=== PATIENT | female | born 1955 | race Caucasian/White ===

== ENCOUNTER 2020-07-24 11:21 | Outpatient (REF) | payer MEDICARE, SELFPAY ==
--- NOTE | 2020-07-24 11:24 | CT_ITS ---
EXAMINATION: CT CHEST WITHOUT CONTRAST CLINICAL INFORMATION: Abnormal finding. COMPARISON: Chest x-ray report of 09/26/2013. TECHNIQUE: Multidetector volumetric CT imaging of the chest was done. Axial MIP volume rendering provided. Sagittal and coronal reformatted images were obtained. This CT examination was performed using dose optimization techniques as appropriate, variously including the following: *Automated exposure control *Adjustment of mA and/or kV according to patient size (this includes techniques or standardized protocols for targeted exams where dose is matched to indication/reason for exam; i.e. extremities or head) *Use of iterative reconstruction technique DLP: 97 mGy-cm FINDINGS: LUNGS: Central airways are patent. There are severe changes of centrilobular emphysema. No bronchiectasis identified. No confluent parenchymal disease. There are some scattered calcified granulomas seen. There are some scattered sub-4 mm densities present. There is scarring present within the left upper lobe. There is a 4 mm noncalcified nodule seen within the left apex on image 59 of 609 in series #5. There is a 4 mm noncalcified nodule seen within the right middle lobe on image 371 of 609. There is a 4 mm noncalcified nodule seen within the right middle lobe on image 391 of 609. There is a 6 mm noncalcified subpleural nodule seen within the right middle lobe on image 347 of 609. 6 mm density associated with some linear stranding within the medial right middle lobe likely related to scarring on image 423 of 609. There is a 4 mm noncalcified nodule seen within the posterior aspect of the right upper lobe on image 214 of 609. There is a 7 mm noncalcified cylindrical density within the left lower lobe on image 392 of 609. There is a 6 mm density seen within the left lower lobe on image 307 of 609. There is a 5 mm pleural-based noncalcified density seen within the left lower lobe on image 462 of 609. There is an 8 mm noncalcified density seen at the right base adjacent to the hemidiaphragm. This is on image 522 of 609. MEDIASTINUM: No thyroid abnormality appreciated. Heart mildly enlarged. No pericardial effusion. No thoracic aortic aneurysm. No hilar or mediastinal lymphadenopathy. PLEURA: There is no pleural effusion. No pleural mass or thickening. AXILLA: No lymphadenopathy. UPPER ABDOMEN: There is a 2 cm left hepatic cyst. OSSEOUS STRUCTURES: No suspicious destructive bony lesion identified. CT/CT chest wo con IMPRESSION: Severe COPD. Numerous greater than 4 mm nodular densities as described. Old granulomatous disease. According to the UPDATED 2017 Fleischner Society recommendations, the advised follow-up imaging for multiple solid nodules, the largest measuring 6 mm or greater, is: LOW RISK PATIENT: CT at 3-6 months, then consider CT at 18-24 months. HIGH RISK PATIENT: CT at 3-6 months, then at 18-24 months.
== END 2020-07-24 11:22 | disposition home or self-care (01) ==
LOC: HO.CT 11:21
PROVIDERS: PCP Internal Medicine; Visit Provider Hospitalist
DX: R91.8 Other nonspecific abnormal finding of lung field (principal)
CPT/HCPCS: 71250

== ENCOUNTER → 2020-08-26 09:44 | Outpatient (BNVA) | payer MEDICARE, SELFPAY | PROVIDERS: PCP Internal Medicine; Visit Provider Hospitalist | DX: J43.2 Centrilobular emphysema (principal); R91.8 Other nonspecific abnormal finding of lung field; J96.11 Chronic respiratory failure with hypoxia; J96.12 Chronic respiratory failure with hypercapnia | CPT/HCPCS: 99212 ==

== ENCOUNTER 2021-01-12 09:50 | Outpatient (REF) | payer MEDICARE, SELFPAY ==
[2021-01-12 10:32] VITALS: O2SAT 95
[2021-01-12 11:54] LABS: ABG Base Excess 10.1 mmol/L; ABG HCO3 35 mmol/L (22-26); ABG pCO2 51 mmHg (32-45); ABG pCO2 TC 50 mmHg (32-45); ABG pH 7.44 (7.35-7.45); ABG pH TC 7.45 (7.35-7.45); ABG pO2 88 mmHg (83-108); ABG pO2 TC 86 (83-108)
--- NOTE | 2021-01-12 13:45 | PFT_ITS ---
INDICATION: COPD. SPIROMETRY: The FEV1 to FVC of 29% with an FEV1 of 0.47 L, which is 20% predicted, and an FVC of 1.65 L, which is 55% predicted. The patient had used her inhalers, so therefore, bronchodilators were not used. Her maximum voluntary ventilation 23% predicted. LUNG VOLUMES: Total lung capacity 113% predicted and residual volume 118% predicted. DIFFUSION CAPACITY: DLCO 21% predicted. COMPARISONS: The patient did have a spirometry done back at [facility] in 2018. INTERPRETATION: There is obstructive ventilatory defect consistent with very severe COPD. Again, bronchodilators were not used. There was a severe decrease in maximum voluntary ventilation secondary to deconditioning and also worsening dynamic inspiratory capacity. The patient has a trend of hyperinflation and significant air trapping due to the COPD and the patient has a very severe diffusion impairment secondary to emphysema. When compared to the spirometry from 2019, there was a trend improvement of the FVC. No significant change in the FEV1 and the other measurements were not available. Clinical correlation warranted. MD STEVE Gordon/YOKASTA / [id number]
== END 2021-01-12 09:51 | disposition home or self-care (01) ==
LOC: HO.RESP 09:50
PROVIDERS: Visit Provider Hospitalist
DX: J43.2 Centrilobular emphysema (principal); J96.11 Chronic respiratory failure with hypoxia; J96.12 Chronic respiratory failure with hypercapnia
CPT/HCPCS: 36600; 94010; 94727; 94729; 99212

== ENCOUNTER → 2021-05-14 10:16 | Outpatient (BNVA) | payer MEDICARE, SELFPAY | PROVIDERS: PCP Internal Medicine; Visit Provider Hospitalist | DX: Z01.811 Encounter for preprocedural respiratory examination (principal); J43.2 Centrilobular emphysema; J96.11 Chronic respiratory failure with hypoxia; J96.12 Chronic respiratory failure with hypercapnia; R91.8 Other nonspecific abnormal finding of lung field | CPT/HCPCS: 99212 ==

== ENCOUNTER → 2021-09-01 11:01 | Outpatient (BNVA) | payer MEDICARE, SELFPAY | PROVIDERS: PCP Internal Medicine; Visit Provider Hospitalist | DX: Z01.811 Encounter for preprocedural respiratory examination (principal); J43.2 Centrilobular emphysema; J96.11 Chronic respiratory failure with hypoxia; J96.12 Chronic respiratory failure with hypercapnia; R91.8 Other nonspecific abnormal finding of lung field; Z79.899 Other long term (current) drug therapy | CPT/HCPCS: Q3014 ==

== ENCOUNTER → 2021-11-09 09:49 | Outpatient (BNVA) | payer MEDICARE, SELFPAY | PROVIDERS: PCP Internal Medicine; Visit Provider Hospitalist | DX: J43.2 Centrilobular emphysema (principal); J96.11 Chronic respiratory failure with hypoxia; J96.12 Chronic respiratory failure with hypercapnia; R91.8 Other nonspecific abnormal finding of lung field; Z79.899 Other long term (current) drug therapy; Z99.81 Dependence on supplemental oxygen; Z23 Encounter for immunization | CPT/HCPCS: 90471; 90732; 99212 ==

== ENCOUNTER → 2022-02-07 10:51 | Outpatient (BNVA) | payer MEDICARE, SELFPAY | PROVIDERS: PCP Internal Medicine; Visit Provider Hospitalist | DX: J43.2 Centrilobular emphysema (principal); R91.8 Other nonspecific abnormal finding of lung field; J96.11 Chronic respiratory failure with hypoxia; J96.12 Chronic respiratory failure with hypercapnia | CPT/HCPCS: 99212 ==

== ENCOUNTER → 2022-05-13 11:09 | Outpatient (BNVA) | payer MEDICARE, SELFPAY | PROVIDERS: PCP Internal Medicine; Visit Provider Hospitalist | DX: J43.2 Centrilobular emphysema (principal); J96.11 Chronic respiratory failure with hypoxia; J96.12 Chronic respiratory failure with hypercapnia; R91.8 Other nonspecific abnormal finding of lung field | CPT/HCPCS: 99212 ==

== ENCOUNTER → 2022-11-04 10:14 | Outpatient (BNVA) | payer MEDICARE, SELFPAY | PROVIDERS: PCP Internal Medicine; Visit Provider Hospitalist | DX: J96.11 Chronic respiratory failure with hypoxia (principal); J96.12 Chronic respiratory failure with hypercapnia; J43.2 Centrilobular emphysema; R91.8 Other nonspecific abnormal finding of lung field | CPT/HCPCS: 99212 ==

== ENCOUNTER 2023-01-09 10:00 | Outpatient (REF) | payer MEDICARE, SELFPAY ==
[2023-01-09 10:14] LABS: MANUAL DIFF FLAG NO
[2023-01-09 10:17] LABS: Venous Blood Gas Refer to POC result
[2023-01-09 10:21] LABS: VBG Base Excess 20.3 mmol/L; VBG HCO3 48 mmol/L (22-26); VBG pCO2 73 mmHg; VBG pH 7.42 (7.32-7.43); VBG pO2 41 mmHg
[2023-01-09 10:42] LABS: Basophils Absolute Auto 0.1 X10*3/uL (0.0-0.2); Basophils Percent Auto 0.5 % (0-2); Eosinophils Absolute Auto 0.1 X10*3/uL (0.0-0.4); Eosinophils Percent Auto 1.3 % (0-4); Hematocrit 37.5 % (37.0-47.0); Hemoglobin 11.5 g/dl (12.0-16.0); Imm Gran Abs Auto 0.05 X10*3/uL (0.00-0.03); Imm Gran Pct Auto 0.5 % (0.0-0.4); Lymphocytes Absolute Auto 1.2 X10*3/uL (1.2-4.9); Lymphocytes Percent Auto 12.4 % (20-40); Mean Corpuscular HGB Conc 30.7 g/dl (31.0-35.0); Mean Corpuscular Hemoglobin 29.2 pg (27.0-33.0); Mean Corpuscular Volume 95.2 fL (80.0-98.0); Mean Platelet Volume 9.7 fL (9.4-12.3); Monocytes Absolute Auto 0.9 X10*3/uL (0.1-1.2); Monocytes Percent Auto 8.8 % (2-11); Neutrophils Absolute Auto 7.4 x10*3/uL (2.0-8.3); Neutrophils Percent Auto 76.5 % (45-73); Platelet Count 338 X10*3/uL (160-400); Red Blood Count 3.94 X10*6/uL (4.20-5.50); White Blood Count 9.7 X10*3/uL (4.8-10.8)
[2023-01-09 11:21] LABS: Erythrocyte Sedimentation Rate 34 MM/HR (0-20)
[2023-01-12 17:23] LABS: Alpha 1 Anti-trypsin 109 mg/dL (83-199)
== END 2023-01-09 10:01 | disposition home or self-care (01) ==
LOC: HO.LAB 10:00
PROVIDERS: PCP Internal Medicine; Visit Provider Hospitalist
DX: J96.11 Chronic respiratory failure with hypoxia (principal); J96.12 Chronic respiratory failure with hypercapnia; J43.2 Centrilobular emphysema; R91.8 Other nonspecific abnormal finding of lung field
CPT/HCPCS: 36415; 82103; 82803; 85025; 85652; 99212

== ENCOUNTER 2023-01-26 09:08 | Outpatient (REF) | payer MEDICARE, SELFPAY ==
[2023-01-26 09:29] LABS: MANUAL DIFF FLAG NO
[2023-01-26 09:31] LABS: Venous Blood Gas Refer to POC result
[2023-01-26 09:39] LABS: Basophils Percent Auto 0.4 % (0-2); Eosinophils Percent Auto 0.4 % (0-4); Hematocrit 39.2 % (37.0-47.0); Imm Gran Abs Auto 0.04 X10*3/uL (0.00-0.03); Imm Gran Pct Auto 0.4 % (0.0-0.4); Lymphocytes Absolute Auto 1.4 X10*3/uL (1.2-4.9); Lymphocytes Percent Auto 13.6 % (20-40); Mean Corpuscular HGB Conc 30.6 g/dl (31.0-35.0); Mean Corpuscular Hemoglobin 28.7 pg (27.0-33.0); Mean Corpuscular Volume 93.8 fL (80.0-98.0); Mean Platelet Volume 9.8 fL (9.4-12.3); Monocytes Absolute Auto 0.6 X10*3/uL (0.1-1.2); Monocytes Percent Auto 5.9 % (2-11); Neutrophils Percent Auto 79.3 % (45-73); Platelet Count 381 X10*3/uL (160-400); Red Blood Count 4.18 X10*6/uL (4.20-5.50); Red Cell Distribution Width 13.8 % (11.0-16.0)
[2023-01-26 09:40] LABS: VBG pCO2 65 mmHg; VBG pH 7.39 (7.32-7.43)
[2023-01-26 09:41] LABS: VBG Base Excess 12.1 mmol/L; VBG HCO3 39 mmol/L (22-26); VBG pO2 32 mmHg
[2023-01-26 09:53] LABS: Anion Gap 12 (12-20); Blood Urea Nitrogen 10 mg/dL (9-16); Calcium 9.9 mg/dL (8.4-10.2); Carbon Dioxide 35 mmol/L (22-29); Chloride 100 mmol/L (96-108); Estimated Glomerular Filt Rate > 60; Glucose Random 98 mg/dL (60-115); Potassium 5.7 mmol/L (3.3-5.1); Sodium 141 mmol/L (135-145)
== END 2023-01-26 09:09 | disposition home or self-care (01) ==
LOC: HO.LAB 09:08
PROVIDERS: PCP Internal Medicine; Visit Provider Hospitalist
DX: J43.2 Centrilobular emphysema (principal)
CPT/HCPCS: 36415; 80048; 82803; 85025; 99212

== ENCOUNTER 2023-04-25 09:36 | Outpatient (REF) | payer MEDICARE, SELFPAY ==
[2023-04-25 10:47] LABS: Venous Blood Gas Refer to POC result
[2023-04-25 10:50] LABS: VBG Base Excess 13.7 mmol/L; VBG HCO3 41 mmol/L (22-26); VBG pCO2 67 mmHg; VBG pH 7.39 (7.32-7.43); VBG pO2 36 mmHg
[2023-04-25 11:26] LABS: Thyroid Stimulating Hormone 19.75 uIU/mL (0.32-4.0)
== END 2023-04-25 09:37 | disposition home or self-care (01) ==
LOC: HO.LAB 09:36
PROVIDERS: Absent Provider Internal Medicine Cardiovascular Disease; PCP Internal Medicine; Visit Provider Hospitalist
DX: I48.21 Permanent atrial fibrillation (principal); I50.30 Unspecified diastolic (congestive) heart failure; J43.8 Other emphysema; I45.10 Unspecified right bundle-branch block; E03.2 Hypothyroidism due to medicaments and other exogenous substances; J96.11 Chronic respiratory failure with hypoxia; J96.12 Chronic respiratory failure with hypercapnia; J43.2 Centrilobular emphysema; R91.8 Other nonspecific abnormal finding of lung field
CPT/HCPCS: 36415; 82803; 84443; 99212

== ENCOUNTER 2023-04-25 09:36 | Outpatient (AMB) | payer MEDICARE, SELFPAY ==
[2023-04-25 09:41] VITALS: BP 110/60; PULSE 76; O2SAT 97; BMI 21.6
--- NOTE | 2023-04-25 09:41 | A.OFFVIS_ITS ---
Intake Vital Signs 04/25/23 09:41 Height 5 ft 3 in Weight 122 lb BMI 21.6 BP 110/60 Blood Pressure Location Rt brachial Position Sitting Pulse 76 Pulse Source Pulse Oximeter Pulse Oximetry (%) 97 Oxygen Delivery Method Room Air Comment 2 Liters Oxygen([employer]) Intake Visit Reasons: Centrilobular Emphysema Legal Coordinator Required: No Allergies No Known Allergies Allergy (Verified 04/25/23 09:44) HPI HPI Comments History of Present Illness Details The patient is a 67-year-old woman known asthma COPD overlap syndrome and also chronic rhinitis. Recently she was seen by Allergy and had allergy testing which was inconclusive. He has continued to use the Flovent HFA. The Flovent does not appear to work as well as the QVAR that she use before. She is still requiring her short-acting beta agonist more than twice a week. She has not been using her singular regularly. She has been complaining of worsening cough. Vkug-ip-[id number] severity. Also nasal congestion. She has been using nasal rinsing for her nose. She had been using Flonase but she has stopped many weeks ago. Also to note she has had pulmonary nodules noted on CT scans. Then she had a repeat CT scan demonstrating no pulmonary nodules (hawa Lucas in 2018). Also to note she has been on CCB of SVT. Her HR was found to be low 40-50's. The patient is wondering on decreasing or stopping the CCB. I would not recommend changing it to betablockers with her hyper-reactive airways. 05/13/2022 the patient is here for a pulmonary follow-up visit. Overall she continues to be about the same. Continues to have dyspnea on exertion. She does clear her oxygen call which is continuous at 2 L. at that time the patient did not qualify for the conserving device. She did not undergo the PFT and 6 minutes walk test. She does not like to do those tests she does not have to. I did explain to her that if she wants to move forward with lung volume reduction interventions that they will require those studies. In addition to that pulmonary rehabilitation will also require that we did talk about lung transplant. The patient is not interested at this time. She does have friends undergone lung transplant and she is not interested in pursuing this at this time. She continues using noninvasive ventilator at nighttime with good effect. The patient is tolerating the Daliresp without any significant weight loss. 11/04/2022 the patient is here for hospital follow-up visit. The patient was extremely ill back in August. She developed sudden acute on chronic respiratory failure. She was admitted to the ICU a [facility]. There she had a CT scan demonstrating a consolidation in the left upper lobe area. She was given multiple courses of antibiotics and she was maintained on BiPAP. She was close to getting intubated but she was able to stand noninvasive therapies. She became very weak during the hospitalization. She also had a cardiac issue was placed on amiodarone. She is also on Eliquis now. Therefore, we have to be very careful with her nebulized therapies to make sure did do not exacerbate her atrial fibrillation. We did look at her CT scan of the chest she had a couple. It appears that her last CT scan demonstrated a nodular density where she had the pneumonia. This brings up a concomitant process in case she could be having an evolving malignant process at that area. Her last CT scan was back in September so plan to repeat the CT scan in December to reassess the nodular density. The meantime she is currently at the intermediate. She is going to be going to her daughter's and hopefully getting a 1st floor apartment in view of her now requiring a walker and also wheelchair to get around. She cannot make it back home secondary to the fact that her home has stairs and she is not able to function at that capacity. She is also using her oxygen between 2-4 L. She is also using the noninvasive ventilator at nighttime. In the hospital she did have an elevation in her CO2 although her last ABG was reassuring with chronic hypercarbic respiratory failure without baseline CO2 of 77 mmHg. Will plan to repeat her blood work including Na a venous gas once she is discharged from rehab. 01/09/2023 the patient is here for pulmonary follow-up visit. She is still staying with her daughters. The patient has been participating in physical therapy and respiratory therapy at home through [facility] services. Mass is looking to relocate to a senior apartment. This is going to be I believe in January 2023. She has been not compliant or hearing due to her noninvasive ventilator because she has not been able to get proper supplies from her [employer] company. Will reach out to [facility] to make sure that they provide her with a new mask. I did look to see if I could provide her mask in the office but I did not have 1 that she could tolerate. She does respond well to the [employer] mask. In meantime she continues use the oxygen with good effect. The patient did have a venous blood gas which we reviewed pH was normal although her bicarbonate was up to 48 and her pCO2 was up to 73 mmHg. This is probably close to where she was when she was at [facility]. She needs to start using the noninvasive ventilator more hopefully when she gets the new mask he can do that more regularly. When she does that on give her some Diamox and she can take 1 dose to see if can decrease her bicarbonate some in order for her to be able to bring down her CO2. The patient follow-up in 3-4 weeks with another blood gas. I will also ask for a download from her [employer]. 04/25/2023 the patient is here for pulmonary follow-up visit. The patient is feeling a lot better. She did have some medication changes which made address take improvement in her overall more out energy and breathing. 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 In the meantime for respiratory status she is using her inhalers with good response. We did talk about cutting down the Daliresp because of the weight loss. In addition to that the patient has been using the oxygen and has been maintaining a between 2-4 L. No recent imaging studies to review no recent blood work. Will request a download again from the [employer], [place]. In addition will go ahead and request a repeat venous gas to assess her pCO2 on the current settings. The patient will return in 6 months or sooner if any new issues arise. [facility] Medical History (Updated 05/16/21 @ 20:50 by Addison Aranda MD) Centrilobular emphysema Pre-op chest exam Pulmonary nodules Respiratory failure Social History (Updated 05/14/21 @ 10:31 by ROSITA Jarquin) Patient Tobacco Use Status: Former Tobacco user Tobacco use type: Cigarette Years Smoked: 30 years Review of Systems Const Denies night sweats and Reports weight loss ENT Denies change in voice, Denies lip swelling, Denies mouth pain, Reports nasal congestion, Reports nasal discharge and Denies tongue swelling Card Denies chest pain and Reports dyspnea on exertion Resp Denies chest congestion, Reports cough and Reports dyspnea on exertion GI Denies abdominal pain Musc Denies no additional complaints, Reports abnormal gait and Reports muscle weakness Neuro Reports Neuro-related abnormal movements and Reports abnormal gait Psych Denies no additional complaints Edson/Lymph Denies easy bleeding and Denies lymphadenopathy Aller/Immun Denies lip swelling and Denies tongue swelling Physical Exam Vital Signs: Last Vital Signs Pulse 76 04/25/23 09:41 BP 110/60 04/25/23 09:41 Pulse Ox 97 04/25/23 09:41 Oxygen Delivery Method Room Air 04/25/23 09:41 BMI result Body Mass Index 21.6 Const General: alert Neck Neck: Yes normal visual inspection, Yes full ROM and Yes no lymphadenopathy Chest Chest palpation & inspection: normal inspection of the chest Resp Auscultation: no rales, no rhonchi, no wheezes and diminished lung sounds Cardio Rate: regular rate Rhythm: regular rhythm Heart sounds: S1 normal heart sound present and S2 normal heart sound present GI Palpation (GI): Soft to palpation and nontender Auscultation: normal bowel sounds Skin General skin exam: rashes and/or lesions noted Assessment & Plan Assessment & Plan (1) Respiratory failure: Code(s): J96.90 - Respiratory failure, unspecified, unspecified whether with hypoxia or hypercapnia Qualifiers: Chronicity: chronic Respiratory failure complication: hypoxia and hypercapnia Qualified Code(s): J96.11 - Chronic respiratory failure with hypoxia; J96.12 - Chronic respiratory failure with hypercapnia (2) Centrilobular emphysema: Code(s): J43.2 - Centrilobular emphysema (3) Pulmonary nodules: Code(s): R91.8 - Other nonspecific abnormal finding of lung field Plan Continue Daliresp 500mcg, consider every other day Continue wixela and spiriva Xopenex MEGAN as needed CPT with nebs and acapella valve 2 times a day Oxygen supplementation 2-4 liters Noninvasive ventilator at nighttime and as needed requesting a Trilogy download Follow-up 4-6 months Orders: Orders Venous Blood Gas Today J96.90 - Respiratory failure, unspecified, unspecified whether with hypoxia or hypercapnia Coding Level of Care Code Est Pt Level 4 (95217) Diagnoses Respiratory failure J96.11; J96.12 Chronicity: chronic Respiratory failure complication: hypoxia and hypercapnia Centrilobular emphysema J43.2 Pulmonary nodules R91.8 Time Spent (min) 18
== END 2023-04-25 10:05 | disposition home or self-care (01) ==
PROVIDERS: PCP Internal Medicine; Visit Provider Hospitalist
DX: J96.11 Chronic respiratory failure with hypoxia (principal); J96.12 Chronic respiratory failure with hypercapnia; J43.2 Centrilobular emphysema; R91.8 Other nonspecific abnormal finding of lung field
CPT/HCPCS: 99214

== ENCOUNTER 2023-10-24 11:06 | Outpatient (REF) | payer MEDICARE, SELFPAY ==
[2023-10-24 12:29] LABS: Venous Blood Gas Refer to POC result
[2023-10-24 12:42] LABS: VBG Base Excess 13.9 mmol/L; VBG HCO3 41 mmol/L (22-26); VBG pCO2 66 mmHg; VBG pO2 31 mmHg
[2023-10-24 14:53] LABS: Anion Gap 10 (12-20); Blood Urea Nitrogen 11 mg/dL (9-16); Calcium 9.9 mg/dL (8.4-10.2); Carbon Dioxide 37 mmol/L (22-29); Chloride 98 mmol/L (96-108); Estimated Glomerular Filt Rate > 60; Glucose Random 89 mg/dL (60-115); Potassium 3.5 mmol/L (3.3-5.1); Sodium 141 mmol/L (135-145)
[2023-10-25 13:34] LABS: Alpha 1 Anti-trypsin 108 mg/dL (83-199)
== END 2023-10-24 11:07 | disposition home or self-care (01) ==
LOC: HO.LAB 11:06
PROVIDERS: PCP Internal Medicine; Visit Provider Hospitalist
DX: J96.90 Respiratory failure, unspecified, unspecified whether with hypoxia or hypercapnia (principal); J43.2 Centrilobular emphysema; J96.11 Chronic respiratory failure with hypoxia; J96.12 Chronic respiratory failure with hypercapnia
CPT/HCPCS: 36415; 80048; 82103; 82803; 99212

== ENCOUNTER 2023-10-24 11:06 | Outpatient (AMB) | payer MEDICARE, SELFPAY ==
[2023-10-24 11:20] VITALS: PULSE 87; O2SAT 98; BMI 23.4
--- NOTE | 2023-10-24 11:20 | A.OFFVIS_ITS ---
Intake Vital Signs 10/24/23 11:20 Height 5 ft 3 in Weight 132 lb BMI 23.4 Pulse 87 Pulse Source Pulse Oximeter Pulse Oximetry (%) 98 Oxygen Delivery Method Room Air Comment 2 Liters Oxygen([facility]) Intake Visit Reasons: Centrilobular Emphysema Ticket Writer Required: No Allergies No Known Allergies Allergy (Verified 10/24/23 11:22) HPI HPI Comments History of Present Illness Details The patient is a 68-year-old woman known asthma COPD overlap syndrome and also chronic rhinitis. Recently she was seen by Allergy and had allergy testing which was inconclusive. He has continued to use the Flovent HFA. The Flovent does not appear to work as well as the QVAR that she use before. She is still requiring her short-acting beta agonist more than twice a week. She has not been using her singular regularly. She has been complaining of worsening cough. Sgth-wq-cstlzhvj severity. Also nasal congestion. She has been using nasal rinsing for her nose. She had been using Flonase but she has stopped many weeks ago. Also to note she has had pulmonary nodules noted on CT scans. Then she had a repeat CT scan demonstrating no pulmonary nodules (hawa Lucas in 2018). Also to note she has been on CCB of SVT. Her HR was found to be low 40-50's. The patient is wondering on decreasing or stopping the CCB. I would not recommend changing it to betablockers with her hyper-reactive airways. 05/13/2022 the patient is here for a pulmonary follow-up visit. Overall she continues to be about the same. Continues to have dyspnea on exertion. She does clear her oxygen call which is continuous at 2 L. at that time the patient did not qualify for the conserving device. She did not undergo the PFT and 6 minutes walk test. She does not like to do those tests she does not have to. I did explain to her that if she wants to move forward with lung volume reduction interventions that they will require those studies. In addition to that pulmonary rehabilitation will also require that we did talk about lung transplant. The patient is not interested at this time. She does have friends undergone lung transplant and she is not interested in pursuing this at this time. She continues using noninvasive ventilator at nighttime with good effect. The patient is tolerating the Daliresp without any significant weight loss. 11/04/2022 the patient is here for [facility] follow-up visit. The patient was extremely ill back in August. She developed sudden acute on chronic respiratory failure. She was admitted to the ICU a [facility]. There she had a CT scan demonstrating a consolidation in the left upper lobe area. She was given multiple courses of antibiotics and she was maintained on BiPAP. She was close to getting intubated but she was able to stand noninvasive therapies. She became very weak during the hospitalization. She also had a cardiac issue was placed on amiodarone. She is also on Eliquis now. Therefore, we have to be very careful with her nebulized therapies to make sure did do not exacerbate her atrial fibrillation. We did look at her CT scan of the chest she had a couple. It appears that her last CT scan demonstrated a nodular density where she had the pneumonia. This brings up a concomitant process in case she could be having an evolving malignant process at that area. Her last CT scan was back in September so plan to repeat the CT scan in December to reassess the nodular density. The meantime she is currently at the custodial. She is going to be going to her daughter's and hopefully getting a 1st floor apartment in view of her now requiring a walker and also wheelchair to get around. She cannot make it back home secondary to the fact that her home has stairs and she is not able to function at that capacity. She is also using her oxygen between 2-4 L. She is also using the noninvasive ventilator at nighttime. In the hospital she did have an elevation in her CO2 although her last ABG was reassuring with chronic hypercarbic respiratory failure without baseline CO2 of 77 mmHg. Will plan to repeat her blood work including Na a venous gas once she is discharged from rehab. 01/09/2023 the patient is here for pulmon michelle follow-up visit. She is still staying with her daughters. The patient has been participating in physical therapy and respiratory therapy at home through [facility] services. Mass is looking to relocate to a senior apartment. This is going to be I believe in January 2023. She has been not compliant or hearing due to her noninvasive ventilator because she has not been able to get proper supplies from her [employer] company. Will reach out to [facility] to make sure that they provide her with a new mask. I did look to see if I could provide her mask in the office but I did not have 1 that she could tolerate. She does respond well to the Ly View mask. In meantime she continues use the oxygen with good effect. The patient did have a venous blood gas which we reviewed pH was normal although her bicarbonate was up to 48 and her pCO2 was up to 73 mmHg. This is probably close to where she was when she was at [facility]. She needs to start using the noninvasive ventilator more hopefully when she gets the new mask he can do that more regularly. When she does that on give her some Diamox and she can take 1 dose to see if can decrease her bicarbonate some in order for her to be able to bring down her CO2. The patient follow-up in 3-4 weeks with another blood gas. I will also ask for a download from her [facility]. 04/25/2023 the patient is here for pulmona ry follow-up visit. The patient is feeling a lot better. She did have some medication changes which made address take improvement in her overall more out energy and breathing. 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 In the meantime for respiratory status she is using her inhalers with good response. We did talk about cutting down the Daliresp because of the weight loss. In addition to that the patient has been using the oxygen and has been maintaining a between 2-4 L. No recent imaging studies to review no recent blood work. Will request a download again from the [facility], [place]. In addition will go ahead and request a repeat venous gas to assess her pCO2 on the current settings. The patient will return in 6 months or sooner if any new issues arise. 10/24/2023 the patient is here for a pulmonary follow-up visit. Overall the patient has been doing better. She still has dyspnea on exertion but she has been more active. She is exercising on a regular basis. She is using her oxygen. She does use the oxygen for the most part continues although she does take it off when she is eating or sitting. I did explain to her that his lungs are oxygens above 90% and she is with family can take it off continue to monitor closely. She continues use her respiratory medicines good effect. She is also using her noninvasive ventilator. She did bring blood work that she has an outpatient. Her bicarb 37. This baseline bicarb due to the fact that she has chronic hypercarbic respiratory failure. We did go ahead and recheck her blood gas in her acid-base status is stable her pCO2 66 and her measured bicarb was also 37. I believe that 37 is a good baseline number for her. Will continue to monitor and consider Diamox only if her bicarb is above 40 on the basic metabolic panel. We also did read send blood work including a DNA for alpha-1 antitrypsin deficiency in view of her extensive emphysema. The patient also has multiple nodular densities. Last CT scan was back November 2022 at [facility]. We did personally reviewed. And she is due for CT scan. She is on the fence based on the fact that based on her lung capacity is not that we can do significant amount of diagnostic interventions specially biopsies. Still though will continue to monitor this nodular density so therefore will repeat the CT scan prior to her next visit in 6 months. If the patient has any worsening symptoms prior to that she will call for an earlier assessment. [facility] Medical History (Updated 05/16/21 @ 20:50 by Addison Aranda MD) Pre-op chest exam Respiratory failure Centrilobular emphysema Pulmonary nodules Social History (Updated 05/14/21 @ 10:31 by ROSITA Jarquin) Patient Tobacco Use Status: Former Tobacco user Tobacco use type: Cigarette Years Smoked: 30 years Review of Systems Const Denies night sweats and Reports weight loss ENT Denies change in voice, Denies lip swelling, Denies mouth pain, Reports nasal congestion, Reports nasal discharge and Denies tongue swelling Card Denies chest pain and Reports dyspnea on exertion Resp Denies chest congestion, Reports cough and Reports dyspnea on exertion GI Denies abdominal pain Musc Denies no additional complaints and Reports abnormal gait Skin/Breast Denies rash Neuro Reports Neuro-related abnormal movements and Reports abnormal gait Psych Denies no additional complaints Edson/Lymph Denies easy bleeding and Denies lymphadenopathy Aller/Immun Denies lip swelling and Denies tongue swelling Physical Exam Vital Signs: Last Vital Signs Pulse 87 10/24/23 11:20 Pulse Ox 98 10/24/23 11:20 Oxygen Delivery Method Room Air 10/24/23 11:20 BMI result Body Mass Index 23.4 Const General: alert HEENT Head: Yes normocephalic Neck Neck: Yes normal visual inspection, Yes full ROM and Yes no lymphadenopathy Chest Chest palpation & inspection: normal inspection of the chest Resp Effort & Inspection: normal respiratory effort Auscultation: no rales, no rhonchi, no wheezes and diminished lung sounds Cardio Rate: regular rate Rhythm: regular rhythm Heart sounds: S1 normal heart sound present and S2 normal heart sound present GI Palpation (GI): Soft to palpation and nontender Auscultation: normal bowel sounds Skin General skin exam: no rashes or lesions noted Extrem General: Yes no clubbing, cyanosis or edema Assessment & Plan Assessment & Plan (1) Respiratory failure: Code(s): J96.90 - Respiratory failure, unspecified, unspecified whether with hypoxia or hypercapnia Qualifiers: Chronicity: chronic Respiratory failure complication: hypoxia and hypercapnia Qualified Code(s): J96.11 - Chronic respiratory failure with hypoxia; J96.12 - Chronic respiratory failure with hypercapnia (2) Centrilobular emphysema: Code(s): J43.2 - Centrilobular emphysema (3) Pulmonary nodules: Code(s): R91.8 - Other nonspecific abnormal finding of lung field Plan Continue Daliresp 500mcg, consider every other day Continue wixela and spiriva Xopenex MEGAN as needed CPT with nebs and acapella valve 2 times a day Oxygen supplementation 2-4 liters Noninvasive ventilator at nighttime and as needed requesting a Trilogy download Bloodgas and bloodwork (baseline HCO3 is 37) DNA swab for alpha 1 anti trypsin def Follow-up 4-6 months Orders: Orders Venous Blood Gas Today J43.2 - Centrilobular emphysema, J96.90 - Respiratory failure, unspecified, unspecified whether with hypoxia or hypercapnia Basic Metabolic Panel Today J43.2 - Centrilobular emphysema, J96.90 - Respiratory failure, unspecified, unspecified whether with hypoxia or h ypercapnia Alpha 1 Anti-trypsin Today J43.2 - Centrilobular emphysema, J96.90 - Respiratory failure, unspecified, unspecified whether with hypoxia or hypercapnia Coding Level of Care Code Est Pt Level 4 (61526) Diagnoses Chronic respiratory failure with hypoxia and hypercapnia J96.11; J96.12 Chronicity: chronic Respiratory failure complication: hypoxia and hypercapnia Centrilobular emphysema J43.2 Pulmonary nodules R91.8 Time Spent (min) 17
== END 2023-10-24 11:52 | disposition home or self-care (01) ==
PROVIDERS: PCP Internal Medicine; Visit Provider Hospitalist
DX: J96.11 Chronic respiratory failure with hypoxia (principal); J96.12 Chronic respiratory failure with hypercapnia; J43.2 Centrilobular emphysema; R91.8 Other nonspecific abnormal finding of lung field
CPT/HCPCS: 99214

== ENCOUNTER 2024-03-29 11:11 | Outpatient (AMB) | payer MEDICARE, SELFPAY ==
--- NOTE | 2024-03-29 11:15 | MHC.OFFVIS ---
Vital Signs 03/29/24 11:17 Height 5 ft 4 in Weight 140 lb BMI 24.0 BP 110/60 Blood Pressure Location Lt brachial Position Sitting Pulse 65 Pulse Source Pulse Oximeter Pulse Oximetry (%) 98 Oxygen Delivery Method Room Air Comment 2 Liters Oxygen([facility]) Intake Visit Reasons: Centrilobular Emphysema Director Radiation Oncology Required: No Allergies No Known Allergies Allergy (Verified 03/29/24 11:18) HPI Comments Details: The patient is a 68-year-old woman known asthma COPD overlap syndrome and also chronic rhinitis. Recently she was seen by Allergy and had allergy testing which was inconclusive. He has continued to use the Flovent HFA. The Flovent does not appear to work as well as the QVAR that she use before. She is still requiring her short-acting beta agonist more than twice a week. She has not been using her singular regularly. She has been complaining of worsening cough. Qbsr-en-nwmlpokq severity. Also nasal congestion. She has been using nasal rinsing for her nose. She had been using Flonase but she has stopped many weeks ago. Also to note she has had pulmonary nodules noted on CT scans. Then she had a repeat CT scan demonstrating no pulmonary nodules (hwaa Lucas in 2018). Also to note she has been on CCB of SVT. Her HR was found to be low 40-50's. The patient is wondering on decreasing or stopping the CCB. I would not recommend changing it to betablockers with her hyper-reactive airways. 05/13/2022 the patient is here for a pulmonary follow-up visit. Overall she continues to be about the same. Continues to have dyspnea on exertion. She does clear her oxygen call which is continuous at 2 L. at that time the patient did not qualify for the conserving device. She did not undergo the PFT and 6 minutes walk test. She does not like to do those tests she does not have to. I did explain to her that if she wants to move forward with lung volume reduction interventions that they will require those studies. In addition to that pulmonary rehabilitation will also require that we did talk about lung transplant. The patient is not interested at this time. She does have friends undergone lung transplant and she is not interested in pursuing this at this time. She continues using noninvasive ventilator at nighttime with good effect. The patient is tolerating the Daliresp without any significant weight loss. 11/04/2022 the patient is here for hospital follow-up visit. The patient was extremely ill back in August. She developed sudden acute on chronic respiratory failure. She was admitted to the ICU a [facility]. There she had a CT scan demonstrating a consolidation in the left upper lobe area. She was given multiple courses of antibiotics and she was maintained on BiPAP. She was close to getting intubated but she was able to stand noninvasive therapies. She became very weak during the hospitalization. She also had a cardiac issue was placed on amiodarone. She is also on Eliquis now. Therefore, we have to be very careful with her nebulized therapies to make sure did do not exacerbate her atrial fibrillation. We did look at her CT scan of the chest she had a couple. It appears that her last CT scan demonstrated a nodular density where she had the pneumonia. This brings up a concomitant process in case she could be having an evolving malignant process at that area. Her last CT scan was back in September so plan to repeat the CT scan in December to reassess the nodular density. The meantime she is currently at the skilled nursing. She is going to be going to her daughter's and hopefully getting a 1st floor apartment in view of her now requiring a walker and also wheelchair to get around. She cannot make it back home secondary to the fact that her home has stairs and she is not able to function at that capacity. She is also using her oxygen between 2-4 L. She is also using the noninvasive ventilator at nighttime. In the hospital she did have an elevation in her CO2 although her last ABG was reassuring with chronic hypercarbic respiratory failure without baseline CO2 of 77 mmHg. Will plan to repeat her blood work including Na a venous gas once she is discharged from rehab. 01/09/2023 the patient is here for pulmonary follow-up visit. She is still staying with her daughters. The patient has been participating in physical therapy and respiratory therapy at home through VNA services. Mass is looking to relocate to a senior apartment. This is going to be I believe in January 2023. She has been not compliant or hearing due to her noninvasive ventilator because she has not been able to get proper supplies from her [employer] company. Will reach out to [facility] to make sure that they provide her with a new mask. I did look to see if I could provide her mask in the office but I did not have 1 that she could tolerate. She does respond well to the Ly View mask. In meantime she continues use the oxygen with good effect. The patient did have a venous blood gas which we reviewed pH was normal although her bicarbonate was up to 48 and her pCO2 was up to 73 mmHg. This is probably close to where she was when she was at [facility]. She needs to start using the noninvasive ventilator more hopefully when she gets the new mask he can do that more regularly. When she does that on give her some Diamox and she can take 1 dose to see if can decrease her bicarbonate some in order for her to be able to bring down her CO2. The patient follow-up in 3-4 weeks with another blood gas. I will also ask for a download from her [employer]. 04/25/2023 the patient is here for pulmonary follow-up visit. The patient is feeling a lot better. She did have some medication changes which made address take improvement in her overall more out energy and breathing. 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 In the meantime for respiratory status she is using her inhalers with good response. We did talk about cutting down the Daliresp because of the weight loss. In addition to that the patient has been using the oxygen and has been maintaining a between 2-4 L. No recent imaging studies to review no recent blood work. Will request a download again from the [employer], [place]. In addition will go ahead and request a repeat venous gas to assess her pCO2 on the current settings. The patient will return in 6 months or sooner if any new issues arise. 03/29/2024 the patient is here for a pulmonary follow-up visit. Overall the patient has been doing better. She still has dyspnea on exertion but she has been more active. She is exercising on a regular basis. She is using her oxygen. She does use the oxygen for the most part continues although she does take it off when she is eating or sitting. I did explain to her that his lungs are oxygens above 90% and she is with family can take it off continue to monitor closely. She continues use her respiratory medicines good effect. She is also using her noninvasive ventilator. She did bring blood work that she has an outpatient. Her bicarb 37. This baseline bicarb due to the fact that she has chronic hypercarbic respiratory failure. We did go ahead and recheck her blood gas in her acid-base status is stable her pCO2 66 and her measured bicarb was also 37. I believe that 37 is a good baseline number for her. Will continue to monitor and consider Diamox only if her bicarb is above 40 on the basic metabolic panel. We also did read send blood work including a DNA for alpha-1 antitrypsin deficiency in view of her extensive emphysema. The patient also has multiple nodular densities. Last CT scan was back November 2022 at [facility]. We did personally reviewed. And she is due for CT scan. She is on the fence based on the fact that based on her lung capacity is not that we can do significant amount of diagnostic interventions specially biopsies. Still though will continue to monitor this nodular density so therefore will repeat the CT scan prior to her next visit in 6 months. If the patient has any worsening symptoms prior to that she will call for an earlier assessment. [facility] Medical History (Updated 05/16/21 @ 20:50 by Addison Aranda MD) Pre-op chest exam Respiratory failure Centrilobular emphysema Pulmonary nodules Social History (Updated 05/14/21 @ 10:31 by ROSITA Jarquin) Patient Tobacco Use Status: Former Tobacco user Tobacco use type: Cigarette Years Smoked: 30 years Review of Systems Const Denies night sweats and Reports weight loss ENT Denies change in voice, Denies lip swelling, Denies mouth pain, Reports nasal congestion, Reports nasal discharge and Denies tongue swelling Card Denies chest pain and Reports dyspnea on exertion Resp Denies chest congestion, Reports cough and Reports dyspnea on exertion GI Denies abdominal pain Musc Denies no additional complaints and Reports abnormal gait Skin/Breast Denies rash Neuro Reports Neuro-related abnormal movements and Reports abnormal gait Psych Denies no additional complaints Edson/Lymph Denies easy bleeding and Denies lymphadenopathy Aller/Immun Denies lip swelling and Denies tongue swelling Physical Exam Vital Signs: Last Vital Signs Pulse 65 03/29/24 11:17 BP 110/60 03/29/24 11:17 Pulse Ox 98 03/29/24 11:17 Oxygen Delivery Method Room Air 03/29/24 11:17 BMI result Body Mass Index 24.0 Const General: alert HEENT Head: Yes normocephalic Neck Neck: Yes normal visual inspection, Yes full ROM and Yes no lymphadenopathy Chest Chest palpation & inspection: normal inspection of the chest Resp Effort & Inspection: normal respiratory effort Auscultation: no rales, no rhonchi, no wheezes and diminished lung sounds Cardio Rate: regular rate Rhythm: regular rhythm Heart sounds: S1 normal heart sound present and S2 normal heart sound present GI Palpation (GI): Soft to palpation and nontender Auscultation: normal bowel sounds Skin General skin exam: no rashes or lesions noted Extrem General: Yes no clubbing, cyanosis or edema Assessment & Plan Assessment & Plan (1) Respiratory failure: Code(s): J96.90 - Respiratory failure, unspecified, unspecified whether with hypoxia or hypercapnia Category: Medical Qualifiers: Chronicity: chronic Respiratory failure complication: hypoxia and hypercapnia Qualified Code(s): J96.11 - Chronic respiratory failure with hypoxia; J96.12 - Chronic respiratory failure with hypercapnia (2) Centrilobular emphysema: Code(s): J43.2 - Centrilobular emphysema Category: Medical (3) Pulmonary nodules: Code(s): R91.8 - Other nonspecific abnormal finding of lung field Category: Medical Plan Continue Daliresp 500mcg, consider every other day Continue Symbicort and spiriva Xopenex MEGAN as needed CPT with nebs and acapella valve 2 times a day Oxygen supplementation 2-4 liters Noninvasive ventilator at nighttime and as needed requesting a Trilogy download Bloodgas and bloodwork (baseline HCO3 is 37) CT chest to reassess pulmonary nodules Follow-up 4-6 months Orders: Orders Complete Blood Count Auto Diff 03/29/24 J96.11 - Chronic respiratory failure with hypoxia, J96.12 - Chronic respiratory failure with hypercapnia, J43.2 - Centrilobular emphysema, R91.8 - Other nonspecific abnormal finding of lung field CT chest wo IV con 3 Months R91.8 - Other nonspecific abnormal finding of lung field Venous Blood Gas 03/29/24 J96.11 - Chronic respiratory failure with hypoxia, J96.12 - Chronic respiratory failure with hypercapnia, J43.2 - Centrilobular emphysema, R91.8 - Other nonspecific abnormal finding of lung field Basic Metabolic Panel 03/29/24 J96.11 - Chronic respiratory failure with hypoxia, J96.12 - Chronic respiratory failure with hypercapnia, J43.2 - Centrilobular emphysema, R91.8 - Other nonspecific abnormal finding of lung field Erythrocyte Sedimentation Rate 03/29/24 J96.11 - Chronic respiratory failure with hypoxia, J96.12 - Chronic respiratory failure with hypercapnia, J43.2 - Centrilobular emphysema, R91.8 - Other nonspecific abnormal finding of lung field Coding Level of Care Code Est Pt Level 4 (22417) Complex EM visit Add On G2211 Diagnoses Chronic respiratory failure with hypoxia and hypercapnia J96.11; J96.12 Chronicity: chronic Respiratory failure complication: hypoxia and hypercapnia Centrilobular emphysema J43.2 Pulmonary nodules R91.8 Time Spent (min) 18
[2024-03-29 11:17] VITALS: BP 110/60; PULSE 65; O2SAT 98; BMI 24.0
== END 2024-03-29 11:41 | disposition home or self-care (01) ==
PROVIDERS: PCP Internal Medicine; Visit Provider Hospitalist
DX: J96.11 Chronic respiratory failure with hypoxia (principal); J96.12 Chronic respiratory failure with hypercapnia; J43.2 Centrilobular emphysema; R91.8 Other nonspecific abnormal finding of lung field
CPT/HCPCS: 99214; G2211

== ENCOUNTER 2024-03-29 11:11 | Outpatient (REF) | payer MEDICARE, SELFPAY ==
[2024-03-29 11:59] LABS: MANUAL DIFF FLAG NO
[2024-03-29 12:03] LABS: Venous Blood Gas Refer to POC result
[2024-03-29 12:07] LABS: VBG Base Excess 12.4 mmol/L; VBG HCO3 39 mmol/L (22-26); VBG pCO2 65 mmHg; VBG pH 7.39 (7.32-7.43); VBG pO2 39 mmHg
[2024-03-29 12:15] LABS: Basophils Absolute Auto 0.1 X10*3/uL (0.0-0.2); Basophils Percent Auto 0.5 % (0-2); Eosinophils Absolute Auto 0.1 X10*3/uL (0.0-0.4); Eosinophils Percent Auto 0.6 % (0-4); Hematocrit 37.6 % (37.0-47.0); Hemoglobin 11.8 g/dl (12.0-16.0); Imm Gran Abs Auto 0.04 X10*3/uL (0.00-0.03); Imm Gran Pct Auto 0.4 % (0.0-0.4); Lymphocytes Absolute Auto 1.3 X10*3/uL (1.2-4.9); Lymphocytes Percent Auto 12.3 % (20-40); Mean Corpuscular HGB Conc 31.4 g/dl (31.0-35.0); Mean Corpuscular Hemoglobin 28.9 pg (27.0-33.0); Mean Corpuscular Volume 92.2 fL (80.0-98.0); Mean Platelet Volume 9.8 fL (9.4-12.3); Monocytes Absolute Auto 0.6 X10*3/uL (0.1-1.2); Monocytes Percent Auto 5.7 % (2-11); Neutrophils Absolute Auto 8.4 x10*3/uL (2.0-8.3); Neutrophils Percent Auto 80.5 % (45-73); Platelet Count 351 X10*3/uL (160-400); Red Blood Count 4.08 X10*6/uL (4.20-5.50); Red Cell Distribution Width 13.3 % (11.0-16.0); White Blood Count 10.4 X10*3/uL (4.8-10.8)
[2024-03-29 12:30] LABS: Anion Gap 11 (12-20); Blood Urea Nitrogen 13 mg/dL (9-16); Calcium 10.1 mg/dL (8.4-10.2); Carbon Dioxide 37 mmol/L (22-29); Chloride 99 mmol/L (96-108); Estimated Glomerular Filt Rate > 60; Glucose Random 102 mg/dL (60-115); Sodium 143 mmol/L (135-145)
[2024-03-29 13:43] LABS: Erythrocyte Sedimentation Rate 34 MM/HR (0-20)
== END 2024-03-29 11:12 | disposition home or self-care (01) ==
LOC: HO.LAB 11:11
PROVIDERS: PCP Internal Medicine; Visit Provider Hospitalist
DX: J96.90 Respiratory failure, unspecified, unspecified whether with hypoxia or hypercapnia (principal); J43.2 Centrilobular emphysema; J96.11 Chronic respiratory failure with hypoxia; J96.12 Chronic respiratory failure with hypercapnia; R91.8 Other nonspecific abnormal finding of lung field
CPT/HCPCS: 36415; 80048; 82803; 85025; 85652; 99212

== ENCOUNTER 2024-07-01 10:56 | Outpatient (REF) | payer MEDICARE, SELFPAY ==
--- NOTE | ~2024-07-01 | CT_ITS ---
EXAMINATION: CT CHEST WITHOUT CONTRAST CLINICAL INFORMATION: Pulmonary nodules COMPARISON: CT chest 07/24/2020 : Numerous greater than 4 mm nodular densities as described . TECHNIQUE: Multidetector volumetric CT imaging of the chest was obtained after without intravenous contrast. Axial MIP volume rendering provided. Sagittal and coronal reformatted images were obtained. This CT examination was performed using dose optimization techniques as appropriate, variously including the following: *Automated exposure control *Adjustment of mA and/or kV according to patient size (this includes techniques or standardized protocols for targeted exams where dose is matched to indication/reason for exam; i.e. extremities or head) *Use of iterative reconstruction technique DLP: 82 below this is slightly more mGy-cm FINDINGS: LUNGS: Severe emphysematous changes are present most marked at the lung apices. At the time of the prior study, multiple pulmonary nodules were seen many of which have resolved. There are some new nodular density seen the largest of which measure: 7.6 x 4.5 x 5.7 mm (5:396) in the right lower lobe posteriorly. 10.9 x 7.8 x 8.3 mm (5:479) in the right lower lobe posteriorly. 6.6 x 3.6 x 4.0 mm (5:365) in the left lower lobe MEDIASTINUM: The mediastinum is unremarkable. No adenopathy. No aortic aneurysm. Visualized thyroid normal.. CORONARY ARTERY CALCIUM: Minimal PLEURA: There is no pleural effusion. No pleural mass or thickening. AXILLA: No lymphadenopathy. UPPER ABDOMEN: A small hepatic hypodensity is seen. The previously seen 2 cm hepatic cyst is not included on the current exam. No concerning liver mass is seen. OSSEOUS STRUCTURES: Unremarkable. CT/CT chest wo IV con IMPRESSION: 1. Severe emphysema. 2. Multiple pulmonary nodules are seen (waxing and waning), some of which have resolved and some of which are new. The largest measures 10.9 mm. I suspect these may be inflammatory. Short-term follow-up in 3 months is recommended. According to the UPDATED 2017 Fleischner Society recommendations, the advised follow-up imaging for a single solid nodule measuring greater than [address] at 3 months, PET/CT, or tissue sampling as clinically appropriate. Electronically signed by: Ian Monae MD 07/01/2024 03:23 PM [facility]
== END 2024-07-01 10:57 | disposition home or self-care (01) ==
LOC: HO.CT 10:56
PROVIDERS: PCP Internal Medicine; Visit Provider Hospitalist
DX: R91.8 Other nonspecific abnormal finding of lung field (principal)
CPT/HCPCS: 71250

== ENCOUNTER 2024-08-02 10:30 | Outpatient (AMB) | payer MEDICARE, SELFPAY ==
[2024-08-02 10:42] VITALS: BP 122/64; PULSE 121; O2SAT 97; BMI 23.6
--- NOTE | 2024-08-02 10:42 | A.OFFVIS_ITS ---
Vital Signs 08/02/24 10:42 Height 5 ft 4 in Weight 137 lb 12.623 oz BMI 23.6 BP 122/64 Blood Pressure Location Lt brachial Position Sitting Pulse 121 H Pulse Source Pulse Oximeter Pulse Oximetry (%) 97 Oxygen Delivery Method Nasal Cannula Oxygen Flow Rate 3 Intake Visit Reasons: copd Utility Teller Required: No Allergies No Known Allergies Allergy (Verified 08/02/24 10:45) HPI Comments Details: The patient is a 69-year-old woman known asthma COPD overlap syndrome and also chronic rhinitis. Recently she was seen by Allergy and had allergy testing which was inconclusive. He has continued to use the Flovent HFA. The Flovent does not appear to work as well as the QVAR that she use before. She is still requiring her short-acting beta agonist more than twice a week. She has not been using her singular regularly. She has been complaining of worsening cough. Mild-to-m oderate severity. Also nasal congestion. She has been using nasal rinsing for her nose. She had been using Flonase but she has stopped many weeks ago. Also to note she has had pulmonary nodules noted on CT scans. Then she had a repeat CT scan demonstrating no pulmonary nodules (hawa Lucas in 2018). Also to note she has been on CCB of SVT. Her HR was found to be low 40-50's. The patient is wondering on decreasing or stopping the CCB. I would not recommend changing it to betablockers with her hyper-reactive airways. 05/13/2022 the patient is here for a pulmonary follow-up visit. Overall she continues to be about the same. Continues to have dyspnea on exertion. She does clear her oxygen call which is continuous at 2 L. at that time the patient did not qualify for the conserving device. She did not undergo the PFT and 6 minutes walk test. She does not like to do those tests she does not have to. I did explain to her that if she wants to move forward with lung volume reduction interventions that they will require those studies. In addition to that pulmonary rehabilitation will also require that we did talk about lung transplant. The patient is not interested at this time. She does have friends undergone lung transplant and she is not interested in pursuing this at this time. She continues using noninvasive ventilator at nighttime with good effect. The patient is tolerating the Daliresp without any significant weight loss. 11/04/2022 the patient is here for hospital follow-up visit. The patient was extremely ill back in August. She developed sudden acute on chronic respiratory failure. She was admitted to the ICU a [facility]. There she had a CT scan demonstrating a consolidation in the left upper lobe area. She was given multiple courses of antibiotics and she was maintained on BiPAP. She was close to getting intubated but she was able to stand noninvasive therapies. She became very weak during the hospitalization. She also had a cardiac issue was placed on amiodarone. She is also on Eliquis now. Therefore, we have to be very careful with her nebulized therapies to make sure did do not exacerbate her atrial fibrillation. We did look at her CT scan of the chest she had a couple. It appears that her last CT scan demonstrated a nodular density where she had the pneumonia. This brings up a concomitant process in case she could be having an evolving malignant process at that area. Her last CT scan was back in September so plan to repeat the CT scan in December to reassess the nodular density. The meantime she is currently at the assisted. She is going to be going to her daughter's and hopefully getting a 1st floor apartment in view of her now requiring a walker and also wheelchair to get around. She cannot make it back home secondary to the fact that her home has stairs and she is not able to function at that capacity. She is also using her oxygen between 2-4 L. She is also using the noninvasive ventilator at nighttime. In the hospital she did have an elevation in her CO2 although her last ABG was reassuring with chronic hypercarbic respiratory failure without baseline CO2 of 77 mmHg. Will plan to repeat her blood work including Na a venous gas once she is discharged from rehab. 01/09/2023 the patient is here for pulmonary follow-up visit. She is still staying with her daughters. The patient has been participating in physical therapy and respiratory therapy at home through [facility] services. [place] is looking to relocate to a senior apartment. This is going to be I believe in January 2023. She has been not compliant or hearing due to her noninvasive ventilator because she has not been able to get proper supplies from her [employer] company. Will reach out to [facility] [place] to make sure that they provide her with a new mask. I did look to see if I could provide her mask in the office but I did not have 1 that she could tolerate. She does respond well to the Ly View mask. In meantime she continues use the oxygen with good effect. The patient did have a venous blood gas which we reviewed pH was normal although her bicarbonate was up to 48 and her pCO2 was up to 73 mmHg. This is probably close to where she was when she was at [facility]. She needs to start using the noninvasive ventilator more hopefully when she gets the new mask he can do that more regularly. When she does that on give her some Diamox and she can take 1 dose to see if can decrease her bicarbonate some in order for her to be able to bring down her CO2. The patient follow-up in 3-4 weeks with another blood gas. I will also ask for a download from her [employer]. 04/25/2023 the patient is here for pulmonary follow-up visit. The patient is feeling a lot better. She did have some medication changes which made address take improvement in her overall more out energy and breathing. She is working closely with her sewing machine adjuster. In the meantime for respiratory status she is using her inhalers with good response. We did talk about cutting down the Daliresp because of the weight loss. In addition to that the patient has been using the oxygen and has been maintaining a between 2-4 L. No recent imaging studies to review no recent blood work. Will request a download again from the [employer], [place]. In addition will go ahead and request a repeat venous gas to assess her pCO2 on the current settings. The patient will return in 6 months or sooner if any new issues arise. 03/29/2024 the patient is here for a pulmonary follow-up visit. Overall the patient has been doing better. She still has dyspnea on exertion but she has been more active. She is exercising on a regular basis. She is using her oxygen. She does use the oxygen for the most part continues although she does take it off when she is eating or sitting. I did explain to her that his lungs are oxygens above 90% and she is with family can take it off continue to monitor closely. She continues use her respiratory medicines good effect. She is also using her noninvasive ventilator. She did bring blood work that she has an outpatient. Her bicarb 37. This baseline bicarb due to the fact that she has chronic hypercarbic respiratory failure. We did go ahead and recheck her blood gas in her acid-base status is stable her pCO2 66 and her measured bicarb was also 37. I believe that 37 is a good baseline number for her. Will continue to monitor and consider Diamox only if her bicarb is above 40 on the basic metabolic panel. We also did read send blood work including a DNA for alpha-1 antitrypsin deficiency in view of her extensive emphysema. The patient also has multiple nodular densities. Last CT scan was back November 2022 at [facility]. We did personally reviewed. And she is due for CT scan. She is on the fence based on the fact that based on her lung capacity is not that we can do significant amount of diagnostic interventions specially biopsies. Still though will continue to monitor this nodular density so therefore will repeat the CT scan prior to her next visit in 6 months. If the patient has any worsening symptoms prior to that she will call for an earlier assessment. 08/02/2024 the patient is here for a pulmonary follow-up visit. She feels like she is getting worse. She has a hard time even doing simple chores around the house. She is more winded. She continues use a noninvasive ventilator at nighttime. She also continues to take medications as prescribed. More recently her AFib has been a little bit more out of control with increased heart rate. She did put a call out to Cardiology they will be seeing her soon. In the meantime she does have very diminished breath sounds. We did look at her recent CT scan of the chest demonstrating some new pulmonary nodules in the right lower lobe some of the are irregular in appearance. In addition to that she does have some haziness over the areas component of pneumonitis. Will go ahead and treat her for possible inflammatory process and also infectious process. Will plan to repeat the CT scan in 3 months. In the meantime I did request that she go back on the noninvasive ventilator during the daytime as well. If she can spent a couple hours during the day and also make sure that she uses at nighttime. Will get a blood gas to have a baseline at this time. [facility] Medical History (Updated 05/16/21 @ 20:50 by Addison Aranda MD) Pre-op chest exam Respiratory failure Centrilobular emphysema Pulmonary nodules Social History Patient Tobacco Use Status: Former Tobacco user Tobacco use type: Cigarette Years Smoked: 30 years Review of Systems Const Denies night sweats and Reports weight loss ENT Denies change in voice, Denies lip swelling, Denies mouth pain, Reports nasal congestion, Reports nasal discharge and Denies tongue swelling Card Denies chest pain and Reports dyspnea on exertion Resp Denies chest congestion, Reports cough and Reports dyspnea on exertion GI Denies abdominal pain Musc Denies no additional complaints and Reports abnormal gait Skin/Breast Denies rash Neuro Reports Neuro-related abnormal movements and Reports abnormal gait Psych Denies no additional complaints Edson/Lymph Denies easy bleeding and Denies lymphadenopathy Aller/Immun Denies lip swelling and Denies tongue swelling Physical Exam Vital Signs: Last Vital Signs Pulse 121 H 08/02/24 10:42 BP 122/64 08/02/24 10:42 Pulse Ox 97 08/02/24 10:42 Oxygen Delivery Method Nasal Cannula 08/02/24 10:42 Oxygen Flow Rate 3 08/02/24 10:42 BMI result Body Mass Index 23.6 Const General: alert HEENT Head: Yes normocephalic Neck Neck: Yes normal visual inspection, Yes full ROM and Yes no lymphadenopathy Chest Chest palpation & inspection: normal inspection of the chest Resp Effort & Inspection: normal respiratory effort Auscultation: no rales, no rhonchi, no wheezes and diminished lung sounds Cardio Rate: regular rate Rhythm: regular rhythm Heart sounds: S1 normal heart sound present and S2 normal heart sound present GI Palpation (GI): Soft to palpation and nontender Auscultation: normal bowel sounds Skin General skin exam: no rashes or lesions noted Extrem General: Yes no clubbing, cyanosis or edema Assessment & Plan Assessment & Plan (1) Respiratory failure: Code(s): J96.90 - Respiratory failure, unspecified, unspecified whether with hypoxia or hypercapnia Category: Medical Qualifiers: Chronicity: chronic Respiratory failure complication: hypoxia and hypercapnia Qualified Code(s): J96.11 - Chronic respiratory failure with hypoxia; J96.12 - Chronic respiratory failure with hypercapnia (2) Pulmonary nodules: Code(s): R91.8 - Other nonspecific abnormal finding of lung field Category: Medical (3) Centrilobular emphysema: Code(s): J43.2 - Centrilobular emphysema Category: Medical Plan Continue Daliresp 500mcg, consider every other day Continue Symbicort and spiriva Xopenex MEGAN as needed CPT with nebs and acapella valve 2 times a day Oxygen supplementation 2-4 liters Noninvasive ventilator at nighttime and as needed, needs to start using it during the day start low dose prednisone with taper start Azithromycin MW requesting a Trilogy download Bloodgas today Follow-up 2-3 months Orders: Orders Venous Blood Gas 08/02/24 J43.2 - Centrilobular emphysema, J96.11 - Chronic respiratory failure with hypoxia, J96.12 - Chronic respiratory failure with hypercapnia Medications: New prednisone PO daily; Take 2 tabs daily x 7 days, then 1 tab daily x 7 days, then 1 tab every other day x 14 days 28 tabs 1RF 28 days azithromycin Take 1 tablet on Monday/Monday/Monday 250 mg PO 3XW 12 tabs 1RF 28 days K21.9 - Gastro-esophageal reflux disease without esophagitis Coding Level of Care Code Est Pt Level 4 (65424) Complex EM visit Add On G2211 Diagnoses Chronic respiratory failure with hypoxia and hypercapnia J96.11; J96.12 Chronicity: chronic Respiratory failure complication: hypoxia and hypercapnia Pulmonary nodules R91.8 Centrilobular emphysema J43.2 Time Spent (min) 17
== END 2024-08-02 11:05 | disposition home or self-care (01) ==
PROVIDERS: PCP Internal Medicine; Visit Provider Hospitalist
DX: J96.11 Chronic respiratory failure with hypoxia (principal); J96.12 Chronic respiratory failure with hypercapnia; R91.8 Other nonspecific abnormal finding of lung field; J43.2 Centrilobular emphysema
CPT/HCPCS: 99214; G2211

== ENCOUNTER 2024-08-02 10:30 | Outpatient (REF) | payer MEDICARE, SELFPAY ==
[2024-08-02 11:31] LABS: VBG Base Excess 22.7 mmol/L; VBG HCO3 52 mmol/L (22-26); VBG pCO2 84 mmHg; VBG pO2 41 mmHg; Venous Blood Gas Refer to POC result
== END 2024-08-02 10:31 | disposition home or self-care (01) ==
LOC: HO.LAB 10:30
PROVIDERS: PCP Internal Medicine; Visit Provider Hospitalist
DX: J43.2 Centrilobular emphysema (principal); J96.11 Chronic respiratory failure with hypoxia; J96.12 Chronic respiratory failure with hypercapnia
CPT/HCPCS: 36415; 82803; 99212

== ENCOUNTER 2024-11-05 09:10 | Outpatient (REF) | payer MEDICARE, SELFPAY ==
--- NOTE | ~2024-11-05 | CT_ITS ---
CLINICAL HISTORY: R91.8 - Other nonspecific abnormal finding of lung field CT chest without contrast Comparison: CT/KS/SR - CT CHEST WO IV CON - 07/01/24 11:[address]/KS - CT CHEST WO CON - 07/24/20 11:37 EST Findings: The trachea and central bronchi are patent. Severe apical predominant centrilobular emphysema with scarring in the left upper lobe. Scattered calcified granulomas. No dense consolidation, pleural effusion or pneumothorax. Noncalcified left lower lobe nodule measuring 4 mm seen on image 86 of series 4 is unchanged. No new or enlarging nodule or mass. Heart size is stable with trace pericardial fluid. Aorta is nonaneurysmal. Mild coronary calcium. No adenopathy within the chest. No chest wall lesions or thyroid nodules appreciated. There is a hypodense lesion within the subcapsular aspect of segment 4 measuring 2 cm. This is seen on image 56 of series 3 previously measuring 2 cm in 2020. No acute osseous findings. IMPRESSION: 1. Severe emphysematous change with left upper lobe scarring. Stable noncalcified pulmonary nodule. 2. Partially visualized hypodense lesion within the subcapsular aspect of the left hepatic lobe appears relatively stable since 2020. This document has been electronically signed by: Beverley Orozco MD on 11/06/2024 09:19:05
--- OUTSIDE RECORDS SUMMARY | 2024-11-05 09:51 | XMS_ITS | Encounter Summary ---
Author Organization [facility] Address [address] [place] [address] Care Team Providers Care Gm Video Name Role Phone Augusto Hernandez MD Primary Care Provider [phone] Gurpreet Mares MD Primary Care Provider Tray Mcdonough MD Unavailable Jonelle Lees OPERATING ROOM TECH Unavailable Unavailab Kim Marti OPERATING ROOM TECH Unavailable [phone] Encounter Details Date Type Department Care Team Description 02/15/2018 Orders Only Pulmonology - [address] [place] [id number] Addison Aranda MD Chronic respiratory failure with hypoxia and hypercapnia (HCC); Pulmonary nodule; Supplemental oxygen dependent; Centrilobular emphysema (HCC) Social History Tobacco Use Types Packs/Day Years Used Date Smoking Tobacco: Former Sex Assigned at Date Recorded Not on file Job Start Date Occupation Industry Not on file Not on file Not on file documented as of this encounter Plan of Treatment Not on file documented as of this encounter Procedures Procedure Name Priority Date/Time Associated Diagnosis Comments [place] NONINVASIVE EAR/PULSE OXIMETRY OVERNIGHT MONITOR Routine 12/28/2017 Chronic respiratory failure with hypoxia and hypercapnia (HCC) Pulmonary nodule Supplemental oxygen dependent Centrilobular emphysema (HCC) documented in this encounter Results * OXIMETRY,OVERNITE (12/28/2017) Addison Aranda MD PERFORMABLES documented in this encounter Visit Diagnoses Diagnosis Chronic respiratory failure with hypoxia and hypercapnia (HCC) Pulmonary nodule Solitary pulmonary nodule Supplemental oxygen dependent Dependence on supplemental oxygen Centrilobular emphysema (HCC) Other emphysema documented in this encounter Care Teams Gm Video Relationship Specialty Start Date End Date Augusto Hernandez MD [address] [place] [address] PCP - General Internal Medicine 12/11/17 12/08/20 Gurpreet Mares MD [address] [place] [address] PCP - General Internal Medicine 12/09/20 Tray Marsh MD [address] [place] [address] Chemical Reclamation Equipment Operator Cardiovascular Disease 05/18/21 Jonelle Lees NP [address] [place] [address] Nurse Practitioner Cardiology 05/18/21 10/22/23 Kim Webb NP [address] [place] [address] Cardiology 10/23/23 documented as of this encounter
--- OUTSIDE RECORDS SUMMARY | 2024-11-05 09:51 | XMS_ITS | Encounter Summary ---
Author Organization [facility] Address [address] [place] [address] Care Team Providers Care Running Instructor Name Role Phone Gurpreet Mares MD Primary Care Provider Tray Mcdonough MD Unavailable Jonelle Lees UNISAW OPERATOR Unavailable Unavailab Kim Marti UNISAW OPERATOR Unavailable Reason for Visit * Reason Onset Date Comments REFERRAL 02/10/2023 Metoprolol and D iltiazem Encounter Details Date Type Department Care Team Description 02/10/2023 Telephone Cardio PVC [address] [facility] [address] [place] [id number] Tray Marsh MD [address] [place] [address] [phone] REFERRAL (Metoprolol and Diltiazem ) Social History Tobacco Use Types Packs/Day Years Used Date Smoking Tobacco: Former Smokeless Tobacco: Never Alcohol Use Standard Drinks/Week Comments No 0 (1 standard drink = 0.6 oz pur e alcohol) Sex Assigned at Date Recorded Not on file Job Start Date Occupation Industry Not on file Not on file Not on file documented as of this encounter Miscellaneous Notes * Telephone Encounter - Toyin Ge RN - 02/10/2023 3:48 PM EDT Regarding request below, patient states takes cardizem cd 300 mg daily. States metoptolol tartrate 50 mg bid. Hosp 10/13 states different dose cardizem. Also pcp office visit is a fefferent dose listed states cardizem cd 240 mg qd then states 300. Also states metoprolol succinate sprinkles 50 mg qd. I spoke with pharmacy and was told last filled tiadylt 300 mg qd for a 30 day supply 11/13/22. Pharmacy statedhas a 3 mo supply of metprolol tartrate 50 mg BID and that is what she has onkly filled there. I spoke with patient and she states only has been taking metoprolol tartrate 50 mg BID and never long acting succinate. She states she takes cardizem cd 300 mg qd and has enough medication until she sees Dr. Marsh on 02/14. I advised her to discuss withhim and obtain refill at office visit. * Telephone Encounter - Karina David - 02/10/2023 3:21 PM EDT Patient requesting refill on Metoprolol 50 MG 1 tablet twice a day and Diltiazem 300 MG once a day to [facility] in [place] 90 day documented in this encounter Plan of Treatment Not on file documented as of this encounter Visit Diagnoses Not on filedocumented in this encounter Care Teams Running Instructor Relationship Specialty Start Date End Date Gurpreet Mares MD PCP - General Internal Medicine 12/09/20 Tray Marsh MD Mixer Crane Operator Cardiovascular Disease 05/18/21 Jonelle Lees NP Nurse Practitioner Cardiology 05/18/21 4 Kim Webb NP Cardiology 10/23/23 documented as of this encounter
--- OUTSIDE RECORDS SUMMARY | 2024-11-05 09:51 | XMS_ITS | Encounter Summary ---
Author Organization [facility] Address [address] [place] [address] Care Team Providers Care Loan Counselor Name Role Phone Augusto Hernandez MD Primary Care Provider [phone] Gurpreet Mares MD Primary Care Provider Tray Mcdonough MD Unavailable Jonelle Lees DESIGN INSERTER Unavailable Unavailab Kim Marti DESIGN INSERTER Unavailable [phone] Encounter Details Date Type Department Care Team Description 05/04/2018 Pt. Non Urgent Medic al Question Pulmonology - [address] [place] [address] Addison Aranda MD Social History Tobacco Use Types Packs/Day Years Used Date Smoking Tobacco: Former Sex Assigned at Date Recorded Not on file Job Start Date Occupation Industry Not on file Not on file Not on file documented as of this encounter Progress Notes * Judy Woodson M.A. - 05/09/2018 8:48 AM EDTFrom: Rafia Ambrosio To: Addison Aranda MD Sent: 05/04/2018 9:39 AM EDT Subject: cat scan Would like the results of my cat scan which was done in . Thank you Solange documented in this encounter Plan of Treatment Not on file documented as of this encounter Visit Diagnoses Not on filedocumented in this encounter Care Teams Loan Counselor Relationship Specialty Start Date End Date Augusto Hernandez MD [address] [place] [address] PCP - General Internal Medicine 12/11/17 12/08/20 Gurpreet Mares MD [address] [place] [address] PCP - General Internal Medicine 12/09/20 Tray Marsh MD [address] [place] [address] Office Analyst Cardiovascular Disease 05/18/21 Jonelle Lees NP [address] [place] [address] Nurse Practitioner Cardiology 05/18/21 10/22/23 Kim Webb NP [address] [place] [address] Cardiology 10/23/23 documented as of this encounter
--- OUTSIDE RECORDS SUMMARY | 2024-11-05 09:51 | XMS_ITS | Encounter Summary ---
Author Organization [facility] Address [address] [place] [address] Care Team Providers Care Receiving Weigher Name Role Phone Gurpreet Mares MD Primary Care Provider Tray Mcdonough MD Unavailable Jonelle Lees NP Unavailable Unavailab Kim Marti NP Unavailable [phone] Encounter Details Date Type Department Care Team Description 03/26/2021 Front End Web Designer Report Medical Records [address] [place] [id number] Tonie Coates Social History Tobacco Use Types Packs/Day Years [...] on filedocumented in this encounter Care Teams Receiving Weigher Relationship Specialty Start Date End Date Gurpreet Mares MD PCP - General Internal Medicine 12/09/20 Tray Marsh MD Asphalt Paving Superintendent Cardiovascular Disease 05/18/21 Jonelle Lees NP Nurse Practitioner Cardiology 05/18/2110/21/2 Kim Miguel NP Cardiology 10/23/23 documented as of this encounter
--- OUTSIDE RECORDS SUMMARY | 2024-11-05 09:51 | XMS_ITS | Encounter Summary ---
Author Organization [facility] Address [address] [place] [address] Care Team Providers Care Vice President Of Communications Name Role Phone Gurpreet Mares MD Primary Care Provider Tray Mcdonough MD Unavailable Jonelle Lees RECORD SEARCHER Unavailable Unavailab Kim Marti RECORD SEARCHER Unavailable [phone] Reason for Visit * Reason Onset Date Comments Medication 02/10/2023 DUPLICATE Betabl ocker request; Encounter Details Date Type Department Care Team Description 02/10/2023 Refill Cardio PVCA Diag Testing [address] [facility] [address] [place] [address] Tray Marsh MD [address] [place] [address] [phone] Medication (DUPLICATE Betablocker request; ) Social History Tobacco Use Types Packs/Day [...] encounter Miscellaneous Notes * Telephone Encounter - Angella Lopez C.M.A. - 02/13/2023 4:24 PM EDT Pt has an appt tomorrow. Sue declined fill since there's a formulation discrepancy lopressor/ Toprol succ. Both are active on med module See 6.23 TC documented in this encounter Plan of Treatment Not on file documented as of this encounter Visit Diagnoses Not on filedocumented in this encounter Care Teams Vice President Of Communications Relationship Specialty Start Date End Date Gurpreet Mares MD PCP - General Internal Medicine 12/09/20 Tray Marsh MD Finger Buff Sewer Cardiovascular Disease 05/18/21 Jonelle Lees NP Nurse Practitioner Cardiology 05/18/21 4 Kim Webb NP Cardiology 10/23/23 documented as of this encounter
--- OUTSIDE RECORDS SUMMARY | 2024-11-05 09:51 | XMS_ITS | Encounter Summary ---
Author Organization [facility] Address [address] [place] [address] Care Team Providers Care Recreation Therapy Teacher Name Role Phone Gurpreet Mares MD Primary Care Provider Tray Mcdonough MD Unavailable Jonelle Lees SENIOR PEOPLESOFT DEVELOPER Unavailable Unavailab Kim Marti SENIOR PEOPLESOFT DEVELOPER Unavailable [phone] Reason for Visit * Reason Onset Date Comments E-prescribe Rx Request 05/08/2023 Lopressor Encounter Details Date Type Department Care Team Description 05/08/2023 Refill Cardio PVCA Diag Testing 101 300 [facility] [address] [place] [address] Tray Haynes MD [address] [place] [address] [phone] E-prescribe Rx Request (Lopressor ) Social History Tobacco Use Types Packs/Day Years Used Date Smoking Tobacco: Former Smokeless Tobacco: Never Alcohol Use Standard Drinks/Week Comments No 0 (1 standard drink = 0.6 oz pur e alcohol) Sex Assigned at Date Recorded Not on file Job Start Date Occupation Industry Not on file Not on file Not on file COVID-19 Exposure Response Date Recorded In the last 10 days, have yo u been in contact with someone who was confirmed or suspected to have Coronavirus/COVID-19? No / Unsure 04/19/2023 1:56 PM EDT documented as of this encounter Miscellaneous Notes * Telephone Encounter - Angella Lopez C.M.A. - 05/08/2023 11:45 AM EDT Last [facility] visit w/ Dr haynes documented in this encounter Plan of Treatment Not on file documented as of this encounter Visit Diagnoses Not on filedocumented in this encounter Care Teams Recreation Therapy Teacher Relationship Specialty Start Date End Date Gurpreet Mares MD PCP - General Internal Medicine 12/09/20 Tray Haynes MD Early Intervention Specialist Cardiovascular Disease 05/18/21 Jonelle Lees NP Nurse Practitioner Cardiology 05/18/21 4 Kim Webb NP Cardiology 10/23/23 documented as of this encounter
--- OUTSIDE RECORDS SUMMARY | 2024-11-05 09:51 | XMS_ITS | Clinical Summary ---
Author Organization [facility] Address [address] [place] [address] Care Team Providers Care Internal Control Manager Name Role Phone Gurpreet Mares MD Primary Care Provider Tray Mcdonough MD Unavailable Kim Webb NP Unavailable [phone] Allergies Active Allergy Reactions Severity Noted Date Comments No Known Drug Allergies 10/06/2016 Medications Medication Sig Dispensed Refills Start Date End Date Status Oxygen Historical (HISTORICAL OXYGEN) 2 L by Nasal route daily. 0 Active Multiple Vitamins-Minerals (PRESERVISION AREDS) Tab TAKE 1 TABLET DAILY. 0 Active Roflumilast (DALIRESP) 250 MCG TabIndications:Centril obular emphysema (HCC),Chronic respiratory failure with hypoxia and hypercapnia (HCC),Supplemental oxygen dependent Take 1 Tab by mouth daily. For the first week only take 1 tab evry other day. 31 Tab 0 12/03/2018 Active SPIRIVA RESPIMAT 2.5 MCG/ACT Aero Soln INHALE TWO PUFFS BY MOUTH EVERY DAY 1 Inhaler 3 02/25/2019 Active fluticasone-salmeterol (ADVAIR DISKUS) 250-50 MCG/DOSE diskus inhaler Inhale 1 Puff into the lungs every 12 hours for 30 days. 1 Inhaler 03/05/2019 Active levalbuterol (XOPENEX HFA) 45 MCG/ACT inhaler Inhale 2 Puffs into the lungs every 4 hours as needed for Wheezing (Dyspnea/Wheezi ng) for up to 30 days. 1 Inhaler 11 03/05/2019 Active vitamin D (ERGOCALCIFEROL) 1.25 MG (79147 UT) capsule Take 50,000 Units by mouth once a week. 0 Active ondansetron (ZOFRAN-ODT) 4 MG disintegrating tablet Take 1 Tablet by mouth every 6 hours as needed. 0 Active Melatonin 3 MG Tab Take by mouth. 0 Ac tive acetaminophen (TYLENOL) 325 MG tablet Take 2 Tablets by mouth every 6 hours as needed. 0 Active levothyroxine (SYNTHROID, LEVOTHROID) 25 MCG tablet Take 1 Tablet by mouth daily. 0 Active diltiazem (CARDIZEM CD) 240 MG 24 hr capsuleIndications:Per manent atrial fibrillation (HCC),Diastolic heart failure, unspecified HF chronicity (HCC),Other emphysema (HCC),RBBB (right bundle branch block) TAKE 1 CAPSULE BY MOUTH EVERY DAY 90 Capsule 2 02/26/2024 Active metoprolol (LOPRESSOR) 50 MG tablet TAKE 1 TABLET BY MOUTH TWICE A DAY 180 Tablet 2 02/26/2024 Active Eliquis 5 MG TabIndications:Permane nt atrial fibrillation (HCC) TAKE 1 TABLET BY MOUTH TWICE A DAY 180 Tablet 2 04/29/2024 Active furosemide (LASIX) 40 MG tablet TAKE 1 & 1/2 TABLETS BY MOUTH DAILY NEEDED 135 Tablet 1 05/27/2024 Active Active Problems Problem Noted Date Tricuspid regurgitation 10/30/2023 Last Assessment & Plan: Most recent echocardiogram completed 09/21/2022 showing moderate tricuspid regurgitation with mild to moderate pulmonary hypertension. We discussed repeating echocardiogram for surveillance of valvular dysfunction as well as history of diastolic dysfunction; she feels she is no more symptomatic than she has been previously and declines echocardiogram at this time. We discussed the need to repeat this in the future for surveillance; she will call us if symptoms worsen prior to her next visit and we will repeat this at that time. Acute on chronic respiratory failure wit h hypoxia and hypercapnia 02/07/2023 Septic shock 02/07/2023 RBBB (right bundle branch block) 023 Last Assessment & Plan: Stable on EKG, continue to follow. Hyperlipidemia 12/23/2022 Last Assessment & Plan: Most recent lipid panel completed 10/06/2023 with LDL at goal; continue current plan Secondary hypercoagulable state 12/24/19 23 Diastolic heart failure 06/14/2021 Last Assessment & Plan: The patient presents with mild bilateral lower extremity edema that she states is typical for her if she does not take her furosemide; she did hold her furosemide today due to her visit and concerns for increased voiding. She had no edema yesterday and feels as though her edema will be resolved tomorrow once she takes her furosemide; she is aware to return to care if this is not the case or if her shortness of breath worsens overnight. She otherwise appears euvolemic on exam. Blood pressure low normal at 104/60 however she is asymptomatic of this; she is aware to return to care for any new lightheadedness or dizziness, fatigue, shortness of breath, or presyncope/syncope. Continue with beta-blockade and furosemide without change. I've asked the patient to call if they develop worsening symptoms of heart failure such as increased shortness of breath, new or worsening cough, increased swelling in the legs or ankles, or weight gain of more than 2 pounds in one day or 4 pounds in one week. Other secondary pulmonary hypertension 0 12/09/2020 Last Assessment & Plan: Patient has a history significant for pulmonary fibrosis as well as COPD with chronic respiratory failure with hypoxia and hypercapnia on supplemental oxygen and followed by pulmonology. She reports that she is doing well and shortness of breath is at baseline; she is attempting to become more active and build her endurance and feels this is going well. No new or concerning symptoms. Dyspnea on exertion 12/09/2020 Gastroesophageal reflux disease without esophagitis 02/04/2019 Atrial fibrillation 12/05/2017 Overview: Permanent atrial fibrillation dating back many years. Anticoagulated on Eliquis. 5 mg twice daily. Last Assessment & Plan: Heart rate is well-controlled on diltiazem and metoprolol; she remains anticoagulated on Eliquis. Eliquis 5 mg twice daily is appropriate dose for her age, weight, and renal function. We discussed risks and benefits of continuing with anticoagulation for cardioembolic prophylaxis and she wishes to continue with current plan. She is aware to seek emergent medical attention for any uncontrolled bleeding, signs or symptoms of GI or other internal bleeding, or for any head injury. She is aware to call the office for any heart rate sustained above 100 bpm, especially if accompanied by any other symptoms not resolved with rest; heart rates at home are typically between 70 to 80s. The patient was previously on amiodarone with elevated TSH; her TSH is since normalized after PCP started her on a small dose of levothyroxine. She continues to follow with her PCP regarding this. We will continue to follow this. Diverticulosis 12/05/2017 Other emphysema 11/25/2016 Pulmonary nodule 11/25/2016 Chronic respiratory failure 11/25/2016 Supplemental oxygen dependent 11/25/2016 Family History Medical History Relation Name Comments COPD Brother COPD Father Heart Disease Father COPD Mother CA Breast Sister Relation Name Status Comments Brother Father Mother Sister Social History Tobacco Use Types Packs/Day Years Used Date Smoking Tobacco: Former Smokeless Tobacco: Never Alcohol Use Standard Drinks/Week Comments No 0 (1 standard drink = 0.6 oz pur e alcohol) Sex Assigned at Date Recorded Not on file Job Start Date Occupation Industry Not on file Not on file Not on file Last Filed Vital Signs Vital Sign Reading Time Taken Comments Blood Pressure 104/60 10/30/2023 1:01 PM EDT Pulse 77 10/30/2023 1:01 PM EDT Temperature - - Respiratory Rate 18 03/05/2019 10:25 AM EDT Oxygen Saturation 98% 10/30/2023 1:01 PM EDT 2l O2 Inhaled Oxygen Concentration - - Weight 63.5 kg (140 lb) 10/30/2023 1:01 PM EDT Height 162.6 cm (5' 4 ) 10/30/2023 1:01 PM EDT Body Mass Index 24.03 10/30/2023 1:01 PM EDT Plan of Treatment Health Maintenance Due Date Last Done Comments Covid-19 Vaccine (#1) 1954 HEPATITIS C SCREENING 1972 DTAP/TDAP/TD (1 - Tdap) 1973 MAMMOGRAM 1994 SHINGLES VACCINE (1 of 2) 2004 BONE DENSITY SCREENING 2019 PNEUMOCOCCAL VACCINE (1 - PCV) 2019 COLON CANCER SCREENING 12/19/2022 12/19/2012 (Comple forrest), 12/19/2012 CHOLESTEROL SCREENING 12/04/2023 12/03/2018, 018 (Completed) INFLUENZA (#1) 2024 05/28/2018 (Completed) DEPRESSION SCREENING/FOLLOWUP 08/21/2024 Care Teams Internal Control Manager Relationship Specialty Start Date End Date Gurpreet Mares MD PCP - General Internal Medicine 12/09/20 Tray Marsh MD Numerical Control Machine Machinist Cardiovascular Disease 05/18/21 Kim Webb NP Cardiology 10/23/23
--- OUTSIDE RECORDS SUMMARY | 2024-11-05 09:51 | XMS_ITS | Encounter Summary ---
Author Organization [facility] Address [address] [place] [address] Care Team Providers Care Auto Fleet Maintenance Manager Name Role Phone Gurpreet Mares MD Primary Care Provider Tray Mcdonough MD Unavailable Jonelle Lees NP Unavailable Unavailab Kim Marti NP Unavailable [phone] Encounter Details Date Type Department Care Team Description 12/01/2022 Ordained Minister Report Medical Records [address] [place] [id number] Abstract, Provider Social History Tobacco Use Types Packs/Day Years [...] on filedocumented in this encounter Care Teams Auto Fleet Maintenance Manager Relationship Specialty Start Date End Date Gurpreet Mares MD PCP - General Internal Medicine 12/09/20 Tray Marsh MD Manager Foreign Cardiovascular Disease 05/18/21 Jonelle Lees NP Nurse Practitioner Cardiology 05/18/2110/21/ Kim Miguel NP Cardiology 10/23/23 documented as of this encounter
--- OUTSIDE RECORDS SUMMARY | 2024-11-05 09:51 | XMS_ITS | Encounter Summary ---
Author Organization [facility] Address [address] [place] [address] Care Team Providers Care Panel Raiser Operator Name Role Phone Gurpreet Mares MD Primary Care Provider Tray Mcdonough MD Unavailable Jonelle Lees ASSOCIATE SOFTWARE DEVELOPMENT ENGINEER Unavailable Unavailab Kim Marti ASSOCIATE SOFTWARE DEVELOPMENT ENGINEER Unavailable [phone] Reason for Visit * Reason Onset Date Comments Medication 04/21/2023 Digoxin Encounter Details Date Type Department Care Team Description 04/21/2023 Pt. Non Urgent Medical Question Cardio PVCA Diag Testing 101 300 [facility] [address] [place] [address] Tray Marsh MD [address] [place] [address] [id number] Social History Tobacco Use Types Packs/Day Years [...] Telephone Encounter - Angella Lopez C.M.A. - 04/21/2023 2:43 PM EDTFrom: Rafia Ambrosio To: Valerie Marsh Sent: 04/21/2023 2:43 PM EDT Subject: Dignox In messages from last visit said I take dignox the last visit you took me off it. Have not been taken dignox am I suppose to be? I take diltiazem , metoprolol and lasix. Is this correct? documented in this encounter Plan of Treatment Not on file documented as of this encounter Visit Diagnoses Not on filedocumented in this encounter Care Teams Panel Raiser Operator Relationship Specialty Start Date End Date Gurpreet Mares MD PCP - General Internal Medicine 12/09/20 Tray Marsh MD Sas Bi Developer Cardiovascular Disease 05/18/21 Jonelle Lees NP Nurse Practitioner Cardiology 05/18/21 4 Kim Webb NP Cardiology 10/23/23 documented as of this encounter
--- OUTSIDE RECORDS SUMMARY | 2024-11-05 09:51 | XMS_ITS | Encounter Summary ---
Author Organization [facility] Address [address] [place] [address] Care Team Providers Care Copy Coordinator Name Role Phone Augusto Hernandez MD Primary Care Provider [phone] Gurpreet Mares MD Primary Care Provider Tray Mcdonough MD Unavailable Jonelle Lees DIAMOND SANDER Unavailable Unavailab Kim Marti DIAMOND SANDER Unavailable [phone] Reason for Visit * Reason Onset Date Comments Faxed Refill 10/07/2019 [facility] Encounter Details Date Type Department Care Team Description 10/07/2019 Refill Internal Medicine - [address], [address] [place] [address] Augusto Hernandez MD [address] [place], [place] [phone] [facility]axed [facility]ill ([facility] Social History Tobacco Use Types Packs/Day Years [...] encounter Miscellaneous Notes * Telephone Encounter - Shelly Jacobsen M.A. - 10/08/2019 8:48 AM EST Refill sent to pcp * Telephone Encounter - Edgar Aranda - 10/07/2019 1:23 PM EST Patient would like script to be: E-PRESCRIBED/FAXED TO PHARMACY WHEN WAS THE PATIENT'S LAST APPOINTMENT IN ADULT MEDICINE? 02/04/2019 WHEN WAS THE LAST TIME THE PATIENT SAW THEIR PCP? Same as above Does patient have an upcoming appointment? [facility]. (THE MEDICATION REQUESTED IS ON THE MED LIST ABOVE) All of the medications requested were on the CURRENT MEDS list Did you check the Pharmacy information above?: YES Patient wants: 30 -day supply Is this a mail order prescription request ? NO If the refill is from a FAXED refill request what is the RX # listed on the fax? [id number] Patients current [facility] carrier is: [facility] / Plan: BHAVANA MCGUIRE TYPE 2 / Product Type: HMO [id number] documented in this encounter Plan of Treatment Not on file documented as of this encounter Visit Diagnoses Not on filedocumented in this encounter Care Teams Copy Coordinator Relationship Specialty Start Date End Date Augusto Hernandez MD [address] [place], [place] PCP - General Internal Medicine 12/11/17 12/08/20 Gurpreet Mares MD [address] [place], [place] PCP - General Internal Medicine 12/09/20 Tray Marsh MD [address] [place], [place] Options Advisor Cardiovascular Disease 05/18/21 Jonelle Lees NP [address] [place], [place] Nurse Practitioner Cardiology 05/18/21 10/22/23 Kim Webb, KHANH [address] [place] [address] Cardiology 10/23/23 documented as of this encounter
--- OUTSIDE RECORDS SUMMARY | 2024-11-05 09:51 | XMS_ITS | Encounter Summary ---
Author Organization [facility] Address [address] [place] [address] Care Team Providers Care Microsoft Solutions Architect Name Role Phone Gurpreet Mares MD Primary Care Provider Tray Mcdonough MD Unavailable Jonelle Lees NP Unavailable Unavailab Kim Marti NP Unavailable [phone] Encounter Details Date Type Department Care Team Description 03/17/2021 Vocational Auto Body Instructor Report Medical Records [address] [place] [address] Tonie Coates Social History Tobacco Use Types [...] on filedocumented in this encounter Care Teams Microsoft Solutions Architect Relationship Specialty Start Date End Date Gurpreet Mares MD PCP - General Internal Medicine 12/09/20 Tray Marsh MD Compensation And Benefits Administrator Cardiovascular Disease 05/18/21 Jonelle Lees NP Nurse Practitioner Cardiology 05/18/2110/21/ Kim Miguel NP Cardiology 10/23/23 documented as of this encounter
--- OUTSIDE RECORDS SUMMARY | 2024-11-05 09:51 | XMS_ITS | Encounter Summary ---
Author Organization [facility] Address [address] [place] [address] Care Team Providers Care Inspector Motor Vehicles Name Role Phone Gurpreet Mares MD Primary Care Provider Tray Mcdonough MD Unavailable Jonelle Lees FOREST ECONOMICS PROFESSOR Unavailable Unavailab Kim Marti FOREST ECONOMICS PROFESSOR Unavailable [phone] Encounter Details Date Type Department Care Team Description 04/25/2023 SCAN Medical Records [address] [place] [id number] Abstract, Provider Social History Tobacco Use Types [...] PM EDT documented as of this encounter Plan of Treatment Not on file documented as of this encounter Procedures Procedure Name Priority Date/Time Associated Diagnosis Comments OUTSIDE LAB Routine 04/25/2023 documented in this encounter Results * OUTSIDE LAB (04/25/2023) Provider Default LAB documented in this encounter Visit Diagnoses Not on filedocumented in this encounter Care Teams Inspector Motor Vehicles Relationship Specialty Start Date End Date Gurpreet Mares MD PCP - General Internal Medicine 12/09/20 Tray Marsh MD Hospitalist Program Director Cardiovascular Disease 05/18/21 Jonelle Lees NP Nurse Practitioner Cardiology 05/18/21 4 Kim Webb NP Cardiology 10/23/23 documented as of this encounter
--- OUTSIDE RECORDS SUMMARY | 2024-11-05 09:51 | XMS_ITS | Encounter Summary ---
Author Organization [employer] [facility] Address [address] [place] [address] Care Team Providers Care Fisher Net Name Role Phone Augusto Hernandez MD Primary Care Provider [phone] Gurpreet Mares MD Primary Care Provider Tray Mcdonough MD Unavailable Jonelle Lees PHYSICS FACULTY MEMBER Unavailable Unavailab Kim Marti PHYSICS FACULTY MEMBER Unavailable [phone] Encounter Details Date Type Department Care Team Description 02/22/2018 SCAN Medical Records [address] [place] [address] Jesus Hassan MD [address] [facility] [address] [place] [address] Social History Tobacco Use Types Packs/Day Years Used Date Smoking Tobacco: Former Sex Assigned at Date Recorded Not on file Job Start Date Occupation Industry Not on file Not on file Not on file documented as of this encounter Plan of Treatment Not on file documented as of this encounter Procedures Procedure Name Priority Date/Time Associated Diagnosis Comments OUTSIDE ECHO Routine 02/22/2018 documented in this encounter Results * OUTSIDE ECHO (02/22/2018) Provider Default CARDIOLOGY documented in this encounter Visit Diagnoses Not on filedocumented in this encounter Care Teams Fisher Net Relationship Specialty Start Date End Date Augusto Hernandez MD [address] [place] [address] PCP - General Internal Medicine 12/11/17 12/08/20 Gurpreet Mares MD [address] [place] [address] PCP - General Internal Medicine 12/09/20 Tray Marsh MD [address] [place] [address] Barista Cardiovascular Disease 05/18/21 Jonelle Lees NP [address] [place] [address] Nurse Practitioner Cardiology 05/18/21 10/22/23 Kim Webb NP [address] [place] [address] Cardiology 10/23/23 documented as of this encounter
--- OUTSIDE RECORDS SUMMARY | 2024-11-05 09:51 | XMS_ITS | Encounter Summary ---
Author Organization [facility] Address [address] [place] [address] Care Team Providers Care Aml Analyst Name Role Phone Gurpreet Mares MD Primary Care Provider Tray Mcdonough MD Unavailable Jonelle Lees MAILING SECTION CLERK Unavailable Unavailab Kim Marti MAILING SECTION CLERK Unavailable [phone] Encounter Details Date Type Department Care Team Description 03/01/2021 Telephone Cardio PVC POC [address] [facility] [address] [place] [address] Tray Marsh MD [address] [place] [address] [phone] Social History Tobacco Use Types Packs/Day Years [...] encounter Miscellaneous Notes * Telephone Encounter - Bridgette Zhou C.M.A. - 03/01/2021 3:46 PM EDT Spoke to pt and instr given, she then asked about aspirin, Dr Marsh Ok'd she can hold that also. She will call back with updates * Telephone Encounter - Tray Marsh MD - 03/01/2021 3:41 PM EDT Chart reviewed . Have her hold the anticoagulant until we knwo whats causing the bleeding * Telephone Encounter - Mary Hung C.M.A. - 03/01/2021 1:44 PM EDT Pt still bleeding, had an ultrasound of uterus (internal/external) last . There was blood on the table paper. She is having biopsy this Monday. Pt would like to know if she should remain on blood thinner. She can be reached at [phone]. documented in this encounter Plan of Treatment Not on file documented as of this encounter Visit Diagnoses Not on filedocumented in this encounter Care Teams Aml Analyst Relationship Specialty Start Date End Date Gurpreet Mares MD PCP - General Internal Medicine 12/09/20 Tray Marsh MD Division Director Cardiovascular Disease 05/18/21 Jonelle Lees NP Nurse Practitioner Cardiology 05/18/21 4 Kim Webb NP Cardiology 10/23/23 documented as of this encounter
--- OUTSIDE RECORDS SUMMARY | 2024-11-05 09:51 | XMS_ITS | Encounter Summary ---
Author Organization [facility] Address [address] [place] [address] Care Team Providers Care Tetryl Boiling Tub Operator Name Role Phone Gurpreet Mares MD Primary Care Provider Tray Mcdonough MD Unavailable Jonelle Lees GERICARE AIDE Unavailable Unavailab Kim Marti GERICARE AIDE Unavailable [phone] Reason for Visit * Reason Onset Date Comments E-prescribe Rx Request 05/08/2023 Eliquis Encounter Details Date Type Department Care Team Description 05/08/2023 Refill Cardio PVCA Diag Testing 101 300 [facility] [address] [place] [address] Tray Marsh MD [address] [place] [address] [phone] E-prescribe Rx Request (Eliquis ) Social History Tobacco Use Types Packs/Day [...] C.M.A. - 05/08/2023 11:45 AM EDT Last offc visit with Dr Marsh documented in this encounter Plan of Treatment Not on file documented as of this encounter Visit Diagnoses Diagnosis Permanent atrial fibrillation (HCC) Atrial fibrillation documented in this encounter Care Teams Tetryl Boiling Tub Operator Relationship Specialty Start Date End Date Gurpreet Mares MD PCP - General Internal Medicine 12/09/20 Tray Marsh MD Chronometer Adjuster Cardiovascular Disease 05/18/21 Jonelle Lees NP Nurse Practitioner Cardiology 05/18/21 4 Kim Webb NP Cardiology 10/23/23 documented as of this encounter
--- OUTSIDE RECORDS SUMMARY | 2024-11-05 09:51 | XMS_ITS | Encounter Summary ---
Author Organization [facility] Address [address] [place] [address] Care Team Providers Care Freight Dispatcher Name Role Phone Gurpreet Mares MD Primary Care Provider Tray Mcdonough MD Unavailable Jonelle Lees AEROPHYSICIST Unavailable Unavailab Kim Marti AEROPHYSICIST Unavailable [phone] Encounter Details Date Type Department Care Team Description 09/18/2022 [facility] Medical Records [address] [place] [address] Social History Tobacco Use Types Packs/Day Years [...] Date/Time Associated Diagnosis Comments OUTSIDE LAB Routine 10/01/[address] Routine 09/30/2022 OUTSIDE PLAIN FILM Routine 09/28/2022 OUTSIDE ECHO Routine 09/21/[address] Routine 09/21/2022 OUTSIDE EKG Routine 09/18/2022 OUTSIDE PLAIN FILM Routine 09/18/2022 OUTSIDE PLAIN FILM Routine 09/18/2022 documented in this encounter Results * OUTSIDE LAB (10/01/2022) Provider Abstract LAB * OUTSIDE CT (09/30/2022) Provider Abstract RADIOLOGY * OUTSIDE PLAIN FILM (09/28/2022) Provider Abstract RADIOLOGY * OUTSIDE CT (09/21/2022) Provider Abstract RADIOLOGY * OUTSIDE ECHO (09/21/2022) Provider Abstract CARDIOLOGY * OUTSIDE PLAIN FILM (09/18/2022) Provider Abstract RADIOLOGY * OUTSIDE PLAIN FILM (09/18/2022) Provider Abstract RADIOLOGY * OUTSIDE EKG (09/18/2022) Provider Abstract CARDIOLOGY documented in this encounter Visit Diagnoses Not on filedocumented in this encounter Care Teams Freight Dispatcher Relationship Specialty Start Date End Date Gurpreet Mares MD PCP - General Internal Medicine 12/09/20 Tray Marsh MD Automotive Brake Specialist Cardiovascular Disease 05/18/21 Jonelle Lees NP Nurse Practitioner Cardiology 05/18/21 4 Kim Webb NP Cardiology 10/23/23 documented as of this encounter
--- OUTSIDE RECORDS SUMMARY | 2024-11-05 09:51 | XMS_ITS | Encounter Summary ---
Author Organization [facility] Address [address] [place] [address] Care Team Providers Care [place] Seamer Name Role Phone Gurpreet Mares MD Primary Care Provider Tray Mcdonough MD Unavailable Jonelle Lees NP Unavailable Unavailab Kim Marti NP Unavailable [phone] Encounter Details Date Type Department Care Team Description 02/18/2021 [facility] Medical Records [address] [place] [address] Abstract, Provider Social History Tobacco Use Types [...] Date/Time Associated Diagnosis Comments OUTSIDE LAB Routine 02/18/2021 documented in this encounter Results * OUTSIDE LAB (02/18/2021) Provider Abstract LAB documented in this encounter Visit Diagnoses Not on filedocumented in this encounter Care Teams [place] Seamer Relationship Specialty Start Date End Date Gurpreet Mares MD PCP - General Internal Medicine 12/09/20 Tray Marsh MD Portable Feed Mill Operator Cardiovascular Disease 05/18/21 Jonelle Lees NP Nurse Practitioner Cardiology 05/18/21 33/2 4 Kim Webb NP Cardiology 10/23/23 documented as of this encounter
--- OUTSIDE RECORDS SUMMARY | 2024-11-05 09:51 | XMS_ITS | Encounter Summary ---
Author Organization [facility] Address [address] [place] [address] Care Team Providers Care Solar System Installer Name Role Phone Jan Leyva MD Primary Care Provider Unavail able Augusto Hernandez MD Primary Care Provider [phone] Gurpreet Mares MD Primary Care Provider Tray Mcdonough MD Unavailable Jonelle Lees SHOE REPAIR SUPERVISOR Unavailable Unavailab Kim Marti SHOE REPAIR SUPERVISOR Unavailable [phone] Encounter Details Date Type Department Care Team Description 10/19/2017 Release of Information Medical Records [address] [place] [address] Abstract, Provider Social History Tobacco Use Types Packs/Day Years Used Date Smoking Tobacco: Never Assessed Sex Assigned at Date Recorded Not on file Job Start Date Occupation Industry Not on file Not on file Not on file documented as of this encounter Plan of Treatment Not on file documented as of this encounter Visit Diagnoses Not on filedocumented in this encounter Care Teams Solar System Installer Relationship Specialty Start Date End Date Jan Leyva MD PCP - General Internal Medicine 10/18/17 12/10/17 Augusto Hernandez MD [address] [place], [place] PCP - General Internal Medicine 12/11/17 12/08/20 Gurpreet Mares MD [address] [place], [place] PCP - General Internal Medicine 12/09/20 Tray Marsh MD [address] [place], [place] Implementation Lead Cardiovascular Disease 05/18/21 Jonelle Lees NP [address] [place] [address] Nurse Practitioner Cardiology 05/18/21 10/22/23 Kim Webb NP [address] [place] [address] Cardiology 10/23/23 documented as of this encounter
--- OUTSIDE RECORDS SUMMARY | 2024-11-05 09:51 | XMS_ITS | Encounter Summary ---
Author Organization [facility] Address [address] [place] [address] Care Team Providers Care Equipment Application Specialist Name Role Phone Gurpreet Mares MD Primary Care Provider Tray Mcdonough MD Unavailable Jonelle Lees PSYCHOLOGY ASSOCIATE Unavailable Unavailab Kim Marti PSYCHOLOGY ASSOCIATE Unavailable Reason for Visit * Reason Onset Date Comments Medication 12/10/2020 Eliquis cost Encounter Details Date Type Department Care Team Description 12/10/2020 Telephone Cardio PVC POC 154 300 [facility] [address] [place], [place] [phone] Tray Marsh MD [address] [place] [address] [phone] Medication (Eliquis cost) Social History Tobacco Use Types Packs/Day Years [...] encounter Miscellaneous Notes * Telephone Encounter - iTa Pederson C.M.A. - 12/14/2020 4:07 PM EDT Patient already picked up Eliquis Rx * Telephone Encounter - Tray Marsh MD - 12/10/2020 11:31 AM EDT I will order it * Telephone Encounter - Tia Pederson C.M.A. - 12/10/2020 9:55 AM EDT The patient contacted her insurance company and the lowest co pay for her will be the [place]rtak. documented in this encounter Plan of Treatment Not on file documented as of this encounter Visit Diagnoses Not on filedocumented in this encounter Care Teams Equipment Application Specialist Relationship Specialty Start Date End Date Gurpreet Mares MD PCP - General Internal Medicine 12/09/20 Tray Marsh MD Centerless Grinder Operator Cardiovascular Disease 05/18/21 Jonelle Lees NP Nurse Practitioner Cardiology 05/18/21 4 Kim Webb NP Cardiology 10/23/23 documented as of this encounter
--- OUTSIDE RECORDS SUMMARY | 2024-11-05 09:51 | XMS_ITS | Encounter Summary ---
Author Organization [facility] Address [address] [place] [address] Care Team Providers Care Tanker Driver Name Role Phone Augusto Hernandez MD Primary Care Provider [phone] Gurpreet Mares MD Primary Care Provider Tray Mcdonough MD Unavailable Jonelle Lees RECEIVING SPECIALIST Unavailable Unavailab Kim Marti RECEIVING SPECIALIST Unavailable [phone] Encounter Details Date Type Department Care Team Description 10/04/2018 Refill Pulmonology - [address] [place] [phone] Addison Aranda MD Social History Tobacco Use Types Packs/Day Years Used Date Smoking Tobacco: Former Sex Assigned at Date Recorded Not on file Job Start Date Occupation Industry Not on file Not on file Not on file documented as of this encounter Miscellaneous Notes * Telephone Encounter - Stefany Esocbar M.A. - 10/05/2018 9:02 AM ESTFrom: Rafia Ambrosio To: Addison Aranda MD Sent: 10/04/2018 8:00 PM EST Subject: Medication Renewal Request Original authorizing provider: MD aRfia Gordon would like a refill of the following medications: fluticasone-salmeterol (ADVAIR DISKUS) 250-50 MCG/DOSE diskus inhaler [Addison Aranda MD] Preferred pharmacy: [id number] - [place], [place] - [address] [facility] Comment: documented in this encounter Plan of Treatment Not on file documented as of this encounter Visit Diagnoses Not on filedocumented in this encounter Care Teams Tanker Driver Relationship Specialty Start Date End Date Augusto Hernandez MD [address] [place] [address] PCP - General Internal Medicine 12/11/17 12/08/20 Gurpreet Mares MD [address] [place] [address] PCP - General Internal Medicine 12/09/20 Tray Marsh MD [address] [place] [address] Floor Layer Apprentice Cardiovascular Disease 05/18/21 Jonelle Lees NP [address] [place] [address] Nurse Practitioner Cardiology 05/18/21 10/22/23 Kim Webb NP [address] [place] [address] Cardiology 10/23/23 documented as of this encounter
--- OUTSIDE RECORDS SUMMARY | 2024-11-05 09:51 | XMS_ITS | Encounter Summary ---
Author Organization [facility] Address [address] [place] [address] Care Team Providers Care Wet Inspector Optical Glass Name Role Phone Gurpreet Mares MD Primary Care Provider Tray Mcdonough MD Unavailable Jonelle Lees GRINDER SET UP OPERATOR Unavailable Unavailab Kim Marti GRINDER SET UP OPERATOR Unavailable [phone] Encounter Details Date Type Department Care Team Description 03/28/2023 Orders Only Medical Records [address] [place] [address] Abstract, Provider Social History Tobacco Use Types [...] suspected to have Coronavirus/COVID-19? No / Unsure 03/13/2023 1:19 PM EDT documented as of this encounter Plan of Treatment Not on file documented as of this encounter Procedures Procedure Name Priority Date/Time Associated Diagnosis Comments OUTSIDE LAB Routine 03/02/2023 documented in this encounter Results * OUTSIDE LAB (03/02/2023) Provider Abstract LAB documented in this encounter Visit Diagnoses Not on filedocumented in this encounter Care Teams Wet Inspector Optical Glass Relationship Specialty Start Date End Date Gurpreet Mares MD PCP - General Internal Medicine 12/09/20 Tray Marsh MD Retina Subspecialist Cardiovascular Disease 05/18/21 Jonelle Lees NP Nurse Practitioner Cardiology 05/18/21 4 Kim Webb NP Cardiology 10/23/23 documented as of this encounter
--- OUTSIDE RECORDS SUMMARY | 2024-11-05 09:51 | XMS_ITS | Encounter Summary ---
Author Organization [facility] Address [address] [place] [address] Care Team Providers Care Human Resource Manager Name Role Phone Gurpreet Mares MD Primary Care Provider Tray Mcdonough MD Unavailable Jonelle Lees COMPUTER SYSTEMS SOFTWARE ARCHITECT Unavailable Unavailab Kim Marti COMPUTER SYSTEMS SOFTWARE ARCHITECT Unavailable [phone] Reason for Visit * Reason Onset Date Comments refill request 12/12/2022 Encounter Details Date Type Department Care Team Description 12/12/2022 Pt. Non Urgent Medical Question Cardio PVCA Diag Testing 101 300 [facility] [address] [place] [address] Tray Marsh MD [address] [place] [address] [phone] Social History Tobacco Use Types Packs/Day Years [...] encounter Miscellaneous Notes * Telephone Encounter - Trisha Ramon RN - 12/13/2022 8:13 AM EDTFrom: Rafia Ambrosio To: Valerie Marsh Sent: 12/12/2022 5:55 PM EDT Subject: Refill new prescription Easy in hospital then rehab need a refill for amiodareone 20g twice a day. Have appointment with you coming up. Only have 4 left they really help afib thank you Rafia documented in this encounter Plan of Treatment Not on file documented as of this encounter Visit Diagnoses Not on filedocumented in this encounter Care Teams Human Resource Manager Relationship Specialty Start Date End Date Gurpreet Mares MD PCP - General Internal Medicine 12/09/20 Tray Marsh MD Grocery Clerk Cardiovascular Disease 05/18/21 Jonelle Lees NP Nurse Practitioner Cardiology 05/18/21 4 Kim Webb NP Cardiology 10/23/23 documented as of this encounter
--- OUTSIDE RECORDS SUMMARY | 2024-11-05 09:51 | XMS_ITS | Encounter Summary ---
Author Organization [facility] Address [address] [place] [address] Care Team Providers Care Specialty Manufacturing Supervisor Name Role Phone Gurpreet Mares MD Primary Care Provider Tray Mcdonough MD Unavailable Jonelle Lees METAL MELTER Unavailable Unavailab Kim Marti METAL MELTER Unavailable [phone] Reason for Visit * Reason Onset Date Comments E-prescribe Rx Request 02/10/2023 Lopressor declined Encounter Details Date Type Department Care Team Description 02/10/2023 Refill Cardio PVCA Diag Testing 101 300 [facility] [address] [place] [address] Tray Marsh MD [address] [place] [address] [phone] E-prescribe Rx Request (Lopressor declined ) Social History Tobacco Use Types Packs/Day [...] Encounter - Angella Lopez C.M.A. - 02/13/2023 4:23 PM EDT Pt has an appt tomorrow. Sue declined fill since there's a formulation discrepancy lopressor/ Toprol succ. Both are active on med module See 6.23 TC documented in this encounter Plan of Treatment Not on file documented as of this encounter Visit Diagnoses Not on filedocumented in this encounter Care Teams Specialty Manufacturing Supervisor Relationship Specialty Start Date End Date Gurpreet Mares MD PCP - General Internal Medicine 12/09/20 Tray Marsh MD Brass Finisher Cardiovascular Disease 05/18/21 Jonelle Lees NP Nurse Practitioner Cardiology 05/18/21 4 Kim Webb NP Cardiology 10/23/23 documented as of this encounter
--- OUTSIDE RECORDS SUMMARY | 2024-11-05 09:51 | XMS_ITS | Encounter Summary ---
Author Organization [facility] Address [address] [place] [address] Care Team Providers Care Zigzag Topstitcher Name Role Phone Adam Guthrie MD Primary Care Provider Unavail able Jan Leyva MD Primary Care Provider Unavail able Augusto Hernandez MD Primary Care Provider [phone] uGrpreet Mares MD Primary Care Provider Gurpreet Tellez MD Primary Care Provider Tray Mcdonough MD Unavailable Jonelle Lees CREDIT RISK MANAGEMENT DIRECTOR Unavailable Unavailab Kim Marti CREDIT RISK MANAGEMENT DIRECTOR Unavailable [phone] Reason for Visit * Reason Onset Date Comments pain, chest 01/26/2012 Encounter Details Date Type Department Care Team Description 01/26/2012 Telephone Adult Medicine [facility] [address] [place] [address] Adam Guthrie MD pain, chest Social History Tobacco Use Types Packs/Day Years Used Date Smoking Tobacco: Never Assessed Sex Assigned at Date Recorded Not on file Job Start Date Occupation Industry Not on file Not on file Not on file documented as of this encounter Miscellaneous Notes * Telephone Encounter - Janet Keira Roy - 01/26/2012 2:05 PM EDT Pt c/o sob Some chest tightness States she was seen at Dr. Benitez on Monday Had chest x-ray was given a pump for breathing, states she has emphysema Is new pt to our office has not been seen here Advised her to back to Dr. Benitez as she cannot obtain a ride till late afternoon Office will be closed If breathing worsens she is to call ambulance She is agreeable with this an appt was made with Dr. Guthrie for next week * Telephone Encounter - Adonis Rodriguez - 01/26/2012 1:58 PM EDT Symptoms patient is presenting: sob, chest pain, hx of emphaseyma How long has patient had these symptoms?: n/a PCP: Adam Guthrie MD Payor: -[place]/PPO POS Plan: PPO $30 [employer] [id number] Product Type: PPO [id number] documented in this encounter Plan of Treatment Not on file documented as of this encounter Visit Diagnoses Not on filedocumented in this encounter Care Teams Zigzag Topstitcher Relationship Specialty Start Date End Date Adam Guthrie MD PCP - General Internal Medicine 01/26/12 05/21/12 Jan Leyva MD PCP - General Internal Medicine 10/18/17 12/10/17 Augusto Hernandez MD [address] [place] [address] PCP - General Internal Medicine 12/11/17 12/08/20 Gurpreet Mares MD [address] [place] [address] PCP - General 05/22/12 10/17/17 Gurpreet Mares MD [address] [place] [address] PCP - General Internal Medicine 12/09/20 Tray Marsh MD [address] [place] [address] Chief Dietitian Cardiovascular Disease 05/18/21 Jonelle Lees NP [address] [place], [place] Nurse Practitioner Cardiology 05/18/21 10/22/23 Kim Webb NP [address] [place], [place] Cardiology 10/23/23 documented as of this encounter
--- OUTSIDE RECORDS SUMMARY | 2024-11-05 09:51 | XMS_ITS | Encounter Summary ---
Author Organization [facility] Address [address] [place] [address] Care Team Providers Care Diesel Mechanic Apprentice Name Role Phone Gurpreet Mares MD Primary Care Provider Tray Mcdonough MD Unavailable Jonelle Lees NP Unavailable Unavailab Kim Marti NP Unavailable [phone] Encounter Details Date Type Department Care Team Description 12/05/2022 SCAN Medical Records [address] [place] [address] Abstract, Provider Social History Tobacco Use Types [...] Date/Time Associated Diagnosis Comments OUTSIDE LAB Routine 12/05/2022 documented in this encounter Results * OUTSIDE LAB (12/05/2022) Provider Abstract LAB documented in this encounter Visit Diagnoses Not on filedocumented in this encounter Care Teams Diesel Mechanic Apprentice Relationship Specialty Start Date End Date Gurpreet Mares MD PCP - General Internal Medicine 12/09/20 Tray Marsh MD Apprentice Cardiovascular Disease 05/18/21 Jonelle Lees NP Nurse Practitioner Cardiology 05/18/21 33/2 4 Kim Webb NP Cardiology 10/23/23 documented as of this encounter
--- OUTSIDE RECORDS SUMMARY | 2024-11-05 09:51 | XMS_ITS | Encounter Summary ---
Author Organization [facility] Address [address] [place] [address] Care Team Providers Care Senior Interaction Designer Name Role Phone Gurpreet Mares MD Primary Care Provider Tray Mcdonough MD Unavailable Jonelle Lees NURSING INFORMATICS SPECIALIST Unavailable Unavailab Kim Marti NURSING INFORMATICS SPECIALIST Unavailable [phone] Encounter Details Date Type Department Care Team Description 03/15/2023 Pt. Non Urgent Medical Question Cardio PVCA Diag Testing 101 300 [facility] [address] [place] [address] Tray Marsh MD [address] [place] [address] [phone] Social History Tobacco Use Types Packs/Day Years [...] on filedocumented in this encounter Care Teams Senior Interaction Designer Relationship Specialty Start Date End Date Gurpreet Mares MD PCP - General Internal Medicine 12/09/20 Tray Marsh MD Pressure Tester Operator Cardiovascular Disease 05/18/21 Jonelle Lees NP Nurse Practitioner Cardiology 05/18/21 4 Kim Webb NP Cardiology 10/23/23 documented as of this encounter
--- OUTSIDE RECORDS SUMMARY | 2024-11-05 09:51 | XMS_ITS | Encounter Summary ---
Author Organization [facility] Address [address] [place] [address] Care Team Providers Care Pickle Water Pump Operator Name Role Phone Augusto Hernandez MD Primary Care Provider [phone] Gurpreet Mares MD Primary Care Provider Tray Mcdonough MD Unavailable Jonelle Lees MANAGER ART Unavailable Unavailab Kim Marti MANAGER ART Unavailable [phone] Reason for Visit * Reason Onset Date Comments Medication 11/30/2020 REFILL Encounter Details Date Type Department Care Team Description 11/30/2020 Telephone Cardio PVC POC 154 300 [facility] [address] [place], [place] [phone] Tray Marsh MD [address] [place] [address] [phone] Medication (REFILL) Social History Tobacco Use Types Packs/Day Years [...] Telephone Encounter - Angella Lopez C.M.A. - 11/30/2020 2:26 PM EDT Dig erx renewed; level 06/17/20 0.9 * Telephone Encounter - Cortney Lam - 11/30/2020 1:45 PM EDT Pt calling in, needs refills sent to pharmacy on medication DIGOXIN 250mg. Pt can be reached at [phone] documented in this encounter Plan of Treatment Not on file documented as of this encounter Visit Diagnoses Not on filedocumented in this encounter Care Teams Pickle Water Pump Operator Relationship Specialty Start Date End Date Augusto Hernandez MD [address] [place] [address] PCP - General Internal Medicine 12/11/17 12/08/20 Gurpreet Mares MD [address] [place] [address] PCP - General Internal Medicine 12/09/20 Tray Marsh MD [address] [place] [address] Ceramics Instructor Cardiovascular Disease 05/18/21 Jonelle Lees NP [address] [place] [address] Nurse Practitioner Cardiology 05/18/21 10/22/23 Kim Webb NP [address] [place] [address] Cardiology 10/23/23 documented as of this encounter
--- OUTSIDE RECORDS SUMMARY | 2024-11-05 09:51 | XMS_ITS | Encounter Summary ---
Author Organization [facility] Address [address] [place] [address] Care Team Providers Care Secretary Name Role Phone Jan Leyva MD Primary Care Provider Unavail able Augusto Hernandez MD Primary Care Provider [phone] Gurpreet Mares MD Primary Care Provider Gurpreet Tellez MD Primary Care Provider Tray Mcdonough MD Unavailable Jonelle Lees CLAM SHUCKING MACHINE TENDER Unavailable Unavailab Kim Marti CLAM SHUCKING MACHINE TENDER Unavailable [phone] Reason for Referral * EXTERNAL (Routine) - Authorized/Booked Specialty Diagnoses / Procedures Referred By Contact Referred To Contact Pulmonology / Pulmonology Rehabilitation Diagnoses Pulmonary emphysema, unspecified emphysema type (HCC) Procedures REFERRAL TO PULMONARY REHABILITATION Addison Aranda MD [address] [place] [address] Vinod Brito [address] [facility] 2[address] [place] [address] Referral ID Status Reason Start Date Expiration Date V isits Requested Visits Authorized SEE NOTE Authorized/B ooked 06/22/2017 09/26/2017 1 1 Encounter Details Date Type Department Care Team Description [facility] [address] [place] [phone] Addison Aranda MD Social History Tobacco Use Types Packs/Day Years Used Date Smoking Tobacco: Never Assessed Sex Assigned at Date Recorded Not on file Job Start Date Occupation Industry Not on file Not on file Not on file documented as of this encounter Miscellaneous Notes * Telephone Encounter - Addison Aranda MD - 06/22/2017 4:22 PM EDT signed * Telephone Encounter - Judy Woodson M.A. - 06/22/2017 9:54 AM EDT Please sign documented in this encounter Plan of Treatment Not on file documented as of this encounter Visit Diagnoses Diagnosis Pulmonary emphysema, unspecified emphysema type (HCC)- Primary documented in this encounter Care Teams Secretary Relationship Specialty Start Date End Date Jan Leyva MD PCP - General Internal Medicine 10/18/17 12/10/17 Augusto Hernandez MD [address] [place] [address] PCP - General Internal Medicine 12/11/17 12/08/20 Gurpreet Mares MD [address] [place] [address] PCP - General 05/22/12 10/17/17 Gurpreet Mares MD [address] [place] [address] PCP - General Internal Medicine 12/09/20 Tray Marsh MD [address] [place] [address] Vfx Artist Cardiovascular Disease 05/18/21 Jonelle Lees NP [address] [place] [address] Nurse Practitioner Cardiology 05/18/21 10/22/23 Kim Webb NP [address] [place] [address] Cardiology 10/23/23 documented as of this encounter
--- OUTSIDE RECORDS SUMMARY | 2024-11-05 09:52 | XMS_ITS | Encounter Summary ---
Author Organization [facility] Address [address] [place] [address] Care Team Providers Care Champagne Maker Name Role Phone Gurpreet Mares MD Primary Care Provider Tray Mcdonough MD Unavailable Jonelle Lees COLLECTION TELLER Unavailable Unavailab Kim Marti COLLECTION TELLER Unavailable Reason for Visit * Reason Onset Date Comments Medication 05/21/2021 Digoxin refill Encounter Details Date Type Department Care Team Description 05/21/2021 Refill Cardio PVC POC 154 [address] [facility] [address] [place], [place] [id number] Tray Marsh MD [address] [place] [address] [phone] Medication (Digoxin refill) Social History Tobacco Use Types Packs/Day Years Used Date Smoking Tobacco: Former Smokeless Tobacco: Never Alcohol Use Standard Drinks/Week Comments No 0 (1 standard drink = 0.6 oz pur e alcohol) Sex Assigned at Date Recorded Not on file Job Start Date Occupation Industry Not on file Not on file Not on file COVID-19 Exposure Response Date Recorded In the last month, have you been in contact with someone who was confirmed or suspected to have Coronavirus / COVID-19? No / Unsure 05/21/2021 8:45 AM EDT documented as of this encounter Miscellaneous Notes * Telephone Encounter - Tia Pederson C.M.A. - 05/26/2021 3:52 PM EDT I am sending refill patietn needs Dig level. I am sending lab req she will get before next ov. * Telephone Encounter - Cortney Lam - 05/25/2021 2:01 PM EDT Pt calling about Digoxin script. She states pharmacy has not received a refill script . Please sendto her pharmacy documented in this encounter Plan of Treatment Scheduled Orders Name Type Priority Associated Diagnoses Orde r Schedule DIGOXIN LEVEL, QUANTITATIVE Lab Routine Permanent atrial fibrillation (HCC) Expected: 05/26/2021, Expires: 05/26/2022 BASIC METABOLIC PANEL Lab Routine Permanent atrial fibrillation (HCC) Expected: 05/26/2021, Expires: 05/26/2022 documented as of this encounter Visit Diagnoses Diagnosis Permanent atrial fibrillation (HCC)- Primary Atrial fibrillation documented in this encounter Care Teams Champagne Maker Relationship Specialty Start Date End Date Gurpreet Mares MD PCP - General Internal Medicine 12/09/20 Tray Marsh MD Book Jacket Cover Machine Operator Cardiovascular Disease 05/18/21 Jonelle Lees NP Nurse Practitioner Cardiology 05/18/21 4 Kim Webb NP Cardiology 10/23/23 documented as of this encounter
--- OUTSIDE RECORDS SUMMARY | 2024-11-05 09:52 | XMS_ITS | Encounter Summary ---
Author Organization [facility] Address [address] [place] [address] Care Team Providers Care Software Systems Architect Name Role Phone Augusto Hernandez MD Primary Care Provider [phone] Gurpreet Mares MD Primary Care Provider Tray Mcdonough MD Unavailable Jonelle Lees FARM IMPLEMENT MECHANIC Unavailable Unavailab Kim Marti FARM IMPLEMENT MECHANIC Unavailable [phone] Encounter Details Date Type Department Care Team Description 05/30/2019 Industrial Safety And Health Technician Report Medical Records [address] [place] [address] Addison Aranda MD Social History Tobacco Use [...] on filedocumented in this encounter Care Teams Software Systems Architect Relationship Specialty Start Date End Date Augusto Hernandez MD [address] [place], [place] [id number] PCP - General Internal Medicine 12/11/17 12/08/20 Gurpreet Mares MD [address] [place] [address] PCP - General Internal Medicine 12/09/20 Tray Marsh MD [address] [place], [place] Talent Assistant Cardiovascular Disease 05/18/21 Jonelle Lees NP [address] [place] [address] Nurse Practitioner Cardiology 05/18/21 10/22/23 Kim Webb NP [address] [place] [address] Cardiology 10/23/23 documented as of this encounter
--- OUTSIDE RECORDS SUMMARY | 2024-11-05 09:52 | XMS_ITS | Encounter Summary ---
Author Organization [facility] Address [address] [place] [address] Care Team Providers Care Customs Opener Verifier Packer Name Role Phone Augusto Hernandez MD Primary Care Provider [phone] Gurpreet Mares MD Primary Care Provider Tray Mcdonough MD Unavailable Jonelle Lees RAG SHREDDER Unavailable Unavailab Kim Marti RAG SHREDDER Unavailable [phone] Encounter Details Date Type Department Care Team Description 11/14/2018 Pt. Non Urgent Medic al Question Pulmonology - [address] [place] [address] Addison Aranda MD Social History [...] as of this encounter Progress Notes * Elsa Diana M.A. - 11/16/2018 2:56 PM EDTFrom: Rafia Ambrosio To: Addison Aranda MD Sent: 11/14/2018 11:28 AM EDT Subject: Ameena Just called my insurance again still saying I need pre-approval . Could you please sent them what they need. Thank you documented in this encounter Plan of Treatment Not on file documented as of this encounter Visit Diagnoses Not on filedocumented in this encounter Care Teams Customs Opener Verifier Packer Relationship Specialty Start Date End Date Augusto Hernandez MD [address] [place] [address] PCP - General Internal Medicine 12/11/17 12/08/20 Gurpreet Mares MD [address] [place] [address] PCP - General Internal Medicine 12/09/20 Tray Marsh MD [address] [place] [address] Molded Candles Wicker Cardiovascular Disease 05/18/21 Jonelle Lees NP [address] [place] [address] Nurse Practitioner Cardiology 05/18/21 10/22/23 Kim Webb NP [address] [place] [address] Cardiology 10/23/23 documented as of this encounter
--- OUTSIDE RECORDS SUMMARY | 2024-11-05 09:52 | XMS_ITS | Encounter Summary ---
Author Organization [facility] Address [address] [place] [address] Care Team Providers Care Styrene Dehydration Reactor Operator Name Role Phone Augusto Hernandez MD Primary Care Provider [phone] Gurpreet Mares MD Primary Care Provider Tray Mcdonough MD Unavailable Jonelle Lees GENERAL FOUNDRY WORKER Unavailable Unavailab Kim Marti GENERAL FOUNDRY WORKER Unavailable [phone] Reason for Visit * Reason Onset Date Comments Prior Authorization 11/16/2018 Daliresp 250 mcg Encounter Details Date Type Department Care Team Description 11/16/2018 Telephone Pulmonology - [place] [address] [facility] [address] [place] [address] Jesus Leon PA-C [address] [facility] [address] [place] [address] Prior Authorization (Daliresp 250 mcg) Social History Tobacco Use Types Packs/Day Years [...] encounter Miscellaneous Notes * Telephone Encounter - Leesa Luna M.A. - 12/03/2018 12:34 PM EDT Spoke with Arun from [employer] rx who stated that this was approved Approved from 11/30/18 until 12/01/2019 Prior authorziation approval number #[id number] * Telephone Encounter - Bina Rodriguez M.A. - 11/16/2018 3:13 PM EDT Prior auth done on form to [facility] [place] daliresp Dx copd J44.9,centrilobular emphysema J43.2,chronic respiratory failure J96.10 Pt tried and failed combination laba/lama stiolto Pt is currently using spiriva ,xopenex,and advair diskus * Telephone Encounter - Lyly Reich - 11/16/2018 1:23 PM EDT Pre Authorization for Medication-do not complete and send this encounter unless you have the fax from the pharmacy. Is this a Cover My Meds request: Yes -- Macias Code [id number] Name of Medication Daliresp Dose of Medication 250 mcg What is the RX # from the faxed refill? NA How does patient take this med? Take 1 Tab by mouth daily. For first week take 1 tab every other day, then increase to 1 tab daily x 4 weeks, then increase to 2 pills daily - Oral What Pharmacy did the fax come from: [facility] fax #: listed under contact information [employer] Information from fax: What Prescription Plan does the patient have? BIN/PCN if applicable: Cardholder ID: Person Code: Relationship Code: Help desk phone: documented in this encounter Plan of Treatment Not on file documented as of this encounter Visit Diagnoses Not on filedocumented in this encounter Care Teams Styrene Dehydration Reactor Operator Relationship Specialty Start Date End Date Augusto Hernandez MD [address] [place] [address] PCP - General Internal Medicine 12/11/17 12/08/20 Gurpreet Mares MD [address] [place] [address] PCP - General Internal Medicine 12/09/20 Tray Marsh MD [address] [place] [address] Terrazzo Finisher Cardiovascular Disease 05/18/21 Jonelle Lees NP [address] [place] [address] Nurse Practitioner Cardiology 05/18/21 10/22/23 Kim Webb NP [address] [place] [address] Cardiology 10/23/23 documented as of this encounter
--- OUTSIDE RECORDS SUMMARY | 2024-11-05 09:52 | XMS_ITS | Encounter Summary ---
Author Organization [facility] Address [address] [place] [address] Care Team Providers Care Head Butler Name Role Phone Augusto Hernandez MD Primary Care Provider [phone] Gurpreet Mares MD Primary Care Provider Tray Mcdonough MD Unavailable Jonelle Lees RUBBER TESTER Unavailable Unavailab Kim Marti RUBBER TESTER Unavailable [phone] Encounter Details Date Type Department Care Team Description 02/19/2019 Web Site Administrator Report Medical Records [address] [place] [address] Tray Marsh MD [address] [place], [place] [phone] Social History Tobacco Use Types Packs/Day Years [...] on filedocumented in this encounter Care Teams Head Butler Relationship Specialty Start Date End Date Augusto Hernandez MD [address] [place], [place] [id number] PCP - General Internal Medicine 12/11/17 12/08/20 Gurpreet Mares MD [address] [place] [address] PCP - General Internal Medicine 12/09/20 Tray Marsh MD [address] [place] [address] Process Control Tech Cardiovascular Disease 05/18/21 Jonelle Lese NP [address] [place] [address] Nurse Practitioner Cardiology 05/18/21 10/22/23 Kim Webb NP [address] [place] [address] Cardiology 10/23/23 documented as of this encounter
--- OUTSIDE RECORDS SUMMARY | 2024-11-05 09:52 | XMS_ITS | Encounter Summary ---
Author Organization [facility] Address [address] [place] [address] Care Team Providers Care Sequins Stringer Name Role Phone Gurpreet Mares MD Primary Care Provider Tray Mcdonough MD Unavailable Jonelle Lees PROPERTY UTILIZATION OFFICER Unavailable Unavailab Kim Marti PROPERTY UTILIZATION OFFICER Unavailable [phone] Encounter Details Date Type Department Care Team Description 08/11/2022 Pt. Non Urgent Medical Question Cardio PVCA Diag Testing [address] [facility] [address] [place] [address] Tray Marsh MD [address] [place] [address] [phone] Social History Tobacco Use Types Packs/Day Years [...] Telephone Encounter - Angella Lopez C.M.A. - 08/11/2022 1:33 PM ESTFrom: Rafia Ambrosio To: Valerie Marsh Sent: 08/11/2022 12:21 PM EST Subject: bloodwork I need bloodwork for digoxin I have appointment on Sep 01 with my pc they do blood test could you mail me the order to have it done . thank you Rafia documented in this encounter Plan of Treatment Not on file documented as of this encounter Visit Diagnoses Not on filedocumented in this encounter Care Teams Sequins Stringer Relationship Specialty Start Date End Date Gurpreet Mares MD PCP - General Internal Medicine 12/09/20 Tray Marsh MD Refuse Collector Cardiovascular Disease 05/18/21 Jonelle Lees NP Nurse Practitioner Cardiology 05/18/21 4 Kim Webb NP Cardiology 10/23/23 documented as of this encounter
--- OUTSIDE RECORDS SUMMARY | 2024-11-05 09:52 | XMS_ITS | Encounter Summary ---
Author Organization [facility] Address [address] [place] [address] Care Team Providers Care Application Technician Name Role Phone Gurpreet Mares MD Primary Care Provider Tray Mcdonough MD Unavailable Jonelle Lees BRIQUETTER OPERATOR Unavailable Unavailab Kim Marti BRIQUETTER OPERATOR Unavailable [phone] Reason for Visit * Reason Onset Date Comments Shortness Of Breath 04/13/2022 Encounter Details Date Type Department Care Team Description 04/13/2022 Telephone Cardio PVCA Diag Testing 101 [address] [facility] [address] [place] [address] [phone] Tray Marsh MD [address] [place] [address] [phone] Shortness Of Breath Social History Tobacco Use Types Packs/Day Years [...] Telephone Encounter - Toyin Ge RN - 04/13/2022 12:44 PM EDT Spoke with patient and relayed ARJUN arriaga and patient will start this new dose tomorrow since shealready took an additional 50 mg today. Sent ion new script toprol xl 50 mg 1.5 tabs daily. * Telephone Encounter - Tray Marsh MD - 04/13/2022 12:32 PM EDT Tracings reviewed. She has permanent atrial fibrillation. She can start taking an extra half tabletof metoprolol every day. * Telephone Encounter - Toyin Ge RN - 04/13/2022 12:20 PM EDT See AC response below. Spoke with patient and per patient she took toprol xl 50 mg at 8:30am and she took another 50 mg at10am. Does not have a BP cuff. Feels well .Denied dizziness lightheadedness, headache and per pulseoximeter pulse now 89. Sending another kardia tracing. She is aware not to take any more BB today and is aware I will c/b after response from . Starting tomorrow, do you want patient to take an additional 1/2 tab BB (25mg) if hr elevated? Awaiting Kardia tracing. * Telephone Encounter - Jonelle Lees NP - 04/13/2022 12:05 PM EDT We can try increasing her BB some more, we can start with a pill and half to see if this helps HR at all, also rec f/u with Pulmonology for her dyspnea has known pulm fibrosis etc thanks, any BP readings, hydrating enough? I am off rest of the day send to go to if need anything else taken care of * Telephone Encounter - Toyin Ge RN - 04/13/2022 10:18 AM EDT Kardia tracings scanned in. * Telephone Encounter - Toyin Ge RN - 04/13/2022 9:38 AM EDT Patient reports elevated hr Monday that resolved on own and fine yesterday but today elevated fgyyt9gb . HR was 130 now 123 per Penumbraa mobile renee and pulse ox. Sending tracing. On diltiazem 300 mg at 7:30am And toprol xl 50 mg at 8:45am. Sending My chart Kardia tracing. I will scan in when received . Denies cp, dizziness. Reports sob is at baseline. I reviewed when to seek er eval. No missed doses of eliquis or BB . She is asking about taking extra BB/ * Telephone Encounter - Evette Albaa - 04/13/2022 9:27 AM EDT Patient said that she feels she is in Afib. Patient also said that she has been suffering from shortness of breath very badly for the past few weeks to the point where even just eating is difficult. Please call patient at [phone] documented in this encounter Plan of Treatment Not on file documented as of this encounter Visit Diagnoses Not on filedocumented in this encounter Care Teams Application Technician Relationship Specialty Start Date End Date Gurpreet Mares MD PCP - General Internal Medicine 12/09/20 Tray Marsh MD Vaccine Customer Representative Cardiovascular Disease 05/18/21 Jonelle Lees NP Nurse Practitioner Cardiology 05/18/21 4 Kim Webb NP Cardiology 10/23/23 documented as of this encounter
--- OUTSIDE RECORDS SUMMARY | 2024-11-05 09:52 | XMS_ITS | Encounter Summary ---
Author Organization [facility] Address [address] [place] [address] Care Team Providers Care Supervisor Epoxy Fabrication Name Role Phone Augusto Hernandez MD Primary Care Provider [phone] Gurpreet Mares MD Primary Care Provider Tray Mcdonough MD Unavailable Jonelle Lees ROD MILL TENDER Unavailable Unavailab Kim Marti ROD MILL TENDER Unavailable [phone] Reason for Visit * Reason Onset Date Comments Prior Authorization 11/16/2018 daliresp 500 mcg Encounter Details Date Type Department Care Team Description 11/16/2018 Telephone Pulmonology - [place] [address] [facility] [address] [place] [address] Jesus Leon PA-C [address] [facility] [address] [place] [address] Prior Authorization (daliresp 500mcg) Social History Tobacco Use Types Packs/Day Years [...] encounter Miscellaneous Notes * Telephone Encounter - Lyly Reich - 11/16/2018 1:36 PM EDT Pre Authorization for Medication-do not complete and send this encounter unless you have the fax from the pharmacy. Is this a Cover My Meds request: Yes -- Macias Code [id number] Name of Medication Daliresp Dose of Medication 500 mcg What is the RX # from the faxed refill? How does patient take this med? Spoke with pharmacy, patient is to start this dosing after startingthe 250mcg for one week What Pharmacy did the fax come from: [facility] fax #: listed under contact information [employer] Party Information from fax: What Prescription Plan does the patient have? BIN/PCN if applicable: Cardholder ID: Person Code: Relationship Code: Help desk phone: documented in this encounter Plan of Treatment Not on file documented as of this encounter Visit Diagnoses Not on filedocumented in this encounter Care Teams Supervisor Epoxy Fabrication Relationship Specialty Start Date End Date Augusto Hernandez MD [address] [place] [address] PCP - General Internal Medicine 12/11/17 12/08/20 Gurpreet Mares MD [address] [place] [address] PCP - General Internal Medicine 12/09/20 Tray Marsh MD [address] [place] [address] Communication Engineer Cardiovascular Disease 05/18/21 Jonelle Lees NP [address] [place] [address] Nurse Practitioner Cardiology 05/18/21 10/22/23 Kim Webb NP [address] [place] [address] Cardiology 10/23/23 documented as of this encounter
--- OUTSIDE RECORDS SUMMARY | 2024-11-05 09:52 | XMS_ITS | Encounter Summary ---
Author Organization [facility] Address [address] [place] [address] Care Team Providers Care Pipelines Supervisor Name Role Phone Augusto Hernandez MD Primary Care Provider [phone] Gurpreet Mares MD Primary Care Provider Tray Mcdonough MD Unavailable Jonelle Lees SPORTS DEVELOPMENT OFFICER Unavailable Unavailab Kim Marti SPORTS DEVELOPMENT OFFICER Unavailable Encounter Details Date Type Department Care Team Description 11/16/2018 Pt. Non Urgent Medic al Question Pulmonology - [address] [place] [address] Addison Aranda MD Social History [...] Progress Notes * Elsa Diana M.A. - 11/19/2018 8:41 AM EDTFrom: Rafia Ambrosio To: Addison Aranda MD Sent: 11/16/2018 3:36 PM EDT Subject: Ameena They just called had to change my appointment till December 26. They didn't know we're need pre-approval . Insurance says we do. Thank you documented in this encounter Plan of Treatment Not on file documented as of this encounter Visit Diagnoses Not on filedocumented in this encounter Care Teams Pipelines Supervisor Relationship Specialty Start Date End Date Augusto Hernandez MD [address] [place] [address] PCP - General Internal Medicine 12/11/17 12/08/20 Gurpreet Mares MD [address] [place] [address] PCP - General Internal Medicine 12/09/20 Tray Marsh MD [address] [place] [address] Gericare Aide Cardiovascular Disease 05/18/21 Jonelle Lees NP [address] [place] [address] Nurse Practitioner Cardiology 05/18/21 10/22/23 Kim Webb NP [address] [place] [address] Cardiology 10/23/23 documented as of this encounter
--- OUTSIDE RECORDS SUMMARY | 2024-11-05 09:52 | XMS_ITS | Encounter Summary ---
Author Organization [facility] Address [address] [place] [address] Care Team Providers Care Thumb Sewer Name Role Phone Augusto Hernandez MD Primary Care Provider [phone] Gurpreet Mares MD Primary Care Provider Tray Mcdonough MD Unavailable Jonelle Lees MRI SUPERVISOR Unavailable Unavailab Kim Marti MRI SUPERVISOR Unavailable [phone] Encounter Details Date Type Department Care Team Description 11/18/2018 Pt. Non Urgent Medical Question Pulmonology - [place] [address] [facility] [address] [place] [address] Jesus Leon PA-C [address] [facility] [address] [place] [address] Social History Tobacco Use Types Packs/Day Years [...] Notes * Elsa Diana M.A. - 11/19/2018 8:40 AM EDTFrom: Rafia Ambrosio To: Jesus Leon PA-C Sent: 11/18/2018 2:59 PM EDT Subject: daliresp will start taking as soon as its approved by insurnace. [place] now has me going in December. documented in this encounter Plan of Treatment Not on file documented as of this encounter Visit Diagnoses Not on filedocumented in this encounter Care Teams Thumb Sewer Relationship Specialty Start Date End Date Augusto Hernandez MD [address] [place] [address] PCP - General Internal Medicine 12/11/17 12/08/20 Gurpreet Mares MD [address] [place] [address] PCP - General Internal Medicine 12/09/20 Tray Marsh MD [address] [place] [address] Finisher Screwdown Cardiovascular Disease 05/18/21 Jonelle Lees NP [address] [place] [address] Nurse Practitioner Cardiology 05/18/21 10/22/23 Kim Webb NP [address] [place] [address] Cardiology 10/23/23 documented as of this encounter
--- OUTSIDE RECORDS SUMMARY | 2024-11-05 09:52 | XMS_ITS | Encounter Summary ---
Author Organization [facility] Address [address] [place] [address] Care Team Providers Care Elevator Repairer Helper Name Role Phone Gurpreet Mares MD Primary Care Provider Tray Mcdonough MD Unavailable Jonelle Lees UPHOLSTERY HANDLER Unavailable Unavailab Kim Marti UPHOLSTERY HANDLER Unavailable [phone] Reason for Visit * Reason Onset Date Comments E-prescribe Rx Request 05/02/2022 duplicate s ccb, doac already processed Encounter Details Date Type Department Care Team Description 05/02/2022 Refill Cardio P[facility] [address] [place] [address] [place] [address] Tray Marsh MD [address] [place] [phone] E-prescribe Rx Request (duplicates ccb, doac already processed) Social History Tobacco Use Types Packs/Day Years [...] Telephone Encounter - Angella Lopez C.M.A. - 05/05/2022 9:47 AM EDT Duplicates declined. Rx's already processed documented in this encounter Plan of Treatment Not on file documented as of this encounter Visit Diagnoses Diagnosis Permanent atrial fibrillation (HCC) Atrial fibrillation documented in this encounter Care Teams Elevator Repairer Helper Relationship Specialty Start Date End Date Gurpreet Mares MD PCP - General Internal Medicine 12/09/20 Tray Marsh MD Chief Credit Officer Cardiovascular Disease 05/18/21 Jonelle Lees NP Nurse Practitioner Cardiology 05/18/21 4 Kim Webb NP Cardiology 10/23/23 documented as of this encounter
--- OUTSIDE RECORDS SUMMARY | 2024-11-05 09:52 | XMS_ITS | Encounter Summary ---
Author Organization [facility] Address [address] [place] [address] Care Team Providers Care Solar System Designer Name Role Phone Gurpreet Mares MD Primary Care Provider Tray Mcdonough MD Unavailable Jonelle Lees NP Unavailable Unavailab Kim Marti NP Unavailable [phone] Encounter Details Date Type Department Care Team Description 04/13/2022 SCAN Medical Records [address] [place] [id number] Abstract, Provider Social History Tobacco Use Types [...] in this encounter Care Teams Solar System Designer Relationship Specialty Start Date End Date Gurpreet Mares MD PCP - General Internal Medicine 12/09/20 Tray Marsh MD Vendor Management Consultant Cardiovascular Disease 05/18/21 Jonelle Lees NP Nurse Practitioner Cardiology 05/18/2110/21/ Kim Miguel NP Cardiology 10/23/23 documented as of this encounter
--- OUTSIDE RECORDS SUMMARY | 2024-11-05 09:52 | XMS_ITS | Encounter Summary ---
Author Organization [facility] Address [address] [place] [address] Care Team Providers Care Director Biologics Name Role Phone Gurpreet Mares MD Primary Care Provider Tray Mcdonough MD Unavailable Jonelle Lees ENGINEERING DRAWINGS CHECKER Unavailable Unavailab Kim Marti ENGINEERING DRAWINGS CHECKER Unavailable [phone] Encounter Details Date Type Department Care Team Description 09/18/2022 [facility] Medical Records [address] [place] [address] Social History Tobacco Use Types Packs/Day Years [...] Name Priority Date/Time Associated Diagnosis Comments OUTSIDE CT Routine 09/30/2022 OUTSIDE EKG Routine 09/27/2022 OUTSIDE PLAIN FILM Routine 09/26/2022 OUTSIDE ECHO Routine 09/21/[address] Routine 09/21/2022 OUTSIDE PLAIN FILM Routine 09/21/2022 OUTSIDE PLAIN FILM Routine 09/21/2022 OUTSIDE EKG Routine 09/18/2022 OUTSIDE EKG Routine 09/18/2022 OUTSIDE PLAIN FILM Routine 09/18/2022 documented in this encounter Results * OUTSIDE CT (09/30/2022) Provider Default RADIOLOGY * OUTSIDE EKG (09/27/2022) Provider Default CARDIOLOGY * OUTSIDE PLAIN FILM (09/26/2022) Provider Abstract RADIOLOGY * OUTSIDE PLAIN FILM (09/21/2022) Provider Abstract RADIOLOGY * OUTSIDE CT (09/21/2022) Provider Default RADIOLOGY * OUTSIDE PLAIN FILM (09/21/2022) Provider Default RADIOLOGY * OUTSIDE ECHO (09/21/2022) Provider Default CARDIOLOGY * OUTSIDE PLAIN FILM (09/18/2022) Provider Default RADIOLOGY * OUTSIDE EKG (09/18/2022) Provider Default CARDIOLOGY * OUTSIDE EKG (09/18/2022) Provider Default CARDIOLOGY documented in this encounter Visit Diagnoses Not on filedocumented in this encounter Care Teams Director Biologics Relationship Specialty Start Date End Date Gurpreet Mares MD PCP - General Internal Medicine 12/09/20 Tray Marsh MD Laborer [employer] Cardiovascular Disease 05/18/21 Jonelle Lees NP Nurse Practitioner Cardiology 05/18/21 4 Kim Webb NP Cardiology 10/23/23 documented as of this encounter
--- OUTSIDE RECORDS SUMMARY | 2024-11-05 09:52 | XMS_ITS | Encounter Summary ---
Author Organization [employer] [facility] Address [address] [place] [address] Care Team Providers Care Forgeman Helper Name Role Phone Augusto Hernandez MD Primary Care Provider [phone] Gurpreet Mares MD Primary Care Provider Tray Mcdonough MD Unavailable Jonelle Lees QC SCIENTIST Unavailable Unavailab Kim Marti QC SCIENTIST Unavailable [phone] Reason for Visit * Reason Onset Date Comments Prior Authorization 12/03/2018 [facility] Encounter Details Date Type Department Care Team Description 12/03/2018 Telephone Pulmonology - [place] [address] [facility] [address] [place] [address] Jesus Leon PA-C [address] [facility] [address] [place] [address] Prior Authorization ([facility]) Social History Tobacco Use Types Packs/Day Years [...] Telephone Encounter - Leesa Luna M.A. - 12/04/2018 12:47 PM EDT This is from 11/16/18 encounter. Spoke with star from [facility] who stated that this was approved ? Approved from 11/30/18 until 12/01/2019 ?? Prior authorziation approval number #[id number] [facility] to inform them of the approval again. 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 - 12/03/2018 4:51 PM EDT Pre Authorization for Medication-do not complete and send this encounter unless you have the fax from the pharmacy. Is this a Cover My Meds request: Yes -- Macias Code [email or web address] Name of Medication Daliresp Dose of Medication 500mcg What is the RX # from the faxed refill? N/a How does patient take this med? unknown What Pharmacy did the fax come from: [facility] fax #: [phone] [employer] Party Information from fax: What Prescription Plan does the patient have? BIN/PCN if applicable: Cardholder ID: Person Code: Relationship Code: Help desk phone: documented in this encounter Plan of Treatment Not on file documented as of this encounter Visit Diagnoses Not on filedocumented in this encounter Care Teams Forgeman Helper Relationship Specialty Start Date End Date Augusto Hernandez MD [address] [place], [place] PCP - General Internal Medicine 12/11/17 12/08/20 Gurpreet Mares MD [address] [place] [address] PCP - General Internal Medicine 12/09/20 Tray Marsh MD [address] [place], [place] Ordering Machine Operator Cardiovascular Disease 05/18/21 Jonelle Lees NP [address] [place] [address] Nurse Practitioner Cardiology 05/18/21 10/22/23 Kim Webb NP [address] [place], [place] Cardiology 10/23/23 documented as of this encounter
--- OUTSIDE RECORDS SUMMARY | 2024-11-05 09:52 | XMS_ITS | Encounter Summary ---
Author Organization [facility] Address [address] [place] [address] Care Team Providers Care Accounting Machine Mechanic Name Role Phone Gurpreet Mares MD Primary Care Provider Tray Mcdonough MD Unavailable Jonelle Lees CONTENT PUBLISHER Unavailable Unavailab Kim Marti CONTENT PUBLISHER Unavailable [phone] Reason for Visit * Reason Onset Date Comments Medication 05/05/2022 Eliquis 5 MG Tab refill Encounter Details Date Type Department Care Team Description 05/05/2022 Telephone Cardio PVCA Diag Testing [address] [facility] [address] [place] [address] Tray Marsh MD [address] [place] [address] [id number] Medication (Eliquis 5 MG Tab refill ) Social History Tobacco Use Types Packs/Day [...] Encounter - Angella Lopez C.M.A. - 05/05/2022 9:44 AM EDT Renewed under 05/03 encounter * Telephone Encounter - Apple Butler - 05/05/2022 9:32 AM EDT Patient is requesting Eliquis 5 MG Tab 90 day refill to be sent to [facility] in [place] on [address] Patient could be reached at [phone] documented in this encounter Plan of Treatment Not on file documented as of this encounter Visit Diagnoses Not on filedocumented in this encounter Care Teams Accounting Machine Mechanic Relationship Specialty Start Date End Date Gurpreet Mares MD PCP - General Internal Medicine 12/09/20 Tray Marsh MD Pipe Insulator Cardiovascular Disease 05/18/21 Jonelle Lees NP Nurse Practitioner Cardiology 05/18/21 4 Kim Webb NP Cardiology 10/23/23 documented as of this encounter
--- OUTSIDE RECORDS SUMMARY | 2024-11-05 09:52 | XMS_ITS | Encounter Summary ---
Author Organization [facility] Address [address] [place] [address] Care Team Providers Care Industrial Equipment Mechanic Name Role Phone Augusto Hernandez MD Primary Care Provider [phone] Gurpreet Mares MD Primary Care Provider Tray Mcdonough MD Unavailable Jonelle Lees LEATHER LACER Unavailable Unavailab Kim Marti LEATHER LACER Unavailable [phone] Encounter Details Date Type Department Care Team Description 02/21/2019 Pt. Non Urgent Medic al Question Pulmonology - [address] [place] [id number] Addison Aranad MD Social History Tobacco Use Types Packs/Day [...] on filedocumented in this encounter Care Teams Industrial Equipment Mechanic Relationship Specialty Start Date End Date Augusto Hernandez MD [address] [place], [place] [id number] PCP - General Internal Medicine 12/11/17 12/08/20 Gurpreet Mares MD [address] [place] [address] PCP - General Internal Medicine 12/09/20 Tray Marsh MD [address] [place], [place] [id number] Processing Associate Cardiovascular Disease 05/18/21 Jonelle Lees NP [address] [place] [address] Nurse Practitioner Cardiology 05/18/21 10/22/23 Kim Webb NP [address] [place] [address] Cardiology 10/23/23 documented as of this encounter
--- OUTSIDE RECORDS SUMMARY | 2024-11-05 09:52 | XMS_ITS | Encounter Summary ---
Author Organization [facility] Address [address] [place] [address] Care Team Providers Care Micro Computer Data Processor Name Role Phone Gurpreet Mares MD Primary Care Provider Tray Mcdonough MD Unavailable Jonelle Lees ELECTRONIC BENCH TECHNICIAN Unavailable Unavailab Kim Marti ELECTRONIC BENCH TECHNICIAN Unavailable [phone] Encounter Details Date Type Department Care Team Description 11/06/2022 Pt. Non Urgent Medical Question Cardio PVCA Diag Testing [address] [facility] [address] [place] [address] Tray Marsh MD [address] [place] [address] [phone] Social History Tobacco Use Types Packs/Day Years [...] encounter Miscellaneous Notes * Telephone Encounter - Dakota Thomas RN - 11/07/2022 8:30 AM EDTFrom: Rafia Ambrosio To: Valerie Marsh Sent: 11/06/2022 4:04 PM EDT Subject: Medication Have appointment on december 26 . Have been in hospital with pneumonia now in rehab they changed some of my medications should I make my appointment sooner. Expect to go home in a few weeks. documented in this encounter Plan of Treatment Not on file documented as of this encounter Visit Diagnoses Not on filedocumented in this encounter Care Teams Micro Computer Data Processor Relationship Specialty Start Date End Date Gurpreet Mares MD PCP - General Internal Medicine 12/09/20 Tray Marsh MD Twist Tester Cardiovascular Disease 05/18/21 Jonelle Lees NP Nurse Practitioner Cardiology 05/18/21 4 Kim Webb NP Cardiology 10/23/23 documented as of this encounter
--- OUTSIDE RECORDS SUMMARY | 2024-11-05 09:52 | XMS_ITS | Encounter Summary ---
Author Organization [facility] Address [address] [place] [address] Care Team Providers Care Transformer Assembler Name Role Phone Augusto Hernandez MD Primary Care Provider [phone] Gurpreet Mares MD Primary Care Provider Tray Mcdonough MD Unavailable Jonelle Lees WHOLESALER Unavailable Unavailab Kim Marti WHOLESALER Unavailable [phone] Encounter Details Date Type Department Care Team Description 03/12/2019 Release of Information Medical Records [address] [place] [phone] Abstract, Provider Social History Tobacco Use Types [...] on filedocumented in this encounter Care Teams Transformer Assembler Relationship Specialty Start Date End Date Augusto Hernandez MD [address] [place], [place] [id number] PCP - General Internal Medicine 12/11/17 12/08/20 Gurpreet Mares MD [address] [place], [place] PCP - General Internal Medicine 12/09/20 Tray Marsh MD [address] [place], [place] Youth Manager Cardiovascular Disease 05/18/21 Jonelle Lees NP [address] [place] [address] Nurse Practitioner Cardiology 05/18/21 10/22/23 Kim Webb NP [address] [place] [address] Cardiology 10/23/23 documented as of this encounter
--- OUTSIDE RECORDS SUMMARY | 2024-11-05 09:52 | XMS_ITS | Clinical Summary ---
Author Organization [address] [place] [address] Address [address] [place] [address] Phone Care Team Providers Care Inorganic Chemistry Professor Name Role Phone SheilabhupinderGurpreet singh Primary Care Provider [phone] Allergies No known active allergies Medications apixaban (ELIQUIS) 5 mg tablet Take 1 tablet (5 mg total) by mouth 2 (two) times a day. Active dilTIAZem CD (CARDIZEM CD) 240 mg 24 hr capsule Take 1 capsule (240 mg total) by mouth 1 (one) time each day. Active metoprolol tartrate (LOPRESSOR) 50 mg tablet Take 1 tablet (50 mg total) by mouth 2 (two) times a day. Active levothyroxine (SYNTHROID, LEVOTHROID) 25 mcg tablet Take 1 Tablet by mouth daily. Active ondansetron ODT (ZOFRAN-ODT) 4 mg disintegrating tablet Take 1 Tablet by mouth every 6 hours as needed. Active melatonin 3 mg tablet Take by mouth. Active acetaminophen (TYLENOL) 325 mg tablet Take 2 Tablets by mouth every 6 hours as needed. Active ergocalciferol (VITAMIN D-2) 1,250 mcg (50,000 unit) capsule Take 50,000 Units by mouth once a week. Active tiotropium (Spiriva Respimat) 2.5 mcg/actuation inhalation spray INHALE TWO PUFFS BY MOUTH EVERY DAY 02/26/20 19 Active roflumilast (Daliresp) 250 mcg tablet Take 1 Tab by mouth daily. For the first week only take 1 tab evry other day. 12/04/19 19 Active UNABLE TO FIND Oxygen Historical (HISTORICAL OXYGEN) 2 L by Nasal route daily Active vit A/vit C/vit E/zinc/copper (PRESERVISION AREDS ORAL) TAKE 1 TABLET DAILY. Active azithromycin (ZITHROMAX) 250 mg tablet Take 1 tablet (250 mg total) by mouth 1 (one) time each day. Mon, Mon, and Monday only Active predniSONE (DELTASONE) 10 mg tablet Take 1 tablet (10 mg total) by mouth every other day. Active digoxin (LANOXIN) 125 mcg (0.125 mg) tablet TAKE 1 TABLET BY MOUTH 1 TIME EACH DAY. 90 tablet 3 09/27/19 25 Active furosemide (LASIX) 40 mg tablet Take 1 tablet (40 mg total) by mouth 1 (one) time each day. As needed 90 tablet 10/24/19 25 Active furosemide (LASIX) 40 mg tablet Take 1 tablet (40 mg total) by mouth if needed. 2024 Discontinued Active Problems Problem Noted Date Diagnosed Date Tricuspid regurgitation 10/30/2023 Overview (07/17/2024): Last Assessment & Plan: Most recent echocardiogram [...] that time. Acute on chronic respiratory failure with hypoxia and hypercapnia 02/07/2023 Septic shock 02/07/2023 Hyperlipidemia 12/23/2022 Overview (07/17/2024): Last Assessment & Plan: Most recent lipid panel completed 10/06/2023 with LDL at goal; continue current plan RBBB (right bundle branch block) 12/23/2022 Overview (07/17/2024): Last Assessment & Plan: Stable on EKG, continue to follow. Secondary hypercoagulable state 12/23/2022 Diastolic heart failure 06/14/2021 Overview (07/17/2024): Last Assessment & Plan: The patient presents [...] day or 4 pounds in one week. Dyspnea on exertion 12/09/2020 Other secondary pulmonary hypertension Overview (07/17/2024): Last Assessment & Plan: Patient has a [...] going well. No new or concerning symptoms. Gastroesophageal reflux disease without esophagi tis 02/04/2019 Atrial fibrillation 12/05/2017 Overview (07/17/2024): Permanent atrial fibrillation dating back many years. [...] will continue to follow this. Diverticulosis 12/05/2017 Chronic respiratory failure 11/25/2016 Other emphysema 11/25/2016 Pulmonary nodule 11/25/2016 Supplemental oxygen dependent 11/25/2016 Encounters Date Type Department Care Team Description 10/01/2024 2:00 PM EST Ancillary Procedure [facility] [address] [address] Acute on chronic respiratory failure with hypoxia and hypercapnia (CMS/HCC); Permanent atrial fibrillation (CMS/HCC); Other emphysema (CMS/HCC); Chronic diastolic heart failure (CMS/HCC); Nonrheumatic tricuspid valve regurgitation 09/17/2024 3:30 PM EST Office [facility] [address] [facility] [address] [place] [address] Tray Marsh MD Acute on chronic respiratory failure with hypoxia and hypercapnia (CMS/HCC) (Primary Dx); Permanent atrial fibrillation (CMS/HCC); Other emphysema (CMS/HCC); Chronic diastolic heart failure (CMS/HCC); Nonrheumatic tricuspid valve regurgitation 09/17/2024 1:50 PM EST Lab Draw Station - [address] [address] Paroxysmal atrial fibrillation (CMS/HCC) 09/02/2024 Telephone [facility] [address] [place] [address] Tray Marsh MD Med Management 08/15/2024 Telephone [facility] [address] [facility] [address] [place] [address] Vanita Muñoz RN ROCT strips 08/11/2024 7:00 AM EST Ancillary Procedure [facility] [address] [place] [address] Paroxysmal atrial fibrillation (CMS/HCC); Palpitations from Last 3 Months Medical History Medical History Date Comments Pulmonary nodule 11/25/2016 DX:Pulmonary no dule Chronic respiratory failure (CMS/HCC) 11/25/2016 DX:Chronic respiratory failure (HCC); COMMENT: On O2 Supplemental oxygen dependent 11/25/2016 DX :Supplemental oxygen dependent Chronic obstructive pulmonar y disease (COPD) (CMS/HCC) 11/25/2016 DX:Chronic obstructive pulmo nary disease (COPD) (HCC) Atrial fibrillation (CMS/HCC) 12/05/2017 DX :Atrial fibrillation (HCC) Diverticulosis 12/05/2017 DX:Diverticulosi s TMJ arthritis DX:TMJ arthritis Pulmonary fibrosis (CMS/HCC) DX: Pulmonary fibrosis (HCC) GERD (gastroesophageal reflux disease) DX:GERD (gastroesophageal reflux disease) Acute on chronic respiratory failure with hypoxia and hypercapnia (CMS/HCC) DX:Acute on chr onic respiratory failure with hypoxia and hypercapnia (HCC) Respiratory distress DX:Respirat ory distress Pneumonia DX:Pneumonia Septic shock (CMS/HCC) DX:Septic shock (HCC) Family History Medical History Relation Name Comments COPD Brother COPD Father Other: Heart Disease Father COPD Mother Breast cancer Sister Relation Name Status Comments Brother Father Mother Sister Social History Tobacco Use Types Packs/Day Years Used Date Smoking Tobacco: Former Smokeless Tobacco: Never Alcohol Use Standard Drinks/Week Comments No 0 (1 standard drink = 0.6 oz pur e alcohol) Comments Unknown Sex and Gender Information Value Date Recorded Sex Assigned at Not on file Legal Sex Female 2:38 AM EST Gender Identity Not on file Sexual Orientation Not on file Obstetrics History Last Filed Vital Signs Vital Sign Reading Time Taken Comments Blood Pressure 115/60 09/17/2024 3:25 PM EST Pulse 93 09/17/2024 3:25 PM EST Temperature - - Respiratory Rate - - Oxygen Saturation 95% 09/17/2024 3:25 PM EST Inhaled Oxygen Concentration - - Weight 62.1 kg (137 lb) 09/17/2024 3:25 PM EST Height 162.6 cm (5' 4 ) 09/17/2024 3:25 PM EST Body Mass Index 23.52 09/17/2024 3:25 PM EST Plan of Treatment Upcoming Encounters Date Type Department Care Team (Late st Contact Info) Description 04/01/2025 1:10 PM EDT Office Visit [facility] [address] [place] [address] Kim Webb, KHANH [address] [place] [address] Health Maintenance Due Date Last Done Comments Breast Cancer Screening 1955 DTaP,Tdap,and Td Vaccines (1 - Tdap) 1973 Pneumococcal Vaccine: 50+ Years (1 of 2 - PCV) 1973 Zoster Vaccines (1 of 2) 2004 RSV Immunization Patients 60 + Years Old (1 - Risk 60-74 years 1-dose series) 2014 Colorectal Cancer Screening: Colonoscopy 07/24/2022 Depression Screening 07/24/2022 Falls Risk Assessment 07/24/2022 Hepatitis C Screening 07/24/2022 Medicare Annual Wellness Visit 07/24/2022 Osteoporosis Screening (Bone Density Screening) 07/24/2022 Social Influencers of Health Screening 07/24/2022 COVID-19 Vaccine (1 - 2023-2 5 season) 2024 Influenza Vaccine (#1) 2024 Hypertension/CHF/CAD Annual BMP Blood Test 08/02/2025 08/02/2024, 12/03/2018 Cholesterol Screening (Lipid Panel) 08/02/2029 08/02/2024, 12/03/2018 HIB Vaccines Aged Out No longer eligi ble based on patient's age to complete this topic HPV Vaccines Aged Out No longer eligi ble based on patient's age to complete this topic Hepatitis A Vaccines Aged Out No long er eligible based on patient's age to complete this topic Hepatitis B Vaccines Aged Out No long er eligible based on patient's age to complete this topic IPV Vaccines Aged Out No longer eligi ble based on patient's age to complete this topic MMR Vaccines Aged Out No longer eligi ble based on patient's age to complete this topic Meningococcal ACWY Vaccine Aged Out N o longer eligible based on patient's age to complete this topic Meningococcal B Vacine Aged Out No lo nger eligible based on patient's age to complete this topic RSV Immunization Patients Under 20 months Aged Out No longer eligible b ased on patient's age to complete this topic Varicella Vaccines Aged Out No longer eligible based on patient's age to complete this topic Procedures Procedure Name Priority Date/Time Associated Diagnosis Comments CARDIAC HOLTER MONITOR (REPORT GENERATED IN HOUSE) Routine 10/01/2024 1:58 PM EST Acute on chronic respiratory failure with hypoxia and hypercapnia (CMS/HCC) Permanent atrial fibrillation (CMS/HCC) Other emphysema (CMS/HCC) Chronic diastolic heart failure (CMS/HCC) Nonrheumatic tricuspid valve regurgitation DIGOXIN LEVEL Routine 09/17/2024 1:51 PM EST Paroxysmal atrial fibrillation (CMS/HCC) CARDIAC BOX BLANK MACHINE OPERATOR HELPER W/ CONNECTION (MCOT) Routine 08/12/2024 12:49 PM EST Paroxysmal atrial fibrillation (CMS/HCC) Palpitations BASIC METABOLIC PANEL Routine 08/02/2024 9:56 AM EST Paroxysmal atrial fibrillation (CMS/HCC) Hyperlipemia LIPID PANEL WITH REFLEX TO DIRECT LDL Routine 08/02/2024 9:56 AM EST Paroxysmal atrial fibrillation (CMS/HCC) Hyperlipemia from Last 3 Months or Most Recently Relevant to Health Maintenance Results * CARDIAC HOLTER MONITOR (REPORT GENERATED IN HOUSE) (10/01/2024 1:58 PM EST) Anatomical Region Laterality Modality Cardiac Diagnost ic Narrative 10/08/2024 10:10 AM EST [facility] DI[facility] DEPARTMENT [address] [place] [address], [id number] [place] [address] TEL: FAX: Type of Test: 24 Hour Holter Monitor Date of Test: 10/01/2024 Ordering Provider: Tray Marsh MD Reason for Test: Permanent Atrial Fibrillation PVCA Sanitary Plumber Findings: ?? 1: Atrial Fibrillation with Right Bundle Branch Block noted throughout recording. 2: Ventricular rate range was 40-141 BPM with an average of 79 BPM. 3: Occasional PVCs and rare ventricular couplets. 4: No significant pauses noted, longest R-R was 2.3 seconds at 12:42 AM. 5: Diary returned with a few episodes of palpitations noted. EKG at those times showed AFib with isolated PVCs and a ventricular rate of 108 BPM. Impression: A-fib throughout the recording. ??With fairly good rate control. ??Mean gradient of 79. ??Low heart rate of 40. ??Maximum heart rate of 141. ??No significant pauses. ??Palpitations were reported during A-fib with PVCs and a ventricular rate of 108. us Tray Marsh MD [facility] PROCEDURES Final Result * Digoxin level (09/17/2024 1:51 PM EST) Digoxin Lvl 0.7 0.5 - 2.0 ng/mL LAB CHEMISTRY METHOD 09/17/2024 4:25 PM EST [facility] Blood Venous blood specimen / Unknown Venipuncture / Unknown 09/17/2024 1:51 PM EST 09/17/2024 1:51 PM EST us Tray Marsh MD LAB BLOOD ORDERABLES Final Resu lt [facility] [address] [place] [address], * CARDIAC BOX BLANK MACHINE OPERATOR HELPER W/ CONNECTION (MCOT) (08/12/2024 12:49 PM EST) Anatomical Region Laterality Modality Cardiac Diagnost ic Impressions 08/26/2024 4:42 PM EST The patient was in atrial fibrillation throughout the monitoring. ??Heart rates were relatively fast with an average of 93 and a maximum of 157. ??Symptoms occurred with rates of 94 bpm to 134 bpm. ??No other significant arrhythmias. Narrative 08/26/2024 4:42 PM EST [facility] DEPARTMENT [address] [facility], [place] [address], [place] [address] TEL: FAX: TYPE OF TEST: 7 day ROCT monitor. DATES OF MONITORIN08/11/2024- 08/18/2024 REQUESTING PHYSICIAN: Kim Webb NP PRIMARY CARE PROVIDER: Gurpreet Mares MD INDICATION: Paroxysmal atrial fibrillation, Palpitations PRELIMINARY FINDINGS FROM FIRST CALL MEDICAL: 1. The predominant rhythm was Atrial Fibrillation representing 100.0 % arrhythmia burden. 2. The average heart rate was 93 bpm, minimum heart rate was 70 bpm, maximum heart rate was 157 bpm. 3. Total VE burden: 3.3% consisting of singles. 4. There were 12 patient triggered symptomatic events. Kim Webb NP [facility] P ROCEDURES Final Result * Lipid panel with reflex to direct LDL (08/02/2024 9:56 AM EST) Cholesterol 173 0 - 200 mg/dL LAB CHEMISTRY METHOD 08/02/2024 12:19 PM [facility] Triglycerides 86 0 - 150 mg/dL LAB CHEMISTRY METHOD 08/02/2024 12:19 PM [facility] HDL 81 >=40 mg/dL LAB CHEMISTRY METHOD 08/02/2024 12:19 PM [facility] LDL Calculated 75 0 - 100 mg/dL LAB CHEMISTRY METHOD 08/02/2024 12:19 PM [facility] VLDL Cholesterol Ranjan 17.2 mg/dL LAB CHEMISTRY METHOD 08/02/2024 12:19 PM [facility] Non HDL Chol. (LDL+VLDL) 92 <145 mg/dL LAB CHEMISTRY METHOD 08/02/2024 12:19 PM [facility] Chol/HDL Ratio 2.1 0.0 - 4.4 LAB CHEMISTRY METHOD 08/02/2024 12:19 PM [facility] Blood Venous blood specimen / Unknown Venipuncture / Unknown 08/02/2024 9:56 AM EST 08/02/2024 9:56 AM EST Kim Webb NP LAB BLOOD ORDERABLES Final Result [facility] [address] [place] [address], [place] [phone] * (ABNORMAL) Basic metabolic panel (08/02/2024 9:56 AM EST) Sodium 141 133 - 145 mmol/L LAB CHEMISTRY METHOD 08/02/2024 12:19 PM [facility] Potassium 3.4(L) 3.5 - 5.5 mmol/L LAB CHEMISTRY METHOD 08/02/2024 12:19 PM [facility] Chloride 94(L) 96 - 110 mmol/L LAB CHEMISTRY METHOD 08/02/2024 12:19 PM [facility] CO2 38(H) 21 - 32 mmol/L LAB CHEMISTRY METHOD 08/02/2024 12:19 PM [facility] Anion Gap 9 3 - 11 LAB CHEMISTRY METHOD 08/02/2024 12:19 PM [facility] Glucose 90 70 - 100 mg/dL LAB CHEMISTRY METHOD 08/02/2024 12:19 PM [facility] BUN 11 5 - 25 mg/dL LAB CHEMISTRY METHOD 08/02/2024 12:19 PM [facility] Creatinine 0.39(L) 0.50 - 1.10 mg/dL LAB CHEMISTRY METHOD 08/02/2024 12:19 PM [facility] eGFR 107 >=60 mL/min/1. 73m2 LAB CHEMISTRY METHOD 08/02/2024 12:19 PM [facility] Comment:Calculation based on the??Chronic Kidney Disease Epidemiology Collaboration (CKD-EPI) equation refit??without adjustment for race. BUN/Creatinine Ratio 28.2 LAB CHEMISTRY METHOD 08/02/2024 12:19 PM EST [facility] Calcium 9.8 8.5 - 10.5 mg/dL LAB CHEMISTRY METHOD 08/02/2024 12:19 PM EST [facility] Blood Venous blood specimen / Unknown Venipuncture / Unknown 08/02/2024 9:56 AM EST 08/02/2024 9:56 AM EST us Kim Webb LINUX SYSTEM ADMIN LAB BLOOD ORDERABLES Final Result [facility] [address] [place] [address], from Last 3 Months or Most Recently Relevant to Health Maintenance Insurance [employer] - [place] MEDICARE ADVANTAGE Care Teams Inorganic Chemistry Professor Relationship Specialty Start Date End Date Gurpreet Mares DO [address] [place] [phone] PCP - General Internal Medicine 05/22/12
--- OUTSIDE RECORDS SUMMARY | 2024-11-05 09:52 | XMS_ITS | Encounter Summary ---
[facility] Address [address] [place] [address] Care Team Providers Care Manager Inventory Management Name Role Phone Augusto Hernandez MD Primary Care Provider [phone] Gurpreet Mares MD Primary Care Provider Tray Mcdonough MD Unavailable Jonelle Lees METER READER CHIEF Unavailable Unavailab Kim Marti METER READER CHIEF Unavailable [phone] Encounter Details Date Type Department Care Team Description 11/15/2018 Pt. Non Urgent Medic al Question Pulmonology - [address] [place] [address] Addison Aranda MD Social History [...] Notes * Elsa Diana M.A. - 11/16/2018 2:45 PM EDTFrom: Rafia Ambrosio To: Addison Aranda MD Sent: 11/15/2018 1:38 PM EDT Subject: Daliresp I saw Robb Leon yesterday he prescribed daliresp since Dr Aranda is my doctor want to make sure its ok with him. documented in this encounter Plan of Treatment Not on file documented as of this encounter Visit Diagnoses Not on filedocumented in this encounter Care Teams Manager Inventory Management Relationship Specialty Start Date End Date Augusto Hernandez MD [address] [place] [address] PCP - General Internal Medicine 12/11/17 12/08/20 Gurpreet Mares MD [address] [place] [address] PCP - General Internal Medicine 12/09/20 Tray Marsh MD [address] [place] [address] Brick Veneer Maker Cardiovascular Disease 05/18/21 Jonelle Lees NP [address] [place] [address] Nurse Practitioner Cardiology 05/18/21 10/22/23 Kim Webb NP [address] [place] [address] Cardiology 10/23/23 documented as of this encounter
== END 2024-11-05 09:11 | disposition home or self-care (01) ==
LOC: HO.CT 09:10
PROVIDERS: PCP Internal Medicine; Visit Provider Hospitalist
DX: R91.8 Other nonspecific abnormal finding of lung field (principal)
CPT/HCPCS: 71250

== ENCOUNTER → 2024-11-05 09:12 | Outpatient (BNV) | payer MEDICARE, SELFPAY | PROVIDERS: PCP Internal Medicine; Visit Provider Radiology Diagnostic Radiology | DX: J43.9 Emphysema, unspecified (principal); R91.1 Solitary pulmonary nodule | CPT/HCPCS: 71250 ==

== ENCOUNTER 2024-11-08 10:00 | Outpatient (AMB) | payer MEDICARE, SELFPAY ==
[2024-11-08 10:17] VITALS: BP 110/76; PULSE 73; O2SAT 97; BMI 23.6
--- NOTE | 2024-11-08 10:17 | A.OFFVIS_ITS ---
Vital Signs 11/08/24 10:17 Height 5 ft 4 in Weight 137 lb 12.623 oz BMI 23.6 BP 110/76 Blood Pressure Location Rt brachial Position Sitting Pulse 73 Pulse Source Pulse Oximeter Pulse Oximetry (%) 97 Oxygen Delivery Method Nasal Cannula Oxygen Flow Rate 2 Intake Visit Reasons: COPD Allergies No Known Allergies Allergy (Verified 11/08/24 10:20) HPI Comments Details: The patient is a 69-year-old woman known asthma COPD overlap syndrome and also chronic rhinitis. Recently she was seen by Allergy and had allergy testing which was inconclusive. He has continued to use the Flovent HFA. The Flovent does not appear to work as well as the QVAR that she use before. She is still requiring her short-acting beta agonist more than twice a week. She has not been using her singular regularly. She has been complaining of worsening cough. Rbxf-oh-imyhvojt severity. Also nasal congestion. She has been using nasal rinsing for her nose. She had been using Flonase but she has stopped many weeks ago. Also to note she has had pulmonary nodules noted on CT scans. Then she had a repeat CT scan demonstrating no pulmonary nodules (hawa Lucas in 2018). Also to note she has been on CCB of SVT. Her HR was found to be low 40- 50's. The patient is wondering on decreasing or stopping the CCB. I would not recommend changing it to betablockers with her hyper-reactive airways. 05/13/2022 the patient is here for a pulmonary follow-up visit. Overall she continues to be about the same. Continues to have dyspnea on exertion. She does clear her oxygen call which is continuous at 2 L. at that time the patient did not qualify for the conserving device. She did not undergo the PFT and 6 minutes walk test. She does not like to do those tests she does not have to. I did explain to her that if she wants to move forward with lung volume reduction interventions that they will require those studies. In addition to that pulmonary rehabilitation will also require that we did talk about lung transplant. The patient is not interested at this time. She does have friends undergone lung transplant and she is not interested in pursuing this at this time. She continues using noninvasive ventilator at nighttime with good effect. The patient is tolerating the Daliresp without any significant weight loss. 11/04/2022 the patient is here for hospital follow-up visit. The patient was extremely ill back in August. She developed sudden acute on chronic respiratory failure. She was admitted to the ICU a [facility]. There she had a CT scan demonstrating a consolidation in the left upper lobe area. She was given multiple courses of antibiotics and she was maintained on BiPAP. She was close to getting intubated but she was able to stand noninvasive therapies. She became very weak during the hospitalization. She also had a cardiac issue was placed on amiodarone. She is also on Eliquis now. Therefore, we have to be very careful with her nebulized therapies to make sure did do not exacerbate her atrial fibrillation. We did look at her CT scan of the chest she had a couple. It appears that her last CT scan demonstrated a nodular density where she had the pneumonia. This brings up a concomitant process in case she could be having an evolving malignant process at that area. Her last CT scan was back in September so plan to repeat the CT scan in December to reassess the nodular density. The meantime she is currently at the group home. She is going to be going to her daughter's and hopefully getting a 1st floor apartment in view of her now requiring a walker and also wheelchair to get around. She cannot make it back home secondary to the fact that her home has stairs and she is not able to function at that capacity. She is also using her oxygen between 2-4 L. She is also using the noninvasive ventilator at nighttime. In the hospital she did have an elevation in her CO2 although her last ABG was reassuring with chronic hypercarbic respiratory failure without baseline CO2 of 77 mmHg. Will plan to repeat her blood work including Na a venous gas once she is discharged from rehab. 01/09/2023 the patient is here for pulmonary follow-up visit. She is still staying with her daughters. The patient has been participating in physical therapy and respiratory therapy at home through [facility]. [place] is looking to relocate to a senior apartment. This is going to be I believe in January 2023. She has been not compliant or hearing due to her noninvasive ventilator because she has not been able to get proper supplies from her [employer] company. Will reach out to [facility] to make sure that they provide her with a new mask. I did look to see if I could provide her mask in the office but I did not have 1 that she could tolerate. She does respond well to the Ly View mask. In meantime she continues use the oxygen with good effect. The patient did have a venous blood gas which we reviewed pH was normal although her bicarbonate was up to 48 and her pCO2 was up to 73 mmHg. This is probably close to where she was when she was at [facility]. She needs to start using the noninvasive ventilator more hopefully when she gets the new mask he can do that more regularly. When she does that on give her some Diamox and she can take 1 dose to see if can decrease her bicarbonate some in order for her to be able to bring down her CO2. The patient follow-up in 3-4 weeks with another blood gas. I will also ask for a download from her [employer]. 04/25/2023 the patient is here for pulmonary follow-up visit. The patient is feeling a lot better. She did have some medication changes which made address take improvement in her overall more out energy and breathing. She is working closely with her cartridge loader. In the meantime for respiratory status she is using her inhalers with good response. We did talk about cutting down the Daliresp because of the weight loss. In addition to that the patient has been using the oxygen and has been maintaining a between 2-4 L. No recent imaging studies to review no recent blood work. Will request a download again from the [employer], [place]. In addition will go ahead and request a repeat venous gas to assess her pCO2 on the current settings. The patient will return in 6 months or sooner if any new issues arise. 03/29/2024 the patient is here for a pulmonary follow-up visit. Overall the patient has been doing better. She still has dyspnea on exertion but she has been more active. She is exercising on a regular basis. She is using her oxygen. She does use the oxygen for the most part continues although she does take it off when she is eating or sitting. I did explain to her that his lungs are oxygens above 90% and she is with family can take it off continue to monitor closely. She continues use her respiratory medicines good effect. She is also using her noninvasive ventilator. She did bring blood work that she has an outpatient. Her bicarb 37. This baseline bicarb due to the fact that she has chronic hypercarbic respiratory failure. We did go ahead and recheck her blood gas in her acid-base status is stable her pCO2 66 and her measured bicarb was also 37. I believe that 37 is a good baseline number for her. Will continue to monitor and consider Diamox only if her bicarb is above 40 on the basic metabolic panel. We also did read send blood work including a DNA for alpha-1 antitrypsin deficiency in view of her extensive emphysema. The patient also has multiple nodular densities. Last CT scan was back November 2022 at [facility]. We did personally reviewed. And she is due for CT scan. She is on the fence based on the fact that based on her lung capacity is not that we can do significant amount of diagnostic interventions specially biopsies. Still though will continue to monitor this nodular density so therefore will repeat the CT scan prior to her next visit in 6 months. If the patient has any worsening symptoms prior to that she will call for an earlier assessment. 08/02/2024 the patient is here for a pulmonary follow-up visit. She feels like she is getting worse. She has a hard time even doing simple chores around the house. She is more winded. She continues use a noninvasive ventilator at nighttime. She also continues to take medications as prescribed. More recently her AFib has been a little bit more out of control with increased heart rate. She did put a call out to Cardiology they will be seeing her soon. In the meantime she does have very diminished breath sounds. We did look at her recent CT scan of the chest demonstrating some new pulmonary nodules in the right lower lobe some of the are irregular in appearance. In addition to that she does have some haziness over the areas component of pneumonitis. Will go ahead and treat her for possible inflammatory process and also infectious process. Will plan to repeat the CT scan in 3 months. In the meantime I did request that she go back on the noninvasive ventilator during the daytime as well. If she can spent a couple hours during the day and also make sure that she uses at nighttime. Will get a blood gas to have a baseline at this time. 11/08/2024 the patient is here for a pulmonary follow-up visit. Overall the patient is feeling a lot better. She continues on the 10 mg of prednisone every other day and also the azithromycin 3 times a week. Also continues on the respiratory therapy. She has been using her noninvasive ventilator at nighttime and also during the daytime a little bit. She has a hard time sleeping at nighttime so she can keep it the whole night. She seems to be using about 79- 80% of the time. I did encourage her to try to use it a little bit longer at nighttime. Specially with the elevated CO2. Will go ahead and prescribe her trazodone to see if this can help her sleep a little better at nighttime. In the meantime the patient will continue the azithromycin for now. She will need to do an EKG. And also will benefit from a continue the prednisone but will go ahead and taper down the prednisone some. In the meantime the patient did have a CT scan of the chest which we personally reviewed. Some of those nodular densities have subsided. Although she does have extensive emphysema. She continues on the oxygen with good effect. Will go ahead and request repeat blood work especially since her CO2 was significantly elevated before and also the patient should have an EKG to make sure that she can stay on the az ithromycin safely. [facility] Medical History (Updated 05/16/21 @ 20:50 by Addison Aranda MD) Pre-op chest exam Respiratory failure Centrilobular emphysema Pulmonary nodules Social History Patient Tobacco Use Status: Former Tobacco user Tobacco use type: Cigarette Years Smoked: 30 years Review of Systems Const Denies night sweats and Reports weight loss ENT Denies change in voice, Denies lip swelling, Denies mouth pain, Reports nasal congestion, Reports nasal discharge and Denies tongue swelling Card Denies chest pain and Reports dyspnea on exertion Resp Denies chest congestion, Reports cough and Reports dyspnea on exertion GI Denies abdominal pain Musc Denies no additional complaints and Reports abnormal gait Skin/Breast Denies rash Neuro Reports Neuro-related abnormal movements and Reports abnormal gait Psych Denies no additional complaints Edson/Lymph Denies easy bleeding and Denies lymphadenopathy Aller/Immun Denies lip swelling and Denies tongue swelling Physical Exam Vital Signs: Last Vital Signs Pulse 73 11/08/24 10:17 BP 110/76 11/08/24 10:17 Pulse Ox 97 11/08/24 10:17 Oxygen Delivery Method Nasal Cannula 11/08/24 10:17 Oxygen Flow Rate 2 11/08/24 10:17 BMI result Body Mass Index 23.6 Const General: alert HEENT Head: Yes normocephalic Neck Neck: Yes normal visual inspection, Yes full ROM and Yes no lymphadenopathy Chest Chest palpation & inspection: normal inspection of the chest Resp Effort & Inspection: normal respiratory effort Auscultation: no rales, no rhonchi, no wheezes and diminished lung sounds Cardio Rate: regular rate Rhythm: regular rhythm Heart sounds: S1 normal heart sound present and S2 normal heart sound present GI Palpation (GI): Soft to palpation and nontender Auscultation: normal bowel sounds Skin General skin exam: no rashes or lesions noted Extrem General: Yes no clubbing, cyanosis or edema Assessment & Plan Assessment & Plan (1) Respiratory failure: Code(s): J96.90 - Respiratory failure, unspecified, unspecified whether with hypoxia or hypercapnia Category: Medical Qualifiers: Chronicity: chronic Respiratory failure complication: hypoxia and hypercapnia Qualified Code(s): J96.11 - Chronic respiratory failure with hypoxia; J96.12 - Chronic respiratory failure with hypercapnia (2) Pulmonary nodules: Code(s): R91.8 - Other nonspecific abnormal finding of lung field Category: Medical (3) Centrilobular emphysema: Code(s): J43.2 - Centrilobular emphysema Category: Medical Plan Continue Daliresp 500mcg, consider every other day Continue Symbicort and spiriva Xopenex MEGAN as needed CPT with nebs and acapella valve 2 times a day Oxygen supplementation 2-4 liters Noninvasive ventilator at nighttime and as needed, needs to start using it during the day low dose prednisone with taper 5mg every other day continue Azithromycin MWF, will need an EKG Bloodgas today Bloodwork start Trazodone as needed for sleep Follow-up 2-3 months Orders: Orders Venous Blood Gas 11/08/24 J43.2 - Centrilobular emphysema, J96.11 - Chronic respiratory failure with hypoxia, J96.12 - Chronic respiratory failure with hypercapnia Liver Panel 11/08/24 J43.2 - Centrilobular emphysema, J96.11 - Chronic respiratory failure with hypoxia, J96.12 - Chronic respiratory failure with hypercapnia Complete Blood Count Auto Diff 11/08/24 J43.2 - Centrilobular emphysema, J96.11 - Chronic respiratory failure with hypoxia, J96.12 - Chronic respiratory failure with hypercapnia Basic Metabolic Panel 03/21/25 J43.2 - Centrilobular emphysema, J96.11 - Chronic respiratory failure with hypoxia, J96.12 - Chronic respiratory failure with hypercapnia ECG 12 lead EKG 11/08/24 J43.2 - Centrilobular emphysema, J44.9 - Chronic obstructive pulmonary disease, unspecified, J96.11 - Chronic respiratory failure with hypoxia, J96.12 - Chronic respiratory failure with hypercapnia Medications: New trazodone 50 mg PO BEDTIME PRN 30 tabs 6RF sleep 30 days Refilled azithromycin Take 1 tablet on Monday/Monday/Monday 250 mg PO 3XW 12 tabs 6RF 28 days K21.9 - Gastro-esophageal reflux disease without esophagitis Coding Level of Care Code Est Pt Level 4 (17621) Complex EM visit Add On G2211 Diagnoses Chronic respiratory failure with hypoxia and hypercapnia J96.11; J96.12 Chronicity: chronic Respiratory failure complication: hypoxia and hypercapnia Pulmonary nodules R91.8 Centrilobular emphysema J43.2 Time Spent (min) 18
--- OUTSIDE RECORDS SUMMARY | 2024-11-08 11:44 | XMS_ITS | Encounter Summary ---
Author Organization [facility] Address [address] [place] [address] Care Team Providers Care Machine Milker Name Role Phone Augusto Hernandez MD Primary Care Provider [phone] Gurpreet Mares MD Primary Care Provider Tray Mcdonough MD Unavailable Jonelle Lees MONUMENT ERECTOR Unavailable Unavailab Kim Marti MONUMENT ERECTOR Unavailable [phone] Encounter Details Date Type Department Care Team Description 05/04/2018 Pt. Non Urgent Medic al Question Pulmonology - [address] [place] [address] Addison Aranda MD Social History [...] on filedocumented in this encounter Care Teams Machine Milker Relationship Specialty Start Date End Date Augusto Hernandez MD [address] [place] [address] PCP - General Internal Medicine 12/11/17 12/08/20 Gurpreet Mares MD [address] [place] [address] PCP - General Internal Medicine 12/09/20 Tray Marsh MD [address] [place] [address] Line Analyst Cardiovascular Disease 05/18/21 Jonelle Lees NP [address] [place] [address] Nurse Practitioner Cardiology 05/18/21 10/22/23 Kim Webb NP [address] [place] [address] Cardiology 10/23/23 documented as of this encounter
--- OUTSIDE RECORDS SUMMARY | 2024-11-08 11:44 | XMS_ITS | Encounter Summary ---
Author Organization [facility] Address [address] [place] [address] Care Team Providers Care Commercial Floor Covering Installer Name Role Phone Gurpreet Mares MD Primary Care Provider Tray Mcdonough MD Unavailable Jonelle Lees NP Unavailable Unavailab Kim Marti NP Unavailable [phone] Encounter Details Date Type Department Care Team Description 02/18/2021 SCAN Medical Records [address] [place] [id number] Abstract, Provider Social History Tobacco Use Types [...] on filedocumented in this encounter Care Teams Commercial Floor Covering Installer Relationship Specialty Start Date End Date Gurpreet Mares MD PCP - General Internal Medicine 12/09/20 Tray Marsh MD Salesperson Women'S Hats Cardiovascular Disease 05/18/21 Jonelle Lees NP Nurse Practitioner Cardiology 05/18/21 33/2 4 Kim Webb NP Cardiology 10/23/23 documented as of this encounter
--- OUTSIDE RECORDS SUMMARY | 2024-11-08 11:44 | XMS_ITS | Encounter Summary ---
Author Organization [facility] Address [address] [place] [address] Care Team Providers Care Induction Brazer Name Role Phone Augusto Hernandez MD Primary Care Provider [phone] Gurpreet Mares MD Primary Care Provider Tray Mcdonough MD Unavailable Jonelle Lees LABOR ECONOMICS TEACHER Unavailable Unavailab Kim Marti LABOR ECONOMICS TEACHER Unavailable [phone] Encounter Details Date Type Department Care Team Description 10/04/2018 Refill Pulmonology - [address] [place] [id number] Addison Aranda MD Social History Tobacco Use Types Packs/Day Years Used Date Smoking Tobacco: Former Sex Assigned at Date Recorded Not on file Job Start Date Occupation Industry Not on file Not on file Not on file documented as of this encounter Miscellaneous Notes * Telephone Encounter - Stefany Escobar M.A. - 10/05/2018 9:02 AM ESTFrom: Rafia Ambrosio To: Addison Aranda MD Sent: 10/04/2018 8:00 PM EST Subject: Medication Renewal Request Original authorizing provider: MD Rafia oGrdon would like a refill of the following medications: fluticasone-salmeterol (ADVAIR DISKUS) 250-50 MCG/DOSE diskus inhaler [Addison Aranda MD] Preferred pharmacy: [id number] - [place], [place] - [address] [facility] AT Comment: documented in this encounter Plan of Treatment Not on file documented as of this encounter Visit Diagnoses Not on filedocumented in this encounter Care Teams Induction Brazer Relationship Specialty Start Date End Date Augusto Hernandez MD [address] [place] [address] PCP - General Internal Medicine 12/11/17 12/08/20 Gurpreet Mares MD [address] [place] [address] PCP - General Internal Medicine 12/09/20 Tray Marsh MD [address] [place] [address] Electrician Maintenance Cardiovascular Disease 05/18/21 Jonelle Lees NP [address] [place] [address] Nurse Practitioner Cardiology 05/18/21 10/22/23 Kim Webb NP [address] [place] [address] Cardiology 10/23/23 documented as of this encounter
--- OUTSIDE RECORDS SUMMARY | 2024-11-08 11:44 | XMS_ITS | Encounter Summary ---
Author Organization [facility] Address [address] [place] [address] Care Team Providers Care Manager Of Maintenance Name Role Phone Gurpreet Mares MD Primary Care Provider Tray Mcdonough MD Unavailable Jonelle Lees MASTER CRAFTSMAN Unavailable Unavailab Kim Marti MASTER CRAFTSMAN Unavailable [phone] Encounter Details Date Type Department Care Team Description 03/01/2021 Telephone Cardio PVC POC [address] [facility] [address] [place] [address] Tray Marsh MD [address] [place] [address] [id number] Social History Tobacco Use Types Packs/Day Years [...] blood thinner. She can be reached at [phone]. documented in this encounter Plan of Treatment Not on file documented as of this encounter Visit Diagnoses Not on filedocumented in this encounter Care Teams Manager Of Maintenance Relationship Specialty Start Date End Date Gurpreet Mares MD PCP - General Internal Medicine 12/09/20 Tray Marsh MD Mandolin Repair Person Cardiovascular Disease 05/18/21 Jonelle Lees NP Nurse Practitioner Cardiology 05/18/21 4 Kim Webb NP Cardiology 10/23/23 documented as of this encounter
--- OUTSIDE RECORDS SUMMARY | 2024-11-08 11:44 | XMS_ITS | Encounter Summary ---
Author Organization [facility] Address [address] [place] [address] Care Team Providers Care Spindle Maker Name Role Phone Augusto Hernandez MD Primary Care Provider [phone] Gurpreet Mares MD Primary Care Provider Tray Mcdonough MD Unavailable Jonelle Lees TORTILLA MAKER Unavailable Unavailab Kim Marti TORTILLA MAKER Unavailable [phone] Encounter Details Date Type Department Care Team Description 10/13/2020 Old Medical Records Medical Records [address] [place] [address] Abstract, Provider Social History Tobacco Use Types [...] on filedocumented in this encounter Care Teams Spindle Maker Relationship Specialty Start Date End Date Augusto Hernandez MD [address] [place] [address] PCP - General Internal Medicine 12/11/17 12/08/20 Gurpreet Mares MD [address] [place], [place] PCP - General Internal Medicine 12/09/20 Tray Marsh MD [address] [place], [place] Tube Operator Cardiovascular Disease 05/18/21 Jonelle Lees NP [address] [place] [address] Nurse Practitioner Cardiology 05/18/21 10/22/23 Kim Webb NP [address] [place] [address] Cardiology 10/23/23 documented as of this encounter
--- OUTSIDE RECORDS SUMMARY | 2024-11-08 11:44 | XMS_ITS | Encounter Summary ---
Author Organization [employer] [facility] Address [address] [place] [address] Care Team Providers Care Housetrailer Servicer Name Role Phone Augusto Hernandez MD Primary Care Provider [phone] Gurpreet Mares MD Primary Care Provider Tray Mcdonough MD Unavailable Jonelle Lees STRUCTURAL STEEL DETAILER Unavailable Unavailab Kim Marti STRUCTURAL STEEL DETAILER Unavailable [phone] Reason for Visit * Reason Comments E-prescribe Rx Request Encounter Details Date Type Department Care Team Description 03/03/2018 Refill Pulmonology - [address] [place] [address] Addison Aranda MD E-prescribe Rx Request Social History Tobacco Use Types Packs/Day Years Used Date Smoking Tobacco: Former Sex Assigned at Date Recorded Not on file Job Start Date Occupation Industry Not on file Not on file Not on file documented as of this encounter Miscellaneous Notes * Telephone Encounter - Maggi Vivas - 03/05/2018 8:02 AM EDT Patient would like script to be: E-PRESCRIBED/FAXED TO PHARMACY WHEN WAS THE PATIENT'S LAST APPOINTMENT WITH THE PRESCRIBING PROVIDER? 01/12/18 Does patient have an upcoming appointment? Yes (THE MEDICATION REQUESTED IS ON THE MED LIST ABOVE) All of the medications requested were on the CURRENT MEDS list Did you check the Pharmacy information above?: YES Patient wants: 90 -day supply Is this a mail order prescription request ? NO Patients current insurance carrier is: Payor: [facility] / Plan: IVELISSE MCGUIRE TYPE 2 / Product Type: HMO [id number] documented in this encounter Plan of Treatment Not on file documented as of this encounter Visit Diagnoses Not on filedocumented in this encounter Care Teams Housetrailer Servicer Relationship Specialty Start Date End Date Augusto Hernandez MD [address] [place] [address] PCP - General Internal Medicine 12/11/17 12/08/20 Gurpreet Mares MD [address] [place] [address] PCP - General Internal Medicine 12/09/20 Tray Marsh MD [address] [place] [address] Piping Manager Cardiovascular Disease 05/18/21 Jonelle Lees NP [address] [place] [address] Nurse Practitioner Cardiology 05/18/21 10/22/23 Kim Webb NP [address] [place] [address] Cardiology 10/23/23 documented as of this encounter
--- OUTSIDE RECORDS SUMMARY | 2024-11-08 11:44 | XMS_ITS | Encounter Summary ---
Author Organization [employer] [facility] Address [address] [place] [address] Care Team Providers Care Auto Driver Name Role Phone Gurpreet Mares MD Primary Care Provider Tray Mcdonough MD Unavailable Jonelle Lees NP Unavailable Unavailab Kim Marti NP Unavailable [phone] Encounter Details Date Type Department Care Team Description 03/26/2021 Shell Worker Report Medical Records [address] [place] [address] Tonie Coates Social History Tobacco Use Types [...] filedocumented in this encounter Care Teams Auto Driver Relationship Specialty Start Date End Date Gurpreet Mares MD PCP - General Internal Medicine 12/09/20 Tray Marsh MD Tick Inspector Cardiovascular Disease 05/18/21 Jonelle Lees NP Nurse Practitioner Cardiology 05/18/2110/21/ Kim Miguel NP Cardiology 10/23/23 documented as of this encounter
--- OUTSIDE RECORDS SUMMARY | 2024-11-08 11:44 | XMS_ITS | Encounter Summary ---
Author Organization [facility] Address [address] [place] [address] Care Team Providers Care Bike Assembler Name Role Phone Augusto Hernandez MD Primary Care Provider [phone] Gurpreet Mares MD Primary Care Provider Tray Mcdonough MD Unavailable Jonelle Lees EXPEDITIONARY FORCE COMBAT SKILLS Unavailable Unavailab Kim Marti EXPEDITIONARY FORCE COMBAT SKILLS Unavailable [phone] Reason for Visit * Reason Comments E-prescribe Rx Request Metoprolol er Encounter Details Date Type Department Care Team Description 11/23/2020 Refill Cardio PVCA Diag Testing 101 300 [facility] [address] [place] [address] Tray Marsh MD [address] [place] [address] E-prescribe Rx Request (Metoprolol er ) Social History Tobacco Use Types Packs/Day [...] on filedocumented in this encounter Care Teams Bike Assembler Relationship Specialty Start Date End Date Augusto Hernandez MD [address] [place], [place] [id number] PCP - General Internal Medicine 12/11/17 12/08/20 Gurpreet Mares MD [address] [place] [address] PCP - General Internal Medicine 12/09/20 Tray Marsh MD [address] [place] [address] Oil Boiler Cardiovascular Disease 05/18/21 Jonelle Lees NP [address] [place] [address] Nurse Practitioner Cardiology 05/18/21 10/22/23 Kim Webb NP [address] [place] [address] Cardiology 10/23/23 documented as of this encounter
--- OUTSIDE RECORDS SUMMARY | 2024-11-08 11:44 | XMS_ITS | Encounter Summary ---
Author Organization [facility] Address [address] [place] [address] Care Team Providers Care Applications Specialist Name Role Phone Gurpreet Mares MD Primary Care Provider Tray Mcdonough MD Unavailable Jonelle Lees SOFTWARE LICENSING ANALYST Unavailable Unavailab Kim Marti SOFTWARE LICENSING ANALYST Unavailable [phone] Reason for Visit * Reason Onset Date Comments Medication 12/10/2020 Eliquis cost Encounter Details Date Type Department Care Team Description 12/10/2020 Telephone Cardio PVC POC 154 300 [facility] [address] [place], [place] [phone] Tray Marsh MD [address] [place] [address] [phone] Medication (Eliquis cost) Social History Tobacco Use [...] Telephone Encounter - Tia Pederson C.M.A. - 12/14/2020 4:07 PM EDT Patient already picked up Eliquis Rx * Telephone Encounter - Tray Marsh MD - 12/10/2020 11:31 AM EDT I will order it * Telephone Encounter - Tia Pederson C.M.A. - 12/10/2020 9:55 AM EDT The patient contacted her insurance company and the lowest co pay for her will be the [place]. documented in this encounter Plan of Treatment Not on file documented as of this encounter Visit Diagnoses Not on filedocumented in this encounter Care Teams Applications Specialist Relationship Specialty Start Date End Date Gurpreet Mares MD PCP - General Internal Medicine 12/09/20 Tray Marsh MD Charge Machine Operator Cardiovascular Disease 05/18/21 Jonelle Lees NP Nurse Practitioner Cardiology 05/18/21 4 Kim Webb NP Cardiology 10/23/23 documented as of this encounter
--- OUTSIDE RECORDS SUMMARY | 2024-11-08 11:44 | XMS_ITS | Encounter Summary ---
Author Organization [facility] Address [address] [place] [address] Care Team Providers Care Meteorological Observer Name Role Phone Augusto Hernandez MD Primary Care Provider [phone] Gurpreet Mares MD Primary Care Provider Tray Mcdonough MD Unavailable Jonelle Lees MEASUREMENT TECHNICIAN Unavailable Unavailab Kim Marti MEASUREMENT TECHNICIAN Unavailable Reason for Visit * Reason Onset Date Comments Cough 11/14/2018 Encounter Details Date Type Department Care Team Description 11/14/2018 Telephone Pulmonology - [address] [place] [address] Addison Aranda MD Cough Social History Tobacco Use Types Packs/Day Years [...] Telephone Encounter - Stefany Escobar M.A. - 11/14/2018 9:55 AM EDT Sick appt set with Jesus Leon PA-C at 2:20 pm * Telephone Encounter - Lyly Reich - 11/14/2018 8:38 AM EDT Symptoms patient is presenting: productive cough, thick yellow phlegm - running nose - no temp; shortness of breath (not in any distress) Looking for an appointment to be seen today/tomorrow If pain or injury related was it due to an accident at work or from a motor vehicle accident? NO If yes, gather 3rd democrat insurance information Date of accident/Injury: How long has patient had these symptoms?: x 2-3 days PCP: David Casas [facility] / Plan: [facility] S[facility]VER TYPE 2 / Product Type: HMO [id number] documented in this encounter Plan of Treatment Not on file documented as of this encounter Visit Diagnoses Not on filedocumented in this encounter Care Teams Meteorological Observer Relationship Specialty Start Date End Date Augusto Hernandez MD [address] [place] [address] PCP - General Internal Medicine 12/11/17 12/08/20 Gurpreet Mares MD [address] [place] [address] PCP - General Internal Medicine 12/09/20 Tray Marsh MD [address] [place] [address] Power Transformer Assembler Cardiovascular Disease 05/18/21 Jonelle Lees NP [address] [place] [address] Nurse Practitioner Cardiology 05/18/21 10/22/23 Kim Webb NP [address] [place] [address] Cardiology 10/23/23 documented as of this encounter
--- OUTSIDE RECORDS SUMMARY | 2024-11-08 11:45 | XMS_ITS | Encounter Summary ---
Author Organization [employer] [facility] Address [address] [place] [address] Care Team Providers Care Environmental Maintenance Worker Name Role Phone Gurpreet Mares MD Primary Care Provider Tray Mcdonough MD Unavailable Jonelle Lees NP Unavailable Unavailab Kim Marti NP Unavailable [phone] Encounter Details Date Type Department Care Team Description 12/01/2022 Manager Tax Report Medical Records [address] [place] [address] Abstract, Provider Social History Tobacco Use Types [...] on filedocumented in this encounter Care Teams Environmental Maintenance Worker Relationship Specialty Start Date End Date Gurpreet Mares MD PCP - General Internal Medicine 12/09/20 Tray Marsh MD Cell Operation Supervisor Cardiovascular Disease 05/18/21 Jonelle Lees NP Nurse Practitioner Cardiology 05/18/2110/21/ Kim Miguel NP Cardiology 10/23/23 documented as of this encounter
--- OUTSIDE RECORDS SUMMARY | 2024-11-08 11:45 | XMS_ITS | Encounter Summary ---
Author Organization [facility] Address [address] [place] [address] Care Team Providers Care Civil Estimator Name Role Phone Augusto Hernandez MD Primary Care Provider [phone] Gurpreet Mares MD Primary Care Provider Tray Mcdonough MD Unavailable Jonelle Lees COMPLIANCE AUDITOR Unavailable Unavailab Kim Marti COMPLIANCE AUDITOR Unavailable [phone] Encounter Details Date Type Department Care Team Description 02/19/2019 Front Office Manager Report Medical Records [address] [place] [address] Tray Marsh MD [address] [place], [place] [phone] Social History Tobacco Use Types Packs/Day Years [...] on filedocumented in this encounter Care Teams Civil Estimator Relationship Specialty Start Date End Date Augusto Hernandez MD [address] [place], [place] [id number] PCP - General Internal Medicine 12/11/17 12/08/20 Gurpreet Mares MD [address] [place] [address] PCP - General Internal Medicine 12/09/20 Tray Marsh MD [address] [place] [address] Animal Husbandry Teacher Cardiovascular Disease 05/18/21 Jonelle Lees NP [address] [place] [address] Nurse Practitioner Cardiology 05/18/21 10/22/23 Kim Webb NP [address] [place] [address] Cardiology 10/23/23 documented as of this encounter
--- OUTSIDE RECORDS SUMMARY | 2024-11-08 11:45 | XMS_ITS | Encounter Summary ---
Author Organization [facility] Address [address] [place] [address] Care Team Providers Care Cad Cam Programmer Name Role Phone Jan Leyva MD Primary Care Provider Unavail able Augusto Hernandez MD Primary Care Provider [phone] Gurpreet Mares MD Primary Care Provider Gurpreet Tellez MD Primary Care Provider Tray Mcdonough MD Unavailable Jonelle Lees PMO ANALYST Unavailable Unavailab Kim Marti PMO ANALYST Unavailable Encounter Details Date Type Department Care Team Description 11/24/2016 Transfer Records Medical Records [address] [place] [address] Abstract, Provider Social History Tobacco Use Types Packs/Day Years Used Date Smoking Tobacco: Never Assessed Sex Assigned at Date Recorded Not on file Job Start Date Occupation Industry Not on file Not on file Not on file documented as of this encounter Plan of Treatment Not on file documented as of this encounter Visit Diagnoses Not on filedocumented in this encounter Care Teams Cad Cam Programmer Relationship Specialty Start Date End Date Jan Leyva MD PCP - General Internal Medicine 10/18/17 12/10/17 Augusto Hernandez MD [address] [place] [address] PCP - General Internal Medicine 12/11/17 12/08/20 Gurpreet Mares MD [address] [place] PCP - General 05/22/12 10/17/17 Gurpreet Mares MD [address] [place] [address] PCP - General Internal Medicine 12/09/20 Tray Marsh MD [address] [place] [address] Brick Maker Cardiovascular Disease 05/18/21 Jonelle Lees NP [address] [place] [address] Nurse Practitioner Cardiology 05/18/21 10/22/23 Kim Webb NP [address] [place] [address] Cardiology 10/23/23 documented as of this encounter
--- OUTSIDE RECORDS SUMMARY | 2024-11-08 11:45 | XMS_ITS | Encounter Summary ---
Author Organization [employer] [facility] Address [address] [place] [address] Care Team Providers Care Fashion Artist Name Role Phone Gurpreet Mares MD Primary Care Provider Tray Mcdonough MD Unavailable Jonelle Lees ELECTRICAL INSTRUMENTATION TECHNICIAN Unavailable Unavailab Kim Marti ELECTRICAL INSTRUMENTATION TECHNICIAN Unavailable [phone] Reason for Visit * Reason Onset Date Comments REFERRAL 02/10/2023 Metoprolol and D iltiazem Encounter Details Date Type Department Care Team Description 02/10/2023 Telephone Cardio PVC [address]fd 102 [address] [facility] [address] [place] [address] Tray Marsh MD [address] [place] [address] [phone] REFERRAL (Metoprolol and Diltiazem ) Social History [...] Diltiazem 300 MG once a day to [facility] in [place] 90 day documented in this encounter Plan of Treatment Not on file documented as of this encounter Visit Diagnoses Not on filedocumented in this encounter Care Teams Fashion Artist Relationship Specialty Start Date End Date Gurpreet Mares MD PCP - General Internal Medicine 12/09/20 Tray Marsh MD Medicaid Nurse Cardiovascular Disease 05/18/21 Jonelle Lees NP Nurse Practitioner Cardiology 05/18/21 4 Kim Webb NP Cardiology 10/23/23 documented as of this encounter
--- OUTSIDE RECORDS SUMMARY | 2024-11-08 11:45 | XMS_ITS | Encounter Summary ---
Author Organization [facility] Address [address] [place] [address] Care Team Providers Care Manager Shipping Name Role Phone Gurpreet Mares MD Primary Care Provider Tray Mcdonough MD Unavailable Jonelle Lees NP Unavailable Unavailab Kim Marti NP Unavailable [phone] Encounter Details Date Type Department Care Team Description 04/13/2022 Pt. Non Urgent Medical Question Cardio PVCA Diag Testing 101 300 [facility] [address] [place] [address] Tray Marsh MD [address] [place] [address] [phone] Social History Tobacco Use Types Packs/Day Years [...] filedocumented in this encounter Care Teams Manager Shipping Relationship Specialty Start Date End Date Gurpreet Mares MD PCP - General Internal Medicine 12/09/20 Tray Marsh MD Piped Pocket Machine Operator Cardiovascular Disease 05/18/21 Jonelle Lees NP Nurse Practitioner Cardiology 05/18/2110/21/ 4 Kim Webb NP Cardiology 10/23/23 documented as of this encounter
--- OUTSIDE RECORDS SUMMARY | 2024-11-08 11:45 | XMS_ITS | Encounter Summary ---
Author Organization [employer] [facility] Address [address] [place] [address] Care Team Providers Care Bond Clerk Name Role Phone Gurpreet Mares MD Primary Care Provider Tray Mcdonough MD Unavailable Jonelle Lees NP Unavailable Unavailab Kim Marti NP Unavailable Encounter Details Date Type Department Care Team Description 10/06/2023 SCAN Medical Records [address] [place] [address] Abstract, Provider Social History Tobacco Use Types [...] Date/Time Associated Diagnosis Comments OUTSIDE LAB Routine 10/06/2023 documented in this encounter Results * OUTSIDE LAB (10/06/2023) Provider Default LAB documented in this encounter Visit Diagnoses Not on filedocumented in this encounter Care Teams Bond Clerk Relationship Specialty Start Date End Date Gurpreet Mares MD PCP - General Internal Medicine 12/09/20 Tray Marsh MD Deputy Head Cardiovascular Disease 05/18/21 Jonelle Lees NP Nurse Practitioner Cardiology 05/18/21 3/3/2 4 Kim Webb NP Cardiology 10/23/23 documented as of this encounter
--- OUTSIDE RECORDS SUMMARY | 2024-11-08 11:45 | XMS_ITS | Encounter Summary ---
Author Organization [facility] Address [address] [place] [address] Care Team Providers Care Color Paste Mixing Supervisor Name Role Phone Gurpreet Mares MD Primary Care Provider Tray Mcdonough MD Unavailable Jonelle Lees NP Unavailable Unavailab Kim Marti NP Unavailable [phone] Encounter Details Date Type Department Care Team Description 12/05/2022 SCAN Medical Records [address] [place] [address] Abstract, Provider Social History Tobacco Use Types [...] on filedocumented in this encounter Care Teams Color Paste Mixing Supervisor Relationship Specialty Start Date End Date Gurpreet Mares MD PCP - General Internal Medicine 12/09/20 Tray Marsh MD Rubber Cutter Cardiovascular Disease 05/18/21 Jonelle Lees NP Nurse Practitioner Cardiology 05/18/21 3/3/2 4 Kim Webb NP Cardiology 10/23/23 documented as of this encounter
--- OUTSIDE RECORDS SUMMARY | 2024-11-08 11:45 | XMS_ITS | Encounter Summary ---
Author Organization [facility] Address [address] [place] [address] Care Team Providers Care Traveling Electrician Name Role Phone Gurpreet Mares MD Primary Care Provider Tray Mcdonough MD Unavailable Jonelle Lees PAPER BAG PRESS OPERATOR Unavailable Unavailab Kim Marti PAPER BAG PRESS OPERATOR Unavailable [phone] Encounter Details Date Type Department Care Team Description 11/06/2022 Pt. Non Urgent Medical Question Cardio PVCA Diag Testing 101 300 [facility] [address] [place] [address] Tray Marsh MD [address] [place] [address] [phone] Social History Tobacco Use Types Packs/Day Years [...] on filedocumented in this encounter Care Teams Traveling Electrician Relationship Specialty Start Date End Date Gurpreet Mares MD PCP - General Internal Medicine 12/09/20 Tray Marsh MD Curing Oven Tender Cardiovascular Disease 05/18/21 Jonelle Lees NP Nurse Practitioner Cardiology 05/18/21 4 Kim Webb NP Cardiology 10/23/23 documented as of this encounter
--- OUTSIDE RECORDS SUMMARY | 2024-11-08 11:45 | XMS_ITS | Encounter Summary ---
Author Organization [email or web address] [facility] Address [address] [place] [address] Care Team Providers Care Fmd Teacher Name Role Phone Gurpreet Mares MD Primary Care Provider Tray Mcdonough MD Unavailable Jonelle Lees NUCLEAR MEDICINE PET CT TECHNOLOGIST Unavailable Unavailab Kim Marti NUCLEAR MEDICINE PET CT TECHNOLOGIST Unavailable [phone] Encounter Details Date Type Department Care Team Description 09/09/2022 Orders Only Cardio PVC POC 154 300 [facility] [address] [place] [address] Default, Provider Social History Tobacco Use Types Packs/Day [...] Date/Time Associated Diagnosis Comments OUTSIDE LAB Routine 09/01/2022 documented in this encounter Results * OUTSIDE LAB (09/01/2022) Provider Default LAB documented in this encounter Visit Diagnoses Not on filedocumented in this encounter Care Teams Fmd Teacher Relationship Specialty Start Date End Date Gurpreet Mares MD PCP - General Internal Medicine 12/09/20 Tray Marsh MD Farmworker Dairy Cardiovascular Disease 05/18/21 Jonelle Lees NP Nurse Practitioner Cardiology 05/18/21 3/3/2 4 Kim Webb NP Cardiology 10/23/23 documented as of this encounter
--- OUTSIDE RECORDS SUMMARY | 2024-11-08 11:45 | XMS_ITS | Encounter Summary ---
Author Organization [facility] Address [address] [place] [address] Care Team Providers Care Bioinformatics Research Technician Name Role Phone Augusto Hernandez MD Primary Care Provider [phone] Gurpreet Mares MD Primary Care Provider Tray Mcdonough MD Unavailable Jonelle Lees CO FOUNDER & CEO Unavailable Unavailab Kim Marti CO FOUNDER & CEO Unavailable [phone] Encounter Details Date Type Department Care Team Description 03/07/2019 Pt. Non Urgent Medic al Question Pulmonology - [address] [place] [address] Addison Aranda MD Social History [...] as of this encounter Progress Notes * Phylicia Del Castillo LPN - 03/08/2019 11:26 AM EDTFrom: Rafia Ambrosio To: Addison Aranda MD Sent: 03/07/2019 3:09 PM EDT Subject: Ameena Doan was helping me with preauthoiztion for Ameena checked my insurance claims again they denied it I call told them I had a referral they said its not the same. I can not afford to keep going thereuntil this is approved pft for last visit was over 2000.00 . Know she is on vacation but could she call me monday. Solange documented in this encounter Plan of Treatment Not on file documented as of this encounter Visit Diagnoses Not on filedocumented in this encounter Care Teams Bioinformatics Research Technician Relationship Specialty Start Date End Date Augusto Hernandez MD [address] [place] [address] PCP - General Internal Medicine 12/11/17 12/08/20 Gurpreet Mares MD [address] [place] [address] PCP - General Internal Medicine 12/09/20 Tray Marsh MD [address] [place] [address] Roof Shingler Cardiovascular Disease 05/18/21 Jonelle Lees NP [address] [place] [address] Nurse Practitioner Cardiology 05/18/21 10/22/23 Kim Webb NP [address] [place] [address] Cardiology 10/23/23 documented as of this encounter
--- OUTSIDE RECORDS SUMMARY | 2024-11-08 11:45 | XMS_ITS | Encounter Summary ---
Author Organization [employer] [facility] Address [address] [place] [address] Care Team Providers Care Stave Bolt Equalizer Name Role Phone Gurpreet Mares MD Primary Care Provider Tray Mcdonough MD Unavailable Jonelle Lees ERADICATOR Unavailable Unavailab Kim Marti ERADICATOR Unavailable [phone] Encounter Details Date Type Department Care Team Description 04/25/2023 SCAN Medical Records [address] [place] [address] Abstract, Provider Social History Tobacco Use Types [...] on filedocumented in this encounter Care Teams Stave Bolt Equalizer Relationship Specialty Start Date End Date Gurpreet Mares MD PCP - General Internal Medicine 12/09/20 Tray Marsh MD Mental Health Specialist Cardiovascular Disease 05/18/21 Jonelle Lees NP Nurse Practitioner Cardiology 05/18/21 4 Kim Webb NP Cardiology 10/23/23 documented as of this encounter
--- OUTSIDE RECORDS SUMMARY | 2024-11-08 11:45 | XMS_ITS | Encounter Summary ---
Author Organization [employer] [facility] Address [address] [place] [address] Care Team Providers Care Documentation Spec Name Role Phone Gurpreet Mares MD Primary Care Provider Tray Mcdonough MD Unavailable Jonelle Lees CONTRACT ADMINISTRATOR Unavailable Unavailab Kim Marti CONTRACT ADMINISTRATOR Unavailable [phone] Encounter Details Date Type Department Care Team Description 03/28/2023 Orders Only Medical Records [address] [place] [address] Abstract, Provider Social History Tobacco Use Types [...] on filedocumented in this encounter Care Teams Documentation Spec Relationship Specialty Start Date End Date Gurpreet Mares MD PCP - General Internal Medicine 12/09/20 Tray Marsh MD Steward/Stewardess Economy Class Cardiovascular Disease 05/18/21 Jonelle Lees NP Nurse Practitioner Cardiology 05/18/21 4 Kim Webb NP Cardiology 10/23/23 documented as of this encounter
--- OUTSIDE RECORDS SUMMARY | 2024-11-08 11:45 | XMS_ITS | Clinical Summary ---
Author Organization [address] [place] [address] Address [address] [place] [address] Phone Care Team Providers Care Manager Underwriting Name Role Phone SheilabhupinderGurpreet singh Primary Care Provider [phone] Allergies No known active allergies Medications apixaban [...] Description 10/01/2024 2:00 PM EST Ancillary Procedure [facility] [address] [address] Acute on chronic respiratory failure with hypoxia and hypercapnia (CMS/HCC); Permanent atrial fibrillation (CMS/HCC); Other emphysema (CMS/HCC); Chronic diastolic heart failure (CMS/HCC); Nonrheumatic tricuspid valve regurgitation 09/17/2024 3:30 PM EST Office [facility] [address] [facility] [address] [place] [address] Tray Marsh MD Acute on chronic respiratory failure with hypoxia and hypercapnia (CMS/HCC) (Primary Dx); Permanent atrial fibrillation (CMS/HCC); Other emphysema (CMS/HCC); Chronic diastolic heart failure (CMS/HCC); Nonrheumatic tricuspid valve regurgitation 09/17/2024 1:50 PM EST Lab Draw Station - [address] [address] Paroxysmal atrial fibrillation (CMS/HCC) 09/02/2024 Telephone [facility] [address] [place] [place] [address] Tray Marsh MD Med Management 08/15/2024 Telephone [facility] [address] [facility] [address] [place] [address] Vanita Muñoz RN ROCT strips 08/11/2024 7:00 AM EST Ancillary Procedure [facility] [address] [place] [address] Paroxysmal atrial fibrillation (CMS/HCC); Palpitations from Last 3 Months Medical History Medical History Date Comments Pulmonary nodule 11/25/2016 DX:Pulmonary no dule Chronic respiratory failure 11/25/2016 DX:C hronic respiratory failure (HCC); COMMENT: On O2 Supplemental [...] chronic respiratory failure with hypoxia and hypercapnia DX:Acute on chronic respi ratory failure with hypoxia and hypercapnia (HCC) Respiratory [...] Description 04/01/2025 1:10 PM EDT Office Visit [facility] [address] [place] [address] Kim Webb, DISTRICT MEDICAL EXAMINER [address] [place] [address] Health Maintenance Due Date Last Done Comments [...] PM EST Paroxysmal atrial fibrillation (CMS/HCC) CARDIAC PUBLICITY MANAGER W/ CONNECTION (MCOT) Routine 08/12/2024 12:49 PM [...] Diagnost ic Narrative 10/08/2024 10:10 AM EST [facility] DIAGNOSTIC TESTING DEPARTMENT [address] [place] [address], [address] [address] TEL: FAX: Type of Test: 24 Hour Holter Monitor Date of Test: 10/01/2024 Ordering Provider: Tray Marsh MD Reason for Test: Permanent Atrial Fibrillation PVCA Lithopress Operator Findings: ?? 1: Atrial Fibrillation with Right [...] LAB CHEMISTRY METHOD 09/17/2024 4:25 PM EST [facility] Blood Venous blood specimen / Unknown Venipuncture / Unknown 09/17/2024 1:51 PM EST 09/17/2024 1:51 PM EST us Tray Marsh MD LAB BLOOD ORDERABLES Final Resu lt [facility] [address] [place] [address], [place] [phone] * CARDIAC PUBLICITY MANAGER W/ CONNECTION (MCOT) (08/12/2024 12:49 PM EST) Anatomical Region Laterality Modality Cardiac Diagnost ic Impressions 08/26/2024 4:42 PM EST The patient was in atrial fibrillation throughout the monitoring. ??Heart rates were relatively fast with an average of 93 and a maximum of 157. ??Symptoms occurred with rates of 94 bpm to 134 bpm. ??No other significant arrhythmias. Narrative 08/26/2024 4:42 PM EST [facility] DIAGNOSTIC TESTING DEPARTMENT [address], [address], [place] [address] TEL: FAX: TYPE OF TEST: 7 day [...] mg/dL LAB CHEMISTRY METHOD 08/02/2024 12:19 PM [facility] Triglycerides 86 0 - 150 mg/dL LAB CHEMISTRY METHOD 08/02/2024 12:19 PM [facility] HDL 81 >=40 mg/dL LAB CHEMISTRY METHOD 08/02/2024 12:19 PM [facility] LDL Calculated 75 0 - 100 mg/dL LAB CHEMISTRY METHOD 08/02/2024 12:19 PM [facility] VLDL Cholesterol Ranjan 17.2 mg/dL LAB CHEMISTRY METHOD 08/02/2024 12:19 PM [facility] Non HDL Chol. (LDL+VLDL) 92 <145 mg/dL LAB CHEMISTRY METHOD 08/02/2024 12:19 PM [facility] Chol/HDL Ratio 2.1 0.0 - 4.4 LAB CHEMISTRY METHOD 08/02/2024 12:19 PM [facility] Blood Venous blood specimen / Unknown Venipuncture / Unknown 08/02/2024 9:56 AM EST 08/02/2024 9:56 AM EST Kim Webb NP LAB BLOOD ORDERABLES Final Result [facility] [address] [place] [address], [place] [phone] * (ABNORMAL) Basic metabolic panel (08/02/2024 9:56 AM EST) Sodium 141 133 - 145 mmol/L LAB CHEMISTRY METHOD 08/02/2024 12:19 PM [facility] Potassium 3.4(L) 3.5 - 5.5 mmol/L LAB CHEMISTRY METHOD 08/02/2024 12:19 PM [facility] Chloride 94(L) 96 - 110 mmol/L LAB CHEMISTRY METHOD 08/02/2024 12:19 PM [facility] CO2 38(H) 21 - 32 mmol/L LAB CHEMISTRY METHOD 08/02/2024 12:19 PM [facility] Anion Gap 9 3 - 11 LAB CHEMISTRY METHOD 08/02/2024 12:19 PM [facility] Glucose 90 70 - 100 mg/dL LAB CHEMISTRY METHOD 08/02/2024 12:19 PM [facility] BUN 11 5 - 25 mg/dL LAB CHEMISTRY METHOD 08/02/2024 12:19 PM [facility] Creatinine 0.39(L) 0.50 - 1.10 mg/dL LAB CHEMISTRY METHOD 08/02/2024 12:19 PM [facility] eGFR 107 >=60 mL/min/1. 73m2 LAB CHEMISTRY METHOD 08/02/2024 12:19 PM [facility] Comment:Calculation based on the??Chronic Kidney Disease Epidemiology Collaboration (CKD-EPI) equation refit??without adjustment for race. BUN/Creatinine Ratio 28.2 LAB CHEMISTRY METHOD 08/02/2024 12:19 PM EST [facility] Calcium 9.8 8.5 - 10.5 mg/dL LAB CHEMISTRY METHOD 08/02/2024 12:19 PM EST [facility] Blood Venous blood specimen / Unknown Venipuncture / Unknown 08/02/2024 9:56 AM EST 08/02/2024 9:56 AM EST us Kim Webb DISTRICT MEDICAL EXAMINER LAB BLOOD ORDERABLES Final Result [facility] [address] [place] [address], from Last 3 Months or Most Recently Relevant to Health Maintenance Insurance [employer] [place] MEDICARE ADVANTAGE Care Teams Manager Underwriting Relationship Specialty Start Date End Date Gurpreet Mares DO [address] [place] [address] PCP - General Internal Medicine 05/22/12
--- OUTSIDE RECORDS SUMMARY | 2024-11-08 11:45 | XMS_ITS | Encounter Summary ---
Author Organization [facility] Address [address] [place] [address] Care Team Providers Care Educational Technician Name Role Phone Gurpreet Mares MD Primary Care Provider Tray Mcdonough MD Unavailable Jonelle Lees SCIENCE WRITER Unavailable Unavailab Kim Marti SCIENCE WRITER Unavailable [phone] Encounter Details Date Type Department Care Team Description 08/11/2022 Pt. Non Urgent Medical Question Cardio PV[facility] Diag Testing [address] [facility] [address] [place] [address] Tray Marsh MD [address] [place] [address] [phone] Social History Tobacco Use Types Packs/Day Years [...] on filedocumented in this encounter Care Teams Educational Technician Relationship Specialty Start Date End Date Gurpreet Mares MD PCP - General Internal Medicine 12/09/20 Tray Marsh MD Access Control Officer Cardiovascular Disease 05/18/21 Jonelle Lees NP Nurse Practitioner Cardiology 05/18/21 4 Kim Webb NP Cardiology 10/23/23 documented as of this encounter
--- OUTSIDE RECORDS SUMMARY | 2024-11-08 11:45 | XMS_ITS | Encounter Summary ---
Author Organization [facility] Address [address] [place] [address] Care Team Providers Care Tray Delivery Aide Name Role Phone Gurpreet Mares MD Primary Care Provider Tray Mcdonough MD Unavailable Jonelle Lees FLOUR TESTER Unavailable Unavailab Kim Marti FLOUR TESTER Unavailable [phone] Encounter Details Date Type Department Care Team Description 05/02/2022 Refill Cardio PVCA Diag Testing 101 300 [facility] [address] [place] [address] Tray Marsh MD [address] [place] [address] [phone] Social History Tobacco Use Types Packs/Day Years [...] Encounter - Angella Lopez C.M.A. - 05/05/2022 9:45 AM EDT Rx renewed under 05/03 encounter JOESPH 12/14/[address] Rose ?? 06/16/2022 9:10 AM??AC documented in this encounter Plan of Treatment Not on file documented as of this encounter Visit Diagnoses Diagnosis Permanent atrial fibrillation (HCC) Atrial fibrillation documented in this encounter Care Teams Tray Delivery Aide Relationship Specialty Start Date End Date Gurpreet Mares MD PCP - General Internal Medicine 12/09/20 Tray Marsh MD Manual Arts Therapist Cardiovascular Disease 05/18/21 Jonelle Lees NP Nurse Practitioner Cardiology 05/18/21 4 Kim Webb NP Cardiology 10/23/23 documented as of this encounter
--- OUTSIDE RECORDS SUMMARY | 2024-11-08 11:45 | XMS_ITS | Encounter Summary ---
Author Organization [facility] Address [address] [place] [address] Care Team Providers Care Legal Arbitrator Name Role Phone Augusto Hernandez MD Primary Care Provider [phone] Gurpreet Mares MD Primary Care Provider Tray Mcdonough MD Unavailable Jonelle Lees SLIME PLANT OPERATOR Unavailable Unavailab Kim Marti SLIME PLANT OPERATOR Unavailable [phone] Encounter Details Date Type Department Care Team Description 06/25/2019 Horticultural Specialty Grower Report Medical Records [address] [place] [address] Jonelle Lees NP Social History Tobacco Use Types Packs/Day Years [...] on filedocumented in this encounter Care Teams Legal Arbitrator Relationship Specialty Start Date End Date Augusto Hernandez MD [address] [place], [place] [id number] PCP - General Internal Medicine 12/11/17 12/08/20 Gurpreet Mares MD [address] [place], [place] PCP - General Internal Medicine 12/09/20 Tray Marsh MD [address] [place], [place] Embroidery Machine Operator Cardiovascular Disease 05/18/21 Jonelle Lees NP [address] [place] [address] Nurse Practitioner Cardiology 05/18/21 10/22/23 Kim Webb NP [address] [place] [address] Cardiology 10/23/23 documented as of this encounter
--- OUTSIDE RECORDS SUMMARY | 2024-11-08 11:45 | XMS_ITS | Encounter Summary ---
Author Organization [employer] [facility] Address [address] [place] [address] Care Team Providers Care Glaciologist Name Role Phone Jan Leyva MD Primary Care Provider Unavail able Augusto Hernandez MD Primary Care Provider [phone] Gurpreet Mares MD Primary Care Provider Gurpreet Tellez MD Primary Care Provider Tray Mcdonough MD Unavailable Jonelle Lees METAL COATER Unavailable Unavailab Kim Marti METAL COATER Unavailable [phone] Encounter Details Date Type Department Care Team Description 06/22/2017 Orders Only Pulmonology - [place] [address] [facility] [address] [place] [address] Caty Mojica, [facility] [address] [place] [address] Social History Tobacco Use Types Packs/Day Years Used Date Smoking Tobacco: Never Assessed Sex Assigned at Date Recorded Not on file Job Start Date Occupation Industry Not on file Not on file Not on file documented as of this encounter Plan of Treatment Not on file documented as of this encounter Visit Diagnoses Not on filedocumented in this encounter Care Teams Glaciologist Relationship Specialty Start Date End Date Jan Leyva MD PCP - General Internal Medicine 10/18/17 12/10/17 Augusto Hernandez MD [address] [place] [address] PCP - General Internal Medicine 12/11/17 12/08/20 Gurpreet Mares MD [address] [place] [address] PCP - General 05/22/12 10/17/17 Gurpreet Mares MD [address] [place] [address] PCP - General Internal Medicine 12/09/20 Tray Marsh MD [address] [place] [address] Rug Drying Machine Operator Cardiovascular Disease 05/18/21 Jonelle Lees NP [address] [place] [address] Nurse Practitioner Cardiology 05/18/21 10/22/23 Kim Webb NP [address] [place] [address] Cardiology 10/23/23 documented as of this encounter
--- OUTSIDE RECORDS SUMMARY | 2024-11-08 11:45 | XMS_ITS | Encounter Summary ---
Author Organization [facility] Address [address] [place] [address] Care Team Providers Care Business Continuity Planner Name Role Phone Jan Leyva MD Primary Care Provider Unavail able Augusto Hernandez MD Primary Care Provider [phone] Gurpreet Mares MD Primary Care Provider Gurpreet Tellez MD Primary Care Provider Tray Mcdonough MD Unavailable Jonelle Lees SCHEDULE MANAGER Unavailable Unavailab Kim Marti SCHEDULE MANAGER Unavailable Encounter Details Date Type Department Care Team Description 06/05/2017 Paper Counter Report Medical Records [address] [place] [address] Addison Aranda MD Social History Tobacco Use [...] on filedocumented in this encounter Care Teams Business Continuity Planner Relationship Specialty Start Date End Date Jan Leyva MD PCP - General Internal Medicine 10/18/17 12/10/17 Augusto Hernandez MD [address], [place] PCP - General Internal Medicine 12/11/17 12/08/20 Gurpreet Mares MD [address] [place], [place] PCP - General 05/22/12 10/17/17 Gurpreet Mares MD [address] [place] [address] PCP - General Internal Medicine 12/09/20 Tray Marsh MD [address] [place] [address] Health And Safety Director Cardiovascular Disease 05/18/21 Jonelle Lees NP [address] [place] [address] Nurse Practitioner Cardiology 05/18/21 10/22/23 Kim Webb NP [address] [place] [address] Cardiology 10/23/23 documented as of this encounter
--- OUTSIDE RECORDS SUMMARY | 2024-11-08 11:45 | XMS_ITS | Encounter Summary ---
Author Organization [facility] Address [address] [place] [address] Care Team Providers Care Emergency Manager Name Role Phone Gurpreet Mares MD Primary Care Provider Tray Mcdonough MD Unavailable Jonelle Lees WEB PRESS ROLL TENDER Unavailable Unavailab Kim Marti WEB PRESS ROLL TENDER Unavailable [phone] Reason for Visit * Reason Onset Date Comments E-prescribe Rx Request 02/10/2023 Lopressor declined Encounter Details Date Type Department Care Team Description 02/10/2023 Refill Cardio PVCA Diag Testing 101 300 [facility] [address] [place] [address] Tray Marsh MD [address] [place] [phone] E-prescribe Rx Request (Lopressor declined ) Social [...] on filedocumented in this encounter Care Teams Emergency Manager Relationship Specialty Start Date End Date Gurpreet Mares MD PCP - General Internal Medicine 12/09/20 Tray Marsh MD Rubber Heel And Sole Press Tender Cardiovascular Disease 05/18/21 Jonelle Lees NP Nurse Practitioner Cardiology 05/18/21 4 Kim Webb NP Cardiology 10/23/23 documented as of this encounter
--- OUTSIDE RECORDS SUMMARY | 2024-11-08 11:45 | XMS_ITS | Encounter Summary ---
Author Organization [facility] Address [address] [place] [address] Care Team Providers Care Government Guard Name Role Phone Gurpreet Mares MD Primary Care Provider Tray Mcdonough MD Unavailable Jonelle Lees WEB SIZER Unavailable Unavailab Kim Marti WEB SIZER Unavailable [phone] Reason for Visit * Reason Onset Date Comments Medication 04/21/2023 Digoxin Encounter Details Date Type Department Care Team Description 04/21/2023 Pt. Non Urgent Medical Question Cardio PVCA Diag Testing 101 300 [facility] [address] [place] [address] Tray Marsh MD [address] [place] [address] [phone] Social History Tobacco Use Types Packs/Day Years [...] on filedocumented in this encounter Care Teams Government Guard Relationship Specialty Start Date End Date Gurpreet Mares MD PCP - General Internal Medicine 12/09/20 Tray Marsh MD Booth Supervisor Cardiovascular Disease 05/18/21 Jonelle Lees NP Nurse Practitioner Cardiology 05/18/21 4 Kim Webb NP Cardiology 10/23/23 documented as of this encounter
--- OUTSIDE RECORDS SUMMARY | 2024-11-08 11:45 | XMS_ITS | Encounter Summary ---
Author Organization [facility] Address [address] [place] [address] Care Team Providers Care Glueline Worker Name Role Phone Gurpreet Mares MD Primary Care Provider Tray Mcdonough MD Unavailable Jonelle Lees ASSEMBLY LINE WORKER Unavailable Unavailab Kim Marti ASSEMBLY LINE WORKER Unavailable [phone] Reason for Visit * Reason Onset Date Comments refill request 12/12/2022 Encounter Details Date Type Department Care Team Description 12/12/2022 Pt. Non Urgent Medical Question Cardio PVCA Diag Testing 101 300 [facility] [address] [place] [address] Tray Marsh MD [address] [place] [address] [phone] Social History Tobacco Use Types Packs/Day Years [...] on filedocumented in this encounter Care Teams Glueline Worker Relationship Specialty Start Date End Date Gurpreet Mares MD PCP - General Internal Medicine 12/09/20 Tray Marsh MD Housecleaner Floor Cardiovascular Disease 05/18/21 Jonelle Lees NP Nurse Practitioner Cardiology 05/18/21 4 Kim Webb NP Cardiology 10/23/23 documented as of this encounter
--- OUTSIDE RECORDS SUMMARY | 2024-11-08 11:45 | XMS_ITS | Encounter Summary ---
Author Organization [facility] Address [address] [place] [address] Care Team Providers Care Chairman & Chief Executive Officer Name Role Phone Jan Leyva MD Primary Care Provider Unavail able Augusto Hernandez MD Primary Care Provider [phone] Gurpreet Mares MD Primary Care Provider Gurpreet Tellez MD Primary Care Provider Tray Mcdonough MD Unavailable Jonelle Lees DIRECTOR OF NUCLEAR MEDICINE Unavailable Unavailab Kim Marti DIRECTOR OF NUCLEAR MEDICINE Unavailable [phone] Reason for Visit * Reason Onset Date Comments Prior Authorization 09/05/2017 Encounter Details Date Type Department Care Team Description 09/05/2017 Telephone Pulmonology - [address] [place] [phone] Addison Aranda MD Prior Authorization Social History Tobacco Use Types Packs/Day Years Used Date Smoking Tobacco: Never Assessed Sex Assigned at Date Recorded Not on file Job Start Date Occupation Industry Not on file Not on file Not on file documented as of this encounter Miscellaneous Notes * Telephone Encounter - Michelle Herrera M.A. - 09/13/2017 11:01 AM EST Not sure if you wanna keep this in your basket, I'm not working on PA's. * Telephone Encounter - Judy Woodson M.A. - 09/12/2017 11:10 AM EST Spoke to pt told her pa was in process.someone is working on pa's. * Telephone Encounter - Eladia Bang - 09/12/2017 10:42 AM EST Pt is calling inquiring on status of PA for her Advair. Please call pt with as she has 1 day left. * Telephone Encounter - Judy Woodson M.A. - 09/11/2017 4:36 PM EST Was this one done yet. * Telephone Encounter - Eladia Bang - 09/11/2017 2:25 PM EST Pt is calling regarding PA for her Advair. Please advise. * Telephone Encounter - Judy Woodson M.A. - 09/08/2017 2:52 PM EST Are you working on PA for her? * Telephone Encounter - Eladia Bang - 09/08/2017 2:46 PM EST Pt is calling office back wants to be sure we are aware she only has [facility] for insurance as she is nolonger working. * Telephone Encounter - Sherry Sexton - 09/08/2017 11:28 AM EST Patient called to ask status of prior auth for Advair. [id number] * Telephone Encounter - Judy Woodson M.A. - 09/05/2017 1:40 PM EST Jarvis you have the paperwork on this. * Telephone Encounter - Eladia Bang - 09/05/2017 1:21 PM EST Pt is calling stating that the pharmacy was faxing a request for a refill on the Advair 250/50 but it is going to require a Prior Auth. Any questions please call pt back/ documented in this encounter Plan of Treatment Not on file documented as of this encounter Visit Diagnoses Not on filedocumented in this encounter Care Teams Chairman & Chief Executive Officer Relationship Specialty Start Date End Date Jan Leyva MD PCP - General Internal Medicine 10/18/17 12/10/17 Augusto Hernandez MD [address] [place] [address] PCP - General Internal Medicine 12/11/17 12/08/20 Gurpreet Mares MD [address] [place] [address] PCP - General 05/22/12 10/17/17 Gurpreet Mares MD [address] [place] [address] PCP - General Internal Medicine 12/09/20 Tray Marsh MD [address] [place] [address] Central Office Supervisor Cardiovascular Disease 05/18/21 Jonelle Lees NP [address] [place] [address] Nurse Practitioner Cardiology 05/18/21 10/22/23 Kim Webb NP [address] [place] [address] Cardiology 10/23/23 documented as of this encounter
--- OUTSIDE RECORDS SUMMARY | 2024-11-08 11:45 | XMS_ITS | Clinical Summary ---
Author Organization [facility] Address [address] [place] [address] Care Team Providers Care Knot Bumper Name Role Phone Gurpreet Mares MD Primary Care Provider Tray Mcdonough MD Unavailable Kim Webb NP Unavailable [phone] Allergies Active Allergy Reactions Severity Noted Date [...] 03/05/2019 Active vitamin D (ERGOCALCIFEROL) 1.25 MG (38543 UT) capsule Take 50,000 Units by mouth [...] 05/28/2018 (Completed) DEPRESSION SCREENING/FOLLOWUP 08/21/2024 Care Teams Knot Bumper Relationship Specialty Start Date End Date Gurpreet Mares MD PCP - General Internal Medicine 12/09/20 Tray Marsh MD Datastage Consultant Cardiovascular Disease 05/18/21 Kim Webb NP Cardiology 10/23/23
--- OUTSIDE RECORDS SUMMARY | 2024-11-08 11:45 | XMS_ITS | Encounter Summary ---
Author Organization [employer] [facility] Address [address] [place] [address] Care Team Providers Care Printing Plate Clerk Name Role Phone Augusto Hernandez MD Primary Care Provider [phone] Gurpreet Mares MD Primary Care Provider Tray Mcdonough MD Unavailable Jonelle Lees CLINICAL MANAGER Unavailable Unavailab Kim Marti CLINICAL MANAGER Unavailable [phone] Encounter Details Date Type Department Care Team Description 05/30/2019 Drawing Frame Tender Report Medical Records [address] [place] [address] Addison Aranda MD Social History Tobacco Use [...] on filedocumented in this encounter Care Teams Printing Plate Clerk Relationship Specialty Start Date End Date Augusto Hernandez MD [address] [place], [place] [phone] PCP - General Internal Medicine 12/11/17 12/08/20 Gurpreet Mares MD [address] [place] [address] PCP - General Internal Medicine 12/09/20 rTay Marsh MD [address] [place], [place] Finished Stock Inspector Cardiovascular Disease 05/18/21 Jonelle Lees NP [address] [place] [address] Nurse Practitioner Cardiology 05/18/21 10/22/23 Kim Webb NP [address] [place] [address] Cardiology 10/23/23 documented as of this encounter
--- OUTSIDE RECORDS SUMMARY | 2024-11-08 11:45 | XMS_ITS | Encounter Summary ---
Author Organization [facility] Address [address] [place] [address] Care Team Providers Care Database Analyst Name Role Phone Gurpreet Mares MD Primary Care Provider Tray Mcdonough MD Unavailable Jonelle Lees CLINIQUE COUNTER MANAGER Unavailable Unavailab Kim Marti CLINIQUE COUNTER MANAGER Unavailable [phone] Reason for Visit * Reason Onset Date Comments Medication 05/05/2022 Eliquis 5 MG Tab refill Encounter Details Date Type Department Care Team Description 05/05/2022 Telephone Cardio PVCA Diag Testing 101 300 [facility] [address] [place] [address] Tray Marsh MD [address] [place] [address] [phone] Medication (Eliquis 5 MG Tab refill ) [...] to be sent to [facility] in [place] on [address] Patient could be reached at [phone] documented in this encounter Plan of Treatment Not on file documented as of this encounter Visit Diagnoses Not on filedocumented in this encounter Care Teams Database Analyst Relationship Specialty Start Date End Date Gurpreet Mares MD PCP - General Internal Medicine 12/09/20 Tray Marsh MD Manager Hospital Cardiovascular Disease 05/18/21 Jonelle Lees NP Nurse Practitioner Cardiology 05/18/21 4 Kim Webb NP Cardiology 10/23/23 documented as of this encounter
--- OUTSIDE RECORDS SUMMARY | 2024-11-08 11:45 | XMS_ITS | Encounter Summary ---
Author Organization [facility] Address [address] [place] [address] Care Team Providers Care Nail Technician Name Role Phone Jan Leyva MD Primary Care Provider Unavail able Augusto Hernandez MD Primary Care Provider [phone] Gurpreet Mares MD Primary Care Provider Gurpreet Tellez MD Primary Care Provider Tray Mcdonough MD Unavailable Jonelle Lees SCHOOL PSYCHOLOGIST Unavailable Unavailab Kim Marti SCHOOL PSYCHOLOGIST Unavailable [phone] Reason for Visit * Reason Onset Date Comments Industrial Maintenance Instructor Feedback 08/29/2017 Alisha Encounter Details Date Type Department Care Team Description 08/29/2017 Telephone Pulmonology - [address] [place] [phone] Addison Aranda MD Industrial Maintenance Instructor Feedback (Alisha) Social History Tobacco Use Types Packs/Day Years Used Date Smoking Tobacco: Never Assessed Sex Assigned at Date Recorded Not on file Job Start Date Occupation Industry Not on file Not on file Not on file documented as of this encounter Miscellaneous Notes * Telephone Encounter - Troy Kumar - 08/30/2017 3:44 PM EST [facility] Auth # [id number] visits 08/30/2017-11/28/2017 Also resubmitted for 28 visits since it was for Phase 2 Appt made for 09/14/2017 at 12:30PM Waiting on [facility] to refax new auth. * Telephone Encounter - Troy Kumar - 08/30/2017 9:01 AM EST Out of network faxed to [facility], waiting on response * Telephone Encounter - Eladia Bang - 08/29/2017 9:14 AM EST Pt called to inform office that her appt with Pulmonary [facility]hab was canceled today due to her insurance changing. She now has [facility] plan. [id number] as of 08/21/2017. Can an Auth be done for her to go? Please advise. Please call pt. documented in this encounter Plan of Treatment Not on file documented as of this encounter Visit Diagnoses Not on filedocumented in this encounter Care Teams Nail Technician Relationship Specialty Start Date End Date Jan Leyva MD PCP - General Internal Medicine 10/18/17 12/10/17 Augusto Hernandez MD [address] [place] [address] PCP - General Internal Medicine 12/11/17 12/08/20 Gurpreet Mares MD [address] [place] [address] PCP - General 05/22/12 10/17/17 Gurpreet Mares MD [address] [place] [address] PCP - General Internal Medicine 12/09/20 Tray Marsh MD [address] [place] [address] Dietist Cardiovascular Disease 05/18/21 Jonelle Lees NP [address] [place] [address] Nurse Practitioner Cardiology 05/18/21 10/22/23 Kim Webb NP [address] [place] [address] Cardiology 10/23/23 documented as of this encounter
--- OUTSIDE RECORDS SUMMARY | 2024-11-08 11:46 | XMS_ITS | Encounter Summary ---
Author Organization [facility] Address [address] [place] [address] Care Team Providers Care Pin Worker Name Role Phone Gurpreet Mares MD Primary Care Provider Tray Mcdonough MD Unavailable Jonelle Lees DOOR FRAME ASSEMBLER MACHINE Unavailable Unavailab Kim Marti NP Unavailable [phone] Encounter Details Date Type Department Care Team Description 10/31/2021 Pt. Non Urgent Medic al Question Cardio PVC [address] [facility] [address] [place] [address] Jonelle Lees NP Social History Tobacco Use [...] encounter Miscellaneous Notes * Telephone Encounter - Leatha Thomas R.N. - 11/01/2021 1:26 PM EDTFrom: Rafia Ambrosio To: Abundio Lees Sent: 10/31/2021 7:39 PM EDT Subject: furosemide I just had this refilled I take 1 and half tablets day refill says 1 a day. I will run out before Ican get refilled could we adjust my prespestion. Thank you documented in this encounter Plan of Treatment Not on file documented as of this encounter Visit Diagnoses Not on filedocumented in this encounter Care Teams Pin Worker Relationship Specialty Start Date End Date Gurpreet Mares MD PCP - General Internal Medicine 12/09/20 Tray Marsh MD Motor Vehicle Lecturer Cardiovascular Disease 05/18/21 Jonelle Lees NP Nurse Practitioner Cardiology 05/18/21 4 Kim Webb NP Cardiology 10/23/23 documented as of this encounter
--- OUTSIDE RECORDS SUMMARY | 2024-11-08 11:46 | XMS_ITS | Encounter Summary ---
Author Organization [facility] Address [address] [place] [address] Care Team Providers Care Senior Environmental Scientist Name Role Phone Augusto Hernandez MD Primary Care Provider [phone] Gurpreet Mares MD Primary Care Provider Tray Mcdonough MD Unavailable Jonelle Lees CUSTODIAN MANAGER Unavailable Unavailab Kim Marti CUSTODIAN MANAGER Unavailable [phone] Encounter Details Date Type Department Care Team Description 11/18/2018 Pt. Non Urgent Medical Question Pulmonology - [place] [address] [facility] [address] [place] [address] Jesus Leon PA-C [address] [facility] [address] [place] [address] Social History Tobacco Use Types [...] filedocumented in this encounter Care Teams Senior Environmental Scientist Relationship Specialty Start Date End Date Augusto Hernandez MD [address] [place] [address] PCP - General Internal Medicine 12/11/17 12/08/20 Gurpreet Mares MD [address] [place] [address] PCP - General Internal Medicine 12/09/20 Tray Marsh MD [address] [place] [address] Linux Server Engineer Cardiovascular Disease 05/18/21 Jonelle Lees NP [address] [place] [address] Nurse Practitioner Cardiology 05/18/21 10/22/23 Kim Webb NP [address] [place] [address] Cardiology 10/23/23 documented as of this encounter
--- OUTSIDE RECORDS SUMMARY | 2024-11-08 11:46 | XMS_ITS | Encounter Summary ---
Author Organization [facility] Address [address] [place] [address] Care Team Providers Care Patch Washer Name Role Phone Gurpreet Mares MD Primary Care Provider Tray Mcdonough MD Unavailable Jonelle Lees ENVIRONMENTAL AIR SPECIALIST Unavailable Unavailab Kim Marti ENVIRONMENTAL AIR SPECIALIST Unavailable [phone] Reason for Visit * Reason Onset Date Comments Medication 05/21/2021 Digoxin refill Encounter Details Date Type Department Care Team Description 05/21/2021 Refill Cardio PVC POC [address] [facility] [address] [place], [place] [phone] Tray Marsh MD [address] [place] [address] [id number] Medication (Digoxin refill) Social History Tobacco Use [...] fibrillation documented in this encounter Care Teams Patch Washer Relationship Specialty Start Date End Date Gurpreet Mares MD PCP - General Internal Medicine 12/09/20 Tray Marsh MD Hogshead Liner Cardiovascular Disease 05/18/21 Jonelle Lees NP Nurse Practitioner Cardiology 05/18/21 4 Kim Webb NP Cardiology 10/23/23 documented as of this encounter
--- OUTSIDE RECORDS SUMMARY | 2024-11-08 11:46 | XMS_ITS | Encounter Summary ---
Author Organization [facility] Address [address] [place] [address] Care Team Providers Care Readiness Paraprofessional Name Role Phone Gurpreet Mares MD Primary Care Provider Tray Mcdonough MD Unavailable Jonelle Lees TRAIN STARTER Unavailable Unavailab Kim Marti TRAIN STARTER Unavailable [phone] Encounter Details Date Type Department Care Team Description 06/23/2021 SCAN Medical Records [address] [place] [address] Toyin Cruz PA-C Social History Tobacco Use Types Packs/Day Years [...] have Coronavirus / COVID-19? No / Unsure 06/14/2021 9:19 AM EDT documented as of this encounter Plan of Treatment Not on file documented as of this encounter Procedures Procedure Name Priority Date/Time Associated Diagnosis Comments OUTSIDE LAB Routine 06/23/2021 OUTSIDE LAB Routine 06/23/2021 documented in this encounter Results * OUTSIDE LAB (06/23/2021) Provider Abstract LAB * OUTSIDE LAB (06/23/2021) Provider Abstract LAB documented in this encounter Visit Diagnoses Not on filedocumented in this encounter Care Teams Readiness Paraprofessional Relationship Specialty Start Date End Date Gurpreet Mares MD PCP - General Internal Medicine 12/09/20 Tray Marsh MD Tool Planer Set Up Operator Cardiovascular Disease 05/18/21 Jonelle Lees NP Nurse Practitioner Cardiology 05/18/21 4 Kim Webb NP Cardiology 10/23/23 documented as of this encounter
--- OUTSIDE RECORDS SUMMARY | 2024-11-08 11:46 | XMS_ITS | Encounter Summary ---
Author Organization [facility] Address [address] [place] [address] Care Team Providers Care Access Director Name Role Phone Augusto Hernandez MD Primary Care Provider [phone] Gurpreet Mares MD Primary Care Provider Tray Mcdonough MD Unavailable Jonelle Lees FRUIT GRADER Unavailable Unavailab Kim Marti FRUIT GRADER Unavailable [phone] Encounter Details Date Type Department Care Team Description 12/03/2018 Pt. Non Urgent Medic al Question Pulmonology - [address] [place] [address] Addison Aranda MD Social History [...] as of this encounter Progress Notes * Stefany Escobar M.A. - 12/04/2018 1:48 PM EDTFrom: Rafia Ambrosio To: Addisno Aranda MD Sent: 12/03/2018 10:58 AM EDT Subject: RUPAL CALLED INSURANCE STILL NO PER-AUTHORAZITION FOR RUPAL THEY SAID YOU HAVEN'T SENT ANYTHING I HAVEAPPOINTMENT JANUARY 02 THEY SAID THEY NEED IT WITHIN 14 DAYS BEFORE . documented in this encounter Plan of Treatment Not on file documented as of this encounter Visit Diagnoses Not on filedocumented in this encounter Care Teams Access Director Relationship Specialty Start Date End Date Augusto Hernandez MD [address] [place] [address] PCP - General Internal Medicine 12/11/17 12/08/20 Gurpreet Mares MD [address] [place] [address] PCP - General Internal Medicine 12/09/20 Tray Marsh MD [address] [place] [address] Fudge Candy Maker Cardiovascular Disease 05/18/21 Jonelle Lees NP [address] [place] [address] Nurse Practitioner Cardiology 05/18/21 10/22/23 Kim Webb NP [address] [place] [address] Cardiology 10/23/23 documented as of this encounter
--- OUTSIDE RECORDS SUMMARY | 2024-11-08 11:46 | XMS_ITS | Encounter Summary ---
Author Organization [facility] Address [address] [place] [address] Care Team Providers Care Wheel Polisher Name Role Phone Augusto Hernandez MD Primary Care Provider [phone] Gurpreet Mares MD Primary Care Provider Tray Mcdonough MD Unavailable Jonelle Lees BLANCHING MACHINE OPERATOR Unavailable Unavailab Kim Marti BLANCHING MACHINE OPERATOR Unavailable [phone] Encounter Details Date Type Department Care Team Description 11/14/2018 Pt. Non Urgent Medic al Question Pulmonology - [address] [place] [address] Addison Aranda MD Social History [...] on filedocumented in this encounter Care Teams Wheel Polisher Relationship Specialty Start Date End Date Augusto Hernandez MD [address] [place] [address] PCP - General Internal Medicine 12/11/17 12/08/20 Gurpreet Mares MD [address] [place] [address] PCP - General Internal Medicine 12/09/20 Tray Marsh MD [address] [place] [address] Calculator Operator Cardiovascular Disease 05/18/21 Jonelle Lees NP [address] [place] [address] Nurse Practitioner Cardiology 05/18/21 10/22/23 Kim Webb NP [address] [place] [address] Cardiology 10/23/23 documented as of this encounter
--- OUTSIDE RECORDS SUMMARY | 2024-11-08 11:46 | XMS_ITS | Encounter Summary ---
Author Organization [facility] Address [address] [place] [address] Care Team Providers Care Continuous Conveyor Screen Drier Name Role Phone Augusto Hernandez MD Primary Care Provider [phone] Gurpreet Mares MD Primary Care Provider Tray Mcdonough MD Unavailable Jonelle Lees TALENT ACQUISITION SPECIALIST Unavailable Unavailab Kim Marti TALENT ACQUISITION SPECIALIST Unavailable [phone] Reason for Visit * Reason Onset Date Comments Prior Authorization 12/03/2018 [facility] Encounter Details Date Type Department Care Team Description 12/03/2018 Telephone Pulmonology - [place] [address] [facility] [address] [place] [address] Jesus Leon PA-C [address] [facility] [address] [place] [address] Prior Authorization ([facility]) Social History Tobacco Use Types Packs/Day [...] from 11/16/18 encounter. Spoke with star from [employer] [facility] who stated that this was approved ? Approved from 11/30/18 until 12/01/2019 ?? Prior authorziation approval number #[id number] [facility] to inform them of the approval again. She states unsure why its coming to us Its already been filled and pt to chicken picker * Telephone Encounter - Claudia Thornton M.A. [...] What Pharmacy did the fax come from: [facility] fax #: [phone] [employer] Party Information from fax: What Prescription Plan does the patient have? BIN/PCN if applicable: Cardholder ID: Person Code: Relationship Code: Help desk phone: documented in this encounter Plan of Treatment Not on file documented as of this encounter Visit Diagnoses Not on filedocumented in this encounter Care Teams Continuous Conveyor Screen Drier Relationship Specialty Start Date End Date Augusto Hernandez MD [address] [place], [place] PCP - General Internal Medicine 12/11/17 12/08/20 Gurpreet Mares MD [address] [place] [address] PCP - General Internal Medicine 12/09/20 Tray Marsh MD [address] [place], [place] Financial Management Consultant Cardiovascular Disease 05/18/21 Jonelle Lees NP [address] [place] [address] Nurse Practitioner Cardiology 05/18/21 10/22/23 Kim Webb NP [address] [place], [place] Cardiology 10/23/23 documented as of this encounter
--- OUTSIDE RECORDS SUMMARY | 2024-11-08 11:46 | XMS_ITS | Encounter Summary ---
Author Organization [facility] Address [address] [place] [address] Care Team Providers Care Supervisor Pumping Name Role Phone Augusto Hernandez MD Primary Care Provider [phone] Gurpreet Mares MD Primary Care Provider Tray Mcdonough MD Unavailable Jonelle Lees FINANCIAL ADVISOR TRAINEE Unavailable Unavailab Kim Marti FINANCIAL ADVISOR TRAINEE Unavailable [phone] Reason for Visit * Reason Onset Date Comments Prior Authorization 11/16/2018 Daliresp 250 mcg Encounter Details Date Type Department Care Team Description 11/16/2018 Telephone Pulmonology - [place] [address] [facility] [address] [place] [address] Jesus Leon PA-C [address] [facility] [address] [place] [address] Prior Authorization (Daliresp 250 mcg) [...] 12:34 PM EDT Spoke with Arun from [employer] [facility] who stated that this was approved Approved from 11/30/18 until 12/01/2019 Prior authorziation approval number #[id number] * Telephone Encounter - Bina Rodriguez M.A. - 11/16/2018 3:13 PM EDT Prior auth done on form to [facility] for daliresp Dx copd J44.9,centrilobular emphysema J43.2,chronic respiratory failure J96.10 Pt tried and failed combination laba/lama stiolto Pt is currently using spiriva ,xopenex,and advair diskus * Telephone Encounter - Lyly Reich - 11/16/2018 1:23 PM EDT Pre Authorization for Medication-do not complete and send this encounter unless you have the fax from the pharmacy. Is this a Cover My Meds request: Yes -- Macisa Code [id number] Name of Medication Daliresp Dose [...] filedocumented in this encounter Care Teams Supervisor Pumping Relationship Specialty Start Date End Date Augusto Hernandez MD [address] [place] [address] PCP - General Internal Medicine 12/11/17 12/08/20 Gurpreet Mares MD [address] [place] [address] PCP - General Internal Medicine 12/09/20 Tray Marsh MD [address] [place] [address] Policy Cancellation Clerk Cardiovascular Disease 05/18/21 Jonelle Lees NP [address] [place] [address] Nurse Practitioner Cardiology 05/18/21 10/22/23 Kim Webb NP [address] [place] [address] Cardiology 10/23/23 documented as of this encounter
== END 2024-11-08 10:51 | disposition home or self-care (01) ==
LOC: HO.HPS 10:01
PROVIDERS: PCP Internal Medicine; Visit Provider Hospitalist
DX: J96.11 Chronic respiratory failure with hypoxia (principal); J96.12 Chronic respiratory failure with hypercapnia; R91.8 Other nonspecific abnormal finding of lung field; J43.2 Centrilobular emphysema
CPT/HCPCS: 99214; G2211

== ENCOUNTER → 2024-11-08 10:00 | Outpatient (REF) | payer MEDICARE, SELFPAY ==
--- NOTE | 2024-11-08 11:02 | ECG_ITS ---
Test Reason : RC Blood Pressure : */* mmHG Vent. Rate : 70 BPM Atrial Rate : * BPM P-R Int : * ms QRS Dur : 120 ms QT Int : 384 ms P-R-T Axes : * -12 24 degrees QTcB Int : 414 ms Atrial fibrillation Right bundle branch block Abnormal ECG No previous ECGs available Referred By: Addison Aranda Electronically Signed By: Campbell Joseph
[2024-11-08 11:09] LABS: MANUAL DIFF FLAG NO
[2024-11-08 11:13] LABS: VBG Base Excess 16.2 mmol/L; VBG HCO3 44 mmol/L (22-26); VBG pCO2 69 mmHg; VBG pO2 33 mmHg
[2024-11-08 11:14] LABS: Basophils Absolute Auto 0.1 X10*3/uL (0.0-0.2); Basophils Percent Auto 0.4 % (0-2); Eosinophils Absolute Auto 0.1 X10*3/uL (0.0-0.4); Eosinophils Percent Auto 0.4 % (0-4); Hematocrit 38.2 % (37.0-47.0); Hemoglobin 12.1 g/dl (12.0-16.0); Imm Gran Abs Auto 0.09 X10*3/uL (0.00-0.03); Imm Gran Pct Auto 0.6 % (0.0-0.4); Lymphocytes Absolute Auto 0.9 X10*3/uL (1.2-4.9); Lymphocytes Percent Auto 6.4 % (20-40); Mean Corpuscular HGB Conc 31.7 g/dl (31.0-35.0); Mean Corpuscular Hemoglobin 29.4 pg (27.0-33.0); Mean Corpuscular Volume 92.7 fL (80.0-98.0); Mean Platelet Volume 9.3 fL (9.4-12.3); Monocytes Absolute Auto 0.4 X10*3/uL (0.1-1.2); Monocytes Percent Auto 2.9 % (2-11); Neutrophils Absolute Auto 12.7 x10*3/uL (2.0-8.3); Neutrophils Percent Auto 89.3 % (45-73); Platelet Count 365 X10*3/uL (160-400); Red Blood Count 4.12 X10*6/uL (4.20-5.50); Red Cell Distribution Width 13.4 % (11.0-16.0); White Blood Count 14.3 X10*3/uL (4.8-10.8)
[2024-11-08 11:16] LABS: Venous Blood Gas Refer to POC result
[2024-11-08 11:27] LABS: Alanine Aminotransferase 16 U/L (0-31); Albumin Level 4.2 g/dL (3.5-5.0); Alkaline Phosphatase 90 U/L (39-117); Anion Gap 10 (12-20); Aspartate Amino Transferase 16 U/L (5-31); Bilirubin Direct 0.2 mg/dL (0.0-0.5); Bilirubin Total 0.4 mg/dL (0.0-1.0); Blood Urea Nitrogen 11 mg/dL (9-16); Calcium 9.7 mg/dL (8.4-10.2); Carbon Dioxide 39 mmol/L (22-29); Chloride 99 mmol/L (96-108); Estimated Glomerular Filt Rate > 60; Glucose Random 109 mg/dL (60-115); Potassium 4.6 mmol/L (3.3-5.1); Sodium 143 mmol/L (135-145); Total Protein 7.2 g/dL (6.5-8.0)
--- OUTSIDE RECORDS SUMMARY | 2024-11-08 13:14 | XMS_ITS | Encounter Summary ---
Author Organization [facility] Address [address] [place] [address] Care Team Providers Care Contract Technician Name Role Phone Augusto Hernandez MD Primary Care Provider [phone] Gurpreet Mares MD Primary Care Provider Tray Mcdonough MD Unavailable Jonelle Lees PATIENT TRANSPORT OFFICER Unavailable Unavailab Kim Marti PATIENT TRANSPORT OFFICER Unavailable [phone] Reason for Visit * Reason Onset Date Comments Faxed Refill 10/07/2019 [facility] Encounter Details Date Type Department Care Team Description 10/07/2019 Refill Internal Medicine - [address], [address] [place] [address] Augusto Hernandez MD [address] [place], [place] [id number] [facility]ed [facility]) Social [...] an upcoming appointment? [facility] to [facility] [...] the RX # listed on the fax? [id number] Patients current insurance carrier is: [facility] / Plan: BHAVANA MCGUIRE TYPE 2 / Product Type: HMO [id number] documented in this encounter Plan of Treatment Not on file documented as of this encounter Visit Diagnoses Not on filedocumented in this encounter Care Teams Contract Technician Relationship Specialty Start Date End Date Augusto Hernandez MD [address] [place], [place] PCP - General Internal Medicine 12/11/17 12/08/20 Gurpreet Mares MD [address] [place], [place] PCP - General Internal Medicine 12/09/20 Tray Marsh MD [address] [place], [place] Radio Station Operator Cardiovascular Disease 05/18/21 Jonelle eLes NP [address] [place], [place] Nurse Practitioner Cardiology 05/18/21 10/22/23 Kim Webb, KHANH [address] [place] [address] Cardiology 10/23/23 documented as of this encounter
--- OUTSIDE RECORDS SUMMARY | 2024-11-08 13:14 | XMS_ITS | Encounter Summary ---
Author Organization [facility] Address [address] [place] [address] Care Team Providers Care Lockstitch Zipper Setter Name Role Phone Gurpreet Mares MD Primary Care Provider Tray Mcdonough MD Unavailable Jonelle Lees SPACE SCHEDULER Unavailable Unavailab Kim Marti SPACE SCHEDULER Unavailable [phone] Encounter Details Date Type Department Care Team Description 04/25/2023 SCAN Medical Records [address] [place] [address] Abstract, Provider Social History Tobacco Use Types [...] on filedocumented in this encounter Care Teams Lockstitch Zipper Setter Relationship Specialty Start Date End Date Gurpreet Mares MD PCP - General Internal Medicine 12/09/20 Tray Marsh MD Dairy Helper Cardiovascular Disease 05/18/21 Jonelle Lees NP Nurse Practitioner Cardiology 05/18/21 4 Kim Webb NP Cardiology 10/23/23 documented as of this encounter
--- OUTSIDE RECORDS SUMMARY | 2024-11-08 13:14 | XMS_ITS | Encounter Summary ---
Author Organization [facility] Address [address] [place] [address] Care Team Providers Care Keg Varnisher Name Role Phone Augusto Hernandez MD Primary Care Provider [phone] Gurpreet Mares MD Primary Care Provider Tray Mcdonough MD Unavailable Jonelle Lees ENERGY CROP FARMER Unavailable Unavailab Kim Marti NP Unavailable [phone] Encounter Details Date Type Department Care Team Description 12/19/2017 Transfer Records Medical Records [address] [place] [address] Abstract, Provider Social History Tobacco Use Types Packs/Day Years Used Date Smoking Tobacco: Former Sex Assigned at Date Recorded Not on file Job Start Date Occupation Industry Not on file Not on file Not on file documented as of this encounter Plan of Treatment Not on file documented as of this encounter Visit Diagnoses Not on filedocumented in this encounter Care Teams Keg Varnisher Relationship Specialty Start Date End Date Augusto Hernandez MD [address] [place] [address] PCP - General Internal Medicine 12/11/17 12/08/20 Gurpreet Mares MD [address] [place], [place] PCP - General Internal Medicine 12/09/20 Tray Marsh MD [address] [place], [place] Regional Service Manager Cardiovascular Disease 05/18/21 Jonelle Lees NP [address] [place], [place] Nurse Practitioner Cardiology 05/18/21 10/22/23 Kim Webb, KHANH [address] [place] [address] Cardiology 10/23/23 documented as of this encounter
--- OUTSIDE RECORDS SUMMARY | 2024-11-08 13:14 | XMS_ITS | Encounter Summary ---
Author Organization [facility] Address [address] [place] [address] Care Team Providers Care File Clerk Data Entry Name Role Phone Gurpreet Mares MD Primary Care Provider Tray Mcdonough MD Unavailable Jonelle Lees COW PUNCHER Unavailable Unavailab Kim Marti COW PUNCHER Unavailable [phone] Encounter Details Date Type Department Care Team Description 03/28/2023 Orders Only Medical Records [address] [place] [address] Abstract, Provider Social History Tobacco Use Types [...] on filedocumented in this encounter Care Teams File Clerk Data Entry Relationship Specialty Start Date End Date Gurpreet Mares MD PCP - General Internal Medicine 12/09/20 Tray Marsh MD Oracle Distribution Consultant Cardiovascular Disease 05/18/21 Jonelle Lees NP Nurse Practitioner Cardiology 05/18/21 4 Kim Webb NP Cardiology 10/23/23 documented as of this encounter
--- OUTSIDE RECORDS SUMMARY | 2024-11-08 13:14 | XMS_ITS | Clinical Summary ---
Author Organization [address] [place] [address] Address [address] [place] [address] Phone Care Team Providers Care Lead Trainer Name Role Phone SheilabhupinderGurpreet singh Primary Care Provider Allergies No known active allergies Medications apixaban [...] Description 10/01/2024 2:00 PM EST Ancillary Procedure [facility] [address] [address] Acute on chronic respiratory failure with hypoxia and hypercapnia (CMS/HCC); Permanent atrial fibrillation (CMS/HCC); Other emphysema (CMS/HCC); Chronic diastolic heart failure (CMS/HCC); Nonrheumatic tricuspid valve regurgitation 09/17/2024 3:30 PM EST Office Visit [facility] [address] [facility] [address] [place] [address] Tray Marsh MD Acute on chronic respiratory failure with hypoxia and hypercapnia (CMS/HCC) (Primary Dx); Permanent atrial fibrillation (CMS/HCC); Other emphysema (CMS/HCC); Chronic diastolic heart failure (CMS/HCC); Nonrheumatic tricuspid valve regurgitation 09/17/2024 1:50 PM EST Lab Draw Station - [address] [address] Paroxysmal atrial fibrillation (CMS/HCC) 09/02/2024 Telephone [facility] [address] [place] [place] [address] Tray Marsh MD Med Management 08/15/2024 Telephone [facility] [address] [facility] [address] [place] [address] Vanita Muñoz RN ROCT strips 08/11/2024 7:00 AM EST Ancillary Procedure [facility] [address] [place] [address] Paroxysmal atrial fibrillation (CMS/HCC); Palpitations [...] Description 04/01/2025 1:10 PM EDT Office Visit [facility] - [facility] [address] [place] [address] Kim Webb, CERTIFIED TECHNICIAN SPECIALIST [address] [place] [place] [address] Health Maintenance Due Date Last Done Comments [...] PM EST Paroxysmal atrial fibrillation (CMS/HCC) CARDIAC FIELD CROP FARM WORKER W/ CONNECTION (MCOT) Routine 08/12/2024 12:49 PM [...] Diagnost ic Narrative 10/08/2024 10:10 AM EST [facility] DIAGNOSTIC TESTING DEPARTMENT [address] [place] [address], [address] [address] TEL: FAX: Type of Test: 24 Hour Holter Monitor Date of Test: 10/01/2024 Ordering Provider: Tray Marsh MD Reason for Test: Permanent Atrial Fibrillation PVCA Local City Driver Findings: ?? 1: Atrial Fibrillation with Right [...] LAB CHEMISTRY METHOD 09/17/2024 4:25 PM EST [facility] Blood Venous blood specimen / Unknown Venipuncture / Unknown 09/17/2024 1:51 PM EST 09/17/2024 1:51 PM EST us Tray Marsh MD LAB BLOOD ORDERABLES Final Resu lt [facility] [address] [place] [address], [place] [phone] * CARDIAC FIELD CROP FARM WORKER W/ CONNECTION (MCOT) (08/12/2024 12:49 PM EST) Anatomical Region Laterality Modality Cardiac Diagnost ic Impressions 08/26/2024 4:42 PM EST The patient was in atrial fibrillation throughout the monitoring. ??Heart rates were relatively fast with an average of 93 and a maximum of 157. ??Symptoms occurred with rates of 94 bpm to 134 bpm. ??No other significant arrhythmias. Narrative 08/26/2024 4:42 PM EST [facility] DIAGNOSTIC TESTING DEPARTMENT [address], [id number], [place] [address] TEL: FAX: TYPE OF TEST: 7 day [...] mg/dL LAB CHEMISTRY METHOD 08/02/2024 12:19 PM [facility] Triglycerides 86 0 - 150 mg/dL LAB CHEMISTRY METHOD 08/02/2024 12:19 PM [facility] HDL 81 >=40 mg/dL LAB CHEMISTRY METHOD 08/02/2024 12:19 PM [facility] LDL Calculated 75 0 - 100 mg/dL LAB CHEMISTRY METHOD 08/02/2024 12:19 PM [facility] VLDL Cholesterol Ranjan 17.2 mg/dL LAB CHEMISTRY METHOD 08/02/2024 12:19 PM [facility] Non HDL Chol. (LDL+VLDL) 92 <145 mg/dL LAB CHEMISTRY METHOD 08/02/2024 12:19 PM [facility] Chol/HDL Ratio 2.1 0.0 - 4.4 LAB CHEMISTRY METHOD 08/02/2024 12:19 PM [facility] Blood Venous blood specimen / Unknown Venipuncture / Unknown 08/02/2024 9:56 AM EST 08/02/2024 9:56 AM EST Kim Webb NP LAB BLOOD ORDERABLES Final Result [facility] [address] [place] [address], [place] [phone] * (ABNORMAL) Basic metabolic panel (08/02/2024 9:56 AM EST) Sodium 141 133 - 145 mmol/L LAB CHEMISTRY METHOD 08/02/2024 12:19 PM [facility] Potassium 3.4(L) 3.5 - 5.5 mmol/L LAB CHEMISTRY METHOD 08/02/2024 12:19 PM [facility] Chloride 94(L) 96 - 110 mmol/L LAB CHEMISTRY METHOD 08/02/2024 12:19 PM [facility] CO2 38(H) 21 - 32 mmol/L LAB CHEMISTRY METHOD 08/02/2024 12:19 PM [facility] Anion Gap 9 3 - 11 LAB CHEMISTRY METHOD 08/02/2024 12:19 PM [facility] Glucose 90 70 - 100 mg/dL LAB CHEMISTRY METHOD 08/02/2024 12:19 PM [facility] BUN 11 5 - 25 mg/dL LAB CHEMISTRY METHOD 08/02/2024 12:19 PM [facility] Creatinine 0.39(L) 0.50 - 1.10 mg/dL LAB CHEMISTRY METHOD 08/02/2024 12:19 PM [facility] eGFR 107 >=60 mL/min/1. 73m2 LAB CHEMISTRY METHOD 08/02/2024 12:19 PM [facility] Comment:Calculation based on the??Chronic Kidney Disease Epidemiology Collaboration (CKD-EPI) equation refit??without adjustment for race. BUN/Creatinine Ratio 28.2 LAB CHEMISTRY METHOD 08/02/2024 12:19 PM EST [facility] Calcium 9.8 8.5 - 10.5 mg/dL LAB CHEMISTRY METHOD 08/02/2024 12:19 PM EST [facility] Blood Venous blood specimen / Unknown Venipuncture / Unknown 08/02/2024 9:56 AM EST 08/02/2024 9:56 AM EST us Kim Webb CERTIFIED TECHNICIAN SPECIALIST LAB BLOOD ORDERABLES Final Result [facility] [address] [place] [address], from Last 3 Months or Most Recently Relevant to Health Maintenance Insurance [employer] - [place] MEDICARE ADVANTAGE Care Teams Lead Trainer Relationship Specialty Start Date End Date Gurpreet Mares DO [address] [place] [phone] PCP - General Internal Medicine 05/22/12
--- OUTSIDE RECORDS SUMMARY | 2024-11-08 13:14 | XMS_ITS | Encounter Summary ---
Author Organization [facility] Address [address] [place] [address] Care Team Providers Care Cargo Vessel Stewardess Name Role Phone Augusto Hernandez MD Primary Care Provider [phone] Gurpreet Mares MD Primary Care Provider Tray Mcdonough MD Unavailable Jonelle Lees ELECTRIC BLASTING CAP ASSEMBLER Unavailable Unavailab Kim Marti ELECTRIC BLASTING CAP ASSEMBLER Unavailable [phone] Encounter Details Date Type Department Care Team Description 03/12/2019 Release of Information Medical Records [address] [place] [address] Abstract, Provider Social History Tobacco Use Types [...] on filedocumented in this encounter Care Teams Cargo Vessel Stewardess Relationship Specialty Start Date End Date Augusto Hernandez MD [address] [place], [place] [id number] PCP - General Internal Medicine 12/11/17 12/08/20 Gurpreet Mares MD [address] [place], [place] PCP - General Internal Medicine 12/09/20 Tray Marsh MD [address] [place], [place] Associate Director Finance Cardiovascular Disease 05/18/21 Jonelle Lees NP [address] [place] [address] Nurse Practitioner Cardiology 05/18/21 10/22/23 Kim Webb NP [address] [place] [address] Cardiology 10/23/23 documented as of this encounter
--- OUTSIDE RECORDS SUMMARY | 2024-11-08 13:14 | XMS_ITS | Encounter Summary ---
Author Organization [employer] [facility] Address [address] [place] [address] Care Team Providers Care Moshgiach Name Role Phone Augusto Hernandez MD Primary Care Provider [phone] Gurpreet Mares MD Primary Care Provider Tray Mcdonough MD Unavailable Jonelle Lees SALES PLANNING MANAGER Unavailable Unavailab Kim Marti SALES PLANNING MANAGER Unavailable [phone] Encounter Details Date Type Department Care Team Description 10/13/2020 Old Medical Records Medical Records [address] [place] [address] Abstract, Provider Social History Tobacco Use Types [...] on filedocumented in this encounter Care Teams Moshgiach Relationship Specialty Start Date End Date Augusto Hernandez MD [address] [place] [address] PCP - General Internal Medicine 12/11/17 12/08/20 Gurpreet Mares MD [address] [place], [place] PCP - General Internal Medicine 12/09/20 Tray Marsh MD [address] [place], [place] Wire Dropper Cardiovascular Disease 05/18/21 Jonelle Lees NP [address] [place] [address] Nurse Practitioner Cardiology 05/18/21 10/22/23 Kim Webb NP [address] [place] [address] Cardiology 10/23/23 documented as of this encounter
--- OUTSIDE RECORDS SUMMARY | 2024-11-08 13:14 | XMS_ITS | Encounter Summary ---
Author Organization [facility] Address [address] [place] [address] Care Team Providers Care Product Management Consultant Name Role Phone Gurpreet Mares MD Primary Care Provider Tray Mcdonough MD Unavailable Jonelle Lees NP Unavailable Unavailab Kim Marti NP Unavailable [phone] Encounter Details Date Type Department Care Team Description 10/06/2023 SCAN Medical Records [address] [place] [address] Abstract, Provider Social History Tobacco Use Types [...] on filedocumented in this encounter Care Teams Product Management Consultant Relationship Specialty Start Date End Date Gurpreet Mares MD PCP - General Internal Medicine 12/09/20 Tray Marsh MD Automotive Specialty Technician Cardiovascular Disease 05/18/21 Jonelle Lees NP Nurse Practitioner Cardiology 05/18/21 3/3/2 4 Kim Webb NP Cardiology 10/23/23 documented as of this encounter
--- OUTSIDE RECORDS SUMMARY | 2024-11-08 13:14 | XMS_ITS | Encounter Summary ---
Author Organization [facility] [facility] Address [address] [place] [address] Care Team Providers Care Expeller Worker Name Role Phone Augusto Hernandez MD Primary Care Provider [phone] Gurpreet Mares MD Primary Care Provider Tray Mcdonough MD Unavailable Jonelle Lees CLINIC SPECIALIST Unavailable Unavailab Kim Marti NP Unavailable [phone] Encounter Details Date Type Department Care Team Description 01/28/2018 SCAN Medical Records [address] [place] [address] Abstract, Provider Social History Tobacco Use Types Packs/Day Years Used Date Smoking Tobacco: Former Sex Assigned at Date Recorded Not on file Job Start Date Occupation Industry Not on file Not on file Not on file documented as of this encounter Plan of Treatment Not on file documented as of this encounter Visit Diagnoses Not on filedocumented in this encounter Care Teams Expeller Worker Relationship Specialty Start Date End Date Augusto Hernandez MD [address] [place], [place] PCP - General Internal Medicine 12/11/17 12/08/20 Gurpreet Mares MD [address] [place], [place] PCP - General Internal Medicine 12/09/20 Tray Marsh MD [address] [place], [place] Cloth Trimmer Hand Cardiovascular Disease 05/18/21 Jonelle Lees NP [address] [place], [place] Nurse Practitioner Cardiology 05/18/21 10/22/23 Kim Webb, KHANH [address] [place] [address] Cardiology 10/23/23 documented as of this encounter
--- OUTSIDE RECORDS SUMMARY | 2024-11-08 13:14 | XMS_ITS | Encounter Summary ---
Author Organization [facility] Address [address] [place] [address] Care Team Providers Care Electrical Controls Designer Name Role Phone Jan Leyva MD Primary Care Provider Unavail able Augusto Hernandez MD Primary Care Provider [phone] Gurpreet Mares MD Primary Care Provider Gurpreet Tellez MD Primary Care Provider Tray Mcdonough MD Unavailable Jonelle Lees MANAGER LOAN Unavailable Unavailab Kim Marti MANAGER LOAN Unavailable [phone] Reason for Visit * Reason Onset Date Comments Production Analyst Feedback 08/29/2017 Alisha Encounter Details Date Type Department Care Team Description 08/29/2017 Telephone Pulmonology - [address] [place] [phone] Addison Aranda MD Production Analyst Feedback (Alisha) Social History Tobacco Use Types Packs/Day Years Used Date Smoking Tobacco: Never Assessed Sex Assigned at Date Recorded Not on file Job Start Date Occupation Industry Not on file Not on file Not on file documented as of this encounter Miscellaneous Notes * Telephone Encounter - Troy Kumar - 08/30/2017 3:44 PM EST [facility] Auth # [id number] visits 08/30/2017-11/28/2017 Also resubmitted for 28 [...] changing. She now has [facility] Connector plan. [id number] as of 08/21/2017. Can an Auth be done for her to go? Please advise. Please call pt. documented in this encounter Plan of Treatment Not on file documented as of this encounter Visit Diagnoses Not on filedocumented in this encounter Care Teams Electrical Controls Designer Relationship Specialty Start Date End Date Jan Leyva MD PCP - General Internal Medicine 10/18/17 12/10/17 Augusto Hernandez MD [address] [place] [address] PCP - General Internal Medicine 12/11/17 12/08/20 Gurpreet Mares MD [address] [place] [address] PCP - General 05/22/12 10/17/17 Gurpreet Mares MD [address] [place] [address] PCP - General Internal Medicine 12/09/20 Tray Marsh MD [address] [place] [address] Cycle Counter Cardiovascular Disease 05/18/21 Jonelle Lees NP [address] [place] [address] Nurse Practitioner Cardiology 05/18/21 10/22/23 Kim Webb NP [address] [place] [address] Cardiology 10/23/23 documented as of this encounter
--- OUTSIDE RECORDS SUMMARY | 2024-11-08 13:14 | XMS_ITS | Encounter Summary ---
Author Organization [facility] [facility] Address [address] [place] [address] Care Team Providers Care Personnel Clerk Name Role Phone Augusto Hernandez MD Primary Care Provider [phone] Gurpreet Mares MD Primary Care Provider Tray Mcdonough MD Unavailable Jonelle Lees RF TEST TECHNICIAN Unavailable Unavailab Kim Marti RF TEST TECHNICIAN Unavailable [phone] Reason for Visit * Reason Comments E-prescribe Rx Request Encounter Details Date Type Department Care Team Description 03/03/2018 Refill Pulmonology - [address] [place] [address] Addison Aranda MD E-prescribe Rx [...] NO Patients current insurance carrier is: Payor: [facility] / Plan: IVELISSE MCGUIRE TYPE 2 / Product Type: HMO [id number] documented in this encounter Plan of Treatment Not on file documented as of this encounter Visit Diagnoses Not on filedocumented in this encounter Care Teams Personnel Clerk Relationship Specialty Start Date End Date Augusto Hernandez MD [address] [place] [address] PCP - General Internal Medicine 12/11/17 12/08/20 Gurpreet Mares MD [address] [place] [address] PCP - General Internal Medicine 12/09/20 Tray Marsh MD [address] [place] [address] Cleaner Housekeeping Cardiovascular Disease 05/18/21 Jonelle Lees NP [address] [place] [address] Nurse Practitioner Cardiology 05/18/21 10/22/23 Kim Webb NP [address] [place] [address] Cardiology 10/23/23 documented as of this encounter
--- OUTSIDE RECORDS SUMMARY | 2024-11-08 13:14 | XMS_ITS | Encounter Summary ---
Author Organization [facility] Address [address] [place] [address] Care Team Providers Care Mining Technician Name Role Phone Gurpreet Mares MD Primary Care Provider Tray Mcdonough MD Unavailable Jonelle Lees STICKER MACHINE OPERATOR Unavailable Unavailab Kim Marti STICKER MACHINE OPERATOR Unavailable [phone] Reason for Visit * Reason Onset Date Comments Medication 05/05/2022 Eliquis 5 MG Tab refill Encounter Details Date Type Department Care Team Description 05/05/2022 Telephone Cardio PVCA Diag Testing [address] [facility] [address] [place] [address] Tray Marsh MD [address] [place] [address] [phone] Medication (Eliquis 5 MG Tab refill ) [...] to be sent to [facility] in [place] on [address] Patient could be reached at [phone] documented in this encounter Plan of Treatment Not on file documented as of this encounter Visit Diagnoses Not on filedocumented in this encounter Care Teams Mining Technician Relationship Specialty Start Date End Date Gurpreet Mares MD PCP - General Internal Medicine 12/09/20 Tray Marsh MD Semiconductor Manufacturing Technician Cardiovascular Disease 05/18/21 Jonelle Lees NP Nurse Practitioner Cardiology 05/18/21 4 Kim Webb NP Cardiology 10/23/23 documented as of this encounter
--- OUTSIDE RECORDS SUMMARY | 2024-11-08 13:14 | XMS_ITS | Encounter Summary ---
Author Organization [facility] [employer] [facility] Address [address] [place] [address] Care Team Providers Care Equip Tech Name Role Phone Gurpreet Mares MD Primary Care Provider Tray Mcdonough MD Unavailable Jonelle Lees HEALTH CLUB ATTENDANT Unavailable Unavailab Kim Marti HEALTH CLUB ATTENDANT Unavailable [phone] Encounter Details Date Type Department Care Team Description 09/18/2022 [facility] Medical Records [address] [place] [address] Social History Tobacco Use Types Packs/Day Years [...] on filedocumented in this encounter Care Teams Equip Tech Relationship Specialty Start Date End Date Gurpreet Mares MD PCP - General Internal Medicine 12/09/20 Tray Marsh MD Heating Element Winder Cardiovascular Disease 05/18/21 Jonelle Lees NP Nurse Practitioner Cardiology 05/18/21 4 Kim Webb NP Cardiology 10/23/23 documented as of this encounter
--- OUTSIDE RECORDS SUMMARY | 2024-11-08 13:14 | XMS_ITS | Encounter Summary ---
Author Organization [facility] Address [address] [place] [address] Care Team Providers Care Tray Server Name Role Phone Gurpreet Mares MD Primary Care Provider Tray Mcdonough MD Unavailable Jonelle Lees NURSE FIRST ASSIST Unavailable Unavailab Kim Marti NURSE FIRST ASSIST Unavailable [phone] Encounter Details Date Type Department Care Team Description 09/18/2022 [facility] Medical Records [address] [place] [address] Social History Tobacco Use Types Packs/Day Years [...] on filedocumented in this encounter Care Teams Tray Server Relationship Specialty Start Date End Date Gurpreet Mares MD PCP - General Internal Medicine 12/09/20 Tray Marsh MD Front Office Developer Cardiovascular Disease 05/18/21 Jonelle Lees NP Nurse Practitioner Cardiology 05/18/21 4 Kim Webb NP Cardiology 10/23/23 documented as of this encounter
--- OUTSIDE RECORDS SUMMARY | 2024-11-08 13:14 | XMS_ITS | Encounter Summary ---
Author Organization [facility] [facility] Address [address] [place] [address] Care Team Providers Care Sr. Pricing Analyst Name Role Phone Gurpreet Mares MD Primary Care Provider Tray Mcdonough MD Unavailable Jonelle Lees GALLERY OR MUSEUM ATTENDANT Unavailable Unavailab Kim Marti GALLERY OR MUSEUM ATTENDANT Unavailable [phone] Reason for Visit * Reason Onset Date Comments REFERRAL 02/10/2023 Metoprolol and D iltiazem Encounter Details Date Type Department Care Team Description 02/10/2023 Telephone Cardio PVC [address] [facility] [address] [place] [address] Tray Marsh MD [address] [place] [address] [phone] REFERRAL (Metoprolol and Diltiazem ) Social History [...] Diltiazem 300 MG once a day to [facility] in [place] 90 day documented in this encounter Plan of Treatment Not on file documented as of this encounter Visit Diagnoses Not on filedocumented in this encounter Care Teams Sr. Pricing Analyst Relationship Specialty Start Date End Date Gurpreet Mares MD PCP - General Internal Medicine 12/09/20 Tray Marsh MD Boat Hop Cardiovascular Disease 05/18/21 Jonelle Lees NP Nurse Practitioner Cardiology 05/18/21 4 Kim Webb NP Cardiology 10/23/23 documented as of this encounter
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
--- OUTSIDE RECORDS SUMMARY | 2024-11-08 13:14 | XMS_ITS | Encounter Summary ---
Author Organization [facility] Address [address] [place] [address] Care Team Providers Care Medical Resident Name Role Phone Gurpreet Mares MD Primary Care Provider Tray Mcdonough MD Unavailable Jonelle Lees NP Unavailable Unavailab Kim Marti NP Unavailable [phone] Encounter Details Date Type Department Care Team Description 03/26/2021 Rattling Machine Tender Report Medical Records [address] [place] [address] Tonie Coates Social History Tobacco Use Types [...] on filedocumented in this encounter Care Teams Medical Resident Relationship Specialty Start Date End Date Gurpreet Mares MD PCP - General Internal Medicine 12/09/20 Tray Marsh MD Firestopper Technician Cardiovascular Disease 05/18/21 Jonelle Lees NP Nurse Practitioner Cardiology 05/18/2110/21/ Kim Miguel NP Cardiology 10/23/23 documented as of this encounter
--- OUTSIDE RECORDS SUMMARY | 2024-11-08 13:14 | XMS_ITS | Encounter Summary ---
Author Organization [facility] Address [address] [place] [address] Care Team Providers Care City Solicitor Name Role Phone Gurpreet Mares MD Primary Care Provider Tray Mcdonough MD Unavailable Jonelle Lees RESEARCH ASSOCIATE Unavailable Unavailab Kim Marit RESEARCH ASSOCIATE Unavailable [phone] Reason for Visit * Reason Onset Date Comments E-prescribe Rx Request 02/10/2023 Lopressor declined Encounter Details Date Type Department Care Team Description 02/10/2023 Refill Cardio PVCA Diag Testing [address] [facility] [address] [place] [address] Tray Marsh MD [address] [place] [address] [phone] E-prescribe Rx Request (Lopressor declined ) Social [...] on filedocumented in this encounter Care Teams City Solicitor Relationship Specialty Start Date End Date Gurpreet Mares MD PCP - General Internal Medicine 12/09/20 Tray Marsh MD Mechanical Drafter Cardiovascular Disease 05/18/21 Jonelle Lees NP Nurse Practitioner Cardiology 05/18/21 4 Kim Webb NP Cardiology 10/23/23 documented as of this encounter
--- OUTSIDE RECORDS SUMMARY | 2024-11-08 13:14 | XMS_ITS | Encounter Summary ---
Author Organization [facility] Address [address] [place] [address] Care Team Providers Care Volleyball Commentator Name Role Phone Gurpreet Mares MD Primary Care Provider Tray Mcdonough MD Unavailable Jonelle Lees REGULATORY LEAD Unavailable Unavailab Kim Marti REGULATORY LEAD Unavailable [phone] Encounter Details Date Type Department Care Team Description 08/11/2022 Pt. Non Urgent Medical Question Cardio PVCA Diag Testing 101 300 [facility] [address] [place] [address] Tray Marsh MD [address] [place] [address] [id number] Social History Tobacco Use Types Packs/Day Years [...] on filedocumented in this encounter Care Teams Volleyball Commentator Relationship Specialty Start Date End Date Gurpreet Mares MD PCP - General Internal Medicine 12/09/20 Tray Marsh MD Senior Software Quality Engineer Cardiovascular Disease 05/18/21 Jonelle Lees NP Nurse Practitioner Cardiology 05/18/21 4 Kim Webb NP Cardiology 10/23/23 documented as of this encounter
--- OUTSIDE RECORDS SUMMARY | 2024-11-08 13:14 | XMS_ITS | Encounter Summary ---
Author Organization [facility] Address [address] [place] [address] Care Team Providers Care Finance Lead Name Role Phone Adam Guthrie MD Primary Care Provider Unavail able Jan Leyva MD Primary Care Provider Unavail able Augusto Hernandez MD Primary Care Provider [phone] Gurpreet Mares MD Primary Care Provider Gurpreet Tellez MD Primary Care Provider Tray Mcdonough MD Unavailable Jonelle Lees IMAGING ADMINISTRATOR Unavailable Unavailab Kim Marti IMAGING ADMINISTRATOR Unavailable [phone] Reason for Visit * Reason Onset Date Comments pain, chest 01/26/2012 Encounter Details Date Type Department Care Team Description 01/26/2012 Telephone Adult Medicine [facility] [address] [place] [address] Adam Guthrie MD pain, chest Social History [...] symptoms?: n/a PCP: Adam Guthrie MD Payor: -[place]/PPO POS Plan: PPO $30 [employer] [id number] Product Type: PPO [id number] documented in this encounter Plan of Treatment Not on file documented as of this encounter Visit Diagnoses Not on filedocumented in this encounter Care Teams Finance Lead Relationship Specialty Start Date End Date Adam Guthrie MD PCP - General Internal Medicine 01/26/12 05/21/12 Jan Leyva MD PCP - General Internal Medicine 10/18/17 12/10/17 Augusto Hernandez MD [address] [place] [address] PCP - General Internal Medicine 12/11/17 12/08/20 Gurpreet Mares MD [address] [place] [address] PCP - General 05/22/12 10/17/17 Gurpreet Mares MD [address] [place] [address] PCP - General Internal Medicine 12/09/20 Tray Marsh MD [address] [place] [address] Defense Analyst Cardiovascular Disease 05/18/21 Jonelle eLes NP [address] [place], [place] Nurse Practitioner Cardiology 05/18/21 10/22/23 Kim Webb NP [address] [place], [place] Cardiology 10/23/23 documented as of this encounter
--- OUTSIDE RECORDS SUMMARY | 2024-11-08 13:14 | XMS_ITS | Encounter Summary ---
Author Organization [facility] Address [address] [place] [address] Care Team Providers Care Women'S Ministry Director Name Role Phone Gurpreet Mares MD Primary Care Provider Tray Mcdonough MD Unavailable Jonelle Lees NP Unavailable Unavailab Kim Marti NP Unavailable [phone] Encounter Details Date Type Department Care Team Description 02/18/2021 SCAN Medical Records [address] [place] [address] Abstract, Provider Social History Tobacco Use Types [...] on filedocumented in this encounter Care Teams Women'S Ministry Director Relationship Specialty Start Date End Date Gurpreet Mares MD PCP - General Internal Medicine 12/09/20 Tray Marsh MD Clip Wrapper Cardiovascular Disease 05/18/21 Jonelle Lees NP Nurse Practitioner Cardiology 05/18/21 33/2 4 Kim Webb NP Cardiology 10/23/23 documented as of this encounter
--- OUTSIDE RECORDS SUMMARY | 2024-11-08 13:14 | XMS_ITS | Encounter Summary ---
Author Organization [employer] [facility] Address [address] [place] [address] Care Team Providers Care Metal Pickling Equipment Operator Name Role Phone Gurpreet Mares MD Primary Care Provider Tray Mcdonough MD Unavailable Jonelle Lees HOSPICE HOME HEALTH AIDE Unavailable Unavailab Kim Marti HOSPICE HOME HEALTH AIDE Unavailable [phone] Encounter Details Date Type Department Care Team Description 12/13/2022 Orders Only Cardio PVC POC 154 300 [facility] [address] [place] [address] Default, Provider Social History Tobacco Use Types [...] Date/Time Associated Diagnosis Comments OUTSIDE LAB Routine 09/28/2022 documented in this encounter Results * OUTSIDE LAB (09/28/2022) Provider Default LAB documented in this encounter Visit Diagnoses Not on filedocumented in this encounter Care Teams Metal Pickling Equipment Operator Relationship Specialty Start Date End Date Gurpreet Mares MD PCP - General Internal Medicine 12/09/20 Tray Marsh MD Certified Social Workers In Health Care Cardiovascular Disease 05/18/21 Jonelle Lees NP Nurse Practitioner Cardiology 05/18/21 3/3/2 4 Kim Webb NP Cardiology 10/23/23 documented as of this encounter
--- OUTSIDE RECORDS SUMMARY | 2024-11-08 13:14 | XMS_ITS | Encounter Summary ---
Author Organization [facility] Address [address] [place] [address] Care Team Providers Care Food Quality Technician Name Role Phone Augusto Hernandez MD Primary Care Provider [phone] Gurpreet Mares MD Primary Care Provider Tray Mcdonough MD Unavailable Jonelle Lees OBSTETRICS GYN PHYSICIAN Unavailable Unavailab Kim Marti OBSTETRICS GYN PHYSICIAN Unavailable [phone] Reason for Visit * Reason Onset Date Comments Medication 12/11/2017 Encounter Details Date Type Department Care Team Description 12/11/2017 Telephone Pulmonology - [address] [place] [address] [place] Aranda MD Medication Social History Tobacco Use Types Packs/Day Years Used Date Smoking Tobacco: Former Sex Assigned at Date Recorded Not on file Job Start Date Occupation Industry Not on file Not on file Not on file documented as of this encounter Miscellaneous Notes * Telephone Encounter - Judy Woodson M.A. - 12/18/2017 2:31 PM EDT Refilll routed to . * Telephone Encounter - Eladia Bang - 12/18/2017 1:42 PM EDT Pt is calling inquiring on status of new script being sent for the Xopenex. [facility] never received. Please advise. * Telephone Encounter - Judy Woodson M.A. - 12/11/2017 1:27 PM EDT Called [facility] with Directions. New rx entered to send. * Telephone Encounter - Maggi Vivas - 12/11/2017 1:08 PM EDT Cortney from [facility] called that she received Xoeconx and there are 2 different direction please contact Cortney [phone] documented in this encounter Plan of Treatment Not on file documented as of this encounter Visit Diagnoses Diagnosis Centrilobular emphysema (HCC)- Primary Other emphysema Atrial fibrillation, unspecified type (HCC) documented in this encounter Care Teams Food Quality Technician Relationship Specialty Start Date End Date Augusto Hernandez MD [address] [place] [address] PCP - General Internal Medicine 12/11/17 12/08/20 Gurpreet Mares MD [address] [place], [place] PCP - General Internal Medicine 12/09/20 Tray Marsh MD [address] [place] [address] River Crossing Supervisor Cardiovascular Disease 05/18/21 Jonelle Lees NP [address] [place] [address] Nurse Practitioner Cardiology 05/18/21 10/22/23 Kim Webb NP [address] [place] [address] Cardiology 10/23/23 documented as of this encounter
--- OUTSIDE RECORDS SUMMARY | 2024-11-08 13:14 | XMS_ITS | Encounter Summary ---
Author Organization [facility] Address [address] [place] [address] Care Team Providers Care Chemical Equipment Repairer Name Role Phone Augusto Hernandez MD Primary Care Provider [phone] Gurpreet Mares MD Primary Care Provider Tray Mcdonough MD Unavailable Jonelle Lees SUPERVISOR DOPING Unavailable Unavailab Kim Marti SUPERVISOR DOPING Unavailable [phone] Reason for Visit * Reason Onset Date Comments Medication 11/30/2020 REFILL Encounter Details Date Type Department Care Team Description 11/30/2020 Telephone Cardio PVC POC 154 300 [facility] [address] [place], [place] [id number] Tray Marsh MD [address] [place] [address] [phone] Medication (REFILL) Social History Tobacco Use Types [...] DIGOXIN 250mg. Pt can be reached at [phone] documented in this encounter Plan of Treatment Not on file documented as of this encounter Visit Diagnoses Not on filedocumented in this encounter Care Teams Chemical Equipment Repairer Relationship Specialty Start Date End Date Augusto Hernandez MD [address] [place] [address] PCP - General Internal Medicine 12/11/17 12/08/20 Gurpreet Mares MD [address] [place] [address] PCP - General Internal Medicine 12/09/20 Tray Marsh MD [address] [place] [address] Product Support Consultant Cardiovascular Disease 05/18/21 Jonelle Lees NP [address] [place] [address] Nurse Practitioner Cardiology 05/18/21 10/22/23 Kim Webb NP [address] [place] [address] Cardiology 10/23/23 documented as of this encounter
--- OUTSIDE RECORDS SUMMARY | 2024-11-08 13:14 | XMS_ITS | Encounter Summary ---
Author Organization [facility] Address [address] [place] [address] Care Team Providers Care Toll Line Inspector Name Role Phone Gurpreet Mares MD Primary Care Provider Tray Mcdonough MD Unavailable Jonelle Lees SINGLE FOLD MACHINE OPERATOR Unavailable Unavailab Kim Marti SINGLE FOLD MACHINE OPERATOR Unavailable [phone] Reason for Visit * Reason Onset Date Comments Medication 02/10/2023 DUPLICATE Betabl ocker request; Encounter Details Date Type Department Care Team Description 02/10/2023 Refill Cardio PVCA Diag Testing 101 300 [facility] [address] [place] [address] Tray Marsh MD [address] [place] [address] [phone] Medication (DUPLICATE Betablocker request; ) Social History [...] on filedocumented in this encounter Care Teams Toll Line Inspector Relationship Specialty Start Date End Date Gurpreet Mares MD PCP - General Internal Medicine 12/09/20 Tray Marsh MD Business Continuity Planning Director Cardiovascular Disease 05/18/21 Jonelle Lees NP Nurse Practitioner Cardiology 05/18/21 4 Kim Webb NP Cardiology 10/23/23 documented as of this encounter
--- OUTSIDE RECORDS SUMMARY | 2024-11-08 13:14 | XMS_ITS | Encounter Summary ---
Author Organization [employer] [facility] Address [address] [place] [address] Care Team Providers Care Desulphuring Operator Name Role Phone Jan Leyva MD Primary Care Provider Unavail able Augusto Hernandez MD Primary Care Provider [phone] Gurpreet Mares MD Primary Care Provider Gurpreet Tellez MD Primary Care Provider Tray Mcdonough MD Unavailable Jonelle Lees RELEASE COORDINATOR Unavailable Unavailab Kim Marti RELEASE COORDINATOR Unavailable [phone] Encounter Details Date Type Department Care Team Description 06/22/2017 Orders Only Pulmonology - [place] [address] [facility] [address] [place] [address] Caty Mojica, [facility] [address] [place] [address] Social History Tobacco Use Types Packs/Day Years Used Date Smoking Tobacco: Never Assessed Sex Assigned at Date Recorded Not on file Job Start Date Occupation Industry Not on file Not on file Not on file documented as of this encounter Plan of Treatment Not on file documented as of this encounter Visit Diagnoses Not on filedocumented in this encounter Care Teams Desulphuring Operator Relationship Specialty Start Date End Date Jan Leyva MD PCP - General Internal Medicine 10/18/17 12/10/17 Augusto Hernandez MD [address] [place] [address] PCP - General Internal Medicine 12/11/17 12/08/20 Gurpreet Mares MD [address] [place] [address] PCP - General 05/22/12 10/17/17 Gurpreet Mares MD [address] [place] [address] PCP - General Internal Medicine 12/09/20 Tray Marsh MD [address] [place] [address] Diesel Truck Driver Cardiovascular Disease 05/18/21 Jonelle Lees NP [address] [place] [address] Nurse Practitioner Cardiology 05/18/21 10/22/23 Kim Webb NP [address] [place] [address] Cardiology 10/23/23 documented as of this encounter
--- OUTSIDE RECORDS SUMMARY | 2024-11-08 13:14 | XMS_ITS | Encounter Summary ---
Author Organization [facility] Address [address] [place] [address] Care Team Providers Care Reconciler Name Role Phone Jan Leyva MD Primary Care Provider Unavail able Augusto Hernandez MD Primary Care Provider [phone] Gurpreet Mares MD Primary Care Provider Gurpreet Tellez MD Primary Care Provider Tray Mcdonough MD Unavailable Jonelle Lees COSTUME CUTTER Unavailable Unavailab Kim Marti COSTUME CUTTER Unavailable [phone] Reason for Visit * Reason Onset Date Comments Prior Authorization 09/05/2017 Encounter Details Date Type Department Care Team Description 09/05/2017 Telephone Pulmonology - [address] [place] [id number] [place] Aranda MD Prior Authorization Social History [...] on filedocumented in this encounter Care Teams Reconciler Relationship Specialty Start Date End Date Jan Leyva MD PCP - General Internal Medicine 10/18/17 12/10/17 Augusto Hernandez MD [address] [place] [address] PCP - General Internal Medicine 12/11/17 12/08/20 Gurpreet Mares MD [address] [place] [address] PCP - General 05/22/12 10/17/17 Gurpreet Mares MD [address] [place] [address] PCP - General Internal Medicine 12/09/20 Tray Marsh MD [address] [place] [address] Wader Boot Top Assembler Cardiovascular Disease 05/18/21 Jonelle Lees NP [address] [place] [address] Nurse Practitioner Cardiology 05/18/21 10/22/23 Kim Webb NP [address] [place] [address] Cardiology 10/23/23 documented as of this encounter
--- OUTSIDE RECORDS SUMMARY | 2024-11-08 13:14 | XMS_ITS | Encounter Summary ---
Author Organization [facility] Address [address] [place] [address] Care Team Providers Care Safety Companion Name Role Phone Augusto Hernandez MD Primary Care Provider [phone] Gurpreet Mares MD Primary Care Provider Tray Mcdonough MD Unavailable Jonelle Lees SHAREPOINT APPLICATION DEVELOPER Unavailable Unavailab Kim Marti SHAREPOINT APPLICATION DEVELOPER Unavailable [phone] Encounter Details Date Type Department Care Team Description 10/09/2018 Telephone Internal Medicine - [address], [address] [place] [address] Augusto Hernandez MD [address] [place], [place] [address] Social History Tobacco Use Types Packs/Day Years Used Date Smoking Tobacco: Former Sex Assigned at Date Recorded Not on file Job Start Date Occupation Industry Not on file Not on file Not on file documented as of this encounter Plan of Treatment Not on file documented as of this encounter Visit Diagnoses Not on filedocumented in this encounter Care Teams Safety Companion Relationship Specialty Start Date End Date Augusto Hernandez MD [address] [place], [place] [id number] PCP - General Internal Medicine 12/11/17 12/08/20 Gurpreet Mares MD [address] [place] [address] PCP - General Internal Medicine 12/09/20 Tray Marsh MD [address] [place], [place] [phone] Hard Candy Spinner Cardiovascular Disease 05/18/21 Jonelle Lees NP [address] [place] [address] Nurse Practitioner Cardiology 05/18/21 10/22/23 Kim Webb NP [address] [place] [address] Cardiology 10/23/23 documented as of this encounter
--- OUTSIDE RECORDS SUMMARY | 2024-11-08 13:14 | XMS_ITS | Encounter Summary ---
Author Organization [facility] Address [address] [place] [address] Care Team Providers Care Debit Agent Name Role Phone Gurpreet Mares MD Primary Care Provider Tray Mcdonough MD Unavailable Jonelle Lees SEISMIC INTERPRETER Unavailable Unavailab Kim Marti SEISMIC INTERPRETER Unavailable [phone] Encounter Details Date Type Department Care Team Description 05/02/2022 Refill Cardio PVCA Diag Testing 101 300 [facility] [address] [place] [address] Tray Marsh MD [address] [place] [address] [phone] Social History Tobacco Use Types Packs/Day Years [...] fibrillation documented in this encounter Care Teams Debit Agent Relationship Specialty Start Date End Date Gurpreet Mares MD PCP - General Internal Medicine 12/09/20 Tray Marsh MD Ring Cutter Lathe Operator Cardiovascular Disease 05/18/21 Jonelle Lees NP Nurse Practitioner Cardiology 05/18/21 4 Kim Webb NP Cardiology 10/23/23 documented as of this encounter
--- OUTSIDE RECORDS SUMMARY | 2024-11-08 13:14 | XMS_ITS | Encounter Summary ---
Author Organization [employer] [facility] Address [address] [place] [address] Care Team Providers Care Manager Nursing Name Role Phone Augusto Hernandez MD Primary Care Provider [phone] Gurpreet Mares MD Primary Care Provider Tray Mcdonough MD Unavailable Jonelle Lees GRINDER CHIPPER Unavailable Unavailab Kim Marti GRINDER CHIPPER Unavailable [phone] Encounter Details Date Type Department Care Team Description 05/04/2018 Pt. Non Urgent Medic al Question Pulmonology - [address] [place] [address] [place] Aranda MD Social History [...] filedocumented in this encounter Care Teams Manager Nursing Relationship Specialty Start Date End Date Augusto Hernandez MD [address] [place] [address] PCP - General Internal Medicine 12/11/17 12/08/20 Gurpreet Mares MD [address] [place] [address] PCP - General Internal Medicine 12/09/20 Tray Marsh MD [address] [place] [address] Geomatics Professor Cardiovascular Disease 05/18/21 Jonelle Lees NP [address] [place] [address] Nurse Practitioner Cardiology 05/18/21 10/22/23 Kim Webb NP [address] [place] [address] Cardiology 10/23/23 documented as of this encounter
--- OUTSIDE RECORDS SUMMARY | 2024-11-08 13:15 | XMS_ITS | Encounter Summary ---
Author Organization [facility] Address [address] [place] [address] Care Team Providers Care Monument Erector Name Role Phone Gurpreet Mares MD Primary Care Provider Tray Mcdonough MD Unavailable Jonelle Lees NP Unavailable Unavailab Kim Marti NP Unavailable [phone] Encounter Details Date Type Department Care Team Description 04/13/2022 Pt. Non Urgent Medical Question Cardio PVCA Diag Testing 101 300 [facility] [address] [place] [address] Tray Marsh MD [address] [place] [address] [phone] Social History Tobacco Use Types Packs/Day Years [...] on filedocumented in this encounter Care Teams Monument Erector Relationship Specialty Start Date End Date Gurpreet Mares MD PCP - General Internal Medicine 12/09/20 Tray Marsh MD Polishing Wheel Setter Cardiovascular Disease 05/18/21 Jonelle Lees NP Nurse Practitioner Cardiology 05/18/2110/21/ 4 Kim Webb NP Cardiology 10/23/23 documented as of this encounter
--- OUTSIDE RECORDS SUMMARY | 2024-11-08 13:15 | XMS_ITS | Encounter Summary ---
Author Organization [facility] Address [address] [place] [address] Care Team Providers Care Prison Keeper Name Role Phone Gurrpeet Mares MD Primary Care Provider Tray Mcdonough MD Unavailable Jonelle Lees CHAIN REPAIRER Unavailable Unavailab Kim Marti NP Unavailable [phone] Encounter Details Date Type Department Care Team Description 10/31/2021 Pt. Non Urgent Medic al Question Cardio PVC Stfd 102 300 [facility] [address] [place] [address] Jonelle Lees NP Social History Tobacco Use [...] on filedocumented in this encounter Care Teams Prison Keeper Relationship Specialty Start Date End Date Gurpreet Mares MD PCP - General Internal Medicine 12/09/20 Tray Marsh MD Medical Numerical Control Operator Cardiovascular Disease 05/18/21 Jonelle Lees NP Nurse Practitioner Cardiology 05/18/21 4 Kim Webb NP Cardiology 10/23/23 documented as of this encounter
--- OUTSIDE RECORDS SUMMARY | 2024-11-08 13:15 | XMS_ITS | Encounter Summary ---
Author Organization [facility] Address [address] [place] [address] Care Team Providers Care Trommel Tender Name Role Phone Augusto Hernandez MD Primary Care Provider [phone] Gurpreet Mares MD Primary Care Provider Tray Mcdonough MD Unavailable Jonelle Lees KENO WRITER Unavailable Unavailab Kim Marti KENO WRITER Unavailable [phone] Encounter Details Date Type Department Care Team Description 11/16/2018 Pt. Non Urgent Medic al Question Pulmonology - [address] [place] [address] [place] Aranda MD Social History [...] on filedocumented in this encounter Care Teams Trommel Tender Relationship Specialty Start Date End Date Augusto Hernandez MD [address] [place] [address] PCP - General Internal Medicine 12/11/17 12/08/20 Gurpreet Mares MD [address] [place] [address] PCP - General Internal Medicine 12/09/20 Tray Marsh MD [address] [place] [address] Lead Web Developer Cardiovascular Disease 05/18/21 Jonelle Lees NP [address] [place] [address] Nurse Practitioner Cardiology 05/18/21 10/22/23 Kim Webb NP [address] [place] [address] Cardiology 10/23/23 documented as of this encounter
--- OUTSIDE RECORDS SUMMARY | 2024-11-08 13:15 | XMS_ITS | Encounter Summary ---
Author Organization [employer] [facility] Address [address] [place] [address] Care Team Providers Care Asw Specialist Name Role Phone Augusto Hernandez MD Primary Care Provider [phone] Gurpreet Mares MD Primary Care Provider Tray Mcdonough MD Unavailable Jonelle Lees PRIVATE INVESTIGATOR SURVEILLANCE Unavailable Unavailab Kim Marti PRIVATE INVESTIGATOR SURVEILLANCE Unavailable Encounter Details Date Type Department Care Team Description 11/16/2018 Pt. Non Urgent Medic al Question Pulmonology - [address] [place] [address] [place] Aranda MD Social History [...] Ambrosio To: [place] Aranda MD Sent: 11/16/2018 3:53 PM EDT Subject: Ameena THEY CHANGED MY APPOINTMENT TO January 02. documented in this encounter Plan of Treatment Not on file documented as of this encounter Visit Diagnoses Not on filedocumented in this encounter Care Teams Asw Specialist Relationship Specialty Start Date End Date Augusto Hernandez MD [address] [place] [address] PCP - General Internal Medicine 12/11/17 12/08/20 Gurpreet Mares MD [address] [place] [address] PCP - General Internal Medicine 12/09/20 Tray Marsh MD [address] [place] [address] Aed Trainer Cardiovascular Disease 05/18/21 Jonelle Lees NP [address] [place] [address] Nurse Practitioner Cardiology 05/18/21 10/22/23 Kim Webb NP [address] [place] [address] Cardiology 10/23/23 documented as of this encounter
--- OUTSIDE RECORDS SUMMARY | 2024-11-08 13:15 | XMS_ITS | Encounter Summary ---
Author Organization [facility] Address [address] [place] [address] Care Team Providers Care Optical Engineering Manager Name Role Phone Gurpreet Mares MD Primary Care Provider Tray Mcdonough MD Unavailable Jonelle Lees CONSTRUCTION PERSON Unavailable Unavailab Kim Marti CONSTRUCTION PERSON Unavailable [phone] Encounter Details Date Type Department Care Team Description 12/21/2021 SCAN Medical Records [address] [place] [address] Harper Reeves Social History Tobacco Use Types Packs/Day Years [...] suspected to have Coronavirus/COVID-19? No / Unsure 12/14/2021 8:42 AM EDT documented as of this encounter Plan of Treatment Not on file documented as of this encounter Procedures Procedure Name Priority Date/Time Associated Diagnosis Comments OUTSIDE LAB Routine 12/21/2021 documented in this encounter Results * OUTSIDE LAB (12/21/2021) Provider Default LAB documented in this encounter Visit Diagnoses Not on filedocumented in this encounter Care Teams Optical Engineering Manager Relationship Specialty Start Date End Date Gurpreet Mares MD PCP - General Internal Medicine 12/09/20 Tray Marsh MD Office Administrative Assistant Cardiovascular Disease 05/18/21 Jonelle Lees NP Nurse Practitioner Cardiology 05/18/21 4 Kim Webb NP Cardiology 10/23/23 documented as of this encounter
--- OUTSIDE RECORDS SUMMARY | 2024-11-08 13:15 | XMS_ITS | Encounter Summary ---
Author Organization [facility] Address [address] [place] [address] Care Team Providers Care Principal Strategist Name Role Phone Gurpreet Mares MD Primary Care Provider Tray Mcdonough MD Unavailable Jonelle Lees DIRECTOR OF BRAND MARKETING Unavailable Unavailab Kim Marti DIRECTOR OF BRAND MARKETING Unavailable [phone] Reason for Visit * Reason Onset Date Comments E-prescribe Rx Request 05/02/2022 duplicate s ccb, doac already processed Encounter Details Date Type Department Care Team Description 05/02/2022 Refill Cardio [facility] [address] [place] [address] [place] [id number] Tray Marsh MD [address] [place] [address] [phone] E-prescribe Rx Request (duplicates ccb, doac already [...] fibrillation documented in this encounter Care Teams Principal Strategist Relationship Specialty Start Date End Date Gurpreet Mares MD PCP - General Internal Medicine 12/09/20 Tray Marsh MD Manager Cosmetic Cardiovascular Disease 05/18/21 Jonelle Lees NP Nurse Practitioner Cardiology 05/18/21 4 Kim Webb NP Cardiology 10/23/23 documented as of this encounter
--- OUTSIDE RECORDS SUMMARY | 2024-11-08 13:15 | XMS_ITS | Encounter Summary ---
Author Organization [facility] Address [address] [place] [address] Care Team Providers Care Passenger Screener Name Role Phone Augusto Hernandez MD Primary Care Provider [phone] Gurpreet Mares MD Primary Care Provider Tray Mcdonough MD Unavailable Jonelle Lees MD SENIOR RESEARCH SCIENTIST Unavailable Unavailab Kim Marti MD SENIOR RESEARCH SCIENTIST Unavailable [phone] Encounter Details Date Type Department Care Team Description 11/18/2018 Pt. Non Urgent Medical Question Pulmonology - [place] [address] [facility] [address] [place] [address] Jesus Leon PA-C [address] [facility] [address] [place] [address] Social History Tobacco Use Types [...] on filedocumented in this encounter Care Teams Passenger Screener Relationship Specialty Start Date End Date Augusto Hernandez MD [address] [place] [address] PCP - General Internal Medicine 12/11/17 12/08/20 Gurpreet Mares MD [address] [place] [address] PCP - General Internal Medicine 12/09/20 Tray Marsh MD [address] [place] [address] Supervisor Cigar Making Machine Cardiovascular Disease 05/18/21 Jonelle Lees NP [address] [place] [address] Nurse Practitioner Cardiology 05/18/21 10/22/23 Kim Webb NP [address] [place] [address] Cardiology 10/23/23 documented as of this encounter
--- OUTSIDE RECORDS SUMMARY | 2024-11-08 13:15 | XMS_ITS | Encounter Summary ---
Author Organization [facility] Address [address] [place] [address] Care Team Providers Care Report Manager Name Role Phone Augusto Hernandez MD Primary Care Provider [phone] Gurpreet Mares MD Primary Care Provider Tray Mcdonough MD Unavailable Jonelle Lees CDS SALES ADVISOR Unavailable Unavailab Kim Marti CDS SALES ADVISOR Unavailable [phone] Reason for Visit * Reason Onset Date Comments Prior Authorization 11/16/2018 Daliresp 250 mcg Encounter Details Date Type Department Care Team Description 11/16/2018 Telephone Pulmonology - [place] [address] [facility] [address] [place] [address] Jesus Leon PA-C [address] [facility] [address] [place] [address] Prior Authorization (Daliresp 250 mcg) [...] 12:34 PM EDT Spoke with Arun from [email or web address] who stated that this was approved Approved from 11/30/18 until 12/01/2019 Prior authorziation approval number #[id number] * Telephone Encounter - Bina Rodriguez M.A. - 11/16/2018 3:13 PM EDT Prior auth done on form [place] [facility] [place] daliresp Dx copd J44.9,centrilobular emphysema J43.2,chronic [...] on filedocumented in this encounter Care Teams Report Manager Relationship Specialty Start Date End Date Augusto Hernandez MD [address] [place] [address] PCP - General Internal Medicine 12/11/17 12/08/20 Gurpreet Mares MD [address] [place] [address] PCP - General Internal Medicine 12/09/20 Tray Marsh MD [address] [place] [address] Tobacco Wetter Cardiovascular Disease 05/18/21 Jonelle Lees NP [address] [place] [address] Nurse Practitioner Cardiology 05/18/21 10/22/23 Kim Webb NP [address] [place] [address] Cardiology 10/23/23 documented as of this encounter
--- OUTSIDE RECORDS SUMMARY | 2024-11-08 13:15 | XMS_ITS | Encounter Summary ---
Author Organization [facility] Address [address] [place] [address] Care Team Providers Care Regional Engagement Consultant Name Role Phone Augusto Hernandez MD Primary Care Provider [phone] Gurpreet Mares MD Primary Care Provider Tray Mcdonough MD Unavailable Jonelle Lees CAMERA STORAGE CLERK Unavailable Unavailab Kim Marti CAMERA STORAGE CLERK Unavailable [phone] Encounter Details Date Type Department Care Team Description 02/19/2019 Senior Billing Consultant Report Medical Records [address] [place] [address] Tray Marsh MD [address] [place], [place] [id number] Social History Tobacco Use Types Packs/Day Years [...] on filedocumented in this encounter Care Teams Regional Engagement Consultant Relationship Specialty Start Date End Date Augusto Hernandez MD [address] [place], [place] [id number] PCP - General Internal Medicine 12/11/17 12/08/20 Gurpreet Mares MD [address] [place] [address] PCP - General Internal Medicine 12/09/20 Tray Marsh MD [address] [place] [address] Aircraft Engine Mechanic Cardiovascular Disease 05/18/21 Jonelle Lees NP [address] [place] [address] Nurse Practitioner Cardiology 05/18/21 10/22/23 Kim Webb NP [address] [place] [address] Cardiology 10/23/23 documented as of this encounter
--- OUTSIDE RECORDS SUMMARY | 2024-11-08 13:15 | XMS_ITS | Encounter Summary ---
Author Organization [facility] Address [address] [place] [address] Care Team Providers Care Pipe Production Worker Name Role Phone Augusto Hernandez MD Primary Care Provider [phone] Gurpreet Mares MD Primary Care Provider Tray Mcdonough MD Unavailable Jonelle Lees TEST CENTER ADMINISTRATOR Unavailable Unavailab Kim Marti TEST CENTER ADMINISTRATOR Unavailable [phone] Encounter Details Date Type Department Care Team Description 11/14/2018 Pt. Non Urgent Medic al Question Pulmonology - [address] [place] [address] Addison Aranda MD Social History [...] on filedocumented in this encounter Care Teams Pipe Production Worker Relationship Specialty Start Date End Date Augusto Hernandez MD [address] [place] [address] PCP - General Internal Medicine 12/11/17 12/08/20 Gurpreet Mares MD [address] [place] [address] PCP - General Internal Medicine 12/09/20 Tray Marsh MD [address] [place] [address] Food Safety Technician Cardiovascular Disease 05/18/21 Jonelle Lees NP [address] [place] [address] Nurse Practitioner Cardiology 05/18/21 10/22/23 Kim Webb NP [address] [place] [address] Cardiology 10/23/23 documented as of this encounter
== END ==
LOC: HO.CARD 10:00
PROVIDERS: PCP Internal Medicine; Visit Provider Hospitalist
DX: J96.11 Chronic respiratory failure with hypoxia (principal); J96.12 Chronic respiratory failure with hypercapnia; J43.2 Centrilobular emphysema; R91.8 Other nonspecific abnormal finding of lung field; J44.9 Chronic obstructive pulmonary disease, unspecified
CPT/HCPCS: 36415; 80048; 80076; 82803; 85025; 93005; 99212

== ENCOUNTER → 2024-11-08 11:02 | Outpatient (BNV) | payer MEDICARE, SELFPAY | PROVIDERS: PCP Internal Medicine; Visit Provider Internal Medicine Cardiovascular Disease | DX: I45.10 Unspecified right bundle-branch block (principal); I48.91 Unspecified atrial fibrillation | CPT/HCPCS: 93010 ==

== ENCOUNTER 2025-01-31 09:03 | Outpatient (REF) | payer MEDICARE, SELFPAY ==
[2025-01-31 10:03] LABS: MANUAL DIFF FLAG NO
[2025-01-31 10:05] LABS: Basophils Absolute Auto 0.1 X10*3/uL (0.0-0.2); Basophils Percent Auto 0.5 % (0-2); Eosinophils Absolute Auto 0.2 X10*3/uL (0.0-0.4); Eosinophils Percent Auto 1.4 % (0-4); Hematocrit 36.2 % (37.0-47.0); Hemoglobin 11.4 g/dl (12.0-16.0); Imm Gran Abs Auto 0.05 X10*3/uL (0.00-0.03); Imm Gran Pct Auto 0.4 % (0.0-0.4); Lymphocytes Absolute Auto 1.3 X10*3/uL (1.2-4.9); Lymphocytes Percent Auto 11.3 % (20-40); Mean Corpuscular HGB Conc 31.5 g/dl (31.0-35.0); Mean Corpuscular Hemoglobin 29.3 pg (27.0-33.0); Mean Corpuscular Volume 93.1 fL (80.0-98.0); Mean Platelet Volume 9.1 fL (9.4-12.3); Monocytes Percent Auto 8.3 % (2-11); Neutrophils Percent Auto 78.1 % (45-73); Platelet Count 340 X10*3/uL (160-400); Red Blood Count 3.89 X10*6/uL (4.20-5.50); Red Cell Distribution Width 13.2 % (11.0-16.0); White Blood Count 11.6 X10*3/uL (4.8-10.8)
[2025-01-31 10:14] LABS: Venous Blood Gas Refer to POC result
[2025-01-31 10:17] LABS: VBG Base Excess 24.7 mmol/L; VBG HCO3 53 mmol/L (22-26); VBG pCO2 78 mmHg; VBG pH 7.44 (7.32-7.43); VBG pO2 37 mmHg
[2025-01-31 10:44] LABS: Anion Gap 13 (12-20); Blood Urea Nitrogen 13 mg/dL (9-16); Calcium 10.4 mg/dL (8.4-10.2); Carbon Dioxide 42 mmol/L (22-29); Chloride 93 mmol/L (96-108); Estimated Glomerular Filt Rate > 60; Glucose Random 107 mg/dL (60-115); Potassium 4.4 mmol/L (3.3-5.1); Sodium 144 mmol/L (135-145)
== END 2025-01-31 09:04 | disposition home or self-care (01) ==
LOC: HO.LAB 09:03
PROVIDERS: PCP Internal Medicine; Visit Provider Hospitalist
DX: J96.11 Chronic respiratory failure with hypoxia (principal); J96.12 Chronic respiratory failure with hypercapnia; J43.2 Centrilobular emphysema; K21.9 Gastro-esophageal reflux disease without esophagitis; R91.8 Other nonspecific abnormal finding of lung field
CPT/HCPCS: 36415; 80048; 82803; 85025; 99212

== ENCOUNTER 2025-01-31 09:03 | Outpatient (AMB) | payer MEDICARE, SELFPAY ==
[2025-01-31 09:12] VITALS: BP 114/60; PULSE 55; O2SAT 98; BMI 23.6
--- NOTE | 2025-01-31 09:12 | MHC.OFFVIS ---
Vital Signs 01/31/25 09:12 Height 5 ft 4 in Weight 137 lb 12.623 oz BMI 23.6 BP 114/60 Blood Pressure Location Lt brachial Position Sitting Pulse 55 Pulse Source Pulse Oximeter Pulse Oximetry (%) 98 Oxygen Delivery Method Nasal Cannula Oxygen Flow Rate 2 Intake Visit Reasons: COPD Household Appliance Assembler Required: No Allergies No Known Allergies Allergy (Verified 01/31/25 09:14) HPI Comments Details: The patient is a 69-year-old woman known asthma COPD overlap syndrome and also chronic rhinitis. Recently she was seen by Allergy and had allergy testing which was inconclusive. He has continued to use the Flovent HFA. The Flovent does not appear to work as well as the QVAR that she use before. She is still requiring her short-acting beta agonist more than twice a week. She has not been using her singular regularly. She has been complaining of worsening cough. Zzaw-fw-qlymtuce severity. Also nasal congestion. She has been using nasal rinsing for her nose. She had been using Flonase but she has stopped many weeks ago. Also to note she has had pulmonary nodules noted on CT scans. Then she had a repeat CT scan demonstrating no pulmonary nodules (hawa Lucas in 2018). Also to note she has been on CCB of SVT. Her HR was found to be low 40-50's. The patient is wondering on decreasing or stopping the CCB. I would not recommend changing it to betablockers with her hyper-reactive airways. 05/13/2022 the patient is here for a pulmonary follow-up visit. Overall she continues to be about the same. Continues to have dyspnea on exertion. She does clear her oxygen call which is continuous at 2 L. at that time the patient did not qualify for the conserving device. She did not undergo the PFT and 6 minutes walk test. She does not like to do those tests she does not have to. I did explain to her that if she wants to move forward with lung volume reduction interventions that they will require those studies. In addition to that pulmonary rehabilitation will also require that we did talk about lung transplant. The patient is not interested at this time. She does have friends undergone lung transplant and she is not interested in pursuing this at this time. She continues using noninvasive ventilator at nighttime with good effect. The patient is tolerating the Daliresp without any significant weight loss. 11/04/2022 the patient is here for hospital follow-up visit. The patient was extremely ill back in August. She developed sudden acute on chronic respiratory failure. She was admitted to the ICU a [facility]. There she had a CT scan demonstrating a consolidation in the left upper lobe area. She was given multiple courses of antibiotics and she was maintained on BiPAP. She was close to getting intubated but she was able to stand noninvasive therapies. She became very weak during the hospitalization. She also had a cardiac issue was placed on amiodarone. She is also on Eliquis now. Therefore, we have to be very careful with her nebulized therapies to make sure did do not exacerbate her atrial fibrillation. We did look at her CT scan of the chest she had a couple. It appears that her last CT scan demonstrated a nodular density where she had the pneumonia. This brings up a concomitant process in case she could be having an evolving malignant process at that area. Her last CT scan was back in September so plan to repeat the CT scan in December to reassess the nodular density. The meantime she is currently at the shelter. She is going to be going to her daughter's and hopefully getting a 1st floor apartment in view of her now requiring a walker and also wheelchair to get around. She cannot make it back home secondary to the fact that her home has stairs and she is not able to function at that capacity. She is also using her oxygen between 2-4 L. She is also using the noninvasive ventilator at nighttime. In the hospital she did have an elevation in her CO2 although her last ABG was reassuring with chronic hypercarbic respiratory failure without baseline CO2 of 77 mmHg. Will plan to repeat her blood work including Na a venous gas once she is discharged from rehab. 01/09/2023 the patient is here for pulmonary follow-up visit. She is still staying with her daughters. The patient has been participating in physical therapy and respiratory therapy at home through [facility] services. [place] is looking to relocate to a senior apartment. This is going to be I believe in January 2023. She has been not compliant or hearing due to her noninvasive ventilator because she has not been able to get proper supplies from her [facility] company. Will reach out to [facility] to make sure that they provide her with a new mask. I did look to see if I could provide her mask in the office but I did not have 1 that she could tolerate. She does respond well to the [employer] mask. In meantime she continues use the oxygen with good effect. The patient did have a venous blood gas which we reviewed pH was normal although her bicarbonate was up to 48 and her pCO2 was up to 73 mmHg. This is probably close to where she was when she was at [facility]. She needs to start using the noninvasive ventilator more hopefully when she gets the new mask he can do that more regularly. When she does that on give her some Diamox and she can take 1 dose to see if can decrease her bicarbonate some in order for her to be able to bring down her CO2. The patient follow-up in 3-4 weeks with another blood gas. I will also ask for a download from her [employer]. 04/25/2023 the patient is here for pulmonary follow-up visit. The patient is feeling a lot better. She did have some medication changes which made address take improvement in her overall more out energy and breathing. She is working closely with her internet designer. In the meantime for respiratory status she is using her inhalers with good response. We did talk about cutting down the Daliresp because of the weight loss. In addition to that the patient has been using the oxygen and has been maintaining a between 2-4 L. No recent imaging studies to review no recent blood work. Will request a download again from the [employer], [place]. In addition will go ahead and request a repeat venous gas to assess her pCO2 on the current settings. The patient will return in 6 months or sooner if any new issues arise. 03/29/2024 the patient is here for a pulmonary follow-up visit. Overall the patient has been doing better. She still has dyspnea on exertion but she has been more active. She is exercising on a regular basis. She is using her oxygen. She does use the oxygen for the most part continues although she does take it off when she is eating or sitting. I did explain to her that his lungs are oxygens above 90% and she is with family can take it off continue to monitor closely. She continues use her respiratory medicines good effect. She is also using her noninvasive ventilator. She did bring blood work that she has an outpatient. Her bicarb 37. This baseline bicarb due to the fact that she has chronic hypercarbic respiratory failure. We did go ahead and recheck her blood gas in her acid-base status is stable her pCO2 66 and her measured bicarb was also 37. I believe that 37 is a good baseline number for her. Will continue to monitor and consider Diamox only if her bicarb is above 40 on the basic metabolic panel. We also did read send blood work including a DNA for alpha-1 antitrypsin deficiency in view of her extensive emphysema. The patient also has multiple nodular densities. Last CT scan was back November 2022 at [facility]. We did personally reviewed. And she is due for CT scan. She is on the fence based on the fact that based on her lung capacity is not that we can do significant amount of diagnostic interventions specially biopsies. Still though will continue to monitor this nodular density so therefore will repeat the CT scan prior to her next visit in 6 months. If the patient has any worsening symptoms prior to that she will call for an earlier assessment. 08/02/2024 the patient is here for a pulmonary follow-up visit. She feels like she is getting worse. She has a hard time even doing simple chores around the house. She is more winded. She continues use a noninvasive ventilator at nighttime. She also continues to take medications as prescribed. More recently her AFib has been a little bit more out of control with increased heart rate. She did put a call out to Cardiology they will be seeing her soon. In the meantime she does have very diminished breath sounds. We did look at her recent CT scan of the chest demonstrating some new pulmonary nodules in the right lower lobe some of the are irregular in appearance. In addition to that she does have some haziness over the areas component of pneumonitis. Will go ahead and treat her for possible inflammatory process and also infectious process. Will plan to repeat the CT scan in 3 months. In the meantime I did request that she go back on the noninvasive ventilator during the daytime as well. If she can spent a couple hours during the day and also make sure that she uses at nighttime. Will get a blood gas to have a baseline at this time. 11/08/2024 the patient is here for a pulmonary follow-up visit. Overall the patient is feeling a lot better. She continues on the 10 mg of prednisone every other day and also the azithromycin 3 times a week. Also continues on the respiratory therapy. She has been using her noninvasive ventilator at nighttime and also during the daytime a little bit. She has a hard time sleeping at nighttime so she can keep it the whole night. She seems to be using about 79-80% of the time. I did encourage her to try to use it a little bit longer at nighttime. Specially with the elevated CO2. Will go ahead and prescribe her trazodone to see if this can help her sleep a little better at nighttime. In the meantime the patient will continue the azithromycin for now. She will need to do an EKG. And also will benefit from a continue the prednisone but will go ahead and taper down the prednisone some. In the meantime the patient did have a CT scan of the chest which we personally reviewed. Some of those nodular densities have subsided. Although she does have extensive emphysema. She continues on the oxygen with good effect. Will go ahead and request repeat blood work especially since her CO2 was significantly elevated before and also the patient should have an EKG to make sure that she can stay on the azithromycin safely. 01/31/2025 the patient is here for a pulmonary follow-up visit. Overall she is doing well. She continues use her respiratory therapy as prescribed. She has a medication regimen that seems to be helping her. She does have advanced COPD though. She is using the noninvasive ventilator at nighttime and also sometimes during the daytime to help her with her gas exchange and work of breathing. The patient needs to start exercising a little bit more. She does have the online program to use. She also has a harmonic that she can use. She did try the trazodone but did not work as well. I think she needs to take it a little bit longer to get used to it. She stay on the azithromycin for now the patient's last EKG was stable. She continues to follow-up closely with cardiology. Will follow-up sometime in 3-4 months to reassess her progress. Will talk about any additional imaging then. Last CT scan demonstrated that she has stable pulmonary nodules excessive emphysema and what appears to be stable hypodensity in the liver. [facility] Medical History (Updated 05/16/21 @ 20:50 by Addison Aranda MD) Pre-op chest exam Respiratory failure Centrilobular emphysema Pulmonary nodules Social History Patient Tobacco Use Status: Former Tobacco user Tobacco use type: Cigarette Years Smoked: 30 years Review of Systems Const Denies night sweats and Reports weight loss ENT Denies change in voice, Denies lip swelling, Denies mouth pain, Reports nasal congestion, Reports nasal discharge and Denies tongue swelling Card Denies chest pain and Reports dyspnea on exertion Resp Denies chest congestion, Reports cough and Reports dyspnea on exertion GI Denies abdominal pain Musc Denies no additional complaints and Reports abnormal gait Skin/Breast Denies rash Neuro Reports Neuro-related abnormal movements and Reports abnormal gait Psych Denies no additional complaints Edson/Lymph Denies easy bleeding and Denies lymphadenopathy Aller/Immun Denies lip swelling and Denies tongue swelling Physical Exam Vital Signs: Last Vital Signs Pulse 55 01/31/25 09:12 BP 114/60 01/31/25 09:12 Pulse Ox 98 01/31/25 09:12 Oxygen Delivery Method Nasal Cannula 01/31/25 09:12 Oxygen Flow Rate 2 01/31/25 09:12 BMI result Body Mass Index 23.6 Const General: alert HEENT Head: Yes normocephalic Neck Neck: Yes normal visual inspection, Yes full ROM and Yes no lymphadenopathy Chest Chest palpation & inspection: normal inspection of the chest Resp Effort & Inspection: normal respiratory effort Auscultation: no rales, no rhonchi, no wheezes and diminished lung sounds Cardio Rate: regular rate Rhythm: regular rhythm Heart sounds: S1 normal heart sound present and S2 normal heart sound present GI Palpation (GI): Soft to palpation and nontender Auscultation: normal bowel sounds Skin General skin exam: no rashes or lesions noted Extrem General: Yes no clubbing, cyanosis or edema Assessment & Plan Assessment & Plan (1) Respiratory failure: Code(s): J96.90 - Respiratory failure, unspecified, unspecified whether with hypoxia or hypercapnia Category: Medical Qualifiers: Chronicity: chronic Respiratory failure complication: hypoxia and hypercapnia Qualified Code(s): J96.11 - Chronic respiratory failure with hypoxia; J96.12 - Chronic respiratory failure with hypercapnia (2) Pulmonary nodules: Code(s): R91.8 - Other nonspecific abnormal finding of lung field Category: Medical (3) Centrilobular emphysema: Code(s): J43.2 - Centrilobular emphysema Category: Medical Plan Continue Daliresp 500mcg, consider every other day Continue Symbicort and spiriva Xopenex MEGAN as needed CPT with nebs and acapella valve 2 times a day Oxygen supplementation 2-4 liters Noninvasive ventilator at nighttime and as needed, needs to start using it during the day. Will increase RR low dose prednisone with taper 5mg every other day continue Azithromycin MWF, will need an EKG Trazodone as needed for sleep Follow-up 2-3 months Orders: Orders Venous Blood Gas 01/31/25 J43.2 - Centrilobular emphysema, J96.11 - Chronic respiratory failure with hypoxia, J96.12 - Chronic respiratory failure with hypercapnia Basic Metabolic Panel 01/31/25 J43.2 - Centrilobular emphysema, J96.11 - Chronic respiratory failure with hypoxia, J96.12 - Chronic respiratory failure with hypercapnia Complete Blood Count Auto Diff 01/31/25 J43.2 - Centrilobular emphysema, J96.11 - Chronic respiratory failure with hypoxia, J96.12 - Chronic respiratory failure with hypercapnia Coding Level of Care Code Est Pt Level 4 (72822) Complex EM visit Add On G2211 Diagnoses Chronic respiratory failure with hypoxia and hypercapnia J96.11; J96.12 Chronicity: chronic Respiratory failure complication: hypoxia and hypercapnia Pulmonary nodules R91.8 Centrilobular emphysema J43.2 Time Spent (min) 18
--- OUTSIDE RECORDS SUMMARY | 2025-01-31 09:26 | XMS_ITS | Clinical Summary ---
Author Organization [address] [place] [address] Address [address] [place] [address] Phone Care Team Providers Care Commercial Interior Designer Name Role Phone Gurpreet Mares DO Primary Care Provider [phone] Allergies No known active allergies Medications levothyroxine (SYNTHROID, LEVOTHROID) 25 mcg tablet Take [...] INHALE TWO PUFFS BY MOUTH EVERY DAY 019 Active roflumilast (Daliresp) 250 mcg tablet Take 1 Tab by mouth daily. For the first week only take 1 tab evry other day. 019 Active UNABLE TO FIND Oxygen Historical (HISTORICAL OXYGEN) 2 L by Nasal route daily Active vit A/vit C/vit E/zinc/copper (PRESERVISION AREDS ORAL) TAKE 1 TABLET DAILY. Active azithromycin (ZITHROMAX) 250 mg tablet Take 1 tablet (250 mg total) by mouth 1 (one) time each day. Mon, Wed, and Monday only Active predniSONE (DELTASONE) 10 mg tablet Take 1 tablet (10 mg total) by mouth every other day. Active digoxin (LANOXIN) 125 mcg (0.125 mg) tablet TAKE 1 TABLET BY MOUTH 1 TIME EACH DAY. 90 tablet 3 025 Active furosemide (LASIX) 40 mg tablet Take 1 tablet (40 mg total) by mouth 1 (one) time each day. As needed 90 tablet 025 Active metoprolol tartrate (LOPRESSOR) 50 mg tablet TAKE 1 TABLET BY MOUTH TWICE A DAY 180 tablet 1 025 Active dilTIAZem CD (CARDIZEM CD) 240 mg 24 hr capsuleIndication s:Permanent atrial fibrillation (CMS/HCC V24, CMS/HCC V28),Unspecified diastolic (congestive) heart failure (CMS/HCC V24, CMS/HCC V28) TAKE 1 CAPSULE BY MOUTH EVERY DAY 90 capsule 1 025 Active apixaban (ELIQUIS) 5 mg tablet Take 1 tablet (5 mg total) by mouth 2 (two) times a day. 180 tablet 1 025 Active apixaban (ELIQUIS) 5 mg tablet Take 1 tablet (5 mg total) by mouth 2 (two) times a day. 2024 Discontinued(R eorder) dilTIAZem CD (CARDIZEM CD) 240 mg 24 hr capsule Take 1 capsule (240 mg total) by mouth 1 (one) time each day. 2024 Discontinued metoprolol tartrate (LOPRESSOR) 50 mg tablet Take 1 tablet (50 mg total) by mouth 2 (two) times a day. 2024 Discontinued Active Problems Problem Noted Date [...] chronic respiratory failure with hypoxia and hypercapnia ([facility] V24, [facility] V28) 02/07/2023 Septic shock ([facility] V24, [facility] V28) 02/08/20 23 Hyperlipidemia 12/23/2022 Overview (07/17/2024): Last Assessment & Plan: Most recent lipid panel completed 10/06/2023 with LDL at goal; continue current plan RBBB (right bundle branch block) 12/23/2022 Overview (07/17/2024): Last Assessment & Plan: Stable on EKG, continue to follow. Secondary hypercoagulable state ([facility] V24) Diastolic heart failure ([facility] V24, [facility] V2 8) 06/14/2021 Overview (07/17/2024): Last Assessment & Plan: [...] Dyspnea on exertion 12/09/2020 Other secondary pulmonary hy pertension ([facility] V24, [facility] V28) 12/09/2020 Overview (07/17/2024): Last Assessment & Plan: Patient [...] disease without esophagi tis 02/04/2019 Atrial fibrillation ([facility] V24, [facility] V28) 0 12/05/2017 Overview (07/17/2024): Permanent atrial fibrillation dating [...] follow this. Diverticulosis 12/05/2017 Chronic respiratory failure ([facility] V24, [facility]/ C V28) 11/25/2016 Other emphysema ([facility], [facility] V28) 11/25 Pulmonary nodule 11/25/2016 Supplemental oxygen dependent 11/25/2016 Medical History Medical History Date Comments Pulmonary nodule 11/25/2016 DX:Pulmonary no dule Chronic respiratory failure ([facility] V24, [facility] V28) 11/25/2016 DX:Chronic respiratory failu re ([facility]); COMMENT: On O2 Supplemental oxygen dependent 11/25/2016 DX :Supplemental oxygen dependent Chronic obstructive pulmonar y disease (COPD) ([facility] V24, [facility] V28) 11/25/2016 DX:Chronic obstructi ve pulmonary disease (COPD) (HCC) Atrial fibrillation ([facility] V24, [facility] V28) 12/05/2017 DX:Atrial fibrillation ([facility]) Diverticulosis 12/05/2017 DX:Diverticulosi s TMJ arthritis DX:TMJ arthritis Pulmonary fibrosis ([facility] V24, [facility] V28) DX:Pulmonary fibrosis (HCC) GERD (gastroesophageal reflux disease) DX:GERD (gastroesophageal reflux disease) Acute on chronic respiratory failure with hypoxia and hypercapnia ([facility] V24, [facility] V28) DX:Acute on chronic respirat ory failure with hypoxia and hypercapnia ([facility]) Respiratory distress DX:Respirat ory distress Pneumonia DX:Pneumonia Septic shock ([facility] V24, C [facility] V28) DX:Septic shock ([facility]) Family History Medical History Relation Name Comments [...] Description 04/01/2025 1:10 PM EDT Office Visit [facility] [address] [facility] [address] [place] [address] Kim Webb NP [address] [address] Health Maintenance Due Date Last Done Comments Breast Cancer Screening 1955 DTaP,Tdap,and Td Vaccines (1 - Tdap) 1973 Pneumococcal Vaccine: 50+ Years (1 of 2 - PCV) 1973 Zoster Vaccines (1 of 2) 2004 RSV Immunization Adult Patients (1 - Risk 60-74 years 1-dose series) 2014 Colorectal Cancer Screening: Colonoscopy 07/24/2022 Depression Screening 07/24/2022 Falls Risk Assessment 07/24/2022 Hepatitis C Screening 07/24/2022 Medicare Annual Wellness Visit 07/24/2022 Osteoporosis Screening (Bone Density Screening) 07/24/2022 Social Influencers of Health Screening 07/24/2022 COVID-19 Vaccine ( - 2023-2 5 season) 2024 Influenza Vaccine (Season Ended) 2025 Hypertension/CHF/CAD Annual BMP Blood Test 08/02/2025 08/02/2024, 12/03/2018 Cholesterol Screening (Lipid Panel) 11/21/2029 11/21/2024, 08/02/2024, 12/03/2018 HIB Vaccines Aged Out No [...] age to complete this topic Meningococcal B Vaccine Aged Out No l onger eligible based on patient's age to complete this topic RSV Immunization Patients Under 20 months Aged Out No longer eligible b ased on patient's age to complete this topic Varicella Vaccines Aged Out No longer eligible based on patient's age to complete this topic Procedures Procedure Name Priority Date/Time Associated Diagnosis Comments VITAMIN D 25 HYDROXY Routine 11/21/2024 10:42 AM EDT Vitamin D deficiency Hypothyroidism THYROXINE FREE Routine 11/21/2024 10:42 AM EDT Vitamin D deficiency Hypothyroidism HEMOGLOBIN A1C Routine 11/21/2024 10:42 AM EDT Vitamin D deficiency Hypothyroidism Abnormal finding of blood chemistry, unspecified THYROID STIMULATING HORMONE Routine 11/21/2024 10:42 AM EDT Vitamin D deficiency Hypothyroidism LIPID PANEL WITH REFLEX TO DIRECT LDL Routine 11/21/2024 10:42 AM EDT Vitamin D deficiency Hypothyroidism BASIC METABOLIC PANEL Routine 08/02/2024 9:56 AM EST Paroxysmal atrial fibrillation (CMS/HCC V24, CMS/HCC V28) Hyperlipemia from Last 3 Months or Most Recently Relevant to Health Maintenance Results * Lipid panel with reflex to direct LDL (11/21/2024 10:42 AM EDT) Cholesterol 195 0 - 200 mg/dL LAB CHEMISTRY METHOD 11/21/2024 3:28 PM [facility] Triglycerides 107 0 - 150 mg/dL LAB CHEMISTRY METHOD 11/21/2024 3:28 PM [facility] HDL 76 >=40 mg/dL LAB CHEMISTRY METHOD 11/21/2024 3:28 PM [facility] LDL Calculated 98 0 - 100 mg/dL LAB CHEMISTRY METHOD 11/21/2024 3:28 PM [facility] VLDL Cholesterol Ranjan 21.4 mg/dL LAB CHEMISTRY METHOD 11/21/2024 3:28 PM [facility] Non HDL Chol. (LDL+VLDL) 119 <145 mg/dL LAB CHEMISTRY METHOD 11/21/2024 3:28 PM [facility] Chol/HDL Ratio 2.6 0.0 - 4.4 LAB CHEMISTRY METHOD 11/21/2024 3:28 PM [facility] Blood Venous blood specimen / Unknown Venipuncture / Unknown 11/21/2024 10:42 AM EDT 11/21/2024 10:42 AM EDT [facility] LAB BLOOD ORDERABLES Final Resul t Performing Organization Address [facility] Co de Phone Number [facility] [address] [place] [address], [place] [phone] * (ABNORMAL) Vitamin D 25 hydroxy (11/21/2024 10:42 AM EDT) Vit D, 25-Hydroxy 14.4(L) 30.0 - 80.0 ng/mL LAB CHEMISTRY METHOD 11/21/2024 4:06 PM EDT [facility] Blood Venous blood specimen / Unknown Venipuncture / Unknown 11/21/2024 10:42 AM EDT 11/21/2024 10:42 AM EDT [facility] LAB BLOOD ORDERABLES Final Resul t Performing Organization Address [facility] de Phone Number [facility] [address] [place] [address], [place] [phone] * Thyroid stimulating hormone (11/21/2024 10:42 AM EDT) TSH 0.59 0.40 - 4.00 mcIU/mL LAB CHEMISTRY METHOD 11/21/2024 4:07 PM EDT [facility] Blood Venous blood specimen / Unknown Venipuncture / Unknown 11/21/2024 10:42 AM EDT 11/21/2024 10:42 AM EDT [facility] LAB BLOOD ORDERABLES Final Resul t Performing Organization Address [facility] Co de Phone Number [facility] [address] [place] [address], [place] [phone] * Thyroxine free (11/21/2024 10:42 AM EDT) Pathologist [facility] Free T4 1.63 0.70 - 1.80 ng/dL LAB CHEMISTRY METHOD 11/21/2024 4:07 PM EDT [facility] Blood Venous blood specimen / Unknown Venipuncture / Unknown 11/21/2024 10:42 AM EDT 11/21/2024 10:42 AM EDT [facility] LAB BLOOD ORDERABLES Final Resul t Performing Organization Address [facility] Co de Phone Number [facility] [address] [place] [address], [place] [phone] * Hemoglobin A1c (11/21/2024 10:42 AM EDT) [facility] Hemoglobin A1C 5.4 <6.5 % LAB CHEMISTRY METHOD 11/21/2024 11:02 PM EDT [facility] Mean Bld Glu Estim. 108 mg/dL LAB CHEMISTRY METHOD 11/21/2024 11:02 PM EDT [facility] Blood Venous blood specimen / Unknown Venipuncture / Unknown 11/21/2024 10:42 AM EDT 11/21/2024 10:42 AM EDT [facility] LAB BLOOD ORDERABLES Final Resul t Performing Organization Address [facility]/ZIP Co de Phone Number [facility] [address] [place] [address], [place] [phone] * (ABNORMAL) Basic metabolic panel (08/02/2024 9:56 AM EST) [facility] Sodium 141 133 - 145 mmol/L LAB CHEMISTRY METHOD 08/02/2024 12:19 PM EST [facility] Potassium 3.4(L) 3.5 - 5.5 mmol/L LAB CHEMISTRY METHOD 08/02/2024 12:19 PM EST [facility] Chloride 94(L) 96 - 110 mmol/L LAB CHEMISTRY METHOD 08/02/2024 12:19 PM [facility] CO2 38(H) 21 - 32 mmol/L LAB CHEMISTRY METHOD 08/02/2024 12:19 PM [facility] Anion Gap 9 3 - 11 LAB CHEMISTRY METHOD 08/02/2024 12:19 PM [facility] Glucose 90 70 - 100 mg/dL LAB CHEMISTRY METHOD 08/02/2024 12:19 PM [facility] BUN 11 5 - 25 mg/dL LAB CHEMISTRY METHOD 08/02/2024 12:19 PM [facility] Creatinine 0.39(L) 0.50 - 1.10 mg/dL LAB CHEMISTRY METHOD 08/02/2024 12:19 PM [facility] eGFR 107 >=60 mL/min/1. 73m2 LAB CHEMISTRY METHOD 08/02/2024 12:19 PM [facility] Comment:Calculation based on the??Chronic Kidney Disease Epidemiology Collaboration (CKD-EPI) equation refit??without adjustment for race. BUN/Creatinine Ratio 28.2 LAB CHEMISTRY METHOD 08/02/2024 12:19 PM [facility] Calcium 9.8 8.5 - 10.5 mg/dL LAB CHEMISTRY METHOD 08/02/2024 12:19 PM [facility] Blood Venous blood specimen / Unknown Venipuncture / Unknown 08/02/2024 9:56 AM EST 08/02/2024 9:56 AM EST Kim Webb NP LAB BLOOD ORDERABLES Final Result [facility] [address] [place] [address], [place] [phone] from Last 3 Months or Most Recently Relevant to Health Maintenance Insurance [employer] - [place] MEDICARE ADVANTAGE Care Teams Commercial Interior Designer Relationship Specialty Start Date End Date Gurpreet Mares DO [address] [place] [phone] PCP - General Internal Medicine 05/22/12
== END 2025-01-31 09:43 | disposition home or self-care (01) ==
LOC: HO.HPS 09:04
PROVIDERS: PCP Internal Medicine; Visit Provider Hospitalist
DX: J96.11 Chronic respiratory failure with hypoxia (principal); J96.12 Chronic respiratory failure with hypercapnia; R91.8 Other nonspecific abnormal finding of lung field; J43.2 Centrilobular emphysema
CPT/HCPCS: 99214; G2211

== ENCOUNTER 2025-02-18 09:46 | Outpatient (REF) | payer MEDICARE, SELFPAY ==
[2025-02-18 10:09] LABS: Venous Blood Gas Refer to POC result
[2025-02-18 10:11] LABS: VBG HCO3 51 mmol/L (22-26); VBG O2 % Saturation < 30.0 %
--- OUTSIDE RECORDS SUMMARY | 2025-02-18 10:40 | XMS_ITS | Clinical Summary ---
Author Organization [address] [place] [address] Address [address] [place] [address] Phone Care Team Providers Care Pull Out Operator Name Role Phone Gurpreet Mares DO Primary Care Provider [phone] Allergies No known active allergies Medications levothyroxine [...] chronic respiratory failure with hypoxia and hypercapnia ([facility] V24, [facility] V28) 02/07/2023 Septic shock ([facility] V24, [facility] V28) 02/08/20 23 Hyperlipidemia 12/23/2022 Overview (07/17/2024): Last Assessment & Plan: Most recent lipid panel completed 10/06/2023 with LDL at goal; continue current plan RBBB (right bundle branch block) 12/23/2022 Overview (07/17/2024): Last Assessment & Plan: Stable on EKG, continue to follow. Secondary hypercoagulable state ([facility] V24) Diastolic heart failure ([facility] V24, [facility] V2 8) 06/14/2021 Overview (07/17/2024): Last Assessment [...] exertion 12/09/2020 Other secondary pulmonary hy pertension ([facility] V24, [facility] V28) 12/09/2020 Overview (07/17/2024): Last Assessment & [...] disease without esophagi tis 02/04/2019 Atrial fibrillation ([facility] V24, [facility] V28) 0 12/05/2017 Overview (07/17/2024): Permanent atrial [...] follow this. Diverticulosis 12/05/2017 Chronic respiratory failure ([facility] V24, [facility] V28) 11/25/2016 Other emphysema ([facility] V24, [facility] V28) 11/25 Pulmonary nodule 11/25/2016 Supplemental oxygen dependent 11/25/2016 Medical History Medical History Date Comments Pulmonary nodule 11/25/2016 DX:Pulmonary no dule Chronic respiratory failure ([facility] V24, [facility] V28) 11/25/2016 DX:Chronic respiratory failu re ([facility]); COMMENT: On O2 Supplemental oxygen dependent 11/25/2016 DX :Supplemental oxygen dependent Chronic obstructive pulmonar y disease (COPD) ([facility] V24, [facility] V28) 11/25/2016 DX:Chronic obstructi ve pulmonary disease (COPD) (HCC) Atrial fibrillation ([facility] V24, [facility] V28) 12/05/2017 DX:Atrial fibrillation ([facility]) Diverticulosis 12/05/2017 DX:Diverticulosi s TMJ arthritis DX:TMJ arthritis Pulmonary fibrosis ([facility] V24, [facility] V28) DX:Pulmonary fibrosis (HCC) GERD (gastroesophageal reflux disease) DX:GERD (gastroesophageal reflux disease) Acute on chronic respiratory failure with hypoxia and hypercapnia ([facility] V24, [facility] V28) DX:Acute on chronic respirat ory failure with hypoxia and hypercapnia ([facility]) Respiratory distress DX:Respirat ory distress Pneumonia DX:Pneumonia Septic shock ([facility] V24, [facility] [place] V28) DX:Septic shock ([facility]) Family History Medical History Relation Name Comments [...] Description 04/01/2025 1:10 PM EDT Office Visit [facility] [address] [facility] [address] [place] [address] Kim Webb NP [address] [address] Health Maintenance Due Date Last Done Comments [...] 2023-2 5 season) 2024 Influenza Vaccine (#1) 2025 Hypertension/CHF/CAD Annual BMP Blood Test 08/02/2025 [...] mg/dL LAB CHEMISTRY METHOD 11/21/2024 3:28 PM [facility] Triglycerides 107 0 - 150 mg/dL LAB CHEMISTRY METHOD 11/21/2024 3:28 PM [facility] HDL 76 >=40 mg/dL LAB CHEMISTRY METHOD 11/21/2024 3:28 PM [facility] LDL Calculated 98 0 - 100 mg/dL LAB CHEMISTRY METHOD 11/21/2024 3:28 PM [facility] VLDL Cholesterol Ranjan 21.4 mg/dL LAB CHEMISTRY METHOD 11/21/2024 3:28 PM [facility] Non HDL Chol. (LDL+VLDL) 119 <145 mg/dL LAB CHEMISTRY METHOD 11/21/2024 3:28 PM [facility] Chol/HDL Ratio 2.6 0.0 - 4.4 LAB CHEMISTRY METHOD 11/21/2024 3:28 PM [facility] Blood Venous blood specimen / Unknown Venipuncture / Unknown 11/21/2024 10:42 AM EDT 11/21/2024 10:42 AM EDT [facility] LAB BLOOD ORDERABLES Final Resul t Performing Organization Address [facility] Co de Phone Number [facility] [address] [place] [address], [place] [phone] * (ABNORMAL) Vitamin D 25 hydroxy (11/21/2024 10:42 AM EDT) Vit D, 25-Hydroxy 14.4(L) 30.0 - 80.0 ng/mL LAB CHEMISTRY METHOD 11/21/2024 4:06 PM EDT [facility] Blood Venous blood specimen / Unknown Venipuncture / Unknown 11/21/2024 10:42 AM EDT 11/21/2024 10:42 AM EDT [facility] LAB BLOOD ORDERABLES Final Resul t Performing Organization Address [facility] de Phone Number [facility] [address] [place] [address], [place] [phone] * Thyroid stimulating hormone (11/21/2024 10:42 AM EDT) TSH 0.59 0.40 - 4.00 mcIU/mL LAB CHEMISTRY METHOD 11/21/2024 4:07 PM EDT [facility] Blood Venous blood specimen / Unknown Venipuncture / Unknown 11/21/2024 10:42 AM EDT 11/21/2024 10:42 AM EDT [facility] LAB BLOOD ORDERABLES Final Resul t Performing Organization Address [facility] Co de Phone Number [facility] [address] [place] [address], [place] [phone] * Thyroxine free (11/21/2024 10:42 AM EDT) Pathologist [facility] Free T4 1.63 0.70 - 1.80 ng/dL LAB CHEMISTRY METHOD 11/21/2024 4:07 PM EDT [facility] Blood Venous blood specimen / Unknown Venipuncture / Unknown 11/21/2024 10:42 AM EDT 11/21/2024 10:42 AM EDT [facility] LAB BLOOD ORDERABLES Final Resul t Performing Organization Address [facility] Co de Phone Number [facility] [address] [place] [address], [place] [phone] * Hemoglobin A1c (11/21/2024 10:42 AM EDT) [facility] Hemoglobin A1C 5.4 <6.5 % LAB CHEMISTRY METHOD 11/21/2024 11:02 PM EDT [facility] Mean Bld Glu Estim. 108 mg/dL LAB CHEMISTRY METHOD 11/21/2024 11:02 PM EDT [facility] Blood Venous blood specimen / Unknown Venipuncture / Unknown 11/21/2024 10:42 AM EDT 11/21/2024 10:42 AM EDT [facility] LAB BLOOD ORDERABLES Final Resul t Performing Organization Address [facility]/ZIP Co de Phone Number [facility] [address] [place] [address], [place] [phone] * (ABNORMAL) Basic metabolic panel (08/02/2024 9:56 AM EST) [facility] Sodium 141 133 - 145 mmol/L LAB CHEMISTRY METHOD 08/02/2024 12:19 PM EST [facility] Potassium 3.4(L) 3.5 - 5.5 mmol/L LAB CHEMISTRY METHOD 08/02/2024 12:19 PM EST [facility] Chloride 94(L) 96 - 110 [...] [facility] Comment:Calculation based on the Chronic Kidney Disease Epidemiology Collaboration (CKD-EPI) equation refit without adjustment for race. BUN/Creatinine Ratio 28.2 LAB CHEMISTRY METHOD 08/02/2024 12:19 PM [facility] Calcium 9.8 8.5 - 10.5 mg/dL LAB CHEMISTRY METHOD 08/02/2024 12:19 PM [facility] Blood Venous blood specimen / Unknown Venipuncture / Unknown 08/02/2024 9:56 AM EST 08/02/2024 9:56 AM EST Kim Webb NP LAB BLOOD ORDERABLES Final Result [facility] [address] [place] [address], [place] [phone] from Last 3 Months or Most Recently Relevant to Health Maintenance Insurance [employer] [place]IC[place] ADVANTAGE Care Teams Pull Out Operator Relationship Specialty Start Date End Date Gurpreet Mares DO [address] [place] [phone] PCP - General Internal Medicine 05/22/12
[2025-02-18 11:23] LABS: Blood Urea Nitrogen 7 mg/dL (9-16); Calcium 10.0 mg/dL (8.4-10.2); Estimated Glomerular Filt Rate > 60
[2025-02-18 11:36] LABS: Anion Gap 14 (12-20); Carbon Dioxide 40 mmol/L (22-29); Chloride 95 mmol/L (96-108); Potassium 4.9 mmol/L (3.3-5.1); Sodium 144 mmol/L (135-145)
== END 2025-02-18 09:47 | disposition home or self-care (01) ==
LOC: HO.LAB 09:46
PROVIDERS: PCP Internal Medicine; Visit Provider Hospitalist
DX: J43.2 Centrilobular emphysema (principal); J96.11 Chronic respiratory failure with hypoxia; J96.12 Chronic respiratory failure with hypercapnia
CPT/HCPCS: 36415; 80048; 82803

== ENCOUNTER 2025-03-10 10:37 | Outpatient (REF) | payer MEDICARE, SELFPAY ==
[2025-03-10 10:58] LABS: Venous Blood Gas Refer to POC result
[2025-03-10 11:04] LABS: VBG HCO3 42 mmol/L (22-26); VBG O2 % Saturation 73.0 %
--- OUTSIDE RECORDS SUMMARY | 2025-03-10 11:41 | XMS_ITS | Clinical Summary ---
Author Organization [address] [place] [address] Address [address] [place] [address] Phone Care Team Providers Care Jr. Java Developer Name Role Phone Gurpreet Mares DO Primary Care Provider [phone] Allergies No known active allergies Medications levothyroxine (SYNTHROID, LEVOTHROID) 25 mcg tablet Take 1 Tablet by mouth daily. Active ondansetron ODT (ZOFRAN-ODT) 4 mg disintegrating tablet Take 1 Tablet by mouth every 6 hours as needed. Active melatonin 3 mg tablet Take by mouth. Activ e acetaminophen (TYLENOL) 325 mg tablet Take 2 Tablets by mouth every 6 hours as needed. Active ergocalciferol (VITAMIN D-2) 1,250 mcg (50,000 unit) capsule Take 50,000 Units by mouth once a week. Active tiotropium (Spiriva Respimat) 2.5 mcg/actuation inhalation spray INHALE TWO PUFFS BY MOUTH EVERY DAY 9 Active roflumilast (Daliresp) 250 mcg tablet Take 1 Tab by mouth daily. For the first week only take 1 tab evry other day. 9 Active UNABLE TO FIND Oxygen Historical (HISTORICAL [...] 1 TIME EACH DAY. 90 tablet 3 5 Active furosemide (LASIX) 40 mg tablet Take 1 tablet (40 mg total) by mouth 1 (one) time each day. As needed 90 tablet 5 Active metoprolol tartrate (LOPRESSOR) 50 mg tablet TAKE 1 TABLET BY MOUTH TWICE A DAY 180 tablet 1 5 Active dilTIAZem CD (CARDIZEM CD) 240 mg 24 hr capsuleIndications :Permanent atrial fibrillation (CMS/HCC V24, CMS/HCC V28),Unspecified diastolic (congestive) heart failure (CMS/HCC V24, CMS/HCC V28) TAKE 1 CAPSULE BY MOUTH EVERY DAY 90 capsule 1 5 Active apixaban (ELIQUIS) 5 mg tablet Take 1 tablet (5 mg total) by mouth 2 (two) times a day. 180 tablet 1 5 Active Active Problems Problem Noted Date Diagnosed Date [...] chronic respiratory failure with hypoxia and hypercapnia (CMS/HCC V24, CMS/HCC V28) 02/07/2023 Septic shock (CMS/HCC V24, CMS/HCC V28) 02/08/20 23 Hyperlipidemia 12/23/2022 Overview (07/17/2024): Last Assessment & Plan: Most recent lipid panel completed 10/06/2023 with LDL at goal; continue current plan RBBB (right bundle branch block) 12/23/2022 Overview (07/17/2024): Last Assessment & Plan: Stable on EKG, continue to follow. Secondary hypercoagulable state ([facility] V24) Diastolic heart failure ([facility] V24, [facility] V2 8) 06/14/2021 Overview (07/17/2024): Last [...] exertion 12/09/2020 Other secondary pulmonary hy pertension ([facility] V24, [facility] V28) 12/09/2020 Overview (07/17/2024): Last Assessment [...] disease without esophagi tis 02/04/2019 Atrial fibrillation ([facility] V24, [facility] V28) 0 12/05/2017 Overview (07/17/2024): Permanent [...] follow this. Diverticulosis 12/05/2017 Chronic respiratory failure ([facility] V24, [facility]/ C V28) 11/25/2016 Other emphysema ([facility] V24, [facility] V28) 11/25 Pulmonary nodule 11/25/2016 Supplemental oxygen dependent 11/25/2016 Medical History Medical History Date Comments Pulmonary nodule 11/25/2016 DX:Pulmonary no dule Chronic respiratory failure ([facility] V24, [facility] V28) 11/25/2016 DX:Chronic respiratory failu re ([facility]); COMMENT: On O2 Supplemental oxygen dependent 11/25/2016 DX :Supplemental oxygen dependent Chronic obstructive pulmonar y disease (COPD) ([facility] V24, [facility] V28) 11/25/2016 DX:Chronic obstructi ve pulmonary disease (COPD) ([facility]) Atrial fibrillation ([facility] V24, [facility] V28) 12/05/2017 DX:Atrial fibrillation ([facility]) Diverticulosis 12/05/2017 DX:Diverticulosi s TMJ arthritis DX:TMJ arthritis Pulmonary fibrosis ([facility] V24, [facility] V28) DX:Pulmonary fibrosis ([facility]) GERD (gastroesophageal reflux disease) DX:GERD (gastroesophageal reflux disease) Acute on chronic respiratory failure with hypoxia and hypercapnia ([facility] V24, [facility] V28) DX:Acute on chronic respirat ory failure with hypoxia and hypercapnia (HCC) Respiratory distress DX:Respirat ory distress Pneumonia DX:Pneumonia Septic shock (CMS/HCC V24, C MS/HCC V28) DX:Septic shock (HCC) Family History Medical History [...] Description 04/01/2025 1:10 PM EDT Office Visit [facility] [address] [facility] [address] [place] [address] Kim Webb NP [address] [place] [address] Health Maintenance Due Date Last Done Comments Breast Cancer Screening 1955 DTaP,Tdap,and Td Vaccines (1 - Tdap) 1973 Pneumococcal Vaccine: 50+ Years (1 of 2 - PCV) 1973 Zoster Vaccines (1 of 2) 2004 RSV Immunization Adult Patients (1 - Risk 60-74 years 1-dose series) 2014 Colorectal Cancer Screening: Colonoscopy 07/24/2022 Falls Risk Assessment 07/24/2022 Hepatitis C Screening 07/24/2022 Medicare Annual Wellness Visit 07/24/2022 Osteoporosis Screening (Bone Density Screening) 07/24/2022 Social Influencers of Health Screening 07/24/2022 COVID-19 Vaccine (1 - 2023-2 5 season) 2024 Depression Screening 08/21/2024 Influenza Vaccine (#1) 2025 Hypertension/CHF/CAD Annual BMP [...] Procedure Name Priority Date/Time Associated Diagnosis Comments LIPID PANEL WITH REFLEX TO DIRECT LDL [...] mg/dL LAB CHEMISTRY METHOD 11/21/2024 3:28 PM EDT [facility] Triglycerides 107 0 - 150 mg/dL LAB CHEMISTRY METHOD 11/21/2024 3:28 PM EDT [facility] HDL 76 >=40 mg/dL LAB CHEMISTRY METHOD 11/21/2024 3:28 PM EDT [facility] LDL Calculated 98 0 - 100 mg/dL LAB CHEMISTRY METHOD 11/21/2024 3:28 PM EDT [facility] VLDL Cholesterol Ranjan 21.4 mg/dL LAB CHEMISTRY METHOD 11/21/2024 3:28 PM EDT [facility] Non HDL Chol. (LDL+VLDL) 119 <145 mg/dL LAB CHEMISTRY METHOD 11/21/2024 3:28 PM EDT [facility] Chol/HDL Ratio 2.6 0.0 - 4.4 LAB CHEMISTRY METHOD 11/21/2024 3:28 PM EDT [facility] Blood Venous blood specimen / Unknown Venipuncture / Unknown 11/21/2024 10:42 AM EDT 11/21/2024 10:42 AM EDT [facility] LAB BLOOD ORDERABLES Final Resul t [facility] [address] [place] [address], * (ABNORMAL) Basic metabolic panel (08/02/2024 9:56 AM EST) Sodium 141 133 - 145 mmol/L LAB CHEMISTRY METHOD 08/02/2024 12:19 PM EST [facility] Potassium 3.4(L) 3.5 - 5.5 mmol/L LAB CHEMISTRY METHOD 08/02/2024 12:19 PM EST [facility] Chloride 94(L) 96 - 110 mmol/L LAB CHEMISTRY METHOD 08/02/2024 12:19 PM EST [facility] CO2 38(H) 21 - 32 mmol/L LAB CHEMISTRY METHOD 08/02/2024 12:19 PM [facility] Anion Gap 9 3 - 11 LAB CHEMISTRY METHOD 08/02/2024 12:19 PM [facility] Glucose 90 70 - 100 mg/dL LAB CHEMISTRY METHOD 08/02/2024 12:19 PM [facility] BUN 11 5 - 25 mg/dL LAB CHEMISTRY METHOD 08/02/2024 12:19 PM [facility] Creatinine 0.39(L) 0.50 - 1.10 mg/dL LAB CHEMISTRY METHOD 08/02/2024 12:19 PM [facility] eGFR 107 >=60 mL/min/1. 73m2 LAB CHEMISTRY METHOD 08/02/2024 12:19 PM [facility] Comment:Calculation based on the Chronic Kidney Disease Epidemiology Collaboration (CKD-EPI) equation refit without adjustment for race. BUN/Creatinine Ratio 28.2 LAB CHEMISTRY METHOD 08/02/2024 12:19 PM [facility] Calcium 9.8 8.5 - 10.5 mg/dL LAB CHEMISTRY METHOD 08/02/2024 12:19 PM [facility] Blood Venous blood specimen / Unknown Venipuncture / Unknown 08/02/2024 9:56 AM EST 08/02/2024 9:56 AM EST Kim Webb [employer] [facility] LAB BLOOD ORDERABLES Final Result [facility] [address] [place] [address], from Last 3 Months or Most Recently Relevant to Health Maintenance Insurance [employer] - [place] MEDICARE ADVANTAGE Care Teams Jr. Java Developer Relationship Specialty Start Date End Date Gurpreet Mares DO [address] [place] [phone] PCP - General Internal Medicine 05/22/12
[2025-03-10 12:01] LABS: Anion Gap 11 (12-20); Blood Urea Nitrogen 11 mg/dL (9-16); Calcium 9.4 mg/dL (8.4-10.2); Carbon Dioxide 36 mmol/L (22-29); Chloride 100 mmol/L (96-108); Estimated Glomerular Filt Rate > 60; Potassium 3.8 mmol/L (3.3-5.1); Sodium 143 mmol/L (135-145)
== END 2025-03-10 10:38 | disposition home or self-care (01) ==
LOC: HO.LAB 10:37
PROVIDERS: PCP Internal Medicine; Visit Provider Hospitalist
DX: J96.11 Chronic respiratory failure with hypoxia (principal); J96.12 Chronic respiratory failure with hypercapnia
CPT/HCPCS: 36415; 80048; 82803

== ENCOUNTER 2025-04-30 11:02 | Outpatient (AMB) | payer MEDICARE, SELFPAY ==
[2025-04-30 11:04] VITALS: BP 90/50; PULSE 72; O2SAT 99
--- NOTE | 2025-04-30 11:04 | A.OFFVIS_ITS ---
Vital Signs 04/30/25 11:04 Height 5 ft 4 in BMI Reason not done Patient refused/unable BP 90/50 L Blood Pressure Location Lt brachial Position Sitting Pulse 72 Pulse Source Pulse Oximeter Pulse Oximetry (%) 99 Oxygen Delivery Method Nasal Cannula Oxygen Flow Rate 2 Intake Visit Reasons: COPD Allergies No Known Allergies Allergy (Verified 04/30/25 11:06) HPI Comments Details: The patient is a 69-year-old woman known asthma COPD overlap syndrome and also chronic rhinitis. Recently she was seen by Allergy and had allergy testing which was inconclusive. He has continued to use the Flovent HFA. The Flovent does not appear to work as well as the QVAR that she use before. She is still requiring her short-acting beta agonist more than twice a week. She has not been using her singular regularly. She has been complaining of worsening cough. [id number] severity. Also nasal congestion. She has been using nasal rin sing for her nose. She had been using Flonase but she has stopped many weeks ago. Also to note she has had pulmonary nodules noted on CT scans. Then she had a repeat CT scan demonstrating no pulmonary nodules (hawa [facility] in 2018). Also to note she has been on CCB of SVT. Her HR was found to be low 40- 50's. The patient is wondering on decreasing or stopping the CCB. I would not recommend changing it to betablockers with her hyper-reactive airways. 05/13/2022 the patient is here for a pulmonary follow-up visit. Overall she continues to be about the same. Continues to have dyspnea on exertion. She does clear her oxygen call which is continuous at 2 L. at that time the patient did not qualify for the conserving device. She did not undergo the PFT and 6 minutes walk test. She does not like to do those tests she does not have to. I did explain to her that if she wants to move forward with lung volume reduction interventions that they will require those studies. In addition to that pulmonary rehabilitation will also require that we did talk about lung transplant. The patient is not interested at this time. She does have friends undergone lung transplant and she is not interested in pursuing this at this time. She continues using noninvasive ventilator at nighttime with good effect. The patient is tolerating the Daliresp without any significant weight loss. 11/04/2022 the patient is here for hospital follow-up visit. The patient was extremely ill back in August. She developed sudden acute on chronic respiratory failure. She was admitted to the ICU a [facility]. There she had a CT scan demonstrating a consolidation in the left upper lobe area. She was given multiple courses of antibiotics and she was maintained on BiPAP. She was close to getting intubated but she was able to stand noninvasive therapies. She became very weak during the hospitalization. She also had a cardiac issue was placed on amiodarone. She is also on Eliquis now. Therefore, we have to be very careful with her nebulized therapies to make sure did do not exacerbate her atrial fibrillation. We did look at her CT scan of the chest she had a couple. It appears that her last CT scan demonstrated a nodular density where she had the pneumonia. This brings up a concomitant process in case she could be having an evolving malignant process at that area. Her last CT scan was back in September so plan to repeat the CT scan in December to reassess the nodular density. The meantime she is currently at the long-term. She is going to be going to her daughter's and hopefully getting a 1st floor apartment in view of her now requiring a walker and also wheelchair to get around. She cannot make it back home secondary to the fact that her home has stairs and she is not able to function at that capacity. She is also using her oxygen between 2-4 L. She is also using the noninvasive ventilator at nighttime. In the hospital she did have an elevation in her CO2 although her last ABG was reassuring with chronic hypercarbic respiratory failure without baseline CO2 of 77 mmHg. Will plan to repeat her blood work including Na a venous gas once she is discharged from rehab. 01/09/2023 the patient is here for pulmonary follow-up visit. She is still staying with her daughters. The patient has been participating in physical therapy and respiratory therapy at home through [facility]. Mass is looking to relocate to a senior apartment. This is going to be I believe in January 2023. She has been not compliant or hearing due to her noninvasive ventilator because she has not been able to get proper supplies from her [employer] company. Will reach out to [facility] to make sure that they provide her with a new mask. I did look to see if I could provide her mask in the office but I did not have 1 that she could tolerate. She does respond well to the [employer] mask. In meantime she continues use the oxygen with good effect. The patient did have a venous blood gas which we reviewed pH was normal although her bicarbonate was up to 48 and her pCO2 was up to 73 mmHg. This is probably close to where she was when she was at [facility]. She needs to start using the noninvasive ventilator more hopefully when she gets the new mask he can do that more regularly. When she does that on give her some Diamox and she can take 1 dose to see if can decrease her bicarbonate some in order for her to be able to bring down her CO2. The patient follow-up in 3-4 weeks with another blood gas. I will also ask for a download from her [employer]. 04/25/2023 the patient is here for pulmonary follow-up visit. The patient is feeling a lot better. She did have some medication changes which made address take improvement in her overall more out energy and breathing. 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 In the meantime for respiratory status she is using her inhalers with good response. We did talk about cutting down the Daliresp because of the weight loss. In addition to that the patient has been using the oxygen and has been maintaining a between 2-4 L. No recent imaging studies to review no recent blood work. Will request a download again from the [employer], [place]. In addition will go ahead and request a repeat venous gas to assess her pCO2 on the current settings. The patient will return in 6 months or sooner if any new issues arise. 03/29/2024 the patient is here for a pulmonary follow-up visit. Overall the patient has been doing better. She still has dyspnea on exertion but she has been more active. She is exercising on a regular basis. She is using her oxygen. She does use the oxygen for the most part continues although she does take it off when she is eating or sitting. I did explain to her that his lungs are oxygens above 90% and she is with family can take it off continue to monitor closely. She continues use her respiratory medicines good effect. She is also using her noninvasive ventilator. She did bring blood work that she has an outpatient. Her bicarb 37. This baseline bicarb due to the fact that she has chronic hypercarbic respiratory failure. We did go ahead and recheck her blood gas in her acid-base status is stable her pCO2 66 and her measured bicarb was also 37. I believe that 37 is a good baseline number for her. Will continue to monitor and consider Diamox only if her bicarb is above 40 on the basic metabolic panel. We also did read send blood work including a DNA for alpha-1 antitrypsin deficiency in view of her extensive emphysema. The patient also has multiple nodular densities. Last CT scan was back November 2022 at [facility]. We did personally reviewed. And she is due for CT scan. She is on the fence based on the fact that based on her lung capacity is not that we can do significant amount of diagnostic interventions specially biopsies. Still though will continue to monitor this nodular density so therefore will repeat the CT scan prior to her next visit in 6 months. If the patient has any worsening symptoms prior to that she will call for an earlier assessment. 08/02/2024 the patient is here for a pulmonary follow-up visit. She feels like she is getting worse. She has a hard time even doing simple chores around the house. She is more winded. She continues use a noninvasive ventilator at nighttime. She also continues to take medications as prescribed. More recently her AFib has been a little bit more out of control with increased heart rate. She did put a call out to Cardiology they will be seeing her soon. In the meantime she does have very diminished breath sounds. We did look at her recent CT scan of the chest demonstrating some new pulmonary nodules in the right lower lobe some of the are irregular in appearance. In addition to that she does have some haziness over the areas component of pneumonitis. Will go ahead and treat her for possible inflammatory process and also infectious process. Will plan to repeat the CT scan in 3 months. In the meantime I did request that she go back on the noninvasive ventilator during the daytime as well. If she can spent a couple hours during the day and also make sure that she uses at nighttime. Will get a blood gas to have a baseline at this time. 11/08/2024 the patient is here for a pulmonary follow-up visit. Overall the patient is feeling a lot better. She continues on the 10 mg of prednisone every other day and also the azithromycin 3 times a week. Also continues on the respiratory therapy. She has been using her noninvasive ventilator at nighttime and also during the daytime a little bit. She has a hard time sleeping at nighttime so she can keep it the whole night. She seems to be using about 79- 80% of the time. I did encourage her to try to use it a little bit longer at nighttime. Specially with the elevated CO2. Will go ahead and prescribe her trazodone to see if this can help her sleep a little better at nighttime. In the meantime the patient will continue the azithromycin for now. She will need to do an EKG. And also will benefit from a continue the prednisone but will go ahead and taper down the prednisone some. In the meantime the patient did have a CT scan of the chest which we personally reviewed. Some of those nodular densities have subsided. Although she does have extensive emphysema. She continues on the oxygen with good effect. Will go ahead and request repeat blood work especially since her CO2 was significantly elevated before and also the patient should have an EKG to make sure that she can stay on the azithromycin safely. 01/31/2025 the patient is here for a pulmonary follow-up visit. Overall she is doing well. She continues use her respiratory therapy as prescribed. She has a medication regimen that seems to be helping her. She does have advanced COPD though. She is using the noninvasive ventilator at nighttime and also sometimes during the daytime to help her with her gas exchange and work of breathing. The patient needs to start exercising a little bit more. She does have the online program to use. She also has a harmonic that she can use. She did try the trazodone but did not work as well. I think she needs to take it a little bit longer to get used to it. She stay on the azithromycin for now the patient's last EKG was stable. She continues to follow-up closely with cardiology. Will follow-up sometime in 3-4 months to reassess her progress. Will talk about any additional imaging then. Last CT scan demonstrated that she has stable pulmonary nodules excessive emphysema and what appears to be stable hypodensity in the liver. 04/30/2025 the patient is here for pulmonary follow-up visit. Overall she is doing well. She continues to be on 5 mg of prednisone. She continues with respiratory therapy with good response. She also continues using noninvasive ventilator. She did have blood work today. Seems like her pCO2 is at baseline at 74 mmHg and her bicarb is 40 mEq. Will be reasonable to start her on Diamox x3 days. The go to keep the bicarb below 40. Oxygenation melchor she is doing well. She was able to remove her oxygen at rest that she was saturating 98%. We did talk about the importance to keep her pulse ox between 90-96% in order to minimize respiratory suppression. She continues on the Daliresp. Although, with her weight issues I do believe she would do better on Ohtuvayre. Will go ahead and request the nebulized therapy at this time. The patient also will taper down her prednisone down to 5 mg every other day. She has been exercising regularly and she has been using the harmonic of her COPD respiratory therapy with good effect. [facility] Medical History (Updated 05/16/21 @ 20:50 by Addison Aranda MD) Pre-op chest exam Respiratory failure Centrilobular emphysema Pulmonary nodules Social History Patient Tobacco Use Status: Former Tobacco user Tobacco use type: Cigarette Years Smoked: 30 years Review of Systems Const Denies night sweats and Reports weight loss ENT Denies change in voice, Denies lip swelling, Denies mouth pain, Reports nasal congestion, Reports nasal discharge and Denies tongue swelling Card Denies chest pain and Reports dyspnea on exertion Resp Denies chest congestion, Reports cough and Reports dyspnea on exertion GI Denies abdominal pain Musc Denies no additional complaints and Reports abnormal gait Skin/Breast Denies rash Neuro Reports Neuro-related abnormal movements and Reports abnormal gait Psych Denies no additional complaints Edson/Lymph Denies easy bleeding and Denies lymphadenopathy Aller/Immun Denies lip swelling and Denies tongue swelling Physical Exam Vital Signs: Last Vital Signs Pulse 72 04/30/25 11:04 BP 90/50 L 04/30/25 11:04 Pulse Ox 99 04/30/25 11:04 Oxygen Delivery Method Nasal Cannula 04/30/25 11:04 Oxygen Flow Rate 2 04/30/25 11:04 Const General: alert HEENT Head: Yes normocephalic Neck Neck: Yes normal visual inspection, Yes full ROM and Yes no lymphadenopathy Chest Chest palpation & inspection: normal inspection of the chest Resp Effort & Inspection: normal respiratory effort Auscultation: no rales, no rhonchi, no wheezes and diminished lung sounds Cardio Rate: regular rate Rhythm: regular rhythm Heart sounds: S1 normal heart sound present and S2 normal heart sound present GI Palpation (GI): Soft to palpation and nontender Auscultation: normal bowel sounds Skin General skin exam: no rashes or lesions noted Extrem General: Yes no clubbing, cyanosis or edema Results Reviewed Results Reviewed: [address] [address] Pulmonary Function Report Signed Patient: Rafia Ambrosio MR#: [id number] : 1955 Acct:[id number] Age/Sex: 65 / F ADM Date: 01/12/21 Loc: HO.RESP Attending Dr: Addison Aranda MD Ordering Physician: Addison Aranda MD Date of Service: 01/12/21 Procedure(s): RT pulmonary function test Accession Number(s): [id number] cc: Addison Aranda MD~ ? INDICATION:? COPD. ?? SPIROMETRY:? The FEV1 to FVC of 29% with an FEV1 of 0.47 L, which is 20% predicted, and an FVC of 1.65 L, which is 55% predicted.? The patient had used her inhalers, so therefore, bronchodilators were not used.? Her maximum voluntary ventilation 23% predicted. ?? LUNG VOLUMES:? Total lung capacity 113% predicted and residual volume 118% predicted. ?? DIFFUSION CAPACITY:? DLCO 21% predicted. ?? COMPARISONS:? The patient did have a spirometry done back at [facility] in 2018. ?? INTERPRETATION:? There is obstructive ventilatory defect consistent with very severe COPD. Again, bronchodilators were not used.? There was a severe decrease in maximum voluntary ventilation secondary to deconditioning and also worsening dynamic inspiratory capacity.? The patient has a trend of hyperinflation and significant air trapping due to the COPD and the patient has a very severe diffusion impairment secondary to emphysema.? When compared to the spirometry from 2019, there was a trend improvement of the FVC.? No significant change in the FEV1 and the other measurements were not available.? Clinical correlation warranted. ? Addison Aranda MD Assessment & Plan Assessment & Plan (1) Respiratory failure: Code(s): J96.90 - Respiratory failure, unspecified, unspecified whether with hypoxia or hypercapnia Category: Medical Qualifiers: Chronicity: chronic Respiratory failure complication: hypoxia and hypercapnia Qualified Code(s): J96.11 - Chronic respiratory failure with hypoxia; J96.12 - Chronic respiratory failure with hypercapnia (2) Pulmonary nodules: Code(s): R91.8 - Other nonspecific abnormal finding of lung field Category: Medical (3) Centrilobular emphysema: Code(s): J43.2 - Centrilobular emphysema Category: Medical Plan Continue Daliresp 500mcg daily-->will transition to Ohtuvayre Continue Symbicort and spiriva Xopenex MEGAN as needed CPT with nebs and acapella valve 2 times a day Oxygen supplementation 2-4 liters Noninvasive ventilator at nighttime and as needed, needs to start using it during the day. Will increase RR prednisone 5mg every other day continue Azithromycin MWF, recent EKG with afib and normal QTc start Diamox x 3 days Trazodone as needed for sleep Follow-up 2-3 months Orders: Orders Venous Blood Gas Today J43.2 - Centrilobular emphysema Complete Blood Count Auto Diff Today J43.2 - Centrilobular emphysema Basic Metabolic Panel Today J43.2 - Centrilobular emphysema Coding Level of Care Code Est Pt Level 5 (54708) Complex EM visit Add On G2211 Diagnoses Chronic respiratory failure with hypoxia and hypercapnia J96.11; J96.12 Chronicity: chronic Respiratory failure complication: hypoxia and hypercapnia Pulmonary nodules R91.8 Centrilobular emphysema J43.2 Time Spent (min) 40
--- OUTSIDE RECORDS SUMMARY | 2025-04-30 14:06 | XMS_ITS | Clinical Summary ---
Author Organization [address] [place] [address] Address [address] [place] [address] Phone Care Team Providers Care Devops Engineer Name Role Phone Gurpreet Mares Primary Care Provider [phone] Allergies No known active allergies Medications levothyroxine (SYNTHROID, LEVOTHROID) 25 mcg tablet Take 1 Tablet by mouth daily. Active acetaminophen (TYLENOL) 325 mg tablet Take 2 Tablets by mouth every 6 hours as needed. Active tiotropium (Spiriva Respimat) 2.5 mcg/actuation inhalation spray INHALE TWO PUFFS BY MOUTH EVERY DAY 02/26/20 19 Active UNABLE TO FIND Oxygen Historical (HISTORICAL OXYGEN) 2 L by Nasal route daily Active vit A/vit C/vit E/zinc/copper (PRESERVISION AREDS ORAL) TAKE 1 TABLET DAILY. Active azithromycin (ZITHROMAX) 250 mg tablet Take 1 tablet (250 mg total) by mouth 1 (one) time each day. Mon, Mon, and Monday only Active digoxin (LANOXIN) 125 mcg (0.125 mg) tablet TAKE 1 TABLET BY MOUTH 1 TIME EACH DAY. 90 tablet 3 09/27/19 25 Active metoprolol tartrate (LOPRESSOR) 50 mg tablet TAKE 1 TABLET BY MOUTH TWICE A DAY 180 tablet 1 01/23/20 25 Active dilTIAZem CD (CARDIZEM CD) 240 mg 24 hr capsuleIndications :Permanent atrial fibrillation (CMS/HCC V24, CMS/HCC V28),Unspecified diastolic (congestive) heart failure (CMS/HCC V24, CMS/HCC V28) TAKE 1 CAPSULE BY MOUTH EVERY DAY 90 capsule 1 01/23/20 25 Active apixaban (ELIQUIS) 5 mg tablet Take 1 tablet (5 mg total) by mouth 2 (two) times a day. 180 tablet 1 01/23/20 25 Active furosemide (LASIX) 40 mg tablet TAKE 1 TABLET BY MOUTH ONCE DAILY NEEDED 90 tablet 1 03/12/20 25 Active predniSONE (DELTASONE) 5 mg tablet Take 1 tablet (5 mg total) by mouth every other day. Active roflumilast (DALIRESP) 500 mcg tablet Take 1 tablet (500 mcg total) by mouth 1 (one) time each day. Active LEVALBUTEROL TARTRATE INHL Inhale by mouth. Active traZODone (DESYREL) 50 mg tablet Take 1 tablet (50 mg total) by mouth at bedtime. Active budesonide-formote roL (SYMBICORT) 160-4.5 mcg/actuation inhaler Inhale 2 puffs by mouth 2 (two) times a day. Rinse mouth with water after use to reduce aftertaste and incidence of candidiasis. Do not swallow. Active ondansetron ODT (ZOFRAN-ODT) 4 mg disintegrating tablet Take 1 Tablet by mouth every 6 hours as needed. Discontinu ed(Discont inued by another clinician) melatonin 3 mg tablet Take by mouth. Discontinu ed(Discont inued by another clinician) ergocalciferol (VITAMIN D-2) 1,250 mcg (50,000 unit) capsule Take 50,000 Units by mouth once a week. Discontinu ed(Discont inued by another clinician) roflumilast (Daliresp) 250 mcg tablet Take 1 Tab by mouth daily. For the first week only take 1 tab evry other day. 12/04/19 19 Discontinu ed(Discont inued by another clinician) predniSONE (DELTASONE) 10 mg tablet Take 1 tablet (10 mg total) by mouth every other day. Discontinu ed(Discont inued by another clinician) Active Problems Problem Noted Date Diagnosed Date Hypokalemia 04/01/2025 Assessment & Plan (04/01/2025 9:58 PM EDT): Most recent metabolic panel from 08/02/2024 shows potassium level of 3.4; we will update this today. Orders: Basic metabolic panel; Future Palpitations 04/01/2025 Assessment & Plan (04/01/2025 9:58 PM EDT): The patient has a history of atrial fibrillation with RVR and reports occasional palpitations where she feels as though her heart is racing; however, when she checks her heart rate on her pulse oximeter, she notes that her pulse rate is much lower and within a normal range in the 60s to 70s. Previous 7-day ROCT monitor completed in July 2024 showed frequent PVCs with a total ventricular ectopic burden of 3.3% consisting of singles. She does not feel her palpitations are currently significant enough to warrant further investigation, but should they increase in frequency, duration, or intensity, she will notify the office at which time we will investigate this further, likely with repeat ambulatory monitoring; likewise, should she notice that her heart rate is persistently elevated above 100, she will call the office for further direction. She does have a [employer] mobile renee will but is not sure that it is working properly; she will investigate this further for future use. Tricuspid regurgitation 10/30/2023 Overview (07/17/2024): Last Assessment [...] we will repeat this at that time. Assessment & Plan (04/01/2025 9:58 PM EDT): Most recent echocardiogram completed 09/21/2022 showing moderate tricuspid regurgitation with mild to moderate pulmonary hypertension. We discussed repeating echocardiogram for surveillance of valvular dysfunction as well as history of diastolic dysfunction; she feels she is no more symptomatic than she has been previously and declines a repeat echocardiogram at this time. We discussed the need to repeat this in the future for surveillance; she will call us if symptoms worsen prior to her next visit and we will repeat this at that time. Acute on chronic respiratory failure with hypoxia and hypercapnia ([facility] V24, [facility] V28) 02/07/2023 Septic shock ([facility] V24, [facility] V28) 02/08/20 23 Hyperlipidemia 12/23/2022 Overview (07/17/2024): Last Assessment & Plan: Most recent lipid panel completed 10/06/2023 with LDL at goal; continue current plan Assessment & Plan (04/01/2025 9:58 PM EDT): The patient's most recent lipid panel was completed 11/21/2024 showing an LDL of 98 which is at goal; continue current plan. RBBB (right bundle branch block) 12/23/2022 Overview (07/17/2024): Last Assessment & Plan: Stable on EKG, continue to follow. Assessment & Plan (04/01/2025 9:58 PM EDT): Unchanged on ECG today. Secondary hypercoagulable state ([facility] V24) Assessment & Plan (04/01/2025 9:58 PM EDT): Diastolic heart failure ([facility] V24, [facility] V2 8) 06/14/2021 Overview (07/17/2024): Last [...] day or 4 pounds in one week. Assessment & Plan (04/01/2025 9:58 PM EDT): The patient reports occasional mild peripheral edema which typically occurs in the setting of missing a dose of furosemide due to concerns of increased voiding while out and about for medical visits or shopping trips; she held her furosemide today due to our visit. She wears compression stockings on a regular basis and typically follows a low-sodium diet; she was encouraged to elevate her legs as able and she is seated for most of the day. She appears euvolemic on exam today and offers no other symptoms to cause concern for overt heart failure. Continue with beta-blockade and furosemide without change. We discussed risk reduction through lifestyle modifications including healthy diet, routine exercise, and weight management. We reviewed heart failure management including low sodium diet, symptom surveillance, daily weights, and medication compliance. I've asked the patient to call if they develop worsening symptoms of heart failure such as increased shortness of breath, new or worsening cough, increased swelling in the legs or ankles, or weight gain of more than 2 pounds in one day or 4 pounds in one week. Orders: Basic metabolic panel; Future Dyspnea on exertion 12/09/2020 Assessment & Plan (04/01/2025 9:58 PM EDT): The patient has severe emphysema with an element of pulmonary fibrosis. She is followed by pulmonology very closely and is on supplemental oxygen due to chronic hypoxic respiratory failure as well as NIMV at night with sleep. She has been maintained on azithromycin since September 2024; review of her ECG today shows no concerning QTc prolongation. She denies any recent worsening of her shortness of breath that may represent an anginal component. She will continue to follow-up with pulmonology as recommended. Other secondary pulmonary hy pertension ([facility] V24, [facility] V28) 12/09/2020 Overview (07/17/2024): Last Assessment [...] disease without esophagi tis 02/04/2019 Atrial fibrillation ([facility] V24, [facility] V28) 0 12/05/2017 Overview (07/17/2024): Permanent [...] this. We will continue to follow this. Assessment & Plan (04/01/2025 9:58 PM EDT): Heart rate is well-controlled on diltiazem, metoprolol, and digoxin; she remains anticoagulated on Eliquis for cardioembolic prophylaxis. Eliquis 5 mg twice daily is appropriate dose for her age of less than 80 years, weight less than 60 kg, an creatinine of less than 1.5. We discussed risks and benefits of continuing with anticoagulation for cardioembolic prophylaxis and she wishes to continue with current plan. She is aware to seek emergent medical attention for any uncontrolled bleeding, signs or symptoms of GI or other internal bleeding, or for any head injury. Will update a digoxin level today. Orders: Digoxin level; Future Diverticulosis 12/05/2017 Chronic respiratory failure ([facility] V24, [facility] V28) 11/25/2016 Assessment & Plan (04/01/2025 9:58 PM EDT): Orders: ECG 12 lead Other emphysema ([facility] V24, [facility] V28) 11/25 Pulmonary nodule 11/25/2016 Supplemental oxygen dependent 11/25/2016 Assessment & Plan (04/01/2025 9:58 PM EDT): Encounters Date Type Department Care Team Description 04/01/2025 1:10 PM EDT Office Visit [facility] [address] [place] [address] Kim Webb NP Chronic diastolic heart failure ([facility] V24, [facility] V28) (Primary Dx); Permanent atrial fibrillation ([facility] V24, [facility] V28); Secondary hypercoagulable state ([facility] V24); Palpitations; Frequent PVCs; RBBB (right bundle branch block); Nonrheumatic tricuspid valve regurgitation; Hyperlipidemia, unspecified hyperlipidemia type; Hypokalemia; Dyspnea on exertion; Chronic respiratory failure with hypoxia and hypercapnia ([facility] V24, [facility] V28); Supplemental oxygen dependent from Last 3 Months Medical History Medical History Date Comments Pulmonary nodule 11/25/2016 DX:Pulmonary no dule Chronic respiratory failure ([facility] V24, [facility] V28) 11/25/2016 DX:Chronic respiratory failu re ([facility]); COMMENT: On O2 Supplemental oxygen dependent 11/25/2016 DX :Supplemental oxygen dependent Chronic obstructive pulmonar y disease (COPD) ([facility] V24, [facility] V28) 11/25/2016 DX:Chronic obstructi ve pulmonary disease (COPD) ([facility]) Atrial fibrillation ([facility] V24, [facility] V28) 12/05/2017 DX:Atrial fibrillation (HCC) Diverticulosis 12/05/2017 DX:Diverticulosi s TMJ arthritis DX:TMJ arthritis Pulmonary fibrosis ([facility]/HCC V24, [facility] V28) DX:Pulmonary fibrosis (HCC) GERD (gastroesophageal reflux disease) DX:GERD (gastroesophageal reflux disease) Acute on chronic respiratory failure with hypoxia and hypercapnia ([facility]/HCC V24, [facility] V28) DX:Acute on chronic respirat ory failure with hypoxia and hypercapnia (HCC) Respiratory distress DX:Respirat ory distress Pneumonia DX:Pneumonia Septic shock ([facility] V24, [facility] V28) DX:Septic shock (HCC) Family History Medical [...] Sign Reading Time Taken Comments Blood Pressure 114/68 04/01/2025 12:58 PM EDT Pulse 69 04/01/2025 12:58 PM EDT Temperature - - Respiratory Rate - - Oxygen Saturation 98% 04/01/2025 12:58 PM EDT Inhaled Oxygen Concentration - - Weight 59 kg (130 lb) 04/01/2025 12:58 PM EDT Height 160 cm (5' 3 ) 04/01/2025 12:58 PM EDT Body Mass Index 23.03 04/01/2025 12:58 PM EDT Plan of Treatment Health Maintenance [...] 07/24/2022 Social Influencers of Health Screening 07/24/2022 Depression Screening 08/21/2024 COVID-19 Vaccine (1 - 2023-2 5 season) 2025 Influenza Vaccine (#1) 2025 Hypertension/CHF/CAD Annual BMP [...] Procedure Name Priority Date/Time Associated Diagnosis Comments ECG 12-LEAD Routine 04/01/2025 9:58 PM EDT Chronic respiratory failure with hypoxia and hypercapnia (CMS/HCC V24, CMS/HCC V28) LIPID PANEL WITH REFLEX TO DIRECT LDL Routine 11/21/2024 10:42 AM EDT Vitamin D deficiency Hypothyroidism BASIC METABOLIC PANEL Routine 08/02/2024 9:56 AM EST Paroxysmal atrial fibrillation (CMS/HCC V24, CMS/HCC V28) Hyperlipemia from Last 3 Months or Most Recently Relevant to Health Maintenance Results * ECG 12 lead (04/01/2025 9:58 PM EDT) Ventricular Rate ECG 69 BPM GEMUSE Atrial Rate 340 BPM GEMUSE QRS Duration 120 ms GEMUSE Q-T Interval 398 ms GEMUSE QTc 426 ms GEMUSE R [place] -26 degrees GEMUSE T [place] 22 degrees GEMUSE ECG Interpretation Atrial fibrillation Indeterminate axis Right bundle branch block Abnormal ECG When compared with ECG of 10/30/2023 No significant change was found Confirmed by Vashti VARGAS JAY ([id number]) on 04/24/2025 10:33:18 AM GEMUSE 04/01/2025 1:28 PM EDT 04/24/2025 10:33 AM EDT Kim Webb NP ECG ORDERABLES Edite d Result - Final GEMUSE * Lipid panel with reflex to direct LDL (11/21/2024 10:42 AM EDT) Pathologist [facility] Cholesterol 195 0 - 200 mg/dL LAB CHEMISTRY METHOD 11/21/2024 3:28 PM EDT [facility] Triglycerides 107 0 - 150 mg/dL LAB CHEMISTRY METHOD 11/21/2024 3:28 PM EDT [facility] HDL 76 >=40 mg/dL LAB CHEMISTRY METHOD 11/21/2024 3:28 PM EDT [facility] LDL Calculated 98 0 - 100 mg/dL LAB CHEMISTRY METHOD 11/21/2024 3:28 PM EDT [facility] VLDL Cholesterol Ranjan 21.4 mg/dL LAB CHEMISTRY METHOD 11/21/2024 3:28 PM EDT [facility] Non HDL Chol. (LDL+VLDL) 119 <145 mg/dL LAB CHEMISTRY METHOD 11/21/2024 3:28 PM EDT [facility] Chol/HDL Ratio 2.6 0.0 - 4.4 LAB CHEMISTRY METHOD 11/21/2024 3:28 PM EDT [facility] Blood Venous blood specimen / Unknown Venipuncture / Unknown 11/21/2024 10:42 AM EDT 11/21/2024 10:42 AM EDT [facility] LAB BLOOD ORDERABLES Final Resul t [facility] [address] [place] [address], * (ABNORMAL) Basic metabolic panel (08/02/2024 9:56 AM EST) Sodium 141 133 - 145 mmol/L LAB CHEMISTRY METHOD 08/02/2024 12:19 PM [facility] Potassium 3.4(L) 3.5 - 5.5 mmol/L LAB CHEMISTRY METHOD 08/02/2024 12:19 PM [facility] Chloride 94(L) 96 - 110 mmol/L LAB CHEMISTRY METHOD 08/02/2024 12:19 PM [facility] CO2 38(H) 21 - 32 mmol/L LAB CHEMISTRY METHOD 08/02/2024 12:19 PM [facility] Anion Gap 9 3 - 11 LAB CHEMISTRY METHOD 08/02/2024 12:19 PM [facility] Glucose 90 70 - 100 mg/dL LAB CHEMISTRY METHOD 08/02/2024 12:19 PM [facility] BUN 11 5 - 25 mg/dL LAB CHEMISTRY METHOD 08/02/2024 12:19 PM [facility] Creatinine 0.39(L) 0.50 - 1.10 mg/dL LAB CHEMISTRY METHOD 08/02/2024 12:19 PM [facility] eGFR 107 >=60 mL/min/1. 73m2 LAB CHEMISTRY METHOD 08/02/2024 12:19 PM [facility] Comment:Calculation based on the Chronic Kidney Disease Epidemiology Collaboration (CKD-EPI) equation refit without adjustment for race. BUN/Creatinine Ratio 28.2 LAB CHEMISTRY METHOD 08/02/2024 12:19 PM EST [facility] Calcium 9.8 8.5 - 10.5 mg/dL LAB CHEMISTRY METHOD 08/02/2024 12:19 PM EST [facility] Blood Venous blood specimen / Unknown Venipuncture / Unknown 08/02/2024 9:56 AM EST 08/02/2024 9:56 AM EST Kim Webb ELECTRIC MOTOR MECHANIC LAB BLOOD ORDERABLES Final Result [facility] [address] [place] [address], from Last 3 Months or Most Recently Relevant to Health Maintenance Insurance [employer] [place] MEDICARE ADVANTAGE Care Teams Devops Engineer Relationship Specialty Start Date End Date Gurpreet Mares DO [address] [place] [phone] PCP - General Internal Medicine 05/22/12
== END 2025-04-30 11:32 | disposition home or self-care (01) ==
LOC: HO.HPS 11:03
PROVIDERS: PCP Internal Medicine; Visit Provider Hospitalist
DX: J96.11 Chronic respiratory failure with hypoxia (principal); J96.12 Chronic respiratory failure with hypercapnia; R91.8 Other nonspecific abnormal finding of lung field; J43.2 Centrilobular emphysema
CPT/HCPCS: 99215; G2211

== ENCOUNTER 2025-04-30 11:02 | Outpatient (REF) | payer MEDICARE, SELFPAY ==
[2025-04-30 11:47] LABS: MANUAL DIFF FLAG NO
[2025-04-30 11:52] LABS: Venous Blood Gas Refer to POC result
[2025-04-30 11:53] LABS: VBG HCO3 46 mmol/L (22-26); VBG O2 % Saturation < 30.0 %
[2025-04-30 12:36] LABS: Hematocrit 36.3 % (37.0-47.0); Hemoglobin 11.0 g/dl (12.0-16.0); Imm Gran Abs Auto 0.09 X10*3/uL (0.00-0.03); Imm Gran Pct Auto 0.7 % (0.0-0.4); Lymphocytes Absolute Auto 1.5 X10*3/uL (1.2-4.9); Mean Corpuscular HGB Conc 30.3 g/dl (31.0-35.0); Mean Corpuscular Hemoglobin 28.0 pg (27.0-33.0); Mean Corpuscular Volume 92.4 fL (80.0-98.0); NRBC Abs Auto 0.000 X10*3/uL (0.0-0.012); NRBC Pct Auto 0.0 /100WBC (0.0-0.2); Platelet Count 402 X10*3/uL (160-400); Red Blood Count 3.93 X10*6/uL (4.20-5.50); White Blood Count 13.3 X10*3/uL (4.8-10.8)
[2025-04-30 13:22] LABS: Anion Gap 11 (12-20); Blood Urea Nitrogen 10 mg/dL (9-16); Calcium 9.9 mg/dL (8.4-10.2); Carbon Dioxide 40 mmol/L (22-29); Chloride 96 mmol/L (96-108); Estimated Glomerular Filt Rate > 60; Potassium 3.1 mmol/L (3.3-5.1); Sodium 144 mmol/L (135-145)
--- OUTSIDE RECORDS SUMMARY | 2025-04-30 14:45 | XMS_ITS | Encounter Summary ---
Author Organization [employer] [facility] Address [address] [place] [address] Care Team Providers Care Deflash And Wash Operator Name Role Phone Jan Leyva MD Primary Care Provider Unavail able Augusto Hernandez MD Primary Care Provider [phone] Gurpreet Mares MD Primary Care Provider Gurpreet Tellez MD Primary Care Provider Tray Mcdonough MD Unavailable Jonelle Lees RADIOLOGY RECEPTIONIST Unavailable Unavailab Kim Marti RADIOLOGY RECEPTIONIST Unavailable [phone] Encounter Details Date Type Department Care Team Description 06/22/2017 Orders Only Pulmonology - [place] [address] [facility] [address] [place] [address] Caty Mojica, [facility] [address] [place] [address] Social History Tobacco Use Types Packs/Day Years Used Date Smoking Tobacco: Never Assessed Sex Assigned at Date Recorded Not on file Job Start Date Occupation Industry Not on file Not on file Not on file documented as of this encounter Plan of Treatment Not on file documented as of this encounter Visit Diagnoses Not on filedocumented in this encounter Care Teams Deflash And Wash Operator Relationship Specialty Start Date End Date Jan Leyva MD PCP - General Internal Medicine 10/18/17 12/10/17 Augusto Hernandez MD [address] [place] [address] PCP - General Internal Medicine 12/11/17 12/08/20 Gurpreet Mares MD [address] [place] [address] PCP - General 05/22/12 10/17/17 Gurpreet Mares MD [address] [place] [address] PCP - General Internal Medicine 12/09/20 Tray Marsh MD [address] [place] [address] Physical Therapist Technician Cardiovascular Disease 05/18/21 Jonelle Lees NP [address] [place] [address] Nurse Practitioner Cardiology 05/18/21 10/22/23 Kim Webb NP [address] [place] [address] Cardiology 10/23/23 documented as of this encounter
--- OUTSIDE RECORDS SUMMARY | 2025-04-30 14:45 | XMS_ITS | Encounter Summary ---
Author Organization [employer] [facility] Address [address] [place] [address] Care Team Providers Care Accounting Administrator Name Role Phone Augusto Hernandez MD Primary Care Provider [phone] Gurpreet Mares MD Primary Care Provider Tray Mcdonough MD Unavailable Jonelle Lees CHIEF CLOTH FINISHING RANGE OPERATOR Unavailable Unavailab Kim Marti CHIEF CLOTH FINISHING RANGE OPERATOR Unavailable [phone] Encounter Details Date Type Department Care Team Description 05/04/2018 Pt. Non Urgent Medic al Question Pulmonology - [address] [place] [address] Addison Aranda MD Social History [...] filedocumented in this encounter Care Teams Accounting Administrator Relationship Specialty Start Date End Date Augusto Hernandez MD [address] [place] [address] PCP - General Internal Medicine 12/11/17 12/08/20 Gurpreet Mares MD [address] [place] [address] PCP - General Internal Medicine 12/09/20 Tray Marsh MD [address] [place] [address] It Applications Manager Cardiovascular Disease 05/18/21 Jonelle Lees NP [address] [place] [address] Nurse Practitioner Cardiology 05/18/21 10/22/23 Kim Webb NP [address] [place] [address] Cardiology 10/23/23 documented as of this encounter
--- OUTSIDE RECORDS SUMMARY | 2025-04-30 14:45 | XMS_ITS | Encounter Summary ---
Author Organization [employer] [facility] Address [address] [place] [address] Care Team Providers Care Rubber Cutter Name Role Phone Augusto Hernandez MD Primary Care Provider [phone] Gurpreet Mares MD Primary Care Provider Tray Mcdonough MD Unavailable Jonelle Lees OFFAL BALER Unavailable Unavailab Kim Marti OFFAL BALER Unavailable [phone] Reason for Visit * Reason Onset Date Comments Prior Authorization 12/03/2018 [facility] Encounter Details Date Type Department Care Team Description 12/03/2018 Telephone Pulmonology - [place] [address] [facility] [address] [place] [address] Jesus Leon PA-C [address] [facility] [address] [place] [address] Prior Authorization ([facility]) Social History Tobacco Use Types Packs/Day [...] from 11/16/18 encounter. Spoke with star from [facility] who stated that this was approved ? Approved from 11/30/18 until 12/01/2019 ?? Prior authorziation approval number #[id number] [facility] with [facility] to inform them of the approval again. She states unsure why its coming to us Its already been filled and pt to [facility] * Telephone Encounter - Claudia Thornton [...] What Pharmacy did the fax come from: [email or web address] Pharmacy fax #: [phone] [facility] Information from fax: What Prescription Plan does the patient have? BIN/PCN if applicable: Cardholder ID: Person Code: Relationship Code: Help desk phone: documented in this encounter Plan of Treatment Not on file documented as of this encounter Visit Diagnoses Not on filedocumented in this encounter Care Teams Rubber Cutter Relationship Specialty Start Date End Date Augusto Hernandez MD [address] [place], [place] PCP - General Internal Medicine 12/11/17 12/08/20 Gurpreet Mares MD [address] [place] [address] PCP - General Internal Medicine 12/09/20 Tray Marsh MD [address] [place], [place] Real Estate Office Supervisor Cardiovascular Disease 05/18/21 Jonelle Lees NP [address] [place] [address] Nurse Practitioner Cardiology 05/18/21 10/22/23 Kim Webb NP [address] [place], [place] Cardiology 10/23/23 documented as of this encounter
--- OUTSIDE RECORDS SUMMARY | 2025-04-30 14:45 | XMS_ITS | Clinical Summary ---
Author Organization [facility] Address [address] [place] [address] Care Team Providers Care Lithograph Printer Name Role Phone Gurpreet Mares MD Primary Care Provider Tray Mcdonough MD Unavailable Kim Webb NP Unavailable [phone] Allergies Active Allergy Reactions Severity Noted Date [...] 03/05/2019 Active vitamin D (ERGOCALCIFEROL) 1.25 MG (27222 UT) capsule Take 50,000 Units by mouth [...] 12/19/2012 CHOLESTEROL SCREENING 12/04/2023 12/03/2018, 018 (Completed) DEPRESSION SCREENING/FOLLOWUP 08/21/2024 INFLUENZA (#1) 2025 05/28/2018 (Completed) Care Teams Lithograph Printer Relationship Specialty Start Date End Date Gurpreet Mares MD PCP - General Internal Medicine 12/09/20 Tray Marsh MD Technology Manager Cardiovascular Disease 05/18/21 Kim Webb NP Cardiology 10/23/23
--- OUTSIDE RECORDS SUMMARY | 2025-04-30 14:45 | XMS_ITS | Encounter Summary ---
Author Organization [facility] Address [address] [place] [address] Care Team Providers Care Medical Writer Name Role Phone Jan Leyva MD Primary Care Provider Unavail able Augusto Hernandez MD Primary Care Provider [phone] Gurpreet Mares MD Primary Care Provider Tray Mcdonough MD Unavailable Jonelle Lees WATCH ELECTRICIAN Unavailable Unavailab Kim Marti WATCH ELECTRICIAN Unavailable [phone] Encounter Details Date Type Department Care Team Description 10/19/2017 Release of Information Medical Records [address] [place] [address] Abstract, Provider Social History Tobacco Use Types [...] filedocumented in this encounter Care Teams Medical Writer Relationship Specialty Start Date End Date Jan Leyva MD PCP - General Internal Medicine 10/18/17 12/10/17 Augusto Hernandez MD [address] [place], [place] PCP - General Internal Medicine 12/11/17 12/08/20 Gurpreet Mares MD [address] [place], [place] PCP - General Internal Medicine 12/09/20 Tray Marsh MD [address] [place], [place] Occupational Therapy Specialist Cardiovascular Disease 05/18/21 Jonelle Lees NP [address] [place] [address] Nurse Practitioner Cardiology 05/18/21 10/22/23 Kim Webb NP [address] [place] [address] Cardiology 10/23/23 documented as of this encounter
--- OUTSIDE RECORDS SUMMARY | 2025-04-30 14:45 | XMS_ITS | Encounter Summary ---
Author Organization [facility] Address [address] [place] [address] Care Team Providers Care Spanish Professor Name Role Phone Gurpreet Mares MD Primary Care Provider Tray Mcdonough MD Unavailable Jonelle Lees NP Unavailable Unavailab Kim Marti NP Unavailable [phone] Encounter Details Date Type Department Care Team Description 12/01/2022 Maintenance Specialist Report Medical Records [address] [place] [address] Abstract, Provider Social History Tobacco Use Types [...] on filedocumented in this encounter Care Teams Spanish Professor Relationship Specialty Start Date End Date Gurpreet Mares MD PCP - General Internal Medicine 12/09/20 Tray Marsh MD Window Machine Operator Cardiovascular Disease 05/18/21 Jonelle Lees NP Nurse Practitioner Cardiology 05/18/2110/21/ Kim Miguel NP Cardiology 10/23/23 documented as of this encounter
--- OUTSIDE RECORDS SUMMARY | 2025-04-30 14:45 | XMS_ITS | Encounter Summary ---
Author Organization [facility] Address [address] [place] [address] Care Team Providers Care Marketing Mgr Name Role Phone Gurpreet Mares MD Primary Care Provider Tray Mcdonough MD Unavailable Jonelle Lees MANAGER PROCESS EXCELLENCE Unavailable Unavailab Kim Marti MANAGER PROCESS EXCELLENCE Unavailable [phone] Encounter Details Date Type Department Care Team Description 03/28/2023 Orders Only Medical Records [address] [place] [address] Abstract, Provider Social History Tobacco Use Types [...] on filedocumented in this encounter Care Teams Marketing Mgr Relationship Specialty Start Date End Date Gurpreet Mares MD PCP - General Internal Medicine 12/09/20 Tray Marsh MD Apple Sorter Cardiovascular Disease 05/18/21 Jonelle Lees NP Nurse Practitioner Cardiology 05/18/21 4 Kim Webb NP Cardiology 10/23/23 documented as of this encounter
--- OUTSIDE RECORDS SUMMARY | 2025-04-30 14:45 | XMS_ITS | Encounter Summary ---
Author Organization [facility] Address [address] [place] [address] Care Team Providers Care Director Call Name Role Phone Augusto Hernandez MD Primary Care Provider [phone] Gurpreet Mares MD Primary Care Provider Tary Mcdonough MD Unavailable Jonelle Lees MERCHANDISE TEAM MANAGER Unavailable Unavailab Kim Marti MERCHANDISE TEAM MANAGER Unavailable [phone] Encounter Details Date Type Department Care Team Description 02/21/2019 Pt. Non Urgent Medic al Question Pulmonology - [address] [place] [phone] Addison Aranda MD Social History Tobacco [...] filedocumented in this encounter Care Teams Director Call Relationship Specialty Start Date End Date Augusto Hernandez MD [address] [place], [place] [id number] PCP - General Internal Medicine 12/11/17 12/08/20 Gurpreet Mares MD [address] [place] [address] PCP - General Internal Medicine 12/09/20 Tray Marsh MD [address] [place], [place] [phone] Creative Manager Cardiovascular Disease 05/18/21 Jonelle Lees NP [address] [place] [address] Nurse Practitioner Cardiology 05/18/21 10/22/23 Kim Webb NP [address] [place] [address] Cardiology 10/23/23 documented as of this encounter
--- OUTSIDE RECORDS SUMMARY | 2025-04-30 14:45 | XMS_ITS | Encounter Summary ---
Author Organization [facility] Address [address] [place] [address] Care Team Providers Care Senior Partner Name Role Phone Gurpreet Mares MD Primary Care Provider Tray Mcdonough MD Unavailable Jonelle Lees PLASTIC EXTRUDING MACHINE OPERATOR Unavailable Unavailab Kim Marti PLASTIC EXTRUDING MACHINE OPERATOR Unavailable Reason for Visit * Reason Onset Date Comments Shortness Of Breath 04/13/2022 Encounter Details Date Type Department Care Team Description 04/13/2022 Telephone Cardio PVCA Diag Testing 101 300 [facility] [address] [place] [address] [phone] Tray Marsh MD [address] [place] [address] [phone] Shortness Of Breath Social History Tobacco Use [...] own and fine yesterday but today elevated [id number] . HR was 130 now 123 per [email or web address] mobile renee and pulse ox. Sending tracing. [...] eating is difficult. Please call patient at [phone] documented in this encounter Plan of Treatment Not on file documented as of this encounter Visit Diagnoses Not on filedocumented in this encounter Care Teams Senior Partner Relationship Specialty Start Date End Date Gurpreet Mares MD PCP - General Internal Medicine 12/09/20 Tray Marsh MD Hydrator Operator Cardiovascular Disease 05/18/21 Jonelle Lees NP Nurse Practitioner Cardiology 05/18/21 4 Kim Webb NP Cardiology 10/23/23 documented as of this encounter
--- OUTSIDE RECORDS SUMMARY | 2025-04-30 14:45 | XMS_ITS | Encounter Summary ---
Author Organization [employer] [facility] Address [address] [place] [address] Care Team Providers Care Ob Scrub Tech Name Role Phone Augusto Hernandez MD Primary Care Provider [phone] Gurpreet Mares MD Primary Care Provider Tray Mcdonough MD Unavailable Jonelle Lees CALL OUT OPERATOR Unavailable Unavailab Kim Marti CALL OUT OPERATOR Unavailable [phone] Reason for Visit * Reason Comments E-prescribe Rx Request Encounter Details Date Type Department Care Team Description 03/03/2018 Refill Pulmonology - [address] [place] [address] Addison Aranda MD E-prescribe Rx [...] NO Patients current insurance carrier is: [facility]: [facility] / Plan: IVELISSE MCGUIRE TYPE 2 / Product Type: HMO [id number] documented in this encounter Plan of Treatment Not on file documented as of this encounter Visit Diagnoses Not on filedocumented in this encounter Care Teams Ob Scrub Tech Relationship Specialty Start Date End Date Augusto Hernandez MD [address] [place] [address] PCP - General Internal Medicine 12/11/17 12/08/20 Gurpreet Mares MD [address] [place] [address] PCP - General Internal Medicine 12/09/20 Tray Marsh MD [address] [place] [address] Forger Helper Cardiovascular Disease 05/18/21 Jonelle Lees NP [address] [place] [address] Nurse Practitioner Cardiology 05/18/21 10/22/23 Kim Webb NP [address] [place] [address] Cardiology 10/23/23 documented as of this encounter
--- OUTSIDE RECORDS SUMMARY | 2025-04-30 14:45 | XMS_ITS | Encounter Summary ---
Author Organization [facility] Address [address] [place] [address] Care Team Providers Care Mohs Surgeon Name Role Phone Gurpreet Mares MD Primary Care Provider rTay Mcdonough MD Unavailable Jonelle Lees BOTTLED BEVERAGE INSPECTOR Unavailable Unavailab Kim Marti BOTTLED BEVERAGE INSPECTOR Unavailable [phone] Reason for Visit * Reason Onset Date Comments REFERRAL 02/10/2023 Metoprolol and D iltiazem Encounter Details Date Type Department Care Team Description 02/10/2023 Telephone Cardio PVC Stfd 102 300 [facility] [address] [place] [address] Tray Marsh MD [address] [place] [address] [phone] REFERRAL (Metoprolol and Diltiazem ) Social History [...] Diltiazem 300 MG once a day to [facility] in [place] 90 day documented in this encounter Plan of Treatment Not on file documented as of this encounter Visit Diagnoses Not on filedocumented in this encounter Care Teams Mohs Surgeon Relationship Specialty Start Date End Date Gurpreet Mares MD PCP - General Internal Medicine 12/09/20 Tray Marsh MD Housekeeping Laundry Worker Cardiovascular Disease 05/18/21 Jonelle Lees NP Nurse Practitioner Cardiology 05/18/21 4 Kim Webb NP Cardiology 10/23/23 documented as of this encounter
--- OUTSIDE RECORDS SUMMARY | 2025-04-30 14:45 | XMS_ITS | Encounter Summary ---
Author Organization [employer] [facility] Address [address] [place] [address] Care Team Providers Care Inspection Manager Name Role Phone Gurpreet Mares MD Primary Care Provider Tray Mcdonough MD Unavailable Jonelle Lees SEAT COVER MAKER Unavailable Unavailab Kim Marti SEAT COVER MAKER Unavailable [phone] Encounter Details Date Type Department Care Team Description 12/13/2022 Orders Only Cardio PVC POC 154 300 [facility] [address] [place] [address] Default, Provider Social History Tobacco Use Types [...] on filedocumented in this encounter Care Teams Inspection Manager Relationship Specialty Start Date End Date Gurpreet Mares MD PCP - General Internal Medicine 12/09/20 Tray Marsh MD Schedule Hanger Cardiovascular Disease 05/18/21 Jonelle Lees NP Nurse Practitioner Cardiology 05/18/21 3/3/2 4 Kim Webb NP Cardiology 10/23/23 documented as of this encounter
--- OUTSIDE RECORDS SUMMARY | 2025-04-30 14:45 | XMS_ITS | Encounter Summary ---
Author Organization [facility] Address [address] [place] [address] Care Team Providers Care Modeling Instructor Name Role Phone Augusto Hernandez MD Primary Care Provider [phone] Gurpreet Mares MD Primary Care Provider Tray Mcdonough MD Unavailable Jonelle Lees FIXED INCOME TRADING VICE PRESIDENT Unavailable Unavailab Kim Marti NP Unavailable Encounter Details Date Type Department Care Team Description 12/19/2017 Transfer Records Medical Records [address] [place] [address] Abstract, Provider Social History Tobacco Use Types Packs/Day Years Used Date Smoking Tobacco: Former Sex Assigned at Date Recorded Not on file Job Start Date Occupation Industry Not on file Not on file Not on file documented as of this encounter Plan of Treatment Not on file documented as of this encounter Visit Diagnoses Not on filedocumented in this encounter Care Teams Modeling Instructor Relationship Specialty Start Date End Date Augusto Hernandez MD [address] [place] [address] PCP - General Internal Medicine 12/11/17 12/08/20 Gurpreet Mares MD [address] [place], [place] PCP - General Internal Medicine 12/09/20 Tray Marsh MD [address] [place], [place] Extension Service Supervisor Cardiovascular Disease 05/18/21 Jonelle Lees NP [address] [place], [place] Nurse Practitioner Cardiology 05/18/21 10/22/23 Kim Webb, KHANH [address] [place] [address] Cardiology 10/23/23 documented as of this encounter
--- OUTSIDE RECORDS SUMMARY | 2025-04-30 14:45 | XMS_ITS | Encounter Summary ---
Author Organization [facility] Address [address] [place] [address] Care Team Providers Care Sourcing Consultant Name Role Phone Gurpreet Mares MD Primary Care Provider Tray Mcdonough MD Unavailable Jonelle Lees DIRECTOR APPOINTMENT Unavailable Unavailab Kim Marti DIRECTOR APPOINTMENT Unavailable [phone] Encounter Details Date Type Department Care Team Description 09/18/2022 [facility] Medical Records [address] [place] [address] Social History Tobacco Use Types Packs/Day Years [...] on filedocumented in this encounter Care Teams Sourcing Consultant Relationship Specialty Start Date End Date Gurpreet Mares MD PCP - General Internal Medicine 12/09/20 Tray Marsh MD Compensation Programs Manager Cardiovascular Disease 05/18/21 Jonelle Lees NP Nurse Practitioner Cardiology 05/18/21 4 Kim Webb NP Cardiology 10/23/23 documented as of this encounter
--- OUTSIDE RECORDS SUMMARY | 2025-04-30 14:45 | XMS_ITS | Encounter Summary ---
Author Organization [email or web address] [facility] Address [address] [place] [address] Care Team Providers Care Ship'S Officer Name Role Phone Gurpreet Mares MD Primary Care Provider Tray Mcdonough MD Unavailable Jonelle Lees NP Unavailable Unavailab Kim Marti NP Unavailable [phone] Encounter Details Date Type Department Care Team Description 04/13/2022 SCAN Medical Records [address] [place] [address] Abstract, Provider Social History Tobacco Use Types [...] on filedocumented in this encounter Care Teams Ship'S Officer Relationship Specialty Start Date End Date Gurpreet Mares MD PCP - General Internal Medicine 12/09/20 Tray Marsh MD Striker Out Cardiovascular Disease 05/18/21 Jonelle Lees NP Nurse Practitioner Cardiology 05/18/2110/21/ Kim Miguel NP Cardiology 10/23/23 documented as of this encounter
--- OUTSIDE RECORDS SUMMARY | 2025-04-30 14:45 | XMS_ITS | Encounter Summary ---
Author Organization [facility] Address [address] [place] [address] Care Team Providers Care Washtub Worker Helper Name Role Phone Gurpreet Mares MD Primary Care Provider Tray Mcdonough MD Unavailable Jonelle Lees ENGINEERING ANALYST Unavailable Unavailab Kim Marti ENGINEERING ANALYST Unavailable [phone] Reason for Visit * Reason Onset Date Comments E-prescribe Rx Request 05/08/2023 Eliquis Encounter Details Date Type Department Care Team Description 05/08/2023 Refill Cardio PVCA Diag Testing 101 300 [facility] [address] [place] [address] Tray Marsh MD [address] [place] [address] [phone] E-prescribe Rx Request (Eliquis ) Social History [...] fibrillation documented in this encounter Care Teams Washtub Worker Helper Relationship Specialty Start Date End Date Gurpreet Mares MD PCP - General Internal Medicine 12/09/20 Tray Marsh MD Lactation Coordinator Cardiovascular Disease 05/18/21 Jonelle Lees NP Nurse Practitioner Cardiology 05/18/21 4 Kim Webb NP Cardiology 10/23/23 documented as of this encounter
--- OUTSIDE RECORDS SUMMARY | 2025-04-30 14:45 | XMS_ITS | Encounter Summary ---
Author Organization [facility] Address [address] [place] [address] Care Team Providers Care Healthcare Or Medical Name Role Phone Gurpreet Mares MD Primary Care Provider Tray Mcdonough MD Unavailable Jonelle Lees RELIEF PILOT Unavailable Unavailab Kim Marti NP Unavailable [phone] Encounter Details Date Type Department Care Team Description 04/04/2023 Refill Cardio PVC Stfd 102 300 [facility] [address] [place] [address] Jonelle Lees NP Social History Tobacco Use [...] on filedocumented in this encounter Care Teams Healthcare Or Medical Relationship Specialty Start Date End Date Gurpreet Mares MD PCP - General Internal Medicine 12/09/20 Tray Marsh MD Accounting Office Manager Cardiovascular Disease 05/18/21 Jonelle Lees NP Nurse Practitioner Cardiology 9/ 4 Kim Webb NP Cardiology 10/23/23 documented as of this encounter
--- OUTSIDE RECORDS SUMMARY | 2025-04-30 14:45 | XMS_ITS | Encounter Summary ---
Author Organization [facility] Address [address] [place] [address] Care Team Providers Care Parking Lot Spotter Name Role Phone Gurpreet Mares MD Primary Care Provider Tray Mcdonough MD Unavailable Jonelle Lees NP Unavailable Unavailab Kim Marti NP Unavailable [phone] Encounter Details Date Type Department Care Team Description 12/01/2022 SCAN Medical Records [address] [place] [address] Abstract, Provider Social History Tobacco Use Types [...] Date/Time Associated Diagnosis Comments OUTSIDE LAB Routine 12/01/2022 documented in this encounter Results * OUTSIDE LAB (12/01/2022) Provider Abstract LAB documented in this encounter Visit Diagnoses Not on filedocumented in this encounter Care Teams Parking Lot Spotter Relationship Specialty Start Date End Date Gurpreet Mares MD PCP - General Internal Medicine 12/09/20 Tray Marsh MD Bridal Consultant Cardiovascular Disease 05/18/21 Jonelle Lees NP Nurse Practitioner Cardiology 05/18/21 3/3/2 4 Kim Webb NP Cardiology 10/23/23 documented as of this encounter
--- OUTSIDE RECORDS SUMMARY | 2025-04-30 14:45 | XMS_ITS | Encounter Summary ---
Author Organization [facility] Address [address] [place] [address] Care Team Providers Care Felt Cutter Name Role Phone Gurpreet Mares MD Primary Care Provider Tray Mcdonough MD Unavailable Jonelle Lees NP Unavailable Unavailab Kim Marti NP Unavailable Encounter Details Date Type Department Care Team Description 03/26/2021 Sales Agent Casualty Insurance Report Medical Records [address] [place] [address] Tonie Coates Social History Tobacco Use Types [...] on filedocumented in this encounter Care Teams Felt Cutter Relationship Specialty Start Date End Date Gurpreet Mares MD PCP - General Internal Medicine 12/09/20 Tray Marsh MD Mobile Designer Cardiovascular Disease 05/18/21 Jonelle Lees NP Nurse Practitioner Cardiology 05/18/2110/21/ Kim Miguel NP Cardiology 10/23/23 documented as of this encounter
--- OUTSIDE RECORDS SUMMARY | 2025-04-30 14:45 | XMS_ITS | Encounter Summary ---
Author Organization [facility] Address [address] [place] [address] Care Team Providers Care Specialty Sales Consultant Name Role Phone Augusto Hernandez MD Primary Care Provider [phone] Gurpreet Mares MD Primary Care Provider Tray Mcdonough MD Unavailable Jonelle Lees PHARMACY TECH Unavailable Unavailab Kim Marti PHARMACY TECH Unavailable [phone] Reason for Visit * Reason Onset Date Comments Medication 12/11/2017 Encounter Details Date Type Department Care Team Description 12/11/2017 Telephone Pulmonology - [address] [place] [address] Addison Aranda MD Medication Social [...] 12/11/2017 1:27 PM EDT Called [facility] with Directions. New rx entered to send. * Telephone Encounter - Maggi Vivas - 12/11/2017 1:08 PM EDT Cortney from [employer] called that she received Xoeconx and there are 2 different direction please contact Cortney [phone] documented in this encounter Plan of Treatment Not on file documented as of this encounter Visit Diagnoses Diagnosis Centrilobular emphysema (HCC)- Primary Other emphysema Atrial fibrillation, unspecified type (HCC) documented in this encounter Care Teams Specialty Sales Consultant Relationship Specialty Start Date End Date Augusto Hernandez MD [address] [place] [address] PCP - General Internal Medicine 12/11/17 12/08/20 Gurpreet Mares MD [address] [place], [place] PCP - General Internal Medicine 12/09/20 Tray Marsh MD [address] [place] [address] Nondestructive Tester Cardiovascular Disease 05/18/21 Jonelle Lees NP [address] [place] [address] Nurse Practitioner Cardiology 05/18/21 10/22/23 Kim Webb NP [address] [place] [address] Cardiology 10/23/23 documented as of this encounter
--- OUTSIDE RECORDS SUMMARY | 2025-04-30 14:45 | XMS_ITS | Encounter Summary ---
Author Organization [facility] Address [address] [place] [address] Care Team Providers Care Emergency Veterinary Technician Name Role Phone Augusto Hernandez MD Primary Care Provider [phone] Gurpreet Mares MD Primary Care Provider Tray Mcdonough MD Unavailable Jonelle Lees SENIOR SECURITY ANALYST Unavailable Unavailab Kim Marti SENIOR SECURITY ANALYST Unavailable [phone] Reason for Visit * Reason Onset Date Comments Medication 11/30/2020 REFILL Encounter Details Date Type Department Care Team Description 11/30/2020 Telephone Cardio PVC POC 154 300 [facility] [address] [place], [place] [phone] Tray Marsh MD [address] [place] [address] [phone] Medication (REFILL) Social History Tobacco Use Types [...] DIGOXIN 250mg. Pt can be reached at [phone] documented in this encounter Plan of Treatment Not on file documented as of this encounter Visit Diagnoses Not on filedocumented in this encounter Care Teams Emergency Veterinary Technician Relationship Specialty Start Date End Date Augusto Hernandez MD [address] [place] [address] PCP - General Internal Medicine 12/11/17 12/08/20 Gurpreet Mares MD [address] [place] [address] PCP - General Internal Medicine 12/09/20 Tray Marsh MD [address] [place] [address] Undercover Cop Cardiovascular Disease 05/18/21 Jonelle Lees NP [address] [place] [address] Nurse Practitioner Cardiology 05/18/21 10/22/23 Kim Webb NP [address] [place] [address] Cardiology 10/23/23 documented as of this encounter
--- OUTSIDE RECORDS SUMMARY | 2025-04-30 14:45 | XMS_ITS | Encounter Summary ---
Author Organization [facility] Address [address] [place] [address] Care Team Providers Care Criminal Investigator Name Role Phone Gurpreet Mares MD Primary Care Provider Tray Mcdonough MD Unavailable Jonelle Lees TRAVELING ENGINEER Unavailable Unavailab Kim Marti TRAVELING ENGINEER Unavailable [phone] Reason for Visit * Reason Onset Date Comments E-prescribe Rx Request 05/02/2022 duplicate s ccb, doac already processed Encounter Details Date Type Department Care Team Description 05/02/2022 Refill Cardio PVC [facility] [address] [place] [address] [place] [phone] Tray Marsh MD [address] [place] [address] [phone] E-prescribe Rx Request (duplicates ccb, doac already [...] fibrillation documented in this encounter Care Teams Criminal Investigator Relationship Specialty Start Date End Date Gurpreet Mares MD PCP - General Internal Medicine 12/09/20 Tray Marsh MD Certified Welding Inspector Cardiovascular Disease 05/18/21 Jonelle Lees NP Nurse Practitioner Cardiology 05/18/21 4 Kim Webb NP Cardiology 10/23/23 documented as of this encounter
--- OUTSIDE RECORDS SUMMARY | 2025-04-30 14:45 | XMS_ITS | Encounter Summary ---
Author Organization [facility] Address [address] [place] [address] Care Team Providers Care Certified Home Health Aide Name Role Phone Jan Leyva MD Primary Care Provider Unavail able Augusto Hernandez MD Primary Care Provider [phone] Gurpreet Mares MD Primary Care Provider Gurpreet Tellez MD Primary Care Provider Tray Mcdonough MD Unavailable Jonelle Lees MOLD MAINTENANCE TECHNICIAN Unavailable Unavailab Kim Marti MOLD MAINTENANCE TECHNICIAN Unavailable [phone] Reason for Referral * EXTERNAL (Routine) - Authorized/Booked Specialty Diagnoses / Procedures Referred By Contact Referred To Contact Pulmonology / Pulmonology Rehabilitation Diagnoses Pulmonary emphysema, unspecified emphysema type (HCC) Procedures REFERRAL TO PULMONARY REHABILITATION Addison Aranda MD [address] [place] [address] Vinod Brito [address] [facility] 2nd [place] [address] Referral ID Status Reason Start Date Expiration Date V isits Requested Visits Authorized SEE NOTE Authorized/B ooked 06/22/2017 09/26/2017 1 1 Encounter Details Date Type Department Care Team Description 06/22/2017 Telephone [facility] [address] [facility] [address] [place] [phone] Addison Aranda MD Social History Tobacco [...] Primary documented in this encounter Care Teams Certified Home Health Aide Relationship Specialty Start Date End Date Jan Leyva MD PCP - General Internal Medicine 10/18/17 12/10/17 Augusto Hernandez MD [address] [place] [address] PCP - General Internal Medicine 12/11/17 12/08/20 Gurpreet Mares MD [address] [place] [address] PCP - General 05/22/12 10/17/17 Gurpreet Mares MD [address] [place] [address] PCP - General Internal Medicine 12/09/20 Tray Marsh MD [address] [place] [address] Loan Examiner Cardiovascular Disease 05/18/21 Jonelle Lees NP [address] [place] [address] Nurse Practitioner Cardiology 05/18/21 10/22/23 Kim Webb NP [address] [place] [address] Cardiology 10/23/23 documented as of this encounter
--- OUTSIDE RECORDS SUMMARY | 2025-04-30 14:45 | XMS_ITS | Encounter Summary ---
Author Organization [facility] Address [address] [place] [address] Care Team Providers Care Tub Mender Name Role Phone Gurpreet Mares MD Primary Care Provider Tray Mcdonough MD Unavailable Jonelle Lees HISTOLOGIC TECHNICIAN Unavailable Unavailab Kim Marti HISTOLOGIC TECHNICIAN Unavailable [phone] Encounter Details Date Type Department Care Team Description 04/25/2023 SCAN Medical Records [address] [place] [address] Abstract, Provider Social History Tobacco Use Types [...] on filedocumented in this encounter Care Teams Tub Mender Relationship Specialty Start Date End Date Gurpreet Mares MD PCP - General Internal Medicine 12/09/20 Tray Marsh MD Validation Leader Cardiovascular Disease 05/18/21 Jonelle Lees NP Nurse Practitioner Cardiology 05/18/21 4 Kim Webb NP Cardiology 10/23/23 documented as of this encounter
--- OUTSIDE RECORDS SUMMARY | 2025-04-30 14:45 | XMS_ITS | Encounter Summary ---
Author Organization [facility] Address [address] [place] [address] Care Team Providers Care Meter Reading Clerk Name Role Phone Gurpreet Mares MD Primary Care Provider Tray Mcdonough MD Unavailable Jonelle Lees HEALTHCARE RECRUITER Unavailable Unavailab Kim Marti HEALTHCARE RECRUITER Unavailable Reason for Visit * Reason Onset Date Comments E-prescribe Rx Request 02/10/2023 Lopressor declined Encounter Details Date Type Department Care Team Description 02/10/2023 Refill Cardio PVCA Diag Testing 101 300 [facility] [address] [place] [address] Tray Marsh MD [address] [place] [address] [phone] E-prescribe Rx Request (Lopressor declined ) Social [...] on filedocumented in this encounter Care Teams Meter Reading Clerk Relationship Specialty Start Date End Date Gurpreet Mares MD PCP - General Internal Medicine 12/09/20 Tray Marsh MD [employer] Cardiovascular Disease 05/18/21 Jonelle Lees NP Nurse Practitioner Cardiology 05/18/21 4 Kim Webb NP Cardiology 10/23/23 documented as of this encounter
--- OUTSIDE RECORDS SUMMARY | 2025-04-30 14:45 | XMS_ITS | Encounter Summary ---
Author Organization [facility] Address [address] [place] [address] Care Team Providers Care Ent Physician Name Role Phone Gurpreet Mares MD Primary Care Provider Tray Mcdonough MD Unavailable Jonelle Lese JAVA SQL DEVELOPER Unavailable Unavailab Kim Marti JAVA SQL DEVELOPER Unavailable [phone] Encounter Details Date Type Department Care Team Description 08/11/2022 Pt. Non Urgent Medical Question Cardio PVCA Diag Testing 101 300 [facility] [address] [place] [address] Tray Marsh MD [address] [place] [address] [phone] Social History Tobacco Use Types Packs/Day Years [...] on filedocumented in this encounter Care Teams Ent Physician Relationship Specialty Start Date End Date Gurpreet Mares MD PCP - General Internal Medicine 12/09/20 Tray Marsh MD School Bus Attendant Cardiovascular Disease 05/18/21 Jonelle Lees NP Nurse Practitioner Cardiology 05/18/21 4 Kim Webb NP Cardiology 10/23/23 documented as of this encounter
--- OUTSIDE RECORDS SUMMARY | 2025-04-30 14:45 | XMS_ITS | Encounter Summary ---
Author Organization [facility] Address [address] [place] [address] Care Team Providers Care Histology Specialist Name Role Phone Gurpreet Mares MD Primary Care Provider Tray Mcdonough MD Unavailable Jonelle Lees NP Unavailable Unavailab Kim Marti NP Unavailable [phone] Encounter Details Date Type Department Care Team Description 10/06/2023 SCAN Medical Records [address] [place] [address] Abstract, Provider Social History Tobacco Use Types [...] on filedocumented in this encounter Care Teams Histology Specialist Relationship Specialty Start Date End Date Gurpreet Mares MD PCP - General Internal Medicine 12/09/20 Tray Marsh MD Coal Pipeline Operator Cardiovascular Disease 05/18/21 Jonelle Lees NP Nurse Practitioner Cardiology 05/18/21 3/3/2 4 Kim Webb NP Cardiology 10/23/23 documented as of this encounter
--- OUTSIDE RECORDS SUMMARY | 2025-04-30 14:45 | XMS_ITS | Encounter Summary ---
Author Organization [facility] Address [address] [place] [address] Care Team Providers Care Coding Consultant Name Role Phone Augusto Hernandez MD Primary Care Provider [phone] Guprreet Mares MD Primary Care Provider Tray Mcdonough MD Unavailable Jonelle Lees STRATEGIC PARTNERSHIP MANAGER Unavailable Unavailab Kim Marti STRATEGIC PARTNERSHIP MANAGER Unavailable [phone] Encounter Details Date Type Department Care Team Description 10/04/2018 Refill Pulmonology - [address] [place] [phone] Addison Aranda MD Social History Tobacco [...] Renewal Request Original authorizing provider: MD Rafia Gordon would like a refill of the following medications: fluticasone-salmeterol (ADVAIR DISKUS) 250-50 MCG/DOSE diskus inhaler [Addison Aranda MD] Preferred pharmacy: [id number] - [place], [place] - [address] [facility] AT Comment: documented in this encounter Plan of Treatment Not on file documented as of this encounter Visit Diagnoses Not on filedocumented in this encounter Care Teams Coding Consultant Relationship Specialty Start Date End Date Augusto Hernandez MD [address] [place] [address] PCP - General Internal Medicine 12/11/17 12/08/20 Gurpreet Mares MD [address] [place] [address] PCP - General Internal Medicine 12/09/20 Tray Marsh MD [address] [place] [address] Expanded Duty Dental Assistant Cardiovascular Disease 05/18/21 Jonelle Lees NP [address] [place] [address] Nurse Practitioner Cardiology 05/18/21 10/22/23 Kim Webb NP [address] [place] [address] Cardiology 10/23/23 documented as of this encounter
--- OUTSIDE RECORDS SUMMARY | 2025-04-30 14:45 | XMS_ITS | Encounter Summary ---
Author Organization [facility] Address [address] [place] [address] Care Team Providers Care Trust And Estates Paralegal Name Role Phone Gurpreet Mares MD Primary Care Provider Tray Mcdonough MD Unavailable Jonelle Lees HOME CARE SCHEDULER Unavailable Unavailab Kim Marti HOME CARE SCHEDULER Unavailable [phone] Encounter Details Date Type Department Care Team Description 09/18/2022 [facility] Medical Records [address] [place] [address] Social History Tobacco Use Types Packs/Day Years [...] on filedocumented in this encounter Care Teams Trust And Estates Paralegal Relationship Specialty Start Date End Date Gurpreet Mares MD PCP - General Internal Medicine 12/09/20 Tray Marsh MD Management Coordinator Cardiovascular Disease 05/18/21 Jonelle Lees NP Nurse Practitioner Cardiology 05/18/21 4 Kim Webb NP Cardiology 10/23/23 documented as of this encounter
--- OUTSIDE RECORDS SUMMARY | 2025-04-30 14:45 | XMS_ITS | Encounter Summary ---
Author Organization [facility] Address [address] [place] [address] Care Team Providers Care Mounter Smoking Pipe Name Role Phone Gurpreet Mares MD Primary Care Provider Tray Mcdonough MD Unavailable Jonelle Lees OPTICAL MECHANIC APPRENTICE Unavailable Unavailab Kim Marti OPTICAL MECHANIC APPRENTICE Unavailable [phone] Reason for Visit * Reason Onset Date Comments Medication 04/21/2023 Digoxin Encounter Details Date Type Department Care Team Description 04/21/2023 Pt. Non Urgent Medical Question Cardio PVCA Diag Testing 101 300 [facility] [address] [place] [address] Tray Marsh MD [address] [place] [address] [phone] Social History Tobacco Use Types Packs/Day Years [...] on filedocumented in this encounter Care Teams Mounter Smoking Pipe Relationship Specialty Start Date End Date Gurpreet Mares MD PCP - General Internal Medicine 12/09/20 Tray Marsh MD Weather Teacher Cardiovascular Disease 05/18/21 Jonelle Lees NP Nurse Practitioner Cardiology 05/18/21 4 Kim Webb NP Cardiology 10/23/23 documented as of this encounter
--- OUTSIDE RECORDS SUMMARY | 2025-04-30 14:45 | XMS_ITS | Encounter Summary ---
Author Organization [facility] Address [address] [place] [address] Care Team Providers Care Associate Director Qa Name Role Phone Gurpreet Mares MD Primary Care Provider Tray Mcdonough MD Unavailable Jonelle Lees SUB PLANT MANAGER Unavailable Unavailab Kim Marti SUB PLANT MANAGER Unavailable [phone] Encounter Details Date Type Department Care Team Description 03/15/2023 Pt. Non Urgent Medical Question Cardio PVCA Diag Testing 101 300 [facility] [address] [place] [address] Tray Marsh MD [address] [place] [address] [phone] Social History Tobacco Use Types Packs/Day Years [...] on filedocumented in this encounter Care Teams Associate Director Qa Relationship Specialty Start Date End Date Gurpreet Mares MD PCP - General Internal Medicine 12/09/20 Tray Marsh MD Template Inspector Cardiovascular Disease 05/18/21 Jonelle Lees NP Nurse Practitioner Cardiology 05/18/21 4 Kim Webb NP Cardiology 10/23/23 documented as of this encounter
--- OUTSIDE RECORDS SUMMARY | 2025-04-30 14:45 | XMS_ITS | Encounter Summary ---
Author Organization [facility] Address [address] [place] [address] Care Team Providers Care Purchasing/Receiving Name Role Phone Augusto Hernandez MD Primary Care Provider [phone] Gurpreet Mares MD Primary Care Provider Tray Mcdonough MD Unavailable Jonelle Lees BUCKLE ATTACHER Unavailable Unavailab Kim Marti BUCKLE ATTACHER Unavailable [phone] Encounter Details Date Type Department Care Team Description 03/07/2019 Pt. Non Urgent Medic al Question Pulmonology - [address] [place] [address] Addison Aranda MD Social History [...] on filedocumented in this encounter Care Teams Purchasing/Receiving Relationship Specialty Start Date End Date Augusto Hernandez MD [address] [place] [address] PCP - General Internal Medicine 12/11/17 12/08/20 Gurpreet Mares MD [address] [place] [address] PCP - General Internal Medicine 12/09/20 Tray Marsh MD [address] [place] [address] Marbleizing Machine Tender Cardiovascular Disease 05/18/21 Jonelle Lees NP [address] [place] [address] Nurse Practitioner Cardiology 05/18/21 10/22/23 Kim Webb NP [address] [place] [address] Cardiology 10/23/23 documented as of this encounter
--- OUTSIDE RECORDS SUMMARY | 2025-04-30 14:45 | XMS_ITS | Encounter Summary ---
Author Organization [employer] [facility] Address [address] [place] [address] Care Team Providers Care Feed Mill Tender Name Role Phone Augusto Hernandez MD Primary Care Provider [phone] Gurpreet Mares MD Primary Care Provider Tray Mcdonough MD Unavailable Jonelle Lees NUTRITION TEACHER Unavailable Unavailab Kim Marti NUTRITION TEACHER Unavailable [phone] Encounter Details Date Type Department Care Team Description 10/13/2020 Old Medical Records Medical Records [address] [place] [address] Abstract, Provider Social History Tobacco Use Types [...] on filedocumented in this encounter Care Teams Feed Mill Tender Relationship Specialty Start Date End Date Augusto Hernandez MD [address] [place] [address] PCP - General Internal Medicine 12/11/17 12/08/20 Gurpreet Mares MD [address] [place], [place] PCP - General Internal Medicine 12/09/20 Tray Marsh MD [address] [place], [place] Senior Materials Analyst Cardiovascular Disease 05/18/21 Jonelle Lees NP [address] [place] [address] Nurse Practitioner Cardiology 05/18/21 10/22/23 Kim Webb NP [address] [place] [address] Cardiology 10/23/23 documented as of this encounter
--- OUTSIDE RECORDS SUMMARY | 2025-04-30 14:45 | XMS_ITS | Encounter Summary ---
Author Organization [facility] Address [address] [place] [address] Care Team Providers Care Natural Gas Basis Trader Name Role Phone Augusto Hernandez MD Primary Care Provider [phone] Gurpreet Mares MD Primary Care Provider Tray Mcdonough MD Unavailable Jonelle Lees HEEL SCOURER Unavailable Unavailab Kim Marti HEEL SCOURER Unavailable [phone] Reason for Visit * Reason Onset Date Comments Faxed Refill 10/07/2019 [facility] Encounter Details Date Type Department Care Team Description 10/07/2019 Refill Internal Medicine - [address], [address] [place] [address] Augusto Hernandez MD [address] [place], [place] [id number] [facility]axed [facility]ill ([facility]) Social [...] an upcoming appointment? No-[facility] [...] the RX # listed on the fax? [id number] Patients current [facility] carrier is: [facility] / Plan: BHAVANA MCGUIRE TYPE 2 / Product Type: HMO [id number] documented in this encounter Plan of Treatment Not on file documented as of this encounter Visit Diagnoses Not on filedocumented in this encounter Care Teams Natural Gas Basis Trader Relationship Specialty Start Date End Date Augusto Hernandez MD [address] [place], [place] PCP - General Internal Medicine 12/11/17 12/08/20 Gurpreet Mares MD [address] [place], [place] PCP - General Internal Medicine 12/09/20 Tray Marsh MD [address] [place], [place] Medicinal Chemist Cardiovascular Disease 05/18/21 Jonelle Lees NP [address] [place], [place] Nurse Practitioner Cardiology 05/18/21 10/22/23 Kim Webb, KHANH [address] [place] [address] Cardiology 10/23/23 documented as of this encounter
--- OUTSIDE RECORDS SUMMARY | 2025-04-30 14:45 | XMS_ITS | Encounter Summary ---
Author Organization [facility] Address [address] [place] [address] Care Team Providers Care Can Sorter Name Role Phone Augusto Hernandez MD Primary Care Provider [phone] Gurpreet Mares MD Primary Care Provider Tray Mcdonough MD Unavailable Jonelel Lees TREE PULLER Unavailable Unavailab Kim Marti TREE PULLER Unavailable [phone] Encounter Details Date Type Department Care Team Description 10/09/2018 Telephone Internal Medicine - [address], [address] [place] [address] Augusto Hernandez MD [address] [place], [place] [phone] Social History Tobacco Use Types Packs/Day Years Used Date Smoking Tobacco: Former Sex Assigned at Date Recorded Not on file Job Start Date Occupation Industry Not on file Not on file Not on file documented as of this encounter Plan of Treatment Not on file documented as of this encounter Visit Diagnoses Not on filedocumented in this encounter Care Teams Can Sorter Relationship Specialty Start Date End Date Augusto Hernandez MD [address] [place], [place] [id number] PCP - General Internal Medicine 12/11/17 12/08/20 Gurpreet Mares MD [address] [place] [address] PCP - General Internal Medicine 12/09/20 Tray Marsh MD [address] [place], [place] [phone] Telephony Engineer Cardiovascular Disease 05/18/21 Jonelle Lees NP [address] [place] [address] Nurse Practitioner Cardiology 05/18/21 10/22/23 Kim Webb NP [address] [place] [address] Cardiology 10/23/23 documented as of this encounter
--- OUTSIDE RECORDS SUMMARY | 2025-04-30 14:45 | XMS_ITS | Encounter Summary ---
Author Organization [facility] Address [address] [place] [address] Care Team Providers Care Spooler Name Role Phone Gurpreet Mares MD Primary Care Provider Tray Mcdonough MD Unavailable Jonelle Lees FIELD ARTILLERY TARGETING TECHNICIAN Unavailable Unavailab Kim Marti FIELD ARTILLERY TARGETING TECHNICIAN Unavailable [phone] Encounter Details Date Type Department Care Team Description 05/02/2022 Refill Cardio PVCA Diag Testing 101 300 [facility] [address] [place] [address] Tray Marsh MD [address] [place] [address] [phone] Social History Tobacco Use Types Packs/Day Years [...] fibrillation documented in this encounter Care Teams Spooler Relationship Specialty Start Date End Date Gurpreet Mares MD PCP - General Internal Medicine 12/09/20 Tray Marsh MD Shallot Packer Cardiovascular Disease 05/18/21 Jonelle Lees NP Nurse Practitioner Cardiology 05/18/21 4 Kim Webb NP Cardiology 10/23/23 documented as of this encounter
--- OUTSIDE RECORDS SUMMARY | 2025-04-30 14:45 | XMS_ITS | Encounter Summary ---
Author Organization [facility] Address [address] [place] [address] Care Team Providers Care Child Watch Attendant Name Role Phone Augusto Hernandez MD Primary Care Provider [phone] Gurpreet Mares MD Primary Care Provider Tray Mcdonough MD Unavailable Jonelle Lees TRANSFER PROFESSOR Unavailable Unavailab Kim Marti TRANSFER PROFESSOR Unavailable [phone] Encounter Details Date Type Department Care Team Description 03/12/2019 Release of Information Medical Records [address] [place] [address] Abstract, Provider Social History Tobacco Use Types [...] on filedocumented in this encounter Care Teams Child Watch Attendant Relationship Specialty Start Date End Date Augusto Hernandez MD [address] [place], [place] [phone] PCP - General Internal Medicine 12/11/17 12/08/20 Gurpreet Mares MD [address] [place], [place] PCP - General Internal Medicine 12/09/20 Tray Marsh MD [address] [place], [place] Screen Stretcher Cardiovascular Disease 05/18/21 Jonelle Lees NP [address] [place] [address] Nurse Practitioner Cardiology 05/18/21 10/22/23 Kim Webb NP [address] [place] [address] Cardiology 10/23/23 documented as of this encounter
--- OUTSIDE RECORDS SUMMARY | 2025-04-30 14:46 | XMS_ITS | Encounter Summary ---
Author Organization [facility] Address [address] [place] [address] Care Team Providers Care Photocomposing Keyboard Operator Name Role Phone Augusto Hernadnez MD Primary Care Provider [phone] Gurpreet Mares MD Primary Care Provider Tray Mcdonough MD Unavailable Jonelle Lees MESSENGER FLOORPERSON Unavailable Unavailab Kim Marti MESSENGER FLOORPERSON Unavailable [phone] Encounter Details Date Type Department Care Team Description 11/18/2018 Pt. Non Urgent Medical Question Pulmonology - [place] [address] [facility] [address] [place] [address] Jesus Leon PA-C [address] [facility] [address] [place] [address] Social History Tobacco Use Types [...] on filedocumented in this encounter Care Teams Photocomposing Keyboard Operator Relationship Specialty Start Date End Date Augusto Hernandez MD [address] [place] [address] PCP - General Internal Medicine 12/11/17 12/08/20 Gurpreet Mares MD [address] [place] [address] PCP - General Internal Medicine 12/09/20 Tray Marsh MD [address] [place] [address] Disaster Recovery Analyst Cardiovascular Disease 05/18/21 Jonelle Lees NP [address] [place] [address] Nurse Practitioner Cardiology 05/18/21 10/22/23 Kim Webb NP [address] [place] [address] Cardiology 10/23/23 documented as of this encounter
--- OUTSIDE RECORDS SUMMARY | 2025-04-30 14:46 | XMS_ITS | Encounter Summary ---
Author Organization [facility] Address [address] [place] [address] Care Team Providers Care Elementary School Teacher Name Role Phone Gurpreet Mares MD Primary Care Provider Tray Mcdonough MD Unavailable Jonelle Lees HALAL MEAT PACKER Unavailable Unavailab Kim Marti HALAL MEAT PACKER Unavailable [phone] Encounter Details Date Type Department Care Team Description 12/21/2021 SCAN Medical Records [address] [place] [address] Harper Reeves Social History Tobacco Use Types [...] on filedocumented in this encounter Care Teams Elementary School Teacher Relationship Specialty Start Date End Date Gurpreet Mares MD PCP - General Internal Medicine 12/09/20 Tray Marsh MD Draft Roller Picker Cardiovascular Disease 05/18/21 Jonelle Lees NP Nurse Practitioner Cardiology 05/18/21 4 Kim Webb NP Cardiology 10/23/23 documented as of this encounter
--- OUTSIDE RECORDS SUMMARY | 2025-04-30 14:46 | XMS_ITS | Encounter Summary ---
Author Organization [facility] Address [address] [place] [address] Care Team Providers Care Sales Producer Name Role Phone Gurpreet Mares MD Primary Care Provider Tray Mcdonough MD Unavailable Jonelle Lees IMAGING ANALYST Unavailable Unavailab Kim Marti IMAGING ANALYST Unavailable [phone] Reason for Visit * Reason Onset Date Comments Medication 05/21/2021 Digoxin refill Encounter Details Date Type Department Care Team Description 05/21/2021 Refill Cardio PVC POC 154 [address] [facility] [address] [place], [place] [phone] Tray Marsh MD [address] [place] [address] [phone] Medication (Digoxin refill) Social History Tobacco Use [...] fibrillation documented in this encounter Care Teams Sales Producer Relationship Specialty Start Date End Date Gurpreet Mares MD PCP - General Internal Medicine 12/09/20 Tray Marsh MD Line Assigner Cardiovascular Disease 05/18/21 Jonelle Lees NP Nurse Practitioner Cardiology 05/18/21 4 Kim Webb NP Cardiology 10/23/23 documented as of this encounter
--- OUTSIDE RECORDS SUMMARY | 2025-04-30 14:46 | XMS_ITS | Encounter Summary ---
Author Organization [facility] Address [address] [place] [address] Care Team Providers Care Law Enforcement Officer Name Role Phone Gurpreet Mares MD Primary Care Provider Tray Mcdonough MD Unavailable Jonelle Lees COMPRESSOR SERVICE TECHNICIAN Unavailable Unavailab Kim Marti NP Unavailable [phone] Encounter Details Date Type Department Care Team Description 10/31/2021 Pt. Non Urgent Medic al Question Cardio PVC Stfd 102 300 [facility] [address] [place] [address] Jonelle Lees NP Social History Tobacco Use [...] filedocumented in this encounter Care Teams Law Enforcement Officer Relationship Specialty Start Date End Date Gurpreet Mares MD PCP - General Internal Medicine 12/09/20 Tray Marsh MD Catalog Librarian Cardiovascular Disease 05/18/21 Jonelle Lees NP Nurse Practitioner Cardiology 05/18/21 4 Kim Webb NP Cardiology 10/23/23 documented as of this encounter
--- OUTSIDE RECORDS SUMMARY | 2025-04-30 14:46 | XMS_ITS | Encounter Summary ---
[facility] Organization [facility] Address [address] [place] [address] Care Team Providers Care Scutcher Tender Name Role Phone Augusto Hernandez MD Primary Care Provider [phone] Gurpreet Mares MD Primary Care Provider Tray Mcdonough MD Unavailable Jonelle Lees CARTOGRAPHY TEACHER Unavailable Unavailab Kim Marti CARTOGRAPHY TEACHER Unavailable [phone] Encounter Details Date Type Department Care Team Description 11/16/2018 Pt. Non Urgent Medical Question Pulmonology - [place] [address] [facility] [address] [place] [address] Jesus Leon PA-C [address] [facility] [address] [place] [address] Social History Tobacco Use Types [...] 11/16/2018 2:45 PM EDTFrom: Rafia Ambrosio To: Jesus Leon PA-C Sent: 11/16/2018 1:46 PM EDT Subject: DALIRESP With the side effects I am going to wait till after my [facility] visit [place] . Its a long ride toworry about stomach or bathroom . documented in this encounter Plan of Treatment Not on file documented as of this encounter Visit Diagnoses Not on filedocumented in this encounter Care Teams Scutcher Tender Relationship Specialty Start Date End Date Augusto Hernandez MD [address] [place] [address] PCP - General Internal Medicine 12/11/17 12/08/20 Gurpreet Mares MD [address] [place] [address] PCP - General Internal Medicine 12/09/20 Tray Marsh MD [address] [place] [address] Optical Store Manager Cardiovascular Disease 05/18/21 Jonelle Lees NP [address] [place] [address] Nurse Practitioner Cardiology 05/18/21 10/22/23 Kim Webb NP [address] [place] [address] Cardiology 10/23/23 documented as of this encounter
--- OUTSIDE RECORDS SUMMARY | 2025-04-30 14:46 | XMS_ITS | Encounter Summary ---
Author Organization [facility] Address [address] [place] [address] Care Team Providers Care Appliance Counselor Name Role Phone Augusto Hernandez MD Primary Care Provider [phone] Gurpreet Mares MD Primary Care Provider Tray Mcdonough MD Unavailable Jonelle Lees AIR DUCT MECHANIC Unavailable Unavailab Kim Marti AIR DUCT MECHANIC Unavailable [phone] Encounter Details Date Type Department Care Team Description 11/16/2018 Pt. Non Urgent Medic al Question Pulmonology - [address] [place] [address] Addison Aranda MD Social History [...] on filedocumented in this encounter Care Teams Appliance Counselor Relationship Specialty Start Date End Date Augusto Hernandez MD [address] [place] [address] PCP - General Internal Medicine 12/11/17 12/08/20 Gurpreet Mares MD [address] [place] [address] PCP - General Internal Medicine 12/09/20 Tray Marsh MD [address] [place] [address] Cost Recorder Cardiovascular Disease 05/18/21 Jonelle Lees NP [address] [place] [address] Nurse Practitioner Cardiology 05/18/21 10/22/23 Kim Webb NP [address] [place] [address] Cardiology 10/23/23 documented as of this encounter
--- OUTSIDE RECORDS SUMMARY | 2025-04-30 14:46 | XMS_ITS | Encounter Summary ---
Author Organization [facility] Address [address] [place] [address] Care Team Providers Care Hospitality Intern Name Role Phone Augusto Hernandez MD Primary Care Provider [phone] Gurpreet Mares MD Primary Care Provider rTay Mcdonough MD Unavailable Jonelle Lees CONTINUOUS MINING MACHINE COMPANY MINER Unavailable Unavailab Kim Marti [employer]IN[employer]OUS MINING [employer] MINER Unavailable [phone] Encounter Details Date Type Department Care Team Description 11/16/2018 Pt. Non Urgent Medic al Question Pulmonology - [address] [place] [address] Addison Aranda MD Social History [...] on filedocumented in this encounter Care Teams Hospitality Intern Relationship Specialty Start Date End Date Augusto Hernandez MD [address] [place] [address] PCP - General Internal Medicine 12/11/17 12/08/20 Gurpreet Mares MD [address] [place] [address] PCP - General Internal Medicine 12/09/20 Tray Marsh MD [address] [place] [address] Patient Registration Rep Cardiovascular Disease 05/18/21 Jonelle Lees NP [address] [place] [address] Nurse Practitioner Cardiology 05/18/21 10/22/23 Kim Webb NP [address] [place] [address] Cardiology 10/23/23 documented as of this encounter
--- OUTSIDE RECORDS SUMMARY | 2025-04-30 14:46 | XMS_ITS | Encounter Summary ---
Author Organization [facility] Address [address] [place] [address] Care Team Providers Care Business Insurance Agent Name Role Phone Gurpreet Mares MD Primary Care Provider Tray Mcdonough MD Unavailable Jonelle Lees JAVA PORTAL DEVELOPER Unavailable Unavailab Kim Marti JAVA PORTAL DEVELOPER Unavailable [phone] Encounter Details Date Type Department Care Team Description 06/23/2021 [facility] [address] [place] [address] Toyin Cruz PA-C Social History Tobacco Use [...] filedocumented in this encounter Care Teams Business Insurance Agent Relationship Specialty Start Date End Date Gurpreet Mares MD PCP - General Internal Medicine 12/09/20 Tray Marsh MD [place] Cardiovascular Disease 05/18/21 Jonelle Lees NP Nurse Practitioner Cardiology 05/18/21 4 Kim Webb NP Cardiology 10/23/23 documented as of this encounter
--- OUTSIDE RECORDS SUMMARY | 2025-04-30 14:46 | XMS_ITS | Encounter Summary ---
Author Organization [facility] Address [address] [place] [address] Care Team Providers Care Geophysical Prospector Name Role Phone Augusto Hernandez MD Primary Care Provider [phone] Gurpreet Mares MD Primary Care Provider Tray Mcdonough MD Unavailable Jonelle Lees PRACTICE MANAGEMENT CONSULTANT Unavailable Unavailab Kim Marti PRACTICE MANAGEMENT CONSULTANT Unavailable [phone] Encounter Details Date Type Department Care Team Description 11/15/2018 Pt. Non Urgent Medic al Question Pulmonology - [address] [place] [address] Addison Aranda MD Social History [...] on filedocumented in this encounter Care Teams Geophysical Prospector Relationship Specialty Start Date End Date Augusto Hernandez MD [address] [place] [address] PCP - General Internal Medicine 12/11/17 12/08/20 Gurpreet Mares MD [address] [place] [address] PCP - General Internal Medicine 12/09/20 Tray Marsh MD [address] [place] [address] Orthotist Cardiovascular Disease 05/18/21 Jonelle Lees NP [address] [place] [address] Nurse Practitioner Cardiology 05/18/21 10/22/23 Kim Webb NP [address] [place] [address] Cardiology 10/23/23 documented as of this encounter
== END 2025-04-30 11:03 | disposition home or self-care (01) ==
LOC: HO.LAB 11:02
PROVIDERS: PCP Internal Medicine; Visit Provider Hospitalist
DX: J96.11 Chronic respiratory failure with hypoxia (principal); J96.12 Chronic respiratory failure with hypercapnia; J43.2 Centrilobular emphysema; Z79.52 Long term (current) use of systemic steroids; Z87.891 Personal history of nicotine dependence; R91.8 Other nonspecific abnormal finding of lung field; Z79.899 Other long term (current) drug therapy; Z79.51 Long term (current) use of inhaled steroids; Z79.2 Long term (current) use of antibiotics
CPT/HCPCS: 36415; 80048; 82803; 85025; 99212